=== PATIENT | female | born 1985 | race Caucasian/White ===

== ENCOUNTER 2023-03-28 15:01 | Emergency (ER) | payer OTHER, SELFPAY ==
[2023-03-28 15:15] VITALS: BP 123/86; PULSE 77; RESP 18; TEMP 36.8; O2SAT 99; BMI 29.5
--- NOTE | 2023-03-28 15:25 | ED.URI1 ---
HPI - URI/Sore Throat General Chief Complaint: Upper Respiratory Infection Stated Complaint: COUGH, FEVER, CONGESTION Time Seen by Provider: 03/28/23 15:19 History of Present Illness HPI Narrative: patient is a 37-year-old female presents the emergency department with upper respiratory symptoms for the past two days. She is accompanied by her 2 children who are also being seen for the same. She states he could not see their PCP until April 30. They present to the Emergency Room for two day history of intermittent fevers, cough, congestion. Patient with normal vital signs on presentation to the Emergency Room. She is not concerned for . no vomiting or diarrhea. Related Data Previous Rx's Medication Instructions Recorded aubmdvrcfooeldn-carkjhhjstcfycw-QX 10 ml PO Q6H PRN cold symptoms 03/28/23 2 mg-30 mg-10 mg/5 mL oral syrup #200 mL (Bromfed DM) ondansetron 4 mg disintegrating 4 mg PO Q6H PRN nausea and 03/28/23 tablet vomiting #12 tabs Review of Systems ROS Constitutional Denies: fever or chills Ears, nose, mouth, and throat Reports: nasal congestion Cardiovascular Denies: chest pain Respiratory Reports: cough; Denies: shortness of breath Gastrointestinal Reports: nausea; Denies: vomiting Genitourinary Denies: painful urination Integumentary/Breast Denies: rash Endocrine Denies: excessive urination Allergic/Immunologic Denies: hives Exam Constitutional Vital Signs, click to edit/add: Last Vital Signs Temp 98.3 F 03/28/23 15:15 Pulse 77 03/28/23 15:15 Resp 18 03/28/23 15:15 BP 123/86 03/28/23 15:15 Pulse Ox 99 03/28/23 15:15 O2 Del Method Room Air 03/28/23 15:15 Course Vital Signs Vital signs: Vital Signs Temperature 98.3 F 03/28/23 15:15 Pulse Rate 77 03/28/23 15:15 Respiratory Rate 18 03/28/23 15:15 Blood Pressure 123/86 03/28/23 15:15 Pulse Oximetry 99 03/28/23 15:15 Oxygen Delivery Method Room Air 03/28/23 15:15 Temperature 98.3 F 03/28/23 15:15 Pulse Rate 77 03/28/23 15:15 Respiratory Rate 18 03/28/23 15:15 Blood Pressure 123/86 03/28/23 15:15 Pulse Oximetry 99 03/28/23 15:15 Oxygen Delivery Method Room Air 03/28/23 15:15 MDM - URI/Sore Throat MDM Narrative Medical decision making narrative: patient was offered Covid testing for her and her children, she refused Covid testing stating I would rather not know . Her history and physical are consistent with upper respiratory infection, treated with symptom management with Bromfed-DM and Zofran. Follow-up with PCP and return to the Emergency Room if symptoms change or worsen. Medical Records Attestation: I reviewed the patient's medical records. Discharge Plan Discharge Chief Complaint: Upper Respiratory Infection Clinical Impression: Upper respiratory infection Patient Disposition: Home, Self-Care Time of Disposition Decision: 15:19 Condition: Good Prescriptions / Home Meds: New vhuwwnaragchhup-pbfvkxopb-IA [Bromfed DM] 2-30-10 mg/5 mL syrup 10 ml PO Q6H PRN (Reason: cold symptoms) Qty: 200 0RF ondansetron 4 mg tablet,disintegrating 4 mg PO Q6H PRN (Reason: nausea and vomiting) Qty: 12 0RF Instructions: Upper Respiratory Infection (ED) Stand Alone Forms: Portal Instructions Referrals: Moshe Bennett MD [Primary Care Provider] - 1 week
== END 2023-03-28 15:31 | disposition home or self-care (01) ==
PROVIDERS: Emergency Provider Emergency Medicine Emergency Medical Services; PCP Family Medicine
DX: J06.9 Acute upper respiratory infection, unspecified (principal)
CPT/HCPCS: 99283

== ENCOUNTER 2023-07-14 13:55 | Emergency (ER) | payer OTHER, SELFPAY ==
[2023-07-14 14:12] VITALS: BP 107/77; PULSE 86; RESP 20; TEMP 36.6; O2SAT 100; BMI 29.8
[2023-07-14 15:01] LABS: Influenza Virus A Antigen Negative; Influenza Virus B Antigen Negative; Internal Control Within Normal Limits; Strep A Antigen Screen Negative
[2023-07-14 15:02] LABS: SARS-CoV-2 Ag POSITIVE (NEGATIVE)
--- NOTE | 2023-07-14 15:35 | ED.URI1 ---
HPI - URI/Sore Throat General Chief Complaint: Upper Respiratory Infection Stated Complaint: URTI Time Seen by Provider: 07/14/23 14:15 Source: patient History of Present Illness HPI Narrative: [age] year old female presents for cough. It started today. Her two children are being seen for similar symptoms. No vomiting or diarrhea. Related Data Home Medications Medication Instructions Recorded Confirmed dextroamphetamine-amphetamine ER 30 mg PO DAILY 07/14/23 07/14/23 30 mg 24hr capsule,extend release Previous Rx's Medication Instructions Recorded vlyzlecuunjzvkk-tokehfkbbssddzc-DU 10 ml PO Q6H PRN cold symptoms 03/28/23 2 mg-30 mg-10 mg/5 mL oral syrup #200 mL (Bromfed DM) ondansetron 4 mg disintegrating 4 mg PO Q6H PRN nausea and 03/28/23 tablet vomiting #12 tabs Allergies Allergy/AdvReac Type Severity Reaction Status Date / Time No Known Drug Allergies Allergy Verified 07/14/23 14:11 Review of Systems ROS Narrative A ten point review of systems is negative except as noted above. Exam Narrative Exam Narrative: Nurses note and vital signs reviewed and patient is not hypoxic. General: The patient appears well and in no apparent distress. Patient is resting comfortably on cart. Skin: Warm, dry, no pallor noted. There is no rash noted. Head: Normocephalic, atraumatic Eye: Normal conjunctiva, no drainage Ears, Nose, Mouth, and Throat: oral mucosa is moist. Nares patent. Cardiovascular: Regular Rate and Rhythm Respiratory: Patient is in no distress, no accessory muscle use, lungs are clear to auscultation, no wheezing, rales or rhonchi GI: nontender Musculoskeletal: no joint swelling Neurological: A&O, normal speech Psychiatric: Cooperative Constitutional Vital Signs, click to edit/add: Last Vital Signs Temp 97.9 F 07/14/23 14:12 Pulse 86 07/14/23 14:12 Resp 20 07/14/23 14:12 BP 107/77 07/14/23 14:12 Pulse Ox 100 07/14/23 14:12 O2 Del Method Room Air 07/14/23 14:12 Course Vital Signs Vital signs: Vital Signs Temperature 97.9 F 07/14/23 14:12 Pulse Rate 86 07/14/23 14:12 Respiratory Rate 20 07/14/23 14:12 Blood Pressure 107/77 07/14/23 14:12 Pulse Oximetry 100 07/14/23 14:12 Oxygen Delivery Method Room Air 07/14/23 14:12 Temperature 97.9 F 07/14/23 14:12 Pulse Rate 86 07/14/23 14:12 Respiratory Rate 20 07/14/23 14:12 Blood Pressure 107/77 07/14/23 14:12 Pulse Oximetry 100 07/14/23 14:12 Oxygen Delivery Method Room Air 07/14/23 14:12 MDM - URI/Sore Throat MDM Narrative Medical decision making narrative: testing is positive for Covid. She was informed. Lab Data Attestation: I reviewed the patient's lab results. Labs: Lab Results 07/14/23 Range/Units 14:20 SARS-CoV-2 (PCR) Positive A (NEGATIVE) Influenza Type A Ag Negative Influenza Type B Ag Negative Streptococcus Screen Negative Discharge Plan Discharge Chief Complaint: Upper Respiratory Infection Clinical Impression: COVID-19 Patient Disposition: Home, Self-Care Time of Disposition Decision: 15:34 Condition: Good Mode of Transportation: Private Vehicle Prescriptions / Home Meds: No Action orntpzdhoakbsly-jsxxwrbqa-FE [Bromfed DM] 2-30-10 mg/5 mL syrup 10 ml PO Q6H PRN (Reason: cold symptoms) Qty: 200 0RF ondansetron 4 mg tablet,disintegrating 4 mg PO Q6H PRN (Reason: nausea and vomiting) Qty: 12 0RF dextroamphetamine-amphetamine 30 mg capsule,extended release 24hr 30 mg PO DAILY Instructions: COVID-19 (Coronavirus Disease 2019) (ED), COVID-19: Slow the Coronavirus Spread (ED), Face Coverings (Masks) and COVID-19 (ED), How to Recover from COVID-19 at Home (ED) Stand Alone Forms: Portal Instructions Referrals: Moshe Bennett MD [Primary Care Provider] - 1 week
== END 2023-07-14 16:02 | disposition home or self-care (01) ==
PROVIDERS: Physician Assistant; Emergency Provider Emergency Medicine; PCP Family Medicine
DX: U07.1 COVID-19 (principal)
CPT/HCPCS: 87070; 87804; 87811; 87880; 99283

== ENCOUNTER 2023-07-18 15:37 | Emergency (ER) | payer OTHER, SELFPAY ==
[2023-07-18 15:45] VITALS: BP 116/58; PULSE 72; RESP 20; TEMP 36.6; O2SAT 100; BMI 30.1
--- OUTSIDE RECORDS SUMMARY | 2023-07-18 15:57 | XMS_ITS | CCD ---
Author Name Unknown Address [address] [place] [address] [address] [place] [id number] Organization [facility] Care Team Providers Care Rfid Technician Name Role Phone SIMON, DR SHIRA Brantley Primary Care Unavailable DIMAS, MARIAH Admitting Unavailable DIMAS, MARIAH Attending Unavailable DIMAS, MARIAH Consulting Unavailable SIMON, DR SHIRA Brantley Primary Care Unavailable KANNAN LISA Consulting Unavailable JACQUIE, BHAKTI Admitting Unavailable BHAKTI DHILLON Attending Unavailable SIMON, DR SHIRA Brantley Primary Care Unavailable DIMAS, MARIAH Admitting Unavailable MARIAH COCHRAN Attending Unavailable SIMON, DR SHIRA Brantley Admitting Unavailable NADEREYohana, DR SHIRA Brantley Attending Unavailable NADERER, DR SHIRA Brantley Primary Care Unavailable NADERER, DR SHIRA Brantley Consulting Unavailable NADERER, DR SHIRA Brantley Admitting Unavailable NADERER, DR SHIRA Brantley Attending Unavailable NADERER, DR SHIRA Brantley Primary Care Unavailable NADERER, DR SHIRA Brantley Consulting Unavailable Problems Active Problems Problem Classification Problem Date Documented Date Episodic/Chronic Acute and chronic tonsillitis (1 source) Acute tonsillitis, unspecified; Translations: [ACUTE TONSILLITIS UNSPECIFIED] Onset: 05-13-2022 Episodic Disorders of teeth and jaw (1 source) Right temporomandibular joint disorder, unspecified; Translations: [RIGHT TEMPOROMANDIBULAR JNT D/O UNS] Onset: 05-13-2022 Episodic Other upper respiratory infections (6 sources) Acute upper respiratory infection, unspecified; Translations: [Acute pharyngitis, unspecified] Onset: 05-12-2022 Episodic Screening and history of mental health and substance abuse codes (1 source) Personal history of nicotine dependence; Translations: [PERSONAL HISTORY OF NICOTINE DEPEND] Onset: 07-08-2022 Episodic Unclassified (2 sources) COUGH, UNSPECIFIED; Translations: [COUGH, UNSPECIFIED] Onset: 07-08-2022 Unclassified (4 sources) CONTACT W/AND (SUSP) EXPOS COVID-19; Translations: [CONTACT W/AND (SUSP) EXPOS COVID-19] Onset: 07-14-2021 Past or Other Problems Problem Classification Problem Date Documented Da te Episodic/Chronic Other skin disorders (1 source) Hirsutism; Translations: [HIRSUTISM] Onset: 11-22-2021 Episodic Residual codes; unclassified (4 sources) Procedure and treatment not carried out due to patient leaving prior to being seen by health care provider; Translations: [PROC AND TX NOT CARRIED OUT PT LEAVE] Onset: 07-31-2021 Episodic Unclassified (1 source) COUGH, UNSPECIFIED; Translations: [COUGH, UNSPECIFIED] Onset: 07-04-2022 Unclassified (1 source) CONTACT W/AND (SUSP) EXPOS COVID-19; Translations: [CONTACT W/AND (SUSP) EXPOS COVID-19] Onset: 07-10-2021 Results Test Name Value Interpretation Reference Range Facil ity Covid-19 PCR (CVDTBH)on SARS-CoV-2 (COVID-19) RNA TIERA+probe Ql (Unsp spec) Not detected Normal NOT DETECTED [facility] Comment on above: Result Comment: When diagnostic testing is negative, the possibility of a false negative should be considered in the context of a patient's recent exposures and the presence of clinical signs and symptoms consistent with SARS-CoV-2. This test is not yet approved or cleared by the [place] FDA. When there are no FDA-approved or cleared tests available, and other criteria are met, FDA can make tests available under an emergency access mechanism called an Emergency Use Authorization (EUA). The EUA for this test is supported by the Resident Inspector of Health and Human Service's declaration that circumstances exist to justify the emergency use of in vitro diagnostics for the detection and/or diagnosis of the virus that causes COVID-19. This EUA will remain in effect for the duration of the COVID-19 declaration justifying emergency of IVDs, unless it is terminated or revoked by the FDA (after which the test may no longer be used). Performed By: #### L IVER, BMP, LIPID, FT3, TSH #### [facility] [address] [place] [address] Dr. Nikita Burgess INFLUENZA A AND B AGon 07-04 INFLUANEGH SEE BELOW Normal [facility] Comment on above: Result Comment: Nega tive for Flu A protein angiten. Infection due to Flu A cannot be ruled out. Flu A angiten in the sample may be below the detection limit of the test. Performed By: #### I NFLUAB #### [facility] [address] [place] [address] Dr. Nikita Burgess INFLUBNEG SEE BELOW Normal [facility] Comment on above: Result Comment: Nega tive for Flu B protein antigen. Infection due to Flu B cannot be ruled out. Flu B antigen in the sample may be below the detection limit of the test. Performed By: #### I NFLUAB #### [facility] [address] [place] [address] Dr. Nikita Burgess INFLUENZA A AG Negative Normal NEGATIVE SEE COMMENT [facility] Comment on above: Performed By: #### I NFLUAB #### [facility] [address] [place] [address] Dr. Nikita Burgess INFLUENZA B AG Negative Normal NEGATIVE SEE COMMENT [facility] Comment on above: Performed By: #### I NFLUAB #### [facility] [address] [place] [address] Dr. Nikita Burgess INTERNAL CONTROLS Within Normal Limits Normal Wi thin Normal Limits [facility] Comment on above: Performed By: #### I NFLUAB #### [facility] [address] [place] [address] Dr. Nikita Burgess GROUP A STREP CULTUREon 04-27 S. pyogenes Ag Ql (Unsp spec) Culture Observations: NEGATIVE FOR GROUP A STREPTOCOCCUS. Normal [facility] Comment on above: Performed By: #### L IVER, BMP, LIPID, FT3, TSH #### [facility] [address] [place] [address] Dr. Nikita Burgess STREPT SCREENon 05-12-2022 STREP SCREEN A Negative Normal NEGATIVE [facility] Comment on above: Performed By: #### L IVER, BMP, LIPID, FT3, TSH #### [facility] [address] [address] [address] Nikita Burgess ESTRONEon 11-26-2021 Estrone, Serum 30 pg/mL Normal 27-231 [facility] Comment on above: Result Comment: Rang e Adult (Premenopausal) 27 - 231 Menstrual Cycle (1-10 days) 19 - 149 Menstrual Cycle (11-20 days) 32 - 176 Menstrual Cycle (21-30 days) 37 - 200 Please note reference interval change Performed By: #### L IVER, BMP, LIPID, FT3, TSH #### [facility] [address] [place] [address] Dr. Nikita Burgess DHEA-SULFATEon 11-22-2021 DHEA-Sulfate 123.0 ug/dL Normal 57.3-279.2 [facility] Comment on above: Performed By: #### L IVER, BMP, LIPID, FT3, TSH #### [facility] [address] [address] [address] Nikiat Burgess ESTRADIOLon 11-22-2021 Estradiol 83.2 pg/mL Normal [facility] Comment on above: Result Comment: Adul t Female: Follicular phase 12.5 - 166.0 Ovulation phase 85.8 - 498.0 Luteal phase 43.8 - 211.0 Postmenopausal <6.0 - 54.7 1st trimester 215.0 - >4300.0 [facility] ECLIA methodology Performed By: #### L IVER, BMP, LIPID, FT3, TSH #### [facility] [address] [place] [address] Dr. Nikita Burgess FSHon 11-22-2021 FSH 3.0 mIU/mL Normal [facility] Comment on above: Result Comment: Adul t Female: Follicular phase 3.5 - 12.5 Ovulation phase 4.7 - 21.5 Luteal phase 1.7 - 7.7 Postmenopausal 25.8 - 134.8 Performed By: #### L IVER, BMP, LIPID, FT3, TSH #### [facility] [address] [place] [address] Dr. Nikita Burgess LUTEINIZING HORMONE (LH)on 0 11-22-2021 LH 1.8 mIU/mL Normal [facility] Comment on above: Result Comment: Adul t Female: Follicular phase 2.4 - 12.6 Ovulation phase 14.0 - 95.6 Luteal phase 1.0 - 11.4 Postmenopausal 7.7 - 58.5 Performed By: #### L IVER, BMP, LIPID, FT3, TSH #### [facility] [address] [place] [address] Dr. Nikita Burgess PROGESTERONEon 11-22-2021 Progesterone 10.2 ng/mL Normal [facility] Comment on above: Result Comment: Foll icular phase 0.1 - 0.9 Luteal phase 1.8 - 23.9 Ovulation phase 0.1 - 12.0 First trimester 11.0 - 44.3 Second trimester 25.4 - 83.3 Third trimester 58.7 - 214.0 Postmenopausal 0.0 - 0.1 Performed By: #### L IVER, BMP, LIPID, FT3, TSH #### [facility] [address] [place] [address] Dr. Nikita Burgess PROLACTINon 11-22-2021 Prolactin 6.1 ng/mL Normal 4.8-23.3 [facility] Comment on above: Performed By: #### L IVER, BMP, LIPID, FT3, TSH #### [facility] [address] [place] [address] Dr. Nikita Burgess TESTOSTERONE, TOTALon 2021 Testosterone [Mass/Vol] 11 ng/dL Normal 8-60 [facility] Comment on above: Performed By: #### L IVER, BMP, LIPID, FT3, TSH #### [facility] [address] [place] [address] Dr. Nikita Burgess CBC AUTO DIFFon 11-21-2021 BASO # 0.0 103/ul Normal 0.0-0.1 [facility] Comment on above: Performed By: #### C BC #### [facility] [address] [place] [address] Dr. Nikita Burgess Basophils/100 WBC (Bld) 0.6 % Normal 0.2-2.0 [facility] Comment on above: Performed By: #### C BC #### [facility] [address] [place] [address] Dr. Nikita Burgess EO # 0.1 103/ul Normal 0.0-0.7 [facility] Comment on above: Performed By: #### C BC #### [facility] [address] [place] [address] Dr. Nikita Burgess Eosinophils/100 WBC (Bld) 1.5 % Normal 0.9-7.0 [facility] Comment on above: Performed By: #### C BC #### [facility] [address] [place] [address] Dr. Nikita Burgess Erythrocyte distribution width (RBC) [Ratio] 13.7 % Normal 11.0-15.0 [facility] Comment on above: Performed By: #### C BC #### [facility] [address] [place] [address] Dr. Nikita Burgess Hematocrit (Bld) [Volume fraction] 40.7 % Normal 36.0-48.0 [facility] Comment on above: Performed By: #### C BC #### [facility] [address] [place] [address] Dr. Nikita Burgess Hemoglobin (Bld) [Mass/Vol] 12.8 g/dL Normal 12.0-16.0 [facility] Comment on above: Performed By: #### C BC #### [facility] [address] [place] [address] Dr. Nikita Burgess IG # 0.01 10e3/ul Normal 0.00-0.03 [facility] Comment on above: Performed By: #### C BC #### [facility] [address] [place] [address] Dr. Nikita Burgess IG % 0.2 % Normal 0.0-0.5 [facility] Comment on above: Performed By: #### C BC #### [facility] [address] [place] [address] Dr. Nikita Burgess LYMPH # 1.6 103/ul Normal 1.2-3.8 [facility] Comment on above: Performed By: #### C BC #### [facility] [address] [place] [address] Dr. Nikita Burgess Lymphocytes/100 WBC (Bld) 29.5 % Normal 20.5-60.0 [facility] Comment on above: Performed By: #### C BC #### [facility] [address] [place] [address] Dr. Nikita Burgess MANUAL DIFF REQ NO Normal [facility] Comment on above: Performed By: #### C BC #### [facility] [address] [place] [address] Dr. Nikita Burgess MCH (RBC) [Entitic mass] 28.0 pg Normal 26.7-34.0 [facility] Comment on above: Performed By: #### C BC #### [facility] [address] [place] [address] Dr. Nikita Burgess MCHC (RBC) [Mass/Vol] 31.4 g/dL Normal 29.9-35.2 [facility] Comment on above: Performed By: #### C BC #### [facility] [address] [place] [address] Dr. Nikita Burgess MCV (RBC) [Entitic vol] 89.1 fL Normal 81.0-99.0 [facility] Comment on above: Performed By: #### C BC #### [facility] [address] [place] [address] Dr. Nikita Burgess MONO # 0.4 103/ul Normal 0.3-0.8 [facility] Comment on above: Performed By: #### C BC #### [facility] [address] [place] [address] Dr. Nikita Burgess Monocytes/100 WBC (Bld) 7.4 % Normal 1.7-12.0 [facility] Comment on above: Performed By: #### C BC #### [facility] [address] [place] [address] Dr. Nikita Burgess NEUT # 3.2 103/ul Normal 1.4-6.5 [facility] Comment on above: Performed By: #### C BC #### [facility] [address] [place] [address] Dr. Nikita Burgess Neutrophils/100 WBC (Bld) 60.8 % Normal 43.0-75.0 [facility] Comment on above: Performed By: #### C BC #### [facility] [address] [place] [address] Dr. Nikita Burgess Platelet mean volume (Bld) [Entitic vol] 10.1 fL Normal 9.5-13.5 [facility] Comment on above: Performed By: #### C BC #### [facility] [address] [place] [address] Dr. Nikita Burgess PLT 273 103/ul Normal 150-450 [facility] Comment on above: Performed By: #### C BC #### [facility] [address] [place] [address] Dr. Nikita Burgess RBC 4.57 106/ul Normal 4.20-5.40 [facility] Comment on above: Performed By: #### C BC #### [facility] [address] [place] [address] Dr. Nikita Burgess WBC 5.3 103/ul Normal 4.0-11.0 [facility] Comment on above: Performed By: #### C BC #### [facility] [address] [place] [address] Dr. Nikita Burgess FREE T3on 11-21-2021 FREE T3 2.69 pg/mlL Normal 2.18-3.98 [facility] Comment on above: Performed By: #### L IVER, BMP, LIPID, FT3, TSH #### [facility] [address] [place] [address] Dr. Nikita Burgess FREE T4on 11-21-2021 Free T4 [Mass/Vol] 0.98 ng/dL Normal 0.76-1.46 [facility] Comment on above: Performed By: #### F T4, VITAD #### [facility] [address] [place] [address] Dr. Nikita Burgess GLYCOHEMOGLOBIN A1Con 2021 ADA RECOMMENDATION SEE BELOW Normal [facility] Comment on above: Result Comment: ADA RECOMMENDED LIMIT 4.0 - 6.0 ADA THERAPEUTIC TARGET < 7.0 ACTION SUGGESTED > 7.0 Performed By: #### A 1C #### [facility] [address] [address] [address] Nikita Burgess Glucose [Mass/Vol] 111 mg/dL Normal [facility] Comment on above: Performed By: #### A 1C #### [facility] [address] [address] [address] Nikita Burgess HbA1c (Bld) [Mass fraction] 5.5 % Normal 4.5-6.2 [facility] Comment on above: Performed By: #### A 1C #### [facility] [address] [address] [address] Nikita Burgess LIPID PROFILEon 11-21-2021 CHOL-HDL RATIO NORM SEE BELOW Normal [facility] Comment on above: Result Comment: 3.3 - 4.4 LOW RISK 4.4 - 7.1 AVERAGE RISK 7.1 - 11.0 MODERATE RISK >11.0 HIGH RISK Performed By: #### L IVER, BMP, LIPID, FT3, TSH #### [facility] [address] [address] [address] Nikita Burgess Cholesterol [Mass/Vol] 193 mg/dL Normal <=200 [facility] Comment on above: Performed By: #### L IVER, BMP, LIPID, FT3, TSH #### [facility] [address] [address] [address] Nikita Burgess Cholesterol in HDL [Mass/Vol] 58 mg/dL Normal 40-60 [facility] Comment on above: Performed By: #### L IVER, BMP, LIPID, FT3, TSH #### [facility] [address] [address] [address] Nikita Burgess Cholesterol in LDL [Mass/Vol] 122.6 mg/dL Normal [facility] Comment on above: Performed By: #### L IVER, BMP, LIPID, FT3, TSH #### [facility] [address] [address] [address] Nikita Burgess Cholesterol.total/Cho lesterol in HDL [Mass ratio] 3.3 {ratio} Normal [facility] Comment on above: Performed By: #### L IVER, BMP, LIPID, FT3, TSH #### [facility] [address] [address] [address] Nikita Burgess HDL NORMAL > or = 60 mg/dl - LOW CARDIOVASCULAR RISK <40 mg/dl - HIGH CARDIOVASCULAR RISK Normal [facility] Comment on above: Performed By: #### L IVER, BMP, LIPID, FT3, TSH #### [facility] [address] [address] [address] Nikita Burgess LDL CALC NORMAL SEE BELOW Normal [facility] Comment on above: Result Comment: <100 mg/dl OPTIMAL 100 - 129 mg/dl NEAR OR ABOVE OPTIMAL 130 - 159 mg/dl BORDERLINE HIGH 160 - 189 mg/dl HIGH >190 mg/dl VERY HIGH Performed By: #### L IVER, BMP, LIPID, FT3, TSH #### [facility] [address] [address] [address] Nikita Burgess Triglyceride [Mass/Vol] 62 mg/dL Normal <=150 [facility] Comment on above: Performed By: #### L IVER, BMP, LIPID, FT3, TSH #### [facility] [address] [address] [address] Nikita Burgess VLDL CALC 12.4 mg/dL Normal [facility] Comment on above: Performed By: #### L IVER, BMP, LIPID, FT3, TSH #### [facility] [address] [address] [address] Nikita Burgess LIVER PROFILEon 11-21-2021 Albumin [Mass/Vol] 3.9 g/dL Normal 3.4-5.0 [facility] Comment on above: Performed By: #### L IVER, BMP, LIPID, FT3, TSH #### [facility] [address] [address] [address] Nikita Burgess Albumin/Globulin [Mass ratio] 1.0 {ratio} Normal [facility] Comment on above: Performed By: #### L IVER, BMP, LIPID, FT3, TSH #### [facility] [address] [address] [address] Nikita Burgess ALP [Catalytic activity/Vol] 68 U/L Normal 46-116 [facility] Comment on above: Performed By: #### L IVER, BMP, LIPID, FT3, TSH #### [facility] [address] [place] [address] Dr. Nikita Burgess ALT [Catalytic activity/Vol] 20 U/L Normal 14-59 [facility] Comment on above: Performed By: #### L IVER, BMP, LIPID, FT3, TSH #### [facility] [address] [place] [address] Dr. Nikita Burgess AST [Catalytic activity/Vol] 17 U/L Normal 15-37 [facility] Comment on above: Performed By: #### L IVER, BMP, LIPID, FT3, TSH #### [facility] [address] [place] [address] Dr. Nikita Burgess BILI, CONJUGATED 0.1 mg/dL Normal 0.0-0.2 [facility] Comment on above: Performed By: #### L IVER, BMP, LIPID, FT3, TSH #### [facility] [address] [place] [address] Dr. Nikita Burgess Bilirubin [Mass/Vol] 0.6 mg/dL Normal 0.2-1.0 [facility] Comment on above: Performed By: #### L IVER, BMP, LIPID, FT3, TSH #### [facility] [address] [place] [address] Dr. Nikita Burgess Globulin (S) [Mass/Vol] 3.9 g/dL Normal [facility] Comment on above: Performed By: #### L IVER, BMP, LIPID, FT3, TSH #### [facility] [address] [place] [address] Dr. Nikita Burgess Protein [Mass/Vol] 7.8 g/dL Normal 6.1-8.2 [facility] Comment on above: Performed By: #### L IVER, BMP, LIPID, FT3, TSH #### [facility] [address] [place] [address] Dr. Nikita Burgess PROF CHEM 8 (BAS METB)on Anion gap [Moles/Vol] 12.5 mmol/L Normal [facility] Comment on above: Performed By: #### L IVER, BMP, LIPID, FT3, TSH #### [facility] [address] [address] [address] Nikita Burgess Calcium [Mass/Vol] 8.2 mg/dL Critically low 8.5-10.1 [facility] Comment on above: Performed By: #### L IVER, BMP, LIPID, FT3, TSH #### [facility] [address] [place] [address] Dr. Nikita Burgess Chloride [Moles/Vol] 102 mmol/L Normal 98-107 [facility] Comment on above: Performed By: #### L IVER, BMP, LIPID, FT3, TSH #### [facility] [address] [place] [address] Dr. Nikita Burgess CO2 [Moles/Vol] 26.3 mmol/L Normal 21.0-32.0 [facility] Comment on above: Performed By: #### L IVER, BMP, LIPID, FT3, TSH #### [facility] [address] [address] [address] Nikita Burgess Creatinine [Mass/Vol] 0.57 mg/dL Normal 0.55-1.02 [facility] Comment on above: Performed By: #### L IVER, BMP, LIPID, FT3, TSH #### [facility] [address] [place] [address] Dr. Nikita Burgess EGFR-AF FIJIAN >60 Normal >=60 [facility] Comment on above: Performed By: #### L IVER, BMP, LIPID, FT3, TSH #### [facility] [address] [address] [address] Nikita Burgess EGFR-NON AF FIJIAN >60 Normal >=60 [facility] Comment on above: Performed By: #### L IVER, BMP, LIPID, FT3, TSH #### [facility] [address] [address] [address] Nikita Burgess Glucose [Mass/Vol] 78 mg/dL Normal 74-106 [facility] Comment on above: Performed By: #### L IVER, BMP, LIPID, FT3, TSH #### [facility] [address] [place] [address] Dr. Nikita Burgess Potassium [Moles/Vol] 3.8 mmol/L Normal 3.5-5.1 [facility] Comment on above: Performed By: #### L IVER, BMP, LIPID, FT3, TSH #### [facility] [address] [place] [address] Dr. Nikita Burgess Sodium [Moles/Vol] 137 mmol/L Normal 136-145 [facility] Comment on above: Performed By: #### L IVER, BMP, LIPID, FT3, TSH #### [facility] [address] [place] [address] Dr. Nikita Burgess Urea nitrogen [Mass/Vol] 11.0 mg/dL Normal 7.0-18.0 [facility] Comment on above: Performed By: #### L IVER, BMP, LIPID, FT3, TSH #### [facility] [address] [place] [address] Dr. Nikita Burgess Urea nitrogen/Creatinine [Mass ratio] 19.3 mg/mg Normal [facility] Comment on above: Performed By: #### L IVER, BMP, LIPID, FT3, TSH #### [facility] [address] [place] [address] Dr. Nikita Burgess TSHon 11-21-2021 TSH 2.175 uIU/mL Normal 0.470-4.680 [facility] Comment on above: Performed By: #### L IVER, BMP, LIPID, FT3, TSH #### [facility] [address] [place] [address] Dr. Nikita Burgess TSH RANGE SEE BELOW Normal [facility] Comment on above: Result Comment: <0.3 4 UIU/ml HYPERTHYROID 0.34-5.60 UIU/ml EUTHYROID >5.60 UIU/ml HYPOTHYROID Performed By: #### L IVER, BMP, LIPID, FT3, TSH #### [facility] [address] [place] [address] Dr. Nikita Burgess VITAMIN D 25 OHon 11-21-2021 VIT D 25-OH 49.5 ng/mL Normal [facility] Comment on above: Performed By: #### F T4, VITAD #### [facility] [address] [address] [address] Nikita Burgess VIT D RANGES SEE BELOW Normal [facility] Comment on above: Result Comment: <20 ng/mL Vit D deficient 20 - <30 ng/mL Vit D insufficient 30 - 100 ng/mL Vit D sufficient >100 ng/mL Potential Toxicity Performed By: #### F T4, VITAD #### [facility] [address] [address] [address] Nikita Burgess Covid-19 PCR ([facility])on 06-27 SARS-CoV-2 (COVID-19) RNA TIERA+probe Ql (Unsp spec) Not detected Normal NOT DETECTED [facility] Comment on above: Result Comment: This test is not yet approved or cleared by the [place] FDA. When there are no FDA-approved or cleared tests available, and other criteria are met, FDA can make tests available under an emergency access mechanism called an Emergency Use Authorization (EUA). The EUA for this test is supported by the [place] of Health and Human Service's (HHS's) declaration that circumstances exist to justify the emergency use of in vitro diagnostics for the detection and/or diagnosis of the virus that causes COVID-19. This EUA will remain in effect (meaning this test can be used) for the duration of the COVID-19 declaration justifying emergency of IVDs, unless it is terminated or revoked by FDA (after which the test may no longer be used). When diagnostic testing is negative, the possibility of a false negative should be considered in the context of a patient's recent exposures and the presence of clinical signs and symptoms consistent with SARS-CoV-2. Performed By: #### L IVER, BMP, LIPID, FT3, TSH #### [facility] [address] [address] [address] Nikita Burgess [place] 10-04-2020 Consent [id number] 1#[id number]:127 Normal [facility] Registrationon 10-04-2020 Registration [id number] 7#[id number]:127 [facility] Encounters Encounter Date Encounter Type Care Provider Facility Start: 07-04-2022 End: 07-04-[address] SHIRA MONTES Facility:[facility] Start: 05-12-2022 End: 05-12-[address] SHIRA MONTES Facility:[facility] Start: 11-22-2021 Encounter for genera l adult medical examination without abnormal findings DR SHIRA MONTES [facility] Start: 11-21-2021 End: 11-22-[address] SHIRA MONTES Facility:[facility] Start: 11-21-2021 End: 11-22-2021 Encounter for general adult medical examination without abnormal findings DR SHIRA MONTES Facility:[facility] Start: 07-31-2021 End: 07-31-[address] SHIRA MONTES Facility:[facility] Start: 07-10-2021 End: 07-10-[address] SHIRA MONTES Facility:[facility] Payers Date Payer Category Payer Unknown [id number] 2.16.84 [id number] 1986 Unknown [id number] 2.16.84 [id number] 1986 Unknown [id number] 2.16.84 [id number] 1986 Unknown [id number] 2.16.84 [id number] 1986 Unknown [id number] 2.16.84 [id number] 1959 Unknown [id number] Summary Purpose Family History No Family History Records FoundNo Family History Records Found Advance Directives No Advanced Directives Records FoundNo Advanced Directives Records Found Additional Source Comments INFORMATION SOURCE (unrecogn ized section and content) DATE CREATED AUTHOR 10/05/2020 [facility] DATE CREATED AUTHOR AUTHOR'S ORGANIZ ATION 07/08/2022 [employer] [facility] FOR RECORDS PERTAINING TO PATIENTS WHO ARE OR HAVE BEEN ENROLLED IN A CHEMICAL DEPENDENCY/SUBSTANCEABUSE PROGRAM, SOME INFORMATION MAY BE OMITTED. This clinical summary was aggregated from multiple sources. Caution should be exercised in using it in the provision of clinical care. This summary normalizes information from multiple sources, and as a consequence, information in this document may materially change the coding, format and clinical context of patient data. In addition, data may be omitted in some cases. CLINICAL DECISIONS SHOULD BE BASED ON THE PRIMARY CLINICAL RECORDS. [facility]. provides no warranty or guarantee of the accuracy or completeness of information in this document.
--- NOTE | 2023-07-18 20:24 | ED_ITS ---
HPI - General Adult General Chief complaint: Upper Respiratory Infection Stated complaint: Upper Respiratory Infection Time Seen by Provider: 07/18/23 15:59 Source: patient Mode of arrival: walk-in Limitations: no limitations History of Present Illness HPI narrative: Patient is a 38-year-old female who is presenting to the Emergency Room with chief complaint of sore throat. Patient was coded tested positive on Friday. Patient symptoms started on Friday. Patient states her daughter has strep throat and she is concerned that she has strep throat as well. Patient son is also a patient and he has a moist cough, and thinks that he has strep throat as well even though he tested negative on Friday. Patient's son's cultures were negative as well. Patient says she is feeling better from her Covid. Patient has no headache, neck pain. Positive sore throat. Mild sinus congestion. No ear pain. No nausea, vomiting, diarrhea, no other acute complaints. . All systems are negative except as noted/marked. All systems reviewed and otherwise negative. . Nurses note and vital signs reviewed and patient is not hypoxic. General: The patient appears well and in no apparent distress. Patient is resting comfortably on cart. Patient is not toxic, lethargic, or listless Skin: Warm, dry, no pallor noted. There is no rash noted. No petechiae, purpura. Head: Normocephalic, atraumatic, No tenderness to palpation to bilateral frontal or maxillary sinus. Eye: Normal conjunctiva, no drainage, EOMI. PERRL Ears, Nose, Mouth, and Throat: oral mucosa is moist. Nares patent. Mouth without vesicles. Bilateral tympanic membrane shows no erythema, perforation or bulging. Clear drainage noted to the posterior pharynx with mild to moderate cobblestoning. No unilateral swelling. No posterior pharyngeal petechiae, exuda te, no other acute abnormalities. Airway patent. Cardiovascular: Regular Rate and Rhythm, no murmur, gallop, rub Respiratory: Patient is in no distress, no accessory muscle use, lungs are clear to auscultation, no wheezing, rales or rhonchi Musculoskeletal: Patient has full range of motion of all of the extremities, no motor, sensory, or focal neurological deficits Neurological: A&O x3, normal speech Psychiatric: Cooperative Related Data Home Medications Medication Instructions Recorded Confirmed dextroamphetamine-amphetamine ER 30 mg PO DAILY 07/14/23 07/14/23 30 mg 24hr capsule,extend release Previous Rx's Medication Instructions Recorded tvfahwfqmgojslh-gkvqeoypuorffue-MZ 10 ml PO Q6H PRN cold symptoms 03/28/23 2 mg-30 mg-10 mg/5 mL oral syrup #200 mL (Bromfed DM) ondansetron 4 mg disintegrating 4 mg PO Q6H PRN nausea and 03/28/23 tablet vomiting #12 tabs ondansetron 4 mg disintegrating 4 mg PO Q4H PRN nausea and 07/18/23 tablet vomiting 3 days #6 tabs Allergies Allergy/AdvReac Type Severity Reaction Status Date / Time No Known Drug Allergies Allergy Verified 07/14/23 14:11 PFSH PFSH Social History Smoking status: Heavy tobacco smoker Exam Constitutional Vital Signs, click to edit/add: Last Vital Signs Temp 98 F 07/18/23 15:45 Pulse 72 07/18/23 15:45 Resp 20 07/18/23 15:45 BP 116/58 07/18/23 15:45 Pulse Ox 100 07/18/23 15:45 O2 Del Method Room Air 07/18/23 15:45 Course Vital Signs Vital signs: Vital Signs Temperature 98 F 07/18/23 15:45 Pulse Rate 72 07/18/23 15:45 Respiratory Rate 20 07/18/23 15:45 Blood Pressure 116/58 07/18/23 15:45 Pulse Oximetry 100 07/18/23 15:45 Oxygen Delivery Method Room Air 07/18/23 15:45 Temperature 98 F 07/18/23 15:45 Pulse Rate 72 07/18/23 15:45 Respiratory Rate 20 07/18/23 15:45 Blood Pressure 116/58 07/18/23 15:45 Pulse Oximetry 100 07/18/23 15:45 Oxygen Delivery Method Room Air 07/18/23 15:45 Medical Decision Making MDM Narrative Medical decision making narrative: Education about the appropriate use of retesting for strep and the need for antibiotics with evidence based medicine of using antibiotics for strep has been discussed. Mother agrees not testing and not needing antibiotics. Mother was thankful for the time spent with her and her son educating them on retesting strep, antibiotics and strep treatment, and following up with PCP and just treating symptoms at home. Mother is not treating any of her symptoms at home. Mother will start using DayQuil, NyQuil, Flonase. No questions at discharge. Discharge Plan Discharge Chief Complaint: Upper Respiratory Infection Clinical Impression: Sore throat, Sinus congestion, COVID Patient Disposition: Home, Self-Care Condition: Fair Prescriptions / Home Meds: New ondansetron 4 mg tablet,disintegrating 4 mg PO Q4H PRN (Reason: nausea and vomiting) 3 Days Qty: 6 0RF No Action eqelyognzjvzbje-ozanjjwho-[id number] [Bromfed DM] 2-30-10 mg/5 mL syrup 10 ml PO Q6H PRN (Reason: cold symptoms) Qty: 200 0RF ondansetron 4 mg tablet,disintegrating 4 mg PO Q6H PRN (Reason: nausea and vomiting) Qty: 12 0RF dextroamphetamine-amphetamine 30 mg capsule,extended release 24hr 30 mg PO DAILY Instructions: Pharyngitis (ED), Upper Respiratory Infection (ED), Cold Symptoms (ED), How to Use Nasal Baxter (ED), COVID-19 (Coronavirus Disease 2019) (ED) Additional Instructions: Used DayQuil, NyQuil, Flonase. He is Mucinex. Alternate Tylenol Motrin as needed for pain. Continue increase cold drinks and popsicles. Education on the appropriate use of antibiotics and strep throat and evidence based medicine with the appropriate use of antibiotics and the presence of strep pharyngitis was discussed at bedside for you the patient, and also as the mother for your son who is a patient as well. Any other acute concerns or questions follow-up with Dr. Bennett. Stand Alone Forms: Portal Instructions Referrals: Moshe Bennett MD [Primary Care Provider] - 1 week Discharge Date/Time: 07/18/23 17:13
== END 2023-07-18 17:13 | disposition home or self-care (01) ==
PROVIDERS: Emergency Provider Emergency Medicine; PCP Family Medicine
DX: U07.1 COVID-19 (principal); F17.200 Nicotine dependence, unspecified, uncomplicated; J02.9 Acute pharyngitis, unspecified; R09.81 Nasal congestion
CPT/HCPCS: 99283

== ENCOUNTER 2023-08-06 13:21 | Outpatient (OUT) | payer OTHER, SELFPAY ==
--- OUTSIDE RECORDS SUMMARY | 2023-08-06 13:25 | XMS_ITS | CCD ---
Author Name Unknown Address [address] [place] [id number] Organization [facility] Care Team Providers Care Cyberathlete Name Role Phone SIMON, DR SHIRA Brantley Primary Care Unavailable DIMAS, MARIAH Admitting Unavailable DIMAS, MARIAH Attending Unavailable DIMAS, MARIAH Consulting Unavailable SIMON, DR SHIRA Brantley Primary Care Unavailable KANNAN LISA Consulting Unavailable JACQUIE, BHAKTI Admitting Unavailable JACQUIE, BHAKTI Attending Unavailable SIMON, DR SHIRA Brantley Primary Care Unavailable MARIAH COCHRAN Admitting Unavailable MARIAH COCHRAN Attending Unavailable MARLAEREYohana, DR SHIRA Brantley Admitting Unavailable NADERER, DR SHIRA Brantley Attending Unavailable NADERER, DR SHIRA Brantley Primary Care Unavailable NADERER, DR SHIRA Brantley Consulting Unavailable NADERER, DR SHIRA Brantley Admitting Unavailable NADERER, DR SHIRA Brantley Attending Unavailable NADERER, DR SHIRA Brantley Primary Care Unavailable NADERER, DR SHIRA Brantley Consulting Unavailable ROSCOE BUTTS Attending Unavailable Problems Active Problems Problem Classification Problem [...] spec) Not detected Normal NOT DETECTED [facility] Comment on above: Result Comment: When diagnostic [...] for this test is supported by the Slide Forming Machine Operator of Health and Human Service's declaration that [...] L IVER, BMP, LIPID, FT3, TSH #### [facility] [address] [place] [address] Dr. Nikita Burgess INFLUENZA A AND B AGon 07-04 INFLUANEGH SEE BELOW Normal [facility] Comment on above: Result Comment: Nega tive for Flu A protein angiten. Infection due to Flu A cannot be ruled out. Flu A angiten in the sample may be below the detection limit of the test. Performed By: #### I NFLUAB #### [facility] [address] [place] [address] Dr. Nikita Burgess INFLUBNEGH SEE BELOW Normal [facility] Comment on above: Result Comment: Nega tive for Flu B protein antigen. Infection due to Flu B cannot be ruled out. Flu B antigen in the sample may be below the detection limit of the test. Performed By: #### I NFLUAB #### [facility] [address] [place] [address] Dr. Nikita Burgess INFLUENZA A AG Negative Normal NEGATIVE SEE COMMENT [facility] Comment on above: Performed By: #### I NFLUAB #### [facility] [address] [place] [address] Dr. Nikita Burgess INFLUENZA B AG Negative Normal NEGATIVE SEE COMMENT [facility] Comment on above: Performed By: #### I NFLUAB #### [facility] [address] [place] [address] Dr. Nikita Burgess INTERNAL CONTROLS Within Normal Limits Normal Wi thin Normal Limits [facility] Comment on above: Performed By: #### I NFLUAB #### [facility] [address] [place] [address] Dr. Nikita Burgess GROUP A STREP CULTUREon 04-27 S. pyogenes Ag Ql (Unsp spec) Culture Observations: NEGATIVE FOR GROUP A STREPTOCOCCUS. Normal [facility] Comment on above: Performed By: #### L IVFERNANDA, TUCKER, LIPID, FT3, TSH #### [facility] [address] [place] [address] Dr. Nikita Burgess STREPT SCREENon 05-12-2022 STREP SCREEN A Negative Normal NEGATIVE [facility] Comment on above: Performed By: #### L IVTUCKER MICHAEL, LIPID, FT3, TSH #### [facility] [address] [address] [address] Nikita Burgess ESTRONEon 11-26-2021 Estrone, Serum 30 pg/mL Normal 27-231 [facility] Comment on above: Result Comment: Rang e Adult (Premenopausal) 27 - 231 Menstrual Cycle (1-10 days) 19 - 149 Menstrual Cycle (11-20 days) 32 - 176 Menstrual Cycle (21-30 days) 37 - 200 Please note reference interval change Performed By: #### L IVER, BMP, LIPID, FT3, TSH #### [facility] [address] [address] [address] Nikita Burgess DHEA-SULFATEon 11-22-2021 DHEA-Sulfate 123.0 ug/dL Normal 57.3-279.2 [facility] Comment on above: Performed By: #### L IVER, BMP, LIPID, FT3, TSH #### [facility] [address] [address] [address] Nikita Burgess ESTRADIOLon 11-22-2021 Estradiol 83.2 pg/mL Normal [facility] Comment on above: Result Comment: Adul t Female: Follicular phase 12.5 - 166.0 Ovulation phase 85.8 - 498.0 Luteal phase 43.8 - 211.0 Postmenopausal <6.0 - 54.7 1st trimester 215.0 - >4300.0 Dejah ECLIA methodology Performed By: #### L IVER, BMP, LIPID, FT3, TSH #### [facility] [address] [address] [address] Nikita Burgess FSHon 11-22-2021 FSH 3.0 mIU/mL Normal [facility] Comment on above: Result Comment: Adul t Female: Follicular phase 3.5 - 12.5 Ovulation phase 4.7 - 21.5 Luteal phase 1.7 - 7.7 Postmenopausal 25.8 - 134.8 Performed By: #### L IVER, BMP, LIPID, FT3, TSH #### [facility] [address] [address] [address] Nikita Burgess LUTEINIZING HORMONE (LH)on 0 11-22-2021 LH 1.8 mIU/mL Normal [facility] Comment on above: Result Comment: Adul t Female: Follicular phase 2.4 - 12.6 Ovulation phase 14.0 - 95.6 Luteal phase 1.0 - 11.4 Postmenopausal 7.7 - 58.5 Performed By: #### L IVER, BMP, LIPID, FT3, TSH #### [facility] [address] [place] [address] Dr. Nikita Burgess PROGESTERONEon 11-22-2021 Progesterone 10.2 ng/mL Normal [facility] Comment on above: Result Comment: Foll icular phase 0.1 - 0.9 Luteal phase 1.8 - 23.9 Ovulation phase 0.1 - 12.0 First trimester 11.0 - 44.3 Second trimester 25.4 - 83.3 Third trimester 58.7 - 214.0 Postmenopausal 0.0 - 0.1 Performed By: #### L IVER, BMP, LIPID, FT3, TSH #### [facility] [address] [place] [address] Dr. Nikita Burgess PROLACTINon 11-22-2021 Prolactin 6.1 ng/mL Normal 4.8-23.3 [facility] Comment on above: Performed By: #### L IVER, BMP, LIPID, FT3, TSH #### [facility] [address] [place] [address] Dr. Nikita Burgess TESTOSTERONE, TOTALon 2021 Testosterone [Mass/Vol] 11 ng/dL Normal 8-60 [facility] Comment on above: Performed By: #### L IVER, BMP, LIPID, FT3, TSH #### [facility] [address] [place] [address] Dr. Nikita Burgess CBC AUTO DIFFon 11-21-2021 BASO # 0.0 103/ul Normal 0.0-0.1 [facility] Comment on above: Performed By: #### C BC #### [facility] [address] [place] [address] Dr. Nikita Burgess Basophils/100 WBC (Bld) 0.6 % Normal 0.2-2.0 [facility] Comment on above: Performed By: #### C BC #### [facility] [address] [place] [address] Dr. Nikita Burgess EO # 0.1 103/ul Normal 0.0-0.7 [facility] Comment on above: Performed By: #### C BC #### [facility] [address] [place] [address] Dr. Nikita Burgess Eosinophils/100 WBC (Bld) 1.5 % Normal 0.9-7.0 [facility] Comment on above: Performed By: #### C BC #### [facility] [address] [place] [address] Dr. Nikita Burgess Erythrocyte distribution width (RBC) [Ratio] 13.7 % Normal 11.0-15.0 [facility] Comment on above: Performed By: #### C BC #### [facility] [address] [place] [address] Dr. Nikita Burgess Hematocrit (Bld) [Volume fraction] 40.7 % Normal 36.0-48.0 [facility] Comment on above: Performed By: #### C BC #### [facility] [address] [place] [address] Dr. Nikita Burgess Hemoglobin (Bld) [Mass/Vol] 12.8 g/dL Normal 12.0-16.0 [facility] Comment on above: Performed By: #### C BC #### [facility] [address] [place] [address] Dr. Nikita Burgess IG # 0.01 10e3/ul Normal 0.00-0.03 [facility] Comment on above: Performed By: #### C BC #### [facility] [address] [place] [address] Dr. Nikita Burgess IG % 0.2 % Normal 0.0-0.5 [facility] Comment on above: Performed By: #### C BC #### [facility] [address] [place] [address] Dr. Nikita Burgess LYMPH # 1.6 103/ul Normal 1.2-3.8 [facility] Comment on above: Performed By: #### C BC #### [facility] [address] [place] [address] Dr. Nikita Burgess Lymphocytes/100 WBC (Bld) 29.5 % Normal 20.5-60.0 [facility] Comment on above: Performed By: #### C BC #### [facility] [address] [place] [address] Dr. Nikita Burgess MANUAL DIFF REQ NO Normal [facility] Comment on above: Performed By: #### C BC #### [facility] [address] [place] [address] Dr. Nikita Burgess MCH (RBC) [Entitic mass] 28.0 pg Normal 26.7-34.0 [facility] Comment on above: Performed By: #### C BC #### [facility] [address] [place] [address] Dr. Nikita Burgess MCHC (RBC) [Mass/Vol] 31.4 g/dL Normal 29.9-35.2 [facility] Comment on above: Performed By: #### C BC #### [facility] [address] [place] [address] Dr. Nikita Burgess MCV (RBC) [Entitic vol] 89.1 fL Normal 81.0-99.0 [facility] Comment on above: Performed By: #### C BC #### [facility] [address] [place] [address] Dr. Nikita Burgess MONO # 0.4 103/ul Normal 0.3-0.8 [facility] Comment on above: Performed By: #### C BC #### [facility] [address] [place] [address] Dr. Nikita Burgess Monocytes/100 WBC (Bld) 7.4 % Normal 1.7-12.0 [facility] Comment on above: Performed By: #### C BC #### [facility] [address] [place] [address] Dr. Nikita Burgess NEUT # 3.2 103/ul Normal 1.4-6.5 [facility] Comment on above: Performed By: #### C BC #### [facility] [address] [place] [address] Dr. Nikita Burgess Neutrophils/100 WBC (Bld) 60.8 % Normal 43.0-75.0 [facility] Comment on above: Performed By: #### C BC #### [facility] [address] [place] [address] Dr. Nikita Burgess Platelet mean volume (Bld) [Entitic vol] 10.1 fL Normal 9.5-13.5 [facility] Comment on above: Performed By: #### C BC #### [facility] [address] [place] [address] Dr. Nikita Burgess PLT 273 103/ul Normal 150-450 [facility] Comment on above: Performed By: #### C BC #### [facility] [address] [place] [address] Dr. Nikita Burgess RBC 4.57 106/ul Normal 4.20-5.40 [facility] Comment on above: Performed By: #### C BC #### [facility] [address] [place] [address] Dr. Nikita Burgess WBC 5.3 103/ul Normal 4.0-11.0 [facility] Comment on above: Performed By: #### C BC #### [facility] [address] [place] [address] Dr. Nikita Burgess FREE T3on 11-21-2021 FREE T3 2.69 pg/mlL Normal 2.18-3.98 [facility] Comment on above: Performed By: #### L IVER, BMP, LIPID, FT3, TSH #### [facility] [address] [place] [address] Dr. Nikita Burgess FREE T4on 11-21-2021 Free T4 [Mass/Vol] 0.98 ng/dL Normal 0.76-1.46 [facility] Comment on above: Performed By: #### F T4, VITAD #### [facility] [address] [place] [address] Dr. Nikita Burgess GLYCOHEMOGLOBIN A1Con 2021 ADA RECOMMENDATION SEE BELOW Normal [facility] Comment on above: Result Comment: ADA RECOMMENDED LIMIT 4.0 - 6.0 ADA THERAPEUTIC TARGET < 7.0 ACTION SUGGESTED > 7.0 Performed By: #### A 1C #### [facility] [address] [address] [address] Nikita Burgess Glucose [Mass/Vol] 111 mg/dL Normal [facility] Comment on above: Performed By: #### A 1C #### [facility] [address] [address] [address] Nikita Burgess HbA1c (Bld) [Mass fraction] 5.5 % Normal 4.5-6.2 [facility] Comment on above: Performed By: #### A 1C #### [facility] [address] [place] [address] Dr. Nikita Burgess LIPID PROFILEon 11-21-2021 CHOL-HDL RATIO NORM SEE BELOW Normal [facility] Comment on above: Result Comment: 3.3 - 4.4 LOW RISK 4.4 - 7.1 AVERAGE RISK 7.1 - 11.0 MODERATE RISK >11.0 HIGH RISK Performed By: #### L IVER, BMP, LIPID, FT3, TSH #### [facility] [address] [address] [address] Nikita Burgess Cholesterol [Mass/Vol] 193 mg/dL Normal <=200 [facility] Comment on above: Performed By: #### L IVER, BMP, LIPID, FT3, TSH #### [facility] [address] [address] [address] Nikita Burgess Cholesterol in HDL [Mass/Vol] 58 mg/dL Normal 40-60 [facility] Comment on above: Performed By: #### L IVER, BMP, LIPID, FT3, TSH #### [facility] [address] [address] [address] Nikita Burgess Cholesterol in LDL [Mass/Vol] 122.6 mg/dL Normal [facility] Comment on above: Performed By: #### L IVER, BMP, LIPID, FT3, TSH #### [facility] [address] [address] [address] Nikita Burgess Cholesterol.total/Cho lesterol in HDL [Mass ratio] 3.3 {ratio} Normal [facility] Comment on above: Performed By: #### L IVER, BMP, LIPID, FT3, TSH #### [facility] [address] [place] [address] Dr. Nikita Burgess HDL NORMAL > or = 60 mg/dl - LOW CARDIOVASCULAR RISK <40 mg/dl - HIGH CARDIOVASCULAR RISK Normal [facility] Comment on above: Performed By: #### L IVER, BMP, LIPID, FT3, TSH #### [facility] [address] [address] [address] Nikita Burgess LDL CALC NORMAL SEE BELOW Normal [facility] Comment on above: Result Comment: <100 mg/dl OPTIMAL 100 - 129 mg/dl NEAR OR ABOVE OPTIMAL 130 - 159 mg/dl BORDERLINE HIGH 160 - 189 mg/dl HIGH >190 mg/dl VERY HIGH Performed By: #### L IVER, BMP, LIPID, FT3, TSH #### [facility] [address] [place] [address] Dr. Nikita Burgess Triglyceride [Mass/Vol] 62 mg/dL Normal <=150 [facility] Comment on above: Performed By: #### L IVER, BMP, LIPID, FT3, TSH #### [facility] [address] [place] [address] Dr. Nikita Burgess VLDL CALC 12.4 mg/dL Normal [facility] Comment on above: Performed By: #### L IVER, BMP, LIPID, FT3, TSH #### [facility] [address] [place] [address] Dr. Nikita Burgess LIVER PROFILEon 11-21-2021 Albumin [Mass/Vol] 3.9 g/dL Normal 3.4-5.0 [facility] Comment on above: Performed By: #### L IVER, BMP, LIPID, FT3, TSH #### [facility] [address] [place] [address] Dr. Nikita Burgess Albumin/Globulin [Mass ratio] 1.0 {ratio} Normal [facility] Comment on above: Performed By: #### L IVER, BMP, LIPID, FT3, TSH #### [facility] [address] [place] [address] Dr. Nikita Burgess ALP [Catalytic activity/Vol] 68 U/L Normal 46-116 [facility] Comment on above: Performed By: #### L IVER, BMP, LIPID, FT3, TSH #### [facility] [address] [place] [address] Dr. Nikita Burgess ALT [Catalytic activity/Vol] 20 U/L Normal 14-59 [facility] Comment on above: Performed By: #### L IVER, BMP, LIPID, FT3, TSH #### [facility] [address] [place] [address] Dr. Nikita Burgess AST [Catalytic activity/Vol] 17 U/L Normal 15-37 [facility] Comment on above: Performed By: #### L IVER, BMP, LIPID, FT3, TSH #### [facility] [address] [place] [address] Dr. Nikita Burgess BILI, CONJUGATED 0.1 mg/dL Normal 0.0-0.2 [facility] Comment on above: Performed By: #### L IVER, BMP, LIPID, FT3, TSH #### [facility] [address] [place] [address] Dr. Nikita Burgess Bilirubin [Mass/Vol] 0.6 mg/dL Normal 0.2-1.0 [facility] Comment on above: Performed By: #### L IVER, BMP, LIPID, FT3, TSH #### [facility] [address] [place] [address] Dr. Nikita Burgess Globulin (S) [Mass/Vol] 3.9 g/dL Normal [facility] Comment on above: Performed By: #### L IVER, BMP, LIPID, FT3, TSH #### [facility] [address] [place] [address] Dr. Nikita Burgess Protein [Mass/Vol] 7.8 g/dL Normal 6.1-8.2 [facility] Comment on above: Performed By: #### L IVER, BMP, LIPID, FT3, TSH #### [facility] [address] [place] [address] Dr. Nikita Burgess PROF CHEM 8 (BAS METB)on Anion gap [Moles/Vol] 12.5 mmol/L Normal [facility] Comment on above: Performed By: #### L IVER, BMP, LIPID, FT3, TSH #### [facility] [address] [place] [address] Dr. Nikita Burgess Calcium [Mass/Vol] 8.2 mg/dL Critically low 8.5-10.1 [facility] Comment on above: Performed By: #### L IVER, BMP, LIPID, FT3, TSH #### [facility] [address] [address] [address] Nikita Burgess Chloride [Moles/Vol] 102 mmol/L Normal 98-107 [facility] Comment on above: Performed By: #### L IVER, BMP, LIPID, FT3, TSH #### [facility] [address] [place] [address] Dr. Nikita Burgess CO2 [Moles/Vol] 26.3 mmol/L Normal 21.0-32.0 [facility] Comment on above: Performed By: #### L IVER, BMP, LIPID, FT3, TSH #### [facility] [address] [place] [address] Dr. Nikita Burgess Creatinine [Mass/Vol] 0.57 mg/dL Normal 0.55-1.02 [facility] Comment on above: Performed By: #### L IVER, BMP, LIPID, FT3, TSH #### [facility] [address] [place] [address] Dr. Nikita Burgess EGFR-AF LEBANESE >60 Normal >=60 [facility] Comment on above: Performed By: #### L IVER, BMP, LIPID, FT3, TSH #### [facility] [address] [place] [address] Dr. Nikita Burgess EGFR-NON AF LEBANESE >60 Normal >=60 [facility] Comment on above: Performed By: #### L IVER, BMP, LIPID, FT3, TSH #### [facility] [address] [place] [address] Dr. Nikita Burgess Glucose [Mass/Vol] 78 mg/dL Normal 74-106 [facility] Comment on above: Performed By: #### L IVER, BMP, LIPID, FT3, TSH #### [facility] [address] [place] [address] Dr. Nikita Burgess Potassium [Moles/Vol] 3.8 mmol/L Normal 3.5-5.1 [facility] Comment on above: Performed By: #### L IVER, BMP, LIPID, FT3, TSH #### [facility] [address] [place] [address] Dr. Nikita Burgess Sodium [Moles/Vol] 137 mmol/L Normal 136-145 [facility] Comment on above: Performed By: #### L IVER, BMP, LIPID, FT3, TSH #### [facility] [address] [place] [address] Dr. Nikita Burgess Urea nitrogen [Mass/Vol] 11.0 mg/dL Normal 7.0-18.0 [facility] Comment on above: Performed By: #### L IVER, BMP, LIPID, FT3, TSH #### [facility] [address] [place] [address] Dr. Nikita Burgess Urea nitrogen/Creatinine [Mass ratio] 19.3 mg/mg Normal [facility] Comment on above: Performed By: #### L IVER, BMP, LIPID, FT3, TSH #### [facility] [address] [place] [address] Dr. Nikita Burgess TSHon 11-21-2021 TSH 2.175 uIU/mL Normal 0.470-4.680 [facility] Comment on above: Performed By: #### L IVER, BMP, LIPID, FT3, TSH #### [facility] [address] [place] [address] Dr. Nikita Burgess TSH RANGE SEE BELOW Normal [facility] Comment on above: Result Comment: <0.3 4 UIU/ml HYPERTHYROID 0.34-5.60 UIU/ml EUTHYROID >5.60 UIU/ml HYPOTHYROID Performed By: #### L IVER, BMP, LIPID, FT3, TSH #### [facility] [address] [address] [address] Nikita Burgess VITAMIN D 25 OHon 11-21-2021 VIT D 25-OH 49.5 ng/mL Normal [facility] Comment on above: Performed By: #### F T4, VITAD #### [facility] [address] [address] [address] Nikita Burgess VIT D RANGES SEE BELOW Normal [facility] Comment on above: Result Comment: <20 ng/mL Vit D deficient 20 - <30 ng/mL Vit D insufficient 30 - 100 ng/mL Vit D sufficient >100 ng/mL Potential Toxicity Performed By: #### F T4, VITAD #### [facility] [address] [address] [address] Nikita Burgess Covid-19 PCR ([facility])on 06-27 SARS-CoV-2 (COVID-19) RNA TIERA+probe Ql (Unsp spec) Not detected Normal NOT DETECTED [facility] Comment on above: Result Comment: This test is not yet approved or cleared by the [place] FDA. When there are no FDA-approved or cleared tests available, and other criteria are met, FDA can make tests available under an emergency access mechanism called an Emergency Use Authorization (EUA). The EUA for this test is supported by the [place] of Health and Human Service's (HHS's) declaration [...] L IVER, BMP, LIPID, FT3, TSH #### [facility] [address] [address] [address] Nikita Burgess Consenton 10-04-2020 Consent [id number] 1#1.00CD:127 [facility] Registrationon 10-04-2020 Registration [id number] 7#1.00CD:127 [facility] Encounters Encounter Date Encounter Type Care Provider Facility Start: 08-05-2023 End: 08-05-2023 ambulatory ROSCOE BUTTS Not Available Start: 07-04-2022 End: 07-04-[address] SHIRA MONTES Facility:[facility] Start: 05-12-2022 End: 05-12-[address] SHIRA MONTES Facility:[facility] Start: 11-22-2021 Encounter for genera l adult medical examination without abnormal findings DR SHIRA MONTES [facility] Start: 11-21-2021 End: 11-22-[address] SHIRA MONTES Facility:[facility] Start: 11-21-2021 End: 11-22-2021 Encounter for general adult medical examination without abnormal findings DR SHIRA MONTES Facility:[facility] Start: 07-31-2021 End: 07-31-[address] SHIRA MONTES Facility:[facility] Start: 07-10-2021 End: 07-10-[address] SHIRA MONTES Facility:[facility] Payers Date Payer Category Payer Unknown [id number] 2.16.84 [id number] 1986 Unknown [id number] 2.16.84 [id number] 1986 Unknown [id number] 2.16.84 [id number] 1986 Unknown [id number] 2.16.84 [id number] 1986 Unknown [id number] 2.16.84 [id number] 1986 Unknown [id number] 2.16.84 [id number] 1959 Unknown [id number] Summary Purpose Family History No Family History Records FoundNo Family History Records FoundNo Family History Records Found Advance Directives No Advanced Directives Records FoundNo Advanced Directives Records FoundNo Advanced Directives Records Found Additional Source Comments INFORMATION SOURCE (unrecogn ized section and content) DATE CREATED AUTHOR 10/05/2020 Earl Pugh [facility] DATE CREATED AUTHOR AUTHOR'S ORGANIZ ATION 07/08/2022 Sarath Farley [facility] DATE CREATED AUTHOR AUTHOR'S ORGANIZ ATION 08/06/2023 [facility] EPIC FOR RECORDS PERTAINING TO PATIENTS WHO ARE [...] BE BASED ON THE PRIMARY CLINICAL RECORDS. [facility]. provides no warranty or guarantee of the accuracy or completeness of information in this document.
[2023-08-06 14:17] LABS: Basophils Percent Auto 0.4 % (0.2-2.0); Eosinophils Absolute Auto 0.1 10^3/uL (0.0-0.7); Eosinophils Percent Auto 1.5 % (0.9-7.0); Hematocrit 35.6 % (36.0-48.0); Hemoglobin 11.3 g/dL (12.0-16.0); Immature Granulocytes Abs Auto 0.01 10^3/uL (0.00-0.03); Immature Granulocytes Pct Auto 0.2 % (0.0-0.5); Lymphocytes Absolute Auto 1.8 10^3/uL (1.2-3.8); Lymphocytes Percent Auto 32.5 % (20.5-60.0); Mean Corpuscular HGB Conc 31.7 g/dL (29.9-35.2); Mean Corpuscular Hemoglobin 27.2 pg (26.7-34.0); Mean Corpuscular Volume 85.8 fL (81.0-99.0); Mean Platelet Volume 9.8 fL (9.5-13.5); Monocytes Absolute Auto 0.4 10^3/uL (0.3-0.8); Monocytes Percent Auto 6.4 % (1.7-12.0); Neutrophils Absolute Auto 3.2 10^3/uL (1.4-6.5); Platelet Count 279 10^3/uL (150-450); Red Blood Count 4.15 10^6/uL (4.20-5.40); Red Cell Distribution Width 13.9 % (11.0-15.0); White Blood Count 5.5 10^3/uL (4.0-11.0)
[2023-08-06 14:19] LABS: INR 0.99; Partial Thromboplastin Time 30.4 sec (22.3-36.2); Prothrombin Time 10.5 sec (9.0-11.6)
[2023-08-06 14:48] LABS: Free T4 0.98 ng/dL (0.76-1.46)
[2023-08-06 14:50] LABS: HCG Quantitative <1 mIU/mL; Thyroid Stimulating Hormone 3.797 uIU/mL (0.358-3.740)
== END 2023-08-06 13:22 | disposition home or self-care (01) ==
LOC: LAB 13:22
PROVIDERS: PCP Family Medicine; Visit Provider Obstetrics & Gynecology
DX: N92.0 Excessive and frequent menstruation with regular cycle (principal)
CPT/HCPCS: 36415; 84439; 84443; 84702; 85025; 85610; 85730

== ENCOUNTER 2023-08-18 09:34 | Outpatient (OUT) | payer OTHER, SELFPAY ==
--- NOTE | 2023-08-18 09:37 | US_ITS ---
[address] [address] Patient Name: STEVE NORWOOD MRN: [id number] date: 1985 Sex: F Assigned Patient Location: Current Patient Location: US Accession/Order Number: [id number] Exam Date: 08/18/2023 09:38 Report Date: 08/18/2023 11:22 At the request of: ROSCOE BUTTS Procedure: US pelvis w/ transvaginal EXAMINATION: US pelvis w/ transvaginal HISTORY: MENORRHAGIA, PELVIC PAIN COMPARISON: No relevant comparison available. FINDINGS: The uterus is normal in size and contour measuring 11.8 x 4.2 x 6.1 cm. Hypervascular appearance of the peripheral myometrium with no focal mass. The endometrium measures 12 mm, normal. The right ovary is normal measuring 3.0 x 2.3 x 2.7 cm. Normal color Doppler flow. Normal follicles. Left ovary is normal measuring 2.9 x 1.5 x 1.8 cm. Normal color and Doppler flow. Normal follicles. There is hypervascular appearance of the uterus and left adnexa. Multiple dilated left adnexal vessels. US/US pelvis w/ transvaginal IMPRESSION: Consider left uterine vein reflux with pelvic vascular congestion Electronically authenticated by: PINA OLIVARES Date: 08/18/2023 11:22
== END 2023-08-18 09:35 | disposition home or self-care (01) ==
LOC: US 09:35
PROVIDERS: PCP Family Medicine; Visit Provider Obstetrics & Gynecology
DX: N92.0 Excessive and frequent menstruation with regular cycle (principal)
CPT/HCPCS: 76830; 76856

== ENCOUNTER 2023-09-01 20:47 | Outpatient (REF) | payer OTHER, SELFPAY ==
--- OUTSIDE RECORDS SUMMARY | 2023-09-01 20:51 | XMS_ITS | CCD ---
Author Name Unknown Address [address] [facility] [address] [place] [id number] Organization [facility] Care Team Providers Care Chemistry Technologist Name Role Phone SIMON, DR SHIRA Brantley [...] spec) Not detected Normal NOT DETECTED [facility] Comment on above: Result Comment: When diagnostic [...] for this test is supported by the Starch Treating Assistant of Health and Human Service's declaration that [...] L IVER, BMP, LIPID, FT3, TSH #### [facility] [address] [place] [address] Dr. Nikita Burgess INFLUENZA A AND B AGon 07-04 INFLUANEGH SEE BELOW Normal [facility] Comment on above: Result Comment: Nega tive for Flu A protein angiten. Infection due to Flu A cannot be ruled out. Flu A angiten in the sample may be below the detection limit of the test. Performed By: #### I NFLUAB #### [facility] [address] [place] [address] Dr. Nikita Burgess INFLUBNEGH SEE BELOW Normal [facility] Comment on above: Result Comment: Nega tive for Flu B protein antigen. Infection due to Flu B cannot be ruled out. Flu B antigen in the sample may be below the detection limit of the test. Performed By: #### I NFLUAB #### [facility] [address] [place] [address] Dr. Nikita Burgess INFLUENZA A AG Negative Normal NEGATIVE SEE COMMENT [facility] Comment on above: Performed By: #### I NFLUAB #### [facility] [address] [place] [address] Dr. Nikita Burgess INFLUENZA B AG Negative Normal NEGATIVE SEE COMMENT [facility] Comment on above: Performed By: #### I NFLUAB #### [facility] [address] [place] [address] Dr. Nikita Burgess INTERNAL CONTROLS Within Normal Limits Normal Wi thin Normal Limits The [facility] Comment on above: Performed By: #### I NFLUAB #### [facility] [address] [place] [address] Dr. Nikita Burgess GROUP A STREP CULTUREon 04-27 S. pyogenes Ag Ql (Unsp spec) Culture Observations: NEGATIVE FOR GROUP A STREPTOCOCCUS. Normal [facility] Comment on above: Performed By: #### L IVFERNANDA, TUCKER, LIPID, FT3, TSH #### [facility] [address] [place] [address] Dr. Nikita Burgess STREPT SCREENon 05-12-2022 STREP SCREEN A Negative Normal NEGATIVE [facility] Comment on above: Performed By: #### L IVTUCKER MICHAEL, LIPID, FT3, TSH #### [facility] [address] [address] [address] Nikita Burgess ESTRONEon 11-26-2021 Estrone, Serum 30 pg/mL Normal 27-231 [facility] Comment on above: Result Comment: Rang e Adult (Premenopausal) 27 - 231 Menstrual Cycle (1-10 days) 19 - 149 Menstrual Cycle (11-20 days) 32 - 176 Menstrual Cycle (21-30 days) 37 - 200 Please note reference interval change Performed By: #### L IVER, BMP, LIPID, FT3, TSH #### [facility] [address] [address] [address] Nikita Burgess DHEA-SULFATEon 11-22-2021 DHEA-Sulfate 123.0 ug/dL Normal 57.3-279.2 [facility] Comment on above: Performed By: #### L IVER, BMP, LIPID, FT3, TSH #### [facility] [address] [address] [address] Nikita Burgess ESTRADIOLon 11-22-2021 Estradiol 83.2 pg/mL Normal [facility] Comment on above: Result Comment: Adul t Female: Follicular phase 12.5 - 166.0 Ovulation phase 85.8 - 498.0 Luteal phase 43.8 - 211.0 Postmenopausal <6.0 - 54.7 1st trimester 215.0 - >4300.0 Dejah ECLIA methodology Performed By: #### L IVER, BMP, LIPID, FT3, TSH #### [facility] [address] [address] [address] Nikita Burgess FSHon 11-22-2021 FSH 3.0 mIU/mL Normal [facility] Comment on above: Result Comment: Adul t Female: Follicular phase 3.5 - 12.5 Ovulation phase 4.7 - 21.5 Luteal phase 1.7 - 7.7 Postmenopausal 25.8 - 134.8 Performed By: #### L IVER, BMP, LIPID, FT3, TSH #### [facility] [address] [address] [address] Nikita Burgess LUTEINIZING HORMONE (LH)on 0 11-22-2021 LH 1.8 mIU/mL Normal [facility] Comment on above: Result Comment: Adul t Female: Follicular phase 2.4 - 12.6 Ovulation phase 14.0 - 95.6 Luteal phase 1.0 - 11.4 Postmenopausal 7.7 - 58.5 Performed By: #### L IVER, BMP, LIPID, FT3, TSH #### [facility] [address] [place] [address] Dr. Nikita Burgess PROGESTERONEon 11-22-2021 Progesterone 10.2 ng/mL Normal [facility] Comment on above: Result Comment: Foll icular phase 0.1 - 0.9 Luteal phase 1.8 - 23.9 Ovulation phase 0.1 - 12.0 First trimester 11.0 - 44.3 Second trimester 25.4 - 83.3 Third trimester 58.7 - 214.0 Postmenopausal 0.0 - 0.1 Performed By: #### L IVER, BMP, LIPID, FT3, TSH #### [facility] [address] [place] [address] Dr. Nikita Burgess PROLACTINon 11-22-2021 Prolactin 6.1 ng/mL Normal 4.8-23.3 [facility] Comment on above: Performed By: #### L IVER, BMP, LIPID, FT3, TSH #### [facility] [address] [place] [address] Dr. Nikita Burgess TESTOSTERONE, TOTALon 2021 Testosterone [Mass/Vol] 11 ng/dL Normal 8-60 [facility] Comment on above: Performed By: #### L IVER, BMP, LIPID, FT3, TSH #### [facility] [address] [place] [address] Dr. Nikita Burgess CBC AUTO DIFFon 11-21-2021 BASO # 0.0 103/ul Normal 0.0-0.1 [facility] Comment on above: Performed By: #### C BC #### [facility] [address] [place] [address] Dr. Nikita Burgess Basophils/100 WBC (Bld) 0.6 % Normal 0.2-2.0 [facility] Comment on above: Performed By: #### C BC #### [facility] [address] [place] [address] Dr. Nikita Burgess EO # 0.1 103/ul Normal 0.0-0.7 [facility] Comment on above: Performed By: #### C BC #### [facility] [address] [place] [address] Dr. Nikita Burgess Eosinophils/100 WBC (Bld) 1.5 % Normal 0.9-7.0 [facility] Comment on above: Performed By: #### C BC #### [facility] [address] [place] [address] Dr. Nikita Burgess Erythrocyte distribution width (RBC) [Ratio] 13.7 % Normal 11.0-15.0 [facility] Comment on above: Performed By: #### C BC #### [facility] [address] [place] [address] Dr. Nikita Burgess Hematocrit (Bld) [Volume fraction] 40.7 % Normal 36.0-48.0 [facility] Comment on above: Performed By: #### C BC #### [facility] [address] [place] [address] Dr. Nikita Burgess Hemoglobin (Bld) [Mass/Vol] 12.8 g/dL Normal 12.0-16.0 [facility] Comment on above: Performed By: #### C BC #### [facility] [address] [place] [address] Dr. Nikita Burgess IG # 0.01 10e3/ul Normal 0.00-0.03 [facility] Comment on above: Performed By: #### C BC #### [facility] [address] [place] [address] Dr. Nikita Burgess IG % 0.2 % Normal 0.0-0.5 [facility] Comment on above: Performed By: #### C BC #### [facility] [address] [place] [address] Dr. Nikita Burgess LYMPH # 1.6 103/ul Normal 1.2-3.8 [facility] Comment on above: Performed By: #### C BC #### [facility] [address] [place] [address] Dr. Nikita Burgess Lymphocytes/100 WBC (Bld) 29.5 % Normal 20.5-60.0 [facility] Comment on above: Performed By: #### C BC #### [facility] [address] [place] [address] Dr. Nikita Burgess MANUAL DIFF REQ NO Normal [facility] Comment on above: Performed By: #### C BC #### [facility] [address] [place] [address] Dr. Nikita Burgess MCH (RBC) [Entitic mass] 28.0 pg Normal 26.7-34.0 [facility] Comment on above: Performed By: #### C BC #### [facility] [address] [place] [address] Dr. Nikita Burgess MCHC (RBC) [Mass/Vol] 31.4 g/dL Normal 29.9-35.2 [facility] Comment on above: Performed By: #### C BC #### [facility] [address] [place] [address] Dr. Nikita Burgess MCV (RBC) [Entitic vol] 89.1 fL Normal 81.0-99.0 [facility] Comment on above: Performed By: #### C BC #### [facility] [address] [place] [address] Dr. Nikita Burgess MONO # 0.4 103/ul Normal 0.3-0.8 [facility] Comment on above: Performed By: #### C BC #### [facility] [address] [place] [address] Dr. Nikita Burgess Monocytes/100 WBC (Bld) 7.4 % Normal 1.7-12.0 [facility] Comment on above: Performed By: #### C BC #### [facility] [address] [place] [address] Dr. Nikita Burgess NEUT # 3.2 103/ul Normal 1.4-6.5 [facility] Comment on above: Performed By: #### C BC #### [facility] [address] [place] [address] Dr. Nikita Burgess Neutrophils/100 WBC (Bld) 60.8 % Normal 43.0-75.0 [facility] Comment on above: Performed By: #### C BC #### [facility] [address] [place] [address] Dr. Nikita Burgess Platelet mean volume (Bld) [Entitic vol] 10.1 fL Normal 9.5-13.5 [facility] Comment on above: Performed By: #### C BC #### [facility] [address] [place] [address] Dr. Nikita Burgess PLT 273 103/ul Normal 150-450 [facility] Comment on above: Performed By: #### C BC #### [facility] [address] [place] [address] Dr. Nikita Burgess RBC 4.57 106/ul Normal 4.20-5.40 [facility] Comment on above: Performed By: #### C BC #### [facility] [address] [place] [address] Dr. Nikita Burgess WBC 5.3 103/ul Normal 4.0-11.0 [facility] Comment on above: Performed By: #### C BC #### [facility] [address] [place] [address] Dr. Nikita Burgess FREE T3on 11-21-2021 FREE T3 2.69 pg/mlL Normal 2.18-3.98 [facility] Comment on above: Performed By: #### L IVER, BMP, LIPID, FT3, TSH #### [facility] [address] [place] [address] Dr. Nikita Burgess FREE T4on 11-21-2021 Free T4 [Mass/Vol] 0.98 ng/dL Normal 0.76-1.46 [facility] Comment on above: Performed By: #### F T4, VITAD #### [facility] [address] [place] [address] Dr. Nikita Burgess GLYCOHEMOGLOBIN A1Con 2021 ADA RECOMMENDATION SEE BELOW Normal [facility] Comment on above: Result Comment: ADA RECOMMENDED LIMIT 4.0 - 6.0 ADA THERAPEUTIC TARGET < 7.0 ACTION SUGGESTED > 7.0 Performed By: #### A 1C #### [facility] [address] [address] [address] Nikita Burgess Glucose [Mass/Vol] 111 mg/dL Normal [facility] Comment on above: Performed By: #### A 1C #### [facility] [address] [address] [address] Nikita Burgess HbA1c (Bld) [Mass fraction] 5.5 % Normal 4.5-6.2 [facility] Comment on above: Performed By: #### A 1C #### [facility] [address] [place] [address] Dr. Nikita Burgess LIPID PROFILEon 11-21-2021 CHOL-HDL RATIO NORM SEE BELOW Normal [facility] Comment on above: Result Comment: 3.3 - 4.4 LOW RISK 4.4 - 7.1 AVERAGE RISK 7.1 - 11.0 MODERATE RISK >11.0 HIGH RISK Performed By: #### L IVER, BMP, LIPID, FT3, TSH #### [facility] [address] [address] [address] Nikita Burgess Cholesterol [Mass/Vol] 193 mg/dL Normal <=200 [facility] Comment on above: Performed By: #### L IVER, BMP, LIPID, FT3, TSH #### [facility] [address] [address] [address] Nikita Burgess Cholesterol in HDL [Mass/Vol] 58 mg/dL Normal 40-60 [facility] Comment on above: Performed By: #### L IVER, BMP, LIPID, FT3, TSH #### [facility] [address] [address] [address] Nikita Burgess Cholesterol in LDL [Mass/Vol] 122.6 mg/dL Normal [facility] Comment on above: Performed By: #### L IVER, BMP, LIPID, FT3, TSH #### [facility] [address] [address] [address] Nikita Burgess Cholesterol.total/Cho lesterol in HDL [Mass ratio] 3.3 {ratio} Normal [facility] Comment on above: Performed By: #### L IVER, BMP, LIPID, FT3, TSH #### [facility] [address] [place] [address] Dr. Nikita Burgess HDL NORMAL > or = 60 mg/dl - LOW CARDIOVASCULAR RISK <40 mg/dl - HIGH CARDIOVASCULAR RISK Normal [facility] Comment on above: Performed By: #### L IVER, BMP, LIPID, FT3, TSH #### [facility] [address] [address] [address] Nikita Burgess LDL CALC NORMAL SEE BELOW Normal [facility] Comment on above: Result Comment: <100 mg/dl OPTIMAL 100 - 129 mg/dl NEAR OR ABOVE OPTIMAL 130 - 159 mg/dl BORDERLINE HIGH 160 - 189 mg/dl HIGH >190 mg/dl VERY HIGH Performed By: #### L IVER, BMP, LIPID, FT3, TSH #### [facility] [address] [place] [address] Dr. Nikita Burgess Triglyceride [Mass/Vol] 62 mg/dL Normal <=150 [facility] Comment on above: Performed By: #### L IVER, BMP, LIPID, FT3, TSH #### [facility] [address] [place] [address] Dr. Nikita Burgess VLDL CALC 12.4 mg/dL Normal [facility] Comment on above: Performed By: #### L IVER, BMP, LIPID, FT3, TSH #### [facility] [address] [place] [address] Dr. Nikita Burgess LIVER PROFILEon 11-21-2021 Albumin [Mass/Vol] 3.9 g/dL Normal 3.4-5.0 [facility] Comment on above: Performed By: #### L IVER, BMP, LIPID, FT3, TSH #### [facility] [address] [place] [address] Dr. Nikita Burgess Albumin/Globulin [Mass ratio] 1.0 {ratio} Normal [facility] Comment on above: Performed By: #### L IVER, BMP, LIPID, FT3, TSH #### [facility] [address] [place] [address] Dr. Nikita Burgess ALP [Catalytic activity/Vol] 68 U/L Normal 46-116 [facility] Comment on above: Performed By: #### L IVER, BMP, LIPID, FT3, TSH #### [facility] [address] [place] [address] Dr. Nikita Burgess ALT [Catalytic activity/Vol] 20 U/L Normal 14-59 [facility] Comment on above: Performed By: #### L IVER, BMP, LIPID, FT3, TSH #### [facility] [address] [place] [address] Dr. Nikita Burgess AST [Catalytic activity/Vol] 17 U/L Normal 15-37 [facility] Comment on above: Performed By: #### L IVER, BMP, LIPID, FT3, TSH #### [facility] [address] [place] [address] Dr. Nikita Burgess BILI, CONJUGATED 0.1 mg/dL Normal 0.0-0.2 [facility] Comment on above: Performed By: #### L IVER, BMP, LIPID, FT3, TSH #### [facility] [address] [place] [address] Dr. Nikita Burgess Bilirubin [Mass/Vol] 0.6 mg/dL Normal 0.2-1.0 [facility] Comment on above: Performed By: #### L IVER, BMP, LIPID, FT3, TSH #### [facility] [address] [place] [address] Dr. Nikita Burgess Globulin (S) [Mass/Vol] 3.9 g/dL Normal [facility] Comment on above: Performed By: #### L IVER, BMP, LIPID, FT3, TSH #### [facility] [address] [place] [address] Dr. Nikita Burgess Protein [Mass/Vol] 7.8 g/dL Normal 6.1-8.2 [facility] Comment on above: Performed By: #### L IVER, BMP, LIPID, FT3, TSH #### [facility] [address] [place] [address] Dr. Nikita Burgess PROF CHEM 8 (BAS METB)on Anion gap [Moles/Vol] 12.5 mmol/L Normal [facility] Comment on above: Performed By: #### L IVER, BMP, LIPID, FT3, TSH #### [facility] [address] [place] [address] Dr. Nikita Burgess Calcium [Mass/Vol] 8.2 mg/dL Critically low 8.5-10.1 [facility] Comment on above: Performed By: #### L IVER, BMP, LIPID, FT3, TSH #### [facility] [address] [address] [address] Nikita Burgess Chloride [Moles/Vol] 102 mmol/L Normal 98-107 [facility] Comment on above: Performed By: #### L IVER, BMP, LIPID, FT3, TSH #### [facility] [address] [place] [address] Dr. Nikita Burgess CO2 [Moles/Vol] 26.3 mmol/L Normal 21.0-32.0 [facility] Comment on above: Performed By: #### L IVER, BMP, LIPID, FT3, TSH #### [facility] [address] [place] [address] Dr. Nikita Burgess Creatinine [Mass/Vol] 0.57 mg/dL Normal 0.55-1.02 [facility] Comment on above: Performed By: #### L IVER, BMP, LIPID, FT3, TSH #### [facility] [address] [place] [address] Dr. Nikita Burgess EGFR-AF KOSOVAN >60 Normal >=60 [facility] Comment on above: Performed By: #### L IVER, BMP, LIPID, FT3, TSH #### [facility] [address] [place] [address] Dr. Nikita Burgess EGFR-NON AF KOSOVAN >60 Normal >=60 [facility] Comment on above: Performed By: #### L IVER, BMP, LIPID, FT3, TSH #### [facility] [address] [place] [address] Dr. Nikita Burgess Glucose [Mass/Vol] 78 mg/dL Normal 74-106 [facility] Comment on above: Performed By: #### L IVER, BMP, LIPID, FT3, TSH #### [facility] [address] [place] [address] Dr. Nikita Burgess Potassium [Moles/Vol] 3.8 mmol/L Normal 3.5-5.1 [facility] Comment on above: Performed By: #### L IVER, BMP, LIPID, FT3, TSH #### [facility] [address] [place] [address] Dr. Nikita Burgess Sodium [Moles/Vol] 137 mmol/L Normal 136-145 [facility] Comment on above: Performed By: #### L IVER, BMP, LIPID, FT3, TSH #### [facility] [address] [place] [address] Dr. Nikita Burgess Urea nitrogen [Mass/Vol] 11.0 mg/dL Normal 7.0-18.0 [facility] Comment on above: Performed By: #### L IVER, BMP, LIPID, FT3, TSH #### [facility] [address] [place] [address] Dr. Nikita Burgess Urea nitrogen/Creatinine [Mass ratio] 19.3 mg/mg Normal [facility] Comment on above: Performed By: #### L IVER, BMP, LIPID, FT3, TSH #### [facility] [address] [place] [address] Dr. Nikita Burgess TSHon 11-21-2021 TSH 2.175 uIU/mL Normal 0.470-4.[address] [facility] Comment on above: Performed By: #### L IVER, BMP, LIPID, FT3, TSH #### [facility] [address] [place] [address] Dr. Nikita Burgess TSH RANGE SEE BELOW Normal [facility] Comment on above: Result Comment: <0.3 4 UIU/ml HYPERTHYROID 0.34-5.60 UIU/ml EUTHYROID >5.60 UIU/ml HYPOTHYROID Performed By: #### L IVER, BMP, LIPID, FT3, TSH #### [facility] [address] [address] [address] Nikita Burgess VITAMIN D 25 OHon 11-21-2021 VIT D 25-OH 49.5 ng/mL Normal [facility] Comment on above: Performed By: #### F T4, VITAD #### [facility] [address] [address] [address] Nikita Burgess VIT D RANGES SEE BELOW Normal [facility] Comment on above: Result Comment: <20 ng/mL Vit D deficient 20 - <30 ng/mL Vit D insufficient 30 - 100 ng/mL Vit D sufficient >100 ng/mL Potential Toxicity Performed By: #### F T4, VITAD #### [facility] [address] [address] [address] Nikita Burgess Covid-19 PCR ([facility])on 06-27 SARS-CoV-2 (COVID-19) RNA TIERA+probe Ql (Unsp spec) Not detected Normal NOT DETECTED [facility] Comment on above: Result Comment: This test is not yet approved or cleared by the [place] FDA. When there are no FDA-approved or cleared tests available, and other criteria are met, FDA can make tests available under an emergency access mechanism called an Emergency Use Authorization (EUA). The EUA for this test is supported by the [place] of Health and Human Service's (HHS's) declaration [...] L IVER, BMP, LIPID, FT3, TSH #### [facility] [address] [address] [address] Nikita Burgess Consenton 10-04-2020 Consent [id number] 1#1.00CD:127 [facility] Registrationon 10-04-2020 Registration [id number] 7#1.00CD:127 [facility] [place] Encounters Encounter Date Encounter Type Care Provider Facility Start: 08-05-2023 End: 08-05-2023 ambulatory ROSCOE BUTTS Not Available Start: 07-04-2022 End: 07-04-[address] SHIRA MONTES Facility:[facility] Start: 05-12-2022 End: 05-12-[address] SHIRA MONTES Facility:[facility] Start: 11-22-2021 Encounter for genera l adult medical examination without abnormal findings DR SHIRA MONTES [facility] Start: 11-21-2021 End: 11-22-[address] SHIRA MONTES Facility:[facility] Start: 11-21-2021 End: 11-22-2021 Encounter for general adult medical examination without abnormal findings DR SHIRA MONTES Facility:[facility] Start: 07-31-2021 End: 07-31-[address] SHIRA MONTES Facility:[facility] Start: 07-10-2021 End: 07-10-[address] SHIRA MONTES Facility:[facility] Payers Date Payer Category Payer Unknown [id number] 2.16.84 [id number] 1986 Unknown [id number] 2.16.84 [id number] 1986 Unknown [id number] 2.16.84 [id number] 1986 Unknown [id number] 2.16.84 [id number] 1986 Unknown [id number] 2.16.84 [id number] 1986 Unknown [id number] 2.16.84 [id number] 1959 Unknown [id number] Summary Purpose Family History No Family History Records FoundNo Family History Records FoundNo Family History Records Found Advance Directives No Advanced Directives Records FoundNo Advanced Directives Records FoundNo Advanced Directives Records Found Additional Source Comments INFORMATION SOURCE (unrecogn ized section and content) DATE CREATED AUTHOR 10/05/[address] [facility] DATE CREATED AUTHOR AUTHOR'S ORGANIZ ATION 07/08/2022 [facility] DATE CREATED AUTHOR AUTHOR'S ORGANIZ ATION 08/06/2023 [facility] EPIC FOR RECORDS PERTAINING TO [...] BE BASED ON THE PRIMARY CLINICAL RECORDS. [facility] [employer] [facility]. provides no warranty or guarantee of the accuracy or completeness of information in this document.
[2023-09-04 22:07] LABS: Age Gdln ACOG Testing Note (.); HPV Aptima Negative (Negative); IGP, Aptima HPV, rfx 16/18,45 Note (.)
== END 2023-09-01 20:48 | disposition home or self-care (01) ==
LOC: LAB 20:47
PROVIDERS: PCP Family Medicine; Visit Provider Obstetrics & Gynecology
DX: Z01.419 Encounter for gynecological examination (general) (routine) without abnormal findings (principal)
CPT/HCPCS: 87624; G0145

== ENCOUNTER 2023-09-12 10:09 | Outpatient (OUT) | payer OTHER, SELFPAY ==
--- OUTSIDE RECORDS SUMMARY | 2023-09-12 10:12 | XMS_ITS | CCD ---
Author Name Unknown Address [address] [facility] [address] [place] [id number] Organization [facility] Care Team Providers Care Optometric Tech Name Role Phone DR MOSHE MONTES Primary Care Unavailable MARIAH COCHRAN Admitting Unavailable MARIAH COCHRAN Attending Unavailable MARIAH COCHRAN Consulting Unavailable SIMON, DR MOSHE Brantley Primary Care Unavailable KANNAN LISA Consulting Unavailable BHAKTI DHILLON Admitting Unavailable BHAKTI DHILLON Attending Unavailable SIMON, DR MOSHE Brantley Primary Care Unavailable MARIAH COCHRAN Admitting Unavailable MARIAH COCHRAN Attending Unavailable SIMON, DR MOSHE Brantley Admitting Unavailable NADEREYohana, DR MOSHE Brantley Attending Unavailable NADERER, DR MOSHE Brantley Primary Care Unavailable NADERER, DR MOSHE Brantley Consulting Unavailable NADERER, DR MOSHE Brantley Admitting Unavailable NADERER, DR MOSHE Brantley Attending Unavailable NADERER, DR MOSHE Brantley Primary Care Unavailable NADERER, DR MOSHE Brantley Consulting Unavailable Bradr Moshe CARCAMO Primary Care Provider ROSCOE LABOY Attending Unavailable ROSCOE LABOY Attending Unavailable MOSHE MONTES Attending Unavailable Medications Current Medications Medication Drug Class(es) Dates Sig (Normalized) Sig (Original) 24 hr amphetamine aspartate 7.5 mg / amphetamine sulfate 7.5 mg / dextroamphetamine saccharate 7.5 mg / dextroamphetamine sulfate 7.5 mg extended release oral capsule (4 sources) Central Nervous System Stimulant Start: 08-08-2023 End: 09-02-2023 take 1 capsule by mouth every twenty-four hours in the morning amphetamine-dextr oamphetamine XR (Adderall XR) 30 MG 24 hr capsule 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 30 capsule 0 09/02/2023 Active fluticasone propionate 0.05 mg/actuat metered dose nasal spray (4 sources) Corticosteroid Start: 06-01-2023 take 2 spray(s) nasal route in the morning fluticasone (Flonase) 50 MCG/ACT nasal spray Administer 2 sprays into each nostril in the morning. 0 06/01/2023 Active levoFLOXacin 750 mg oral tablet (2 sources) Quinolone Antimicrobial Start: 09-27-2022 take 1 tablet by mouth once daily levoFLOXacin (Levaquin) 750 MG tablet TAKE 1 TABLET BY MOUTH EVERY DAY FOR 7 DAYS 0 09/27/2022 Active 24 hr metFORMIN hydrochloride 500 mg extended release oral tablet (4 sources) Biguanide Start: 08-05-2023 End: 09-04-2023 take 1 tablet by mouth every twenty-four hours at mealtime metFORMIN XR (Glucophage-XR) 500 MG 24 hr tablet Indications: Menorrhagia with regular cycle , Pelvic pain in female Take 1 tablet (500 mg) by mouth in the evening. Take with meals Do not crush, chew, or split. 30 tablet 11 08/05/2023 Active Problems Active Problems Problem Classification Problem Date Documented Date Episodic/Chronic Abdominal pain (2 sources) Pain in female pelvis; Translations: [Pelvic and perineal pain] 09-01-2023 Episodic Acute and chronic tonsillitis (1 source) Acute tonsillitis, unspecified; Translations: [ACUTE TONSILLITIS UNSPECIFIED] Onset: 05-13-2022 Episodic Anxiety disorders (2 sources) Generalized anxiety disorder; Translations: [Generalized anxiety disorder] Onset: 09-02-2023 09-02-2023 Chronic Disorders of teeth and jaw (1 source) Right temporomandibular joint disorder, unspecified; Translations: [RIGHT TEMPOROMANDIBULAR JNT D/O UNS] Onset: 05-13-2022 Episodic Disorders usually diagnosed in infancy, childhood, or adolescence (3 sources) Attention deficit hyperactivity disorder, predominantly inattentive type; Translations: [Other specified behavioral and emotional disorders with onset usually occurring in childhood and adolescence] Onset: 09-02-2023 09-02-2023 Chronic Menstrual disorders (2 sources) Menometrorrhagia; Translations: [Excessive and frequent menstruation with irregular cycle] Onset: 09-02-2023 09-02-2023 Chronic Mood disorders (2 sources) Mild depressed bipolar I disorder; Translations: [Bipolar disorder, current episode depressed, mild] Onset: 09-02-2023 09-02-2023 Chronic Other female genital disorders (2 sources) Pelvic congestion syndrome; Translations: [Other specified conditions associated with female genital organs and menstrual cycle] 09-01-2023 Episodic Other skin disorders (2 sources) Hirsutism; Translations: [Hirsutism] Onset: 09-02-2023 09-02-2023 Episodic Other upper respiratory infections (6 sources) [...] [CONTACT W/AND (SUSP) EXPOS COVID-19] Onset: 07-14-2021 Varicose veins of lower extremity (2 sources) Varicose veins of lower extremity; Translations: [Varicose veins of bilateral lower extremities with pain] Onset: 09-02-2023 09-02-2023 Episodic Past or Other Problems Problem Classification Problem [...] Results Test Name Value Interpretation Reference Range Facility IGP,APTIMA HPV,AGE GDLNon 02 -08-2024 AGE GDLN ACOG TESTING Note . [facility] Comment on above: TESTS RESULT FLAG UN ITS REF RANGE LAB Clinician Provided Cytology Information Source.............Cervix;Endocervix No. of containers..01 ThinPrep Vial Age Algo ACOG Irena... FLAG LEGEND: L-Low Normal,H-High Normal,LL-Alert Low,HH-Alert High <-Panic Low,>-Panic High,A-Abnormal,AA-Critical Abnormal Performed at: 01 =[facility] [id number] Latisha Jain MD, HPV APTIMA Negative Negative [facility] Comment on above: This nucleic acid am plification test detects fourteen high- risk HPV types (16,18,31,33,35,39,45,51,52,56,58,59,66,68) without differentiation. Performed at: = - [facility] [id number] Relief Pharmacist: Latisha Jain MD, Phone: [phone] Performed at: - [address] [id number] Relief Pharmacist: Latisha Jain MD, Phone: [phone] IGP, APTIMA HPV, RFX 16/18,45 Note . [facility] Comment on above: TESTS RESULT FLAG UN ITS REF RANGE LAB DIAGNOSIS: 02 NEGATIVE FOR INTRAEPITHELIAL LESION OR MALIGNANCY. Specimen adequacy: 02 Satisfactory for evaluation. Endocervical and/or squamous metaplastic cells (endocervical component) are present. Performed by: 02 Dinah Thorpe [facility] ([facility]) . 02 Note: Note 02 The Pap smear is a screening test designed to aid in the detection of premalignant and malignant conditions of the uterine cervix. It is not a diagnostic procedure and should not be used as the sole means of detecting cervical cancer. Both false-positive and false-negative reports do occur. Test Methodology: Note 02 This liquid based ThinPrep(R) pap test was screened with the use of an image guided system. HPV Genotype Reflex Note 02 Criteria not met, HPV Genotype not performed. FLAG LEGEND: L-Low Normal,H-High Normal,LL-Alert Low,HH-Alert High <-Panic Low,>-Panic High,A-Abnormal,AA-Critical Abnormal Performed at: 02 [facility] [address] [place] [address] Latisha Jain MD, BRUSH-SPATULA CERVIX ENDOCERVIX [facility] ([facility])on SARS-CoV-2 (COVID-19) RNA TIERA+probe Ql (Unsp spec) Not detected Normal NOT DETECTED [facility] Comment on above: Result Comment: When diagnostic [...] for this test is supported by the [place] of Health and Human Service's declaration that [...] TSH #### [facility] [address] [place] [address] Dr. Nikita Burgess INFLUENZA A AND B AGon 07-04 [facility] SEE BELOW Normal [facility] Comment on above: Result Comment: Nega tive for Flu A protein angiten. Infection due to Flu A cannot be ruled out. Flu A angiten in the sample may be below the detection limit of the test. Performed By: #### I NFLUAB #### [facility] [address] [place] [address] Dr. Nikita Burgess INFLUBNFORMERLY [facility] SEE BELOW Normal [facility] Comment on above: Result Comment: Nega tive for Flu B protein antigen. Infection due to Flu B cannot be ruled out. Flu B antigen in the sample may be below the detection limit of the test. Performed By: #### I NFLUAB #### [facility] [address] [place] [address] Dr. Nikita Burgess INFLUENZA A AG Negative Normal NEGATIVE SEE COMMENT [facility] Comment on above: Performed By: #### I NFLUAB #### [facility] [address] [place] [address] Dr. Nikita Burgess INFLUENZA B AG Negative Normal NEGATIVE SEE COMMENT [facility] Comment on above: Performed By: #### I NFLUAB #### [facility] [address] [place], [place] [address] Dr. Nikita Burgess INTERNAL CONTROLS Within Normal Limits Normal Wi thin Normal Limits [facility] Comment on above: Performed By: #### I NFLUAB #### [facility] [address] [id number] Nikita Burgess GROUP A STREP CULTUREon 04-27 S. pyogenes Ag Ql (Unsp spec) Culture Observations: NEGATIVE FOR GROUP A STREPTOCOCCUS. Normal [facility] Comment on above: Performed By: #### L IVER, BMP, LIPID, FT3, TSH #### [facility] [address] [id number] Nikita Burgess STREPT SCREENon 05-12-2022 STREP SCREEN A Negative Normal NEGATIVE [facility] Comment on above: Performed By: #### L IVER, BMP, LIPID, FT3, TSH #### [facility] [address] [address] [address] Nikita Burgess ESTRONEon 11-26-2021 Estrone, Serum 30 pg/mL Normal 27-231 [facility] Comment on above: Result Comment: Rang e Adult (Premenopausal) 27 - 231 Menstrual Cycle (1-10 days) 19 - 149 Menstrual Cycle (11-20 days) 32 - 176 Menstrual Cycle (21-30 days) 37 - 200 Please note reference interval change Performed By: #### L IVER, BMP, LIPID, FT3, TSH #### [facility] [address] [address] [address] Nikita Burgess DHEA-SULFATEon 11-22-2021 DHEA-Sulfate 123.0 ug/dL Normal 57.3-279.2 [facility] Comment on above: Performed By: #### L IVER, BMP, LIPID, FT3, TSH #### [facility] [address] [address] [address] Nikita Burgess ESTRADIOLon 11-22-2021 Estradiol 83.2 pg/mL Normal [facility] Comment on above: Result Comment: Adul t Female: Follicular phase 12.5 - 166.0 Ovulation phase 85.8 - 498.0 Luteal phase 43.8 - 211.0 Postmenopausal <6.0 - 54.7 1st trimester 215.0 - >4300.0 Dejah ECLIA methodology Performed By: #### L IVER, BMP, LIPID, FT3, TSH #### [facility] [address] [place] [address] Dr. Nikita Burgess FSHon 11-22-2021 FSH 3.0 mIU/mL Normal [facility] Comment on above: Result Comment: Adul t Female: Follicular phase 3.5 - 12.5 Ovulation phase 4.7 - 21.5 Luteal phase 1.7 - 7.7 Postmenopausal 25.8 - 134.8 Performed By: #### L IVER, BMP, LIPID, FT3, TSH #### [facility] [address] [place] [address] Dr. Nikita Burgess LUTEINIZING HORMONE (LH)on 11-22-2021 LH 1.8 mIU/mL Normal [facility] Comment on above: Result Comment: Adul t Female: Follicular phase 2.4 - 12.6 Ovulation phase 14.0 - 95.6 Luteal phase 1.0 - 11.4 Postmenopausal 7.7 - 58.5 Performed By: #### L IVER, BMP, LIPID, FT3, TSH #### [facility] [address] [place] [address] Dr. Nikita Burgess PROGESTERONEon 11-22-2021 Progesterone 10.2 ng/mL Normal [facility] Comment on above: Result Comment: Foll icular phase 0.1 - 0.9 Luteal phase 1.8 - 23.9 Ovulation phase 0.1 - 12.0 First trimester 11.0 - 44.3 Second trimester 25.4 - 83.3 Third trimester 58.7 - 214.0 Postmenopausal 0.0 - 0.1 Performed By: #### L IVER, BMP, LIPID, FT3, TSH #### [facility] [address] [place] [address] Dr. Nikita Burgess PROLACTINon 11-22-2021 Prolactin 6.1 ng/mL Normal 4.8-23.3 [facility] Comment on above: Performed By: #### L IVER, BMP, LIPID, FT3, TSH #### [facility] [address] [place] [address] Dr. Nikita Burgess TESTOSTERONE, TOTALon 2021 Testosterone [Mass/Vol] 11 ng/dL Normal 8-60 [facility] Comment on above: Performed By: #### L IVER, BMP, LIPID, FT3, TSH #### [facility] [address] [place] [address] Dr. Nikita Burgess CBC AUTO DIFFon 11-21-2021 BASO # 0.0 103/ul Normal 0.0-0.1 [facility] Comment on above: Performed By: #### C BC #### [facility] [address] [place] [address] Dr. Nikita Burgess Basophils/100 WBC (Bld) 0.6 % Normal 0.2-2.0 [facility] Comment on above: Performed By: #### C BC #### [facility] [address] [place] [address] Dr. Nikita Burgess EO # 0.1 103/ul Normal 0.0-0.7 [facility] Comment on above: Performed By: #### C BC #### [facility] [address] [place] [address] Dr. Nikita Burgess Eosinophils/100 WBC (Bld) 1.5 % Normal 0.9-7.0 [facility] Comment on above: Performed By: #### C BC #### [facility] [address] [place] [address] Dr. Nikita Burgess Erythrocyte distribution width (RBC) [Ratio] 13.7 % Normal 11.0-15.0 [facility] Comment on above: Performed By: #### C BC #### [facility] [address] [place] [address] Dr. Nikita Burgess Hematocrit (Bld) [Volume fraction] 40.7 % Normal 36.0-48.0 [facility] Comment on above: Performed By: #### C BC #### [facility] [address] [place] [address] Dr. Nikita Burgess Hemoglobin (Bld) [Mass/Vol] 12.8 g/dL Normal 12.0-16.0 [facility] Comment on above: Performed By: #### C BC #### [facility] [address] [place] [address] Dr. Nikita Burgess IG # 0.01 10e3/ul Normal 0.00-0.03 [facility] Comment on above: Performed By: #### C BC #### [facility] [address] [place] [address] Dr. Nikita Burgess IG % 0.2 % Normal 0.0-0.5 [facility] Comment on above: Performed By: #### C BC #### [facility] [address] [place] [address] Dr. Nikita Burgess LYMPH # 1.6 103/ul Normal 1.2-3.8 [facility] Comment on above: Performed By: #### C BC #### [facility] [address] [place] [address] Dr. Nikita Burgess Lymphocytes/100 WBC (Bld) 29.5 % Normal 20.5-60.0 [facility] Comment on above: Performed By: #### C BC #### [facility] [address] [place] [address] Dr. Nikita Burgess MANUAL DIFF REQ NO Normal [facility] Comment on above: Performed By: #### C BC #### [facility] [address] [place] [address] Dr. Nikita Burgess MCH (RBC) [Entitic mass] 28.0 pg Normal 26.7-34.0 [facility] Comment on above: Performed By: #### C BC #### [facility] [address] [place] [address] Dr. Nikita Burgess MCHC (RBC) [Mass/Vol] 31.4 g/dL Normal 29.9-35.2 [facility] Comment on above: Performed By: #### C BC #### [facility] [address] [place] [address] Dr. Nikita Burgess MCV (RBC) [Entitic vol] 89.1 fL Normal 81.0-99.0 [facility] Comment on above: Performed By: #### C BC #### [facility] [address] [place] [address] Dr. Nikita Burgess MONO # 0.4 103/ul Normal 0.3-0.8 [facility] Comment on above: Performed By: #### C BC #### [facility] [address] [place] [address] Dr. Nkiita Burgess Monocytes/100 WBC (Bld) 7.4 % Normal 1.7-12.0 [facility] Comment on above: Performed By: #### C BC #### [facility] [address] [place] [address] Dr. Nikita Burgess NEUT # 3.2 103/ul Normal 1.4-6.5 [facility] Comment on above: Performed By: #### C BC #### [facility] [address] [place] [address] Dr. Nikita Burgess Neutrophils/100 WBC (Bld) 60.8 % Normal 43.0-75.0 [facility] Comment on above: Performed By: #### C BC #### [facility] [address] [place] [address] Dr. Nikita Burgess Platelet mean volume (Bld) [Entitic vol] 10.1 fL Normal 9.5-13.5 [facility] Comment on above: Performed By: #### C BC #### [facility] [address] [place] [address] Dr. Nikita Burgess PLT 273 103/ul Normal 150-450 [facility] Comment on above: Performed By: #### C BC #### [facility] [address] [place] [address] Dr. Nikita Burgess RBC 4.57 106/ul Normal 4.20-5.40 [facility] Comment on above: Performed By: #### C BC #### [facility] [address] [place] [address] Dr. Nikita Burgess WBC 5.3 103/ul Normal 4.0-11.0 [facility] Comment on above: Performed By: #### C BC #### [facility] [address] [place] [address] Dr. Nikita Burgess FREE T3on 11-21-2021 FREE T3 2.69 pg/mlL Normal 2.18-3.98 [facility] Comment on above: Performed By: #### L IVER, BMP, LIPID, FT3, TSH #### [facility] [address] [place] [address] [address] Nikita Burgess FREE T4on 11-21-2021 Free T4 [Mass/Vol] 0.98 ng/dL Normal 0.76-1.46 [facility] Comment on above: Performed By: #### F T4, VITAD #### [facility] [address] [place] [address] Dr. Nikita Burgess GLYCOHEMOGLOBIN A1Con 2021 ADA RECOMMENDATION SEE BELOW Normal [facility] Comment on above: Result Comment: ADA RECOMMENDED LIMIT 4.0 - 6.0 ADA THERAPEUTIC TARGET < 7.0 ACTION SUGGESTED > 7.0 Performed By: #### A 1C #### [facility] [address] [place] [address] Dr. Nikita Burgess Glucose [Mass/Vol] 111 mg/dL Normal [facility] Comment on above: Performed By: #### A 1C #### [facility] [address] [place] [address] Dr. Nikita Burgess HbA1c (Bld) [Mass fraction] 5.5 % Normal 4.5-6.2 [facility] Comment on above: Performed By: #### A 1C #### [facility] [address] [place] [address] Dr. Nikita Burgess LIPID PROFILEon 11-21-2021 CHOL-HDL RATIO NORM SEE BELOW Normal [facility] Comment on above: Result Comment: 3.3 - 4.4 LOW RISK 4.4 - 7.1 AVERAGE RISK 7.1 - 11.0 MODERATE RISK >11.0 HIGH RISK Performed By: #### L IVER, BMP, LIPID, FT3, TSH #### [facility] [address] [place] [address] Dr. Nikita Burgess Cholesterol [Mass/Vol] 193 mg/dL Normal <=200 [facility] Comment on above: Performed By: #### L IVER, BMP, LIPID, FT3, TSH #### [facility] [address] [address] [address] Nikita Burgess Cholesterol in HDL [Mass/Vol] 58 mg/dL Normal 40-60 [facility] Comment on above: Performed By: #### L IVER, BMP, LIPID, FT3, TSH #### [facility] [address] [address] [address] Nikita Burgess Cholesterol in LDL [Mass/Vol] 122.6 mg/dL Normal [facility] Comment on above: Performed By: #### L IVER, BMP, LIPID, FT3, TSH #### [facility] [address] [place] [address] Dr. Nikita Burgess Cholesterol.total/Ch olesterol in HDL [Mass ratio] 3.3 {ratio} Normal [facility] Comment on above: Performed By: #### L IVER, BMP, LIPID, FT3, TSH #### [facility] [address] [place] [address] Dr. Nikita Burgess HDL NORMAL > or = 60 mg/dl - LO W CARDIOVASCULAR RISK <40 mg/dl - HIGH CARDIOVASCULAR RISK Normal [facility] Comment on above: Performed By: #### L IVER, BMP, LIPID, FT3, TSH #### [facility] [address] [place] [address] Dr. Nikita Burgess LDL CALC NORMAL SEE BELOW Normal [facility] Comment on above: Result Comment: <100 mg/dl OPTIMAL 100 - 129 mg/dl NEAR OR ABOVE OPTIMAL 130 - 159 mg/dl BORDERLINE HIGH 160 - 189 mg/dl HIGH >190 mg/dl VERY HIGH Performed By: #### L IVER, BMP, LIPID, FT3, TSH #### [facility] [address] [place] [address] Dr. Nikita Burgess Triglyceride [Mass/Vol] 62 mg/dL Normal <=150 [facility] Comment on above: Performed By: #### L IVER, BMP, LIPID, FT3, TSH #### [facility] [address] [place] [address] Dr. Nikita Burgess VLDL CALC 12.4 mg/dL Normal [facility] Comment on above: Performed By: #### L IVER, BMP, LIPID, FT3, TSH #### [facility] [address] [address] [address] Nikita Burgess LIVER PROFILEon 11-21-2021 Albumin [Mass/Vol] 3.9 g/dL Normal 3.4-5.0 [facility] Comment on above: Performed By: #### L IVER, BMP, LIPID, FT3, TSH #### [facility] [address] [address] [address] Nikita Burgess Albumin/Globulin [Mass ratio] 1.0 {ratio} Normal [facility] Comment on above: Performed By: #### L IVER, BMP, LIPID, FT3, TSH #### [facility] [address] [place] [address] Dr. Nikita Burgess ALP [Catalytic activity/Vol] 68 U/L Normal 46-116 [facility] Comment on above: Performed By: #### L IVER, BMP, LIPID, FT3, TSH #### [facility] [address] [place] [address] Dr. Nikita Burgess ALT [Catalytic activity/Vol] 20 U/L Normal 14-59 [facility] Comment on above: Performed By: #### L IVER, BMP, LIPID, FT3, TSH #### [facility] [address] [place] [address] Dr. Nikita Burgess AST [Catalytic activity/Vol] 17 U/L Normal 15-37 [facility] Comment on above: Performed By: #### L IVER, BMP, LIPID, FT3, TSH #### [facility] [address] [address] [address] Nikita Burgess BILI, CONJUGATED 0.1 mg/dL Normal 0.0-0.2 [facility] Comment on above: Performed By: #### L IVER, BMP, LIPID, FT3, TSH #### [facility] [address] [address] [address] Nikita Burgess Bilirubin [Mass/Vol] 0.6 mg/dL Normal 0.2-1.0 [facility] Comment on above: Performed By: #### L IVER, BMP, LIPID, FT3, TSH #### [facility] [address] [place] [address] Dr. Nikita Burgess Globulin (S) [Mass/Vol] 3.9 g/dL Normal [facility] Comment on above: Performed By: #### L IVER, BMP, LIPID, FT3, TSH #### [facility] [address] [place] [address] Dr. Nikita Burgess Protein [Mass/Vol] 7.8 g/dL Normal 6.1-8.2 [facility] Comment on above: Performed By: #### L IVER, BMP, LIPID, FT3, TSH #### [facility] [address] [place] [address] Dr. Nikita Burgess PROF CHEM 8 (BAS METB)on Anion gap [Moles/Vol] 12.5 mmol/L Normal [facility] Comment on above: Performed By: #### L IVER, BMP, LIPID, FT3, TSH #### [facility] [address] [place] [address] Dr. Nikita Burgess Calcium [Mass/Vol] 8.2 mg/dL Critically low 8.5-10.1 [facility] Comment on above: Performed By: #### L IVER, BMP, LIPID, FT3, TSH #### [facility] [address] [place] [address] Dr. Nikita Burgess Chloride [Moles/Vol] 102 mmol/L Normal 98-107 [facility] Comment on above: Performed By: #### L IVER, BMP, LIPID, FT3, TSH #### [facility] [address] [place] [address] Dr. Nikita Burgess CO2 [Moles/Vol] 26.3 mmol/L Normal 21.0-32.0 [facility] Comment on above: Performed By: #### L IVER, BMP, LIPID, FT3, TSH #### [facility] [address] [place] [address] Dr. Nikita Burgess Creatinine [Mass/Vol] 0.57 mg/dL Normal 0.55-1.02 [facility] Comment on above: Performed By: #### L IVER, BMP, LIPID, FT3, TSH #### [facility] [address] [address] [address] Nikita Burgess EGFR-AF SWAZI >60 Normal >=60 [facility] Comment on above: Performed By: #### L IVER, BMP, LIPID, FT3, TSH #### [facility] [address] [address] [address] Nikita Burgess EGFR-NON AF SWAZI >60 Normal >=60 [facility] Comment on above: Performed By: #### L IVER, BMP, LIPID, FT3, TSH #### [facility] [address] [address] [address] Nikita Burgess Glucose [Mass/Vol] 78 mg/dL Normal 74-106 [facility] Comment on above: Performed By: #### L IVER, BMP, LIPID, FT3, TSH #### [facility] [address] [address] [address] Nikita Burgess Potassium [Moles/Vol] 3.8 mmol/L Normal 3.5-5.1 [facility] Comment on above: Performed By: #### L IVER, BMP, LIPID, FT3, TSH #### [facility] [address] [address] [address] Nikita Burgess Sodium [Moles/Vol] 137 mmol/L Normal 136-145 [facility] Comment on above: Performed By: #### L IVER, BMP, LIPID, FT3, TSH #### [facility] [address] [address] [address] Nikita Burgess Urea nitrogen [Mass/Vol] 11.0 mg/dL Normal 7.0-18.0 [facility] Comment on above: Performed By: #### L IVER, BMP, LIPID, FT3, TSH #### [facility] [address] [address] [address] Nikita Burgess Urea nitrogen/Creatinine [Mass ratio] 19.3 mg/mg Normal [facility] Comment on above: Performed By: #### L IVER, BMP, LIPID, FT3, TSH #### [facility] [address] [place] [address] Dr. Nikita Burgess TSHon 11-21-2021 TSH 2.175 uIU/mL Normal 0.470-4.680 [facility] Comment on above: Performed By: #### L IVER, BMP, LIPID, FT3, TSH #### [facility] [address] [place] [address] Dr. Nikita Burgess TSH RANGE SEE BELOW Normal [facility] Comment on above: Result Comment: <0.3 4 UIU/ml HYPERTHYROID 0.34-5.60 UIU/ml EUTHYROID >5.60 UIU/ml HYPOTHYROID Performed By: #### L IVER, BMP, LIPID, FT3, TSH #### [facility] [address] [place] [address] Dr. Nikita Burgess VITAMIN D 25 OHon 11-21-2021 VIT D 25-OH 49.5 ng/mL Normal [facility] Comment on above: Performed By: #### F T4, VITAD #### [facility] [address] [place] [address] Dr. Nikita Burgess VIT D RANGES SEE BELOW Normal [facility] Comment on above: Result Comment: <20 ng/mL Vit D deficient 20 - <30 ng/mL Vit D insufficient 30 - 100 ng/mL Vit D sufficient >100 ng/mL Potential Toxicity Performed By: #### F T4, VITAD #### [facility] [address] [place] [address] Dr. Nikita Burgess [facility] SARS-CoV-2 (COVID-19) RNA TIERA+probe Ql (Unsp spec) Not detected Normal NOT DETECTED [facility] Comment on above: Result Comment: This test is not yet approved or cleared by the [place] FDA. When there are no FDA-approved or cleared tests available, and other criteria are met, FDA can make tests available under an emergency access mechanism called an Emergency Use Authorization (EUA). The EUA for this test is supported by the [place] of Health and Human Service's (HHS's) declaration [...] TSH #### [facility] [address] [place] [address] Dr. Nikita Burgess Consenton 10-04-2020 Consent [id number]# 1.00CD:127 Normal [facility] Registrationon 10-04-2020 Registration [id number]# 1.00CD:127 Normal [facility] Vital Signs Date Time Vital Sign Value Performing Clinician Oswaldo jessica 09-01-2023 10:18-0500 Body mass index (BMI) [Ratio] 29.94 kg/m2 [facility] [employer] Work Phone: [facility] 09-01-2023 10:18-0500 Body weight 76.66 kg [facility] [employer] Work Phone: [facility] 09-01-2023 10:18-0500 Diastolic blood pressure 72 mm[Hg] [facility] [employer] Work Phone: [facility] 09-01-2023 10:18-0500 Systolic blood pressure 118 mm[Hg] [facility]coe [employer] Work Phone: [facility] Healthcare Encounters Encounter Date Encounter Type Care Provider Facility Start: 09-02-2023 End: 09-02-2023 Orders Only Moshe Montes MD Work Phone: [facility] Comment on above: Attention deficit di sorder (ADD) without hyperactivity Start: 09-01-2023 Clinisync Result Encounter Generic External Data Provider [facility] Unsolicited Start: 09-01-2023 Clinisync Result Encounter Generic External Data Provider [facility] Unsolicited Start: 09-01-2023 End: 09-01-2023 ambulatory ROSCOE BENOIT Not Available Start: 09-01-2023 End: 09-01-2023 Patient encounter procedure Roscoe Benoit DO Work Phone: [facility] Work Phone: Start: 09-01-2023 End: 09-01-2023 Periodic preventive med est patient 18-39 yrs Roscoe Benoit DO Work Phone: [facility] Comment on above: Well woman exam with routine gynecological exam; Preop examination; Pelvic pain in female; Pelvic congestion syndrome Start: 09-01-2023 End: 09-01-2023 Preprocedural examination done Roscoe Benoit DO Work Phone: [facility] Start: 08-05-2023 End: 08-05-2023 ambulatory ROSCOE BENOIT Not Available Start: 07-04-2022 End: 07-04-[address] MOSHE MONTES Facility:[facility] Start: 05-12-2022 End: 05-12-[address] MOSHE MONTES Facility:[facility] Start: 11-22-2021 Encounter for genera l adult medical examination without abnormal findings DR MOSHE MONTES [facility] Start: 11-21-2021 End: 11-22-[address] MOSHE MONTES Facility:[facility] Start: 11-21-2021 End: 11-22-2021 Encounter for general adult medical examination without abnormal findings DR MOSHE MONTES Facility:[facility] Start: 07-31-2021 End: 07-31-[address] MOSHE MONTES Facility:[facility] Start: 07-10-2021 End: 07-10-[address] MOSHE MONTES Facility:[facility] Procedures Date Procedure Procedure Detail Performing Clinician Start: 09-01-2023 IGP,APTIMA HPV,AGE GDLN Roscoe Benoit DO Work Phone: Plan of Treatment Date Care Activity Detail Author Start: 03-08-2024 End: 03-08-2024 Patient encounter procedure 03/08/2024 10:00 AM EDT Office Visit [facility] [address] [place] [address] Moshe Montes MD [address] [place] [address] [facility] Start: 09-02-2023 End: 09-02-2023 Patient encounter procedure 09/02/2023 2:30 PM EST Office Visit [facility] [address] [place] [address] Moshe Montes MD [address] [place] [address] [facility] Start: 09-02-2023 Chart abstracting 09/02/2023 A bstract [facility] [address] [place] [address] Moshe Montes MD [address] [place] [address] [facility] Start: 03-28-2023 Influenza vaccination Influenza Vacc ine (#1) [facility] Start: 2016 Screening for malign ant neoplasm of cervix [facility] Start: 2007 Screening for malign ant neoplasm of cervix Pap Smear [facility] Cytology Cervical or vaginal smear or scraping study Pap Smear Pathology and Cytology Routine Well woman exam with routine gynecological exam Ordered: 09/01/2023 [facility] Work Phone: Comment on above: Ordered: 09/01/2023 Human papilloma viru s DNA [Presence] in Unspecified specimen by Probe with amplification HPV DNA probe, amplified Microbiology Routine Well woman exam with routine gynecological exam Ordered: 09/01/2023 [facility] Comment on above: Ordered: 09/01/2023 Payers Date Payer Category Payer Medicaid [facility] MEDICAID [facility] MEDICAID [id number] 2020-Present [address] [place] [address] [id number] 1985 Unknown [id number] 1985 Unknown [id number] 1986 Unknown [id number] 1986 Unknown [id number] 1986 Unknown [id number] 1986 Unknown [id number] 1986 Unknown [id number] 1986 Unknown [id number] 1959 Unknown [id number] Social History Date Type Detail Facility Start: 08-25-2023 End: 09-02-2023 Tobacco smoking status [facility] Smokes tobacco daily [facility] History of tobacco use Cigarette Smoker [facility] Start: 09-01-2023 End: 09-02-2023 History of Social function [facility] Start: 09-01-2023 End: 09-02-2023 Tobacco use panel [facility] Start: 1985 Sex Assigned At Female [facility] Start: 08-05-2023 Gender identity Identifies as female gender (finding) [facility] Start: 08-05-2023 Sexual orientation Heterosexual (fin ding) [facility] Start: 09-02-2023 Tobacco use and exposure Smokeless t obacco non-user [facility] History of Present illness Narrative 09-01-2023 Rayne Valdes - 09/01/2023 9:40 AM EST Note Date & Type Note Facility 09-01-2023 History of Presen t illness Narrative Reason for Appointment: Patient ID: Benny Wynne is a 38 y.o. female who presents for Well Women Visit and Pre-op Visit Patient presents today for a Annual/Pre Op appointment. Patient is scheduled to undergo Diagnostic Laparoscopy, possible TJ, possible FOE, possible BSO on 09/26/[address] Laboy at [facility]. Current Medications: has a current medication list which includes the following prescription(s): amphetamine-dextroamphetamine xr, fluticasone, and metformin xr. Medical History: Active Ambulatory Problems Diagnosis Date Noted No Active Ambulatory Problems Resolved Ambulatory Problems Diagnosis Date Noted No Resolved Ambulatory Problems Past Medical History: Diagnosis Date Acne vulgaris ADD (attention deficit 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 At low risk for fall Bipolar affective disorder, currently depressed, mild (CMS/HCC) ZENOBIA (generalized anxiety disorder) (CMS/HCC) Hirsutism Influenza vaccination declined Lump of skin of back Menorrhagia Nummular eczema Obesity with body mass index (BMI) of 30.0 to 39.9 Superficial phlebitis and thrombophlebitis of right lower extremity Tobacco user Varicose veins of bilateral lower extremities with pain Family History Problem Relation Name Age of Onset COPD Mother Depression Mother Mental illness Mother Cancer Mother Cervical cancer Other (Other) Mother Asthma Mother Arthritis Mother Hyperlipidemia Mother Osteoporosis Mother Hepatitis Mother Migraines Mother Hypertension Father Arthritis Father Hyperlipidemia Father Other (Other) Father Chemical dependency Migraines Maternal Grandmother Arthritis Maternal Grandmother Osteoporosis Maternal Grandmother Stroke Maternal Grandmother Seizures Maternal Grandmother Arthritis Maternal Grandfather Diabetes Paternal Grandmother Arthritis Paternal Grandmother Arthritis Paternal Grandfather Social History Tobacco Use Smoking status: Every Day Years: 10 Types: Cigarettes Smokeless tobacco: Not on file Substance Use Topics Alcohol use: Not on file Drug use: Not on file Past Surgical History: Procedure Laterality Date CERVICAL CERCLAGE DILATION AND CURETTAGE OF UTERUS miscarriage TUBAL LIGATION Laparoscopic No Known Allergies Review of Systems: Review of Systems Constitutional: Negative. HENT: Negative. Eyes: Negative. Respiratory: Negative. Cardiovascular: Negative. Gastrointestinal: Negative. Genitourinary: Negative. Musculoskeletal: Negative. Skin: Negative. Neurological: Negative. All other systems reviewed and are negative. Hematological: Negative. Endocrine: Negative. Allergic/Immunologic: Negative. Objective Physical Exam Constitutional: Appearance: Normal appearance. She is well-developed. Genitourinary: Vulva normal. Cardiovascular: Rate and Rhythm: Normal rate and regular rhythm. Pulmonary: Effort: Pulmonary effort is normal. Breath sounds: Normal breath sounds. Abdominal: General: Bowel sounds are normal. There is no distension. Palpations: Abdomen is soft. Tenderness: There is no abdominal tenderness. There is no guarding or rebound. Musculoskeletal: General: No swelling. Normal range of motion. Right lower leg: No edema. Left lower leg: No edema. Neurological: Mental Status: She is alert and oriented to person, place, and time. Skin: General: Skin is warm and dry. Psychiatric: Mood and Affect: Mood normal. Behavior: Behavior normal. Vitals and nursing note reviewed. Exam conducted with a associate teacher present. Vitals: Estimated body mass index is 30.29 kg/m as calculated from the following: Height as of 08/05/23: 5' 3 . Weight as of 08/05/23: 171 lb. BP: Patient's last menstrual period was 08/04/2023. Assessment/Plan Encounter Diagnoses Name Primary? Well woman exam with routine gynecological exam Preop examination Pelvic pain in female Pelvic congestion syndrome Annual: Patient presents today for an annual exam. Patient states she is doing well and has no complaints. Pap was obtained without difficulty. Pre Op: Patient is doing well but has complaints of ..... I have discussed conservative management vs. surgical management with the patient in detail and patient desires surgical management at this time. Patient will undergo Diagnostic Laparoscopy, possible TJ, possible FOE, possible BSO on 09/26/2023 Surgical consents were signed, mmc was reviewed, and patient is to proceed to [facility] OR. Follow Up: Patient is to follow up between 1-2 weeks post operative to assess proper healing and recovery from procedure. Documented by: Mindy Linares LPN on behalf of Roscoe Laboy DO documented in this encounter [facility] Evaluation note Note Date & Type Note Facility Evaluation note Diagnosis Well woman exam with routine gynecological exam Routine gynecological examination Preop examination Unspecified pre-operative examination Pelvic pain in female Unspecified symptom associated with female genital organs Pelvic congestion syndrome documented in this encounter [facility] Evaluation note Note Date & Type Note Facility Evaluation note Diagnosis Attention deficit disorder (ADD) without hyperactivity documented in this encounter [facility] Summary Purpose Family History No Family History Records FoundNo Family History Records FoundNo Family History Records Found Advance Directives No Advanced Directives Records FoundNo Advanced Directives Records FoundNo Advanced Directives Records Found Reason for Referral Specialty Diagnoses / Procedures Referred By Tiburcio t Referred To Contact Diagnoses Attention deficit disorder (ADD) without hyperactivity Moshe Mnotes MD [address] [place] [address] Referral ID Status Reason Start Date Expiration Date Visits Re quested Visits Authorized [id number] Closed 1 1 Additional Source Comments INFORMATION SOURCE (unrecogn ized section and content) DATE CREATED AUTHOR 10/05/2020 [facility] DATE CREATED AUTHOR AUTHOR'S ORGANIZ ATION 07/08/2022 [facility] DATE CREATED AUTHOR AUTHOR'S ORGANIZ ATION 09/03/2023 [facility] EPIC Reason for Visit (unrecogniz ed section and content) Reason Comments Well Women Visit Pre-op Visit Care Teams (unrecognized sec tion and content) [employer] Relationship Specialty Start Date End Date Moshe Montes MD [address] [place] [address] PCP - General Family Medicine 08/25/23 [employer] Relationship Specialty Start Date End Date Moshe Montes MD [address] [place] [address] PCP - General Family Medicine 08/25/23 [employer]ometric Tech Relationship Specialty Start Date End Date Moshe Montes MD [address] [place] [address] PCP - General Family Medicine 08/25/23 FOR RECORDS PERTAINING TO PATIENTS WHO ARE [...] BE BASED ON THE PRIMARY CLINICAL RECORDS. [facility]. provides no warranty or guarantee of the accuracy or completeness of information in this document.
--- NOTE | 2023-09-12 10:31 | XR_ITS ---
[address] [address] Patient Name: STEVE NORWOOD MRN: [id number] date: 1985 Sex: F Assigned Patient Location: [facility] Current Patient Location: [facility] Accession/Order Number: [id number] Exam Date: 09/12/2023 11:04 Report Date: 09/12/2023 11:20 At the request of: ROSCOE BUTTS Procedure: XR chest 2V EXAM: XR chest 2V HISTORY: Preop exam COMPARISON: None. TECHNIQUE: PA and lateral views of the chest. FINDINGS: The cardiomediastinal silhouette is normal. No focal consolidation is identified. There is no pneumothorax. No pleural effusion is noted. The osseous structures are intact. XR/XR chest 2V IMPRESSION: No acute cardiopulmonary process. Electronically authenticated by: ARIANE MARI Date: 09/12/2023 11:20
== END 2023-09-12 10:10 | disposition home or self-care (01) ==
LOC: PST 10:09
PROVIDERS: PCP Family Medicine; Visit Provider Obstetrics & Gynecology
DX: Z01.810 Encounter for preprocedural cardiovascular examination (principal); R10.2 Pelvic and perineal pain; N94.89 Other specified conditions associated with female genital organs and menstrual cycle
CPT/HCPCS: 71046

== ENCOUNTER 2023-09-26 07:03 | Day surgery (SDC) | payer OTHER, SELFPAY ==
[2023-09-12 10:40] VITALS: BP 126/74; PULSE 78; RESP 18; TEMP 36.4; O2SAT 100; BMI 30.6
[2023-09-26] VITALS (9 sets, daily range): BP systolic 103–112; BP diastolic 55–88; PULSE 67–91; RESP 13–24; TEMP 36.1–36.4; O2SAT 99–100; BMI 30.5
--- OUTSIDE RECORDS SUMMARY | 2023-09-26 07:06 | XMS_ITS | CCD ---
Author Name Unknown Address [address] [facility] [address] [place] [id number] Organization [facility] Care Team Providers Care Solaris Administrator Name Role Phone DR MOSHE MONTES Primary [...] Unavailable Bradr Moshe CARCAMO Primary Care Provider [phone] ROSCOE LABOY Attending Unavailable ROSCOE LABOY Attending [...] Low,>-Panic High,A-Abnormal,AA-Critical Abnormal Performed at: 01 =G [employer] [address] Latisha Jain MD, HPV APTIMA Negative Negative [facility] Comment on above: This nucleic acid am plification test detects fourteen high- risk HPV types (16,18,31,33,35,39,45,51,52,56,58,59,66,68) without differentiation. Performed at: = - [employer] [id number] Lens Polisher: Latisha Jain MD, Phone: [phone] Performed at: - [address] [place] [address] [id number] Lens Polisher: Latisha Jain MD, Phone: [phone] IGP, APTIMA HPV, RFX 16/18,45 Note . [facility] Comment on above: TESTS RESULT FLAG UN ITS REF RANGE LAB DIAGNOSIS: 02 NEGATIVE FOR INTRAEPITHELIAL LESION OR MALIGNANCY. Specimen adequacy: 02 Satisfactory for evaluation. Endocervical and/or squamous metaplastic cells (endocervical component) are present. Performed by: 02 Dinah Thorpe Fur Matcher ([facility]) . 02 Note: Note 02 [...] High,A-Abnormal,AA-Critical Abnormal Performed at: 02 WB [facility] [address] [place] [address] Latisha Jain MD, BRUSH-SPATULA CERVIX ENDOCERVIX [facility] Covid-19 PCR ([facility])on SARS-CoV-2 (COVID-19) RNA TIERA+probe Ql (Unsp spec) Not detected Normal NOT DETECTED [facility] Comment on above: Result Comment: When diagnostic [...] for this test is supported by the [place] Operator of Health and Human Service's declaration [...] L IVER, BMP, LIPID, FT3, TSH #### [facility] [address] [place] [address] Dr. Nikita Burgess INFLUENZA A AND B AGon 07-04 [facility] SEE BELOW [facility] Comment on above: Result Comment: Nega tive for Flu A protein angiten. Infection due to Flu A cannot be ruled out. Flu A angiten in the sample may be below the detection limit of the test. Performed By: #### I NFLUAB #### [facility] [address] [place] [address] Dr. Nikita Burg[facility] BEL[facility] Comment on above: Result Comment: Nega tive for Flu B protein antigen. Infection due to Flu B cannot be ruled out. Flu B antigen in the sample may be below the detection limit of the test. Performed By: #### I NFLUAB #### [facility] [address] [place] [address] Dr. Nikita Burgess INFLUENZA A AG Negative Normal NEGATIVE SEE COMMENT [facility] Comment on above: Performed By: #### I NFLUAB #### [facility] [address] [place] [address] Dr. Nikita Burgess INFLUENZA B AG Negative Normal NEGATIVE SEE COMMENT [facility] Comment on above: Performed By: #### I NFLUAB #### [facility] [address] [place], [place] [address] Dr. Nikita Burgess INTERNAL CONTROLS Within Normal Limits Normal Wi thin Normal Limits [facility] Comment on above: Performed By: #### I NFLUAB #### [facility] [id number] Nikita Burgess GROUP A STREP CULTUREon 04-27 S. pyogenes Ag Ql (Unsp spec) Culture Observations: NEGATIVE FOR GROUP A STREPTOCOCCUS. Normal [facility] Comment on above: Performed By: #### L IVER, BMP, LIPID, FT3, TSH #### [facility] [id number] Nikita Burgess STREPT SCREENon 05-12-2022 STREP SCREEN A Negative Normal NEGATIVE [facility] Comment on above: Performed By: #### L IVER, BMP, LIPID, FT3, TSH #### [facility] [address] [address] [address] Nikita Burgess ESTRONEon 11-26-2021 Estrone, Serum 30 pg/mL Normal 27-231 [facility] Comment on above: Result Comment: Rang e Adult (Premenopausal) 27 - 231 Menstrual Cycle (1-10 days) 19 - 149 Menstrual Cycle (11-20 days) 32 - 176 Menstrual Cycle (21-30 days) 37 - 200 Please note reference interval change Performed By: #### L IVER, BMP, LIPID, FT3, TSH #### [facility] [address] [address] [address] Nikita Burgess DHEA-SULFATEon 11-22-2021 DHEA-Sulfate 123.0 ug/dL Normal 57.3-279.2 The [facility] Comment on above: Performed By: #### L IVER, BMP, LIPID, FT3, TSH #### [facility] [address] [address] [address] Nikita Burgess ESTRADIOLon 11-22-2021 Estradiol 83.2 pg/mL [facility] Comment on above: Result Comment: Adul t Female: Follicular phase 12.5 - 166.0 Ovulation phase 85.8 - 498.0 Luteal phase 43.8 - 211.0 Postmenopausal <6.0 - 54.7 1st trimester 215.0 - >4300.0 Dejah ECLIA methodology Performed By: #### L IVER, BMP, LIPID, FT3, TSH #### [facility] [address] [place] [address] Dr. Nikita Burgess FSHon 11-22-2021 FSH 3.0 mIU/mL [facility] Comment on above: Result Comment: Adul t Female: Follicular phase 3.5 - 12.5 Ovulation phase 4.7 - 21.5 Luteal phase 1.7 - 7.7 Postmenopausal 25.8 - 134.8 Performed By: #### L IVER, BMP, LIPID, FT3, TSH #### [facility] [address] [place] [address] Dr. Nikita Burgess LUTEINIZING HORMONE (LH)on 11-22-2021 LH 1.8 mIU/mL [facility] Comment on above: Result Comment: Adul t Female: Follicular phase 2.4 - 12.6 Ovulation phase 14.0 - 95.6 Luteal phase 1.0 - 11.4 Postmenopausal 7.7 - 58.5 Performed By: #### L IVER, BMP, LIPID, FT3, TSH #### [facility] [address] [place] [address] Dr. Nikita Burgess PROGESTERONEon 11-22-2021 Progesterone 10.2 ng/mL [facility] Comment on above: Result Comment: Foll icular phase 0.1 - 0.9 Luteal phase 1.8 - 23.9 Ovulation phase 0.1 - 12.0 First trimester 11.0 - 44.3 Second trimester 25.4 - 83.3 Third trimester 58.7 - 214.0 Postmenopausal 0.0 - 0.1 Performed By: #### L IVER, BMP, LIPID, FT3, TSH #### [facility] [address] [place] [address] Dr. Nikita Burgess PROLACTINon 11-22-2021 Prolactin 6.1 ng/mL Normal 4.8-23.3 [facility] Comment on above: Performed By: #### L IVER, BMP, LIPID, FT3, TSH #### [facility] [address] [place] [address] Dr. Nikita Burgess TESTOSTERONE, TOTALon 2021 Testosterone [Mass/Vol] 11 ng/dL Normal 8-60 [facility] Comment on above: Performed By: #### L IVER, BMP, LIPID, FT3, TSH #### [facility] [address] [place] [address] Dr. Nikita Burgess CBC AUTO DIFFon 11-21-2021 BASO # 0.0 103/ul Normal 0.0-0.1 [facility] Comment on above: Performed By: #### C BC #### [facility] [address] [place] [address] Dr. Nikita Burgess Basophils/100 WBC (Bld) 0.6 % Normal 0.2-2.0 [facility] Comment on above: Performed By: #### C BC #### [facility] [address] [place] [address] Dr. Nikita Burgess EO # 0.1 103/ul Normal 0.0-0.7 [facility] Comment on above: Performed By: #### C BC #### [facility] [address] [place] [address] Dr. Nikita Burgess Eosinophils/100 WBC (Bld) 1.5 % Normal 0.9-7.0 [facility] Comment on above: Performed By: #### C BC #### [facility] [address] [place] [address] Dr. Nikita Burgess Erythrocyte distribution width (RBC) [Ratio] 13.7 % Normal 11.0-15.0 [facility] Comment on above: Performed By: #### C BC #### [facility] [address] [place] [address] Dr. Nikita Burgess Hematocrit (Bld) [Volume fraction] 40.7 % Normal 36.0-48.0 [facility] Comment on above: Performed By: #### C BC #### [facility] [address] [place] [address] Dr. Nikita Burgess Hemoglobin (Bld) [Mass/Vol] 12.8 g/dL Normal 12.0-16.0 [facility] Comment on above: Performed By: #### C BC #### [facility] [address] [place] [address] Dr. Nikita Burgess IG # 0.01 10e3/ul Normal 0.00-0.03 [facility] Comment on above: Performed By: #### C BC #### [facility] [address] [place] [address] Dr. Nikita Burgess IG % 0.2 % Normal 0.0-0.5 [facility] Comment on above: Performed By: #### C BC #### [facility] [address] [place] [address] Dr. Nikita Burgess LYMPH # 1.6 103/ul Normal 1.2-3.8 [facility] Comment on above: Performed By: #### C BC #### [facility] [address] [place] [address] Dr. Nikita Burgess Lymphocytes/100 WBC (Bld) 29.5 % Normal 20.5-60.0 [facility] Comment on above: Performed By: #### C BC #### [facility] [address] [place] [address] Dr. Nikita Burgess MANUAL DIFF REQ NO Normal [facility] Comment on above: Performed By: #### C BC #### [facility] [address] [place] [address] Dr. Nikita Burgess MCH (RBC) [Entitic mass] 28.0 pg Normal 26.7-34.0 [facility] Comment on above: Performed By: #### C BC #### [facility] [address] [place] [address] Dr. Nikita Burgess MCHC (RBC) [Mass/Vol] 31.4 g/dL Normal 29.9-35.2 [facility] Comment on above: Performed By: #### C BC #### [facility] [address] [place] [address] Dr. Nikita Burgess MCV (RBC) [Entitic vol] 89.1 fL Normal 81.0-99.0 [facility] Comment on above: Performed By: #### C BC #### [facility] [address] [place] [address] Dr. Nikita Burgess MONO # 0.4 103/ul Normal 0.3-0.8 [facility] Comment on above: Performed By: #### C BC #### [facility] [address] [place] [address] Dr. Nikita Burgess Monocytes/100 WBC (Bld) 7.4 % Normal 1.7-12.0 [facility] Comment on above: Performed By: #### C BC #### [facility] [address] [place] [address] Dr. Nikita Burgess NEUT # 3.2 103/ul Normal 1.4-6.5 [facility] Comment on above: Performed By: #### C BC #### [facility] [address] [place] [address] Dr. Nikita Burgess Neutrophils/100 WBC (Bld) 60.8 % Normal 43.0-75.0 [facility] Comment on above: Performed By: #### C BC #### [facility] [address] [place] [address] Dr. Nikita Burgess Platelet mean volume (Bld) [Entitic vol] 10.1 fL Normal 9.5-13.5 [facility] Comment on above: Performed By: #### C BC #### [facility] [address] [place] [address] Dr. Nikita Burgess PLT 273 103/ul Normal 150-450 [facility] Comment on above: Performed By: #### C BC #### [facility] [address] [place] [address] Dr. Nikita Burgess RBC 4.57 106/ul Normal 4.20-5.40 [facility] Comment on above: Performed By: #### C BC #### [facility] [address] [place] [address] Dr. Nikita Burgess WBC 5.3 103/ul Normal 4.0-11.0 [facility] Comment on above: Performed By: #### C BC #### [facility] [address] [place] [address] Dr. Nikita Burgess FREE T3on 11-21-2021 FREE T3 2.69 pg/mlL Normal 2.18-3.98 [facility] Comment on above: Performed By: #### L IVER, BMP, LIPID, FT3, TSH #### [facility] [address] [address] [address] Nikita Burgess FREE T4on 11-21-2021 Free T4 [Mass/Vol] 0.98 ng/dL Normal 0.76-1.46 [facility] Comment on above: Performed By: #### F T4, VITAD #### [facility] [address] [place] [address] Dr. Nikita Burgess GLYCOHEMOGLOBIN A1Con 2021 ADA RECOMMENDATION SEE BELOW Normal [facility] Comment on above: Result Comment: ADA RECOMMENDED LIMIT 4.0 - 6.0 ADA THERAPEUTIC TARGET < 7.0 ACTION SUGGESTED > 7.0 Performed By: #### A 1C #### [facility] [address] [place] [address] Dr. Nikita Burgess Glucose [Mass/Vol] 111 mg/dL Normal [facility] Comment on above: Performed By: #### A 1C #### [facility] [address] [place] [address] Dr. Nikita Burgess HbA1c (Bld) [Mass fraction] 5.5 % Normal 4.5-6.2 [facility] Comment on above: Performed By: #### A 1C #### [facility] [address] [place] [address] Dr. Nikita Burgess LIPID PROFILEon 11-21-2021 CHOL-HDL RATIO NORM SEE BELOW Normal [facility] Comment on above: Result Comment: 3.3 - 4.4 LOW RISK 4.4 - 7.1 AVERAGE RISK 7.1 - 11.0 MODERATE RISK >11.0 HIGH RISK Performed By: #### L IVER, BMP, LIPID, FT3, TSH #### [facility] [address] [place] [address] Dr. Nikita Burgess Cholesterol [Mass/Vol] 193 mg/dL Normal <=200 [facility] Comment on above: Performed By: #### L IVER, BMP, LIPID, FT3, TSH #### [facility] [address] [address] [address] Nikita Burgess Cholesterol in HDL [Mass/Vol] 58 mg/dL Normal 40-60 [facility] Comment on above: Performed By: #### L IVER, BMP, LIPID, FT3, TSH #### [facility] [address] [address] [address] Nikita Burgess Cholesterol in LDL [Mass/Vol] 122.6 mg/dL [facility] Comment on above: Performed By: #### L IVER, BMP, LIPID, FT3, TSH #### [facility] [address] [place] [address] Dr. Nikita Burgess Cholesterol.total/Ch olesterol in HDL [Mass ratio] 3.3 {ratio} [facility] Comment on above: Performed By: #### L IVER, BMP, LIPID, FT3, TSH #### [facility] [address] [place] [address] Dr. Nikita Burgess HDL NORMAL > or = 60 mg/dl - LO W CARDIOVASCULAR RISK <40 mg/dl - HIGH CARDIOVASCULAR RISK [facility] Comment on above: Performed By: #### L IVER, BMP, LIPID, FT3, TSH #### [facility] [address] [place] [address] Dr. Nikita Burgess LDL CALC NORMAL SEE BELOW Normal [facility] Comment on above: Result Comment: <100 mg/dl OPTIMAL 100 - 129 mg/dl NEAR OR ABOVE OPTIMAL 130 - 159 mg/dl BORDERLINE HIGH 160 - 189 mg/dl HIGH >190 mg/dl VERY HIGH Performed By: #### L IVER, BMP, LIPID, FT3, TSH #### [facility] [address] [place] [address] Dr. Nikita Burgess Triglyceride [Mass/Vol] 62 mg/dL Normal <=150 [facility] Comment on above: Performed By: #### L IVER, BMP, LIPID, FT3, TSH #### [facility] [address] [place] [address] Dr. Nikita Burgess VLDL CALC 12.4 mg/dL [facility] Comment on above: Performed By: #### L IVER, BMP, LIPID, FT3, TSH #### [facility] [address] [address] [address] Nikita Burgess LIVER PROFILEon 11-21-2021 Albumin [Mass/Vol] 3.9 g/dL Normal 3.4-5.0 [facility] Comment on above: Performed By: #### L IVER, BMP, LIPID, FT3, TSH #### [facility] [address] [address] [address] Nikita Burgess Albumin/Globulin [Mass ratio] 1.0 {ratio} [facility] Comment on above: Performed By: #### L IVER, BMP, LIPID, FT3, TSH #### [facility] [address] [place] [address] Dr. Nikita Burgess ALP [Catalytic activity/Vol] 68 U/L Normal 46-116 [facility] Comment on above: Performed By: #### L IVER, BMP, LIPID, FT3, TSH #### [facility] [address] [place] [address] Dr. Nikita Burgess ALT [Catalytic activity/Vol] 20 U/L Normal 14-59 [facility] Comment on above: Performed By: #### L IVER, BMP, LIPID, FT3, TSH #### [facility] [address] [place] [address] Dr. Nikita Burgess AST [Catalytic activity/Vol] 17 U/L Normal 15-37 [facility] Comment on above: Performed By: #### L IVER, BMP, LIPID, FT3, TSH #### [facility] [address] [address] [address] Nikita Burgess BILI, CONJUGATED 0.1 mg/dL Normal 0.0-0.2 [facility] Comment on above: Performed By: #### L IVER, BMP, LIPID, FT3, TSH #### [facility] [address] [address] [address] Nikita Burgess Bilirubin [Mass/Vol] 0.6 mg/dL Normal 0.2-1.0 [facility] Comment on above: Performed By: #### L IVER, BMP, LIPID, FT3, TSH #### [facility] [address] [place] [address] Dr. Nikita Burgess Globulin (S) [Mass/Vol] 3.9 g/dL [facility] Comment on above: Performed By: #### L IVER, BMP, LIPID, FT3, TSH #### [facility] [address] [place] [address] Dr. Nikita Burgess Protein [Mass/Vol] 7.8 g/dL Normal 6.1-8.2 [facility] Comment on above: Performed By: #### L IVER, BMP, LIPID, FT3, TSH #### [facility] [address] [place] [address] Dr. Nikita Burgess PROF CHEM 8 (BAS METB)on Anion gap [Moles/Vol] 12.5 mmol/L [facility] Comment on above: Performed By: #### L IVER, BMP, LIPID, FT3, TSH #### [facility] [address] [place] [address] Dr. Nikita Burgess Calcium [Mass/Vol] 8.2 mg/dL Critically low 8.5-10.[address] [facility] Comment on above: Performed By: #### L IVER, BMP, LIPID, FT3, TSH #### [facility] [address] [place] [address] Dr. Nikita Burgess Chloride [Moles/Vol] 102 mmol/L Normal 98-107 [facility] Comment on above: Performed By: #### L IVER, BMP, LIPID, FT3, TSH #### [facility] [address] [place] [address] Dr. Nikita Burgess CO2 [Moles/Vol] 26.3 mmol/L Normal 21.0-32.0 [facility] Comment on above: Performed By: #### L IVER, BMP, LIPID, FT3, TSH #### [facility] [address] [place] [address] Dr. Nikita Burgess Creatinine [Mass/Vol] 0.57 mg/dL Normal 0.55-1.02 [facility] Comment on above: Performed By: #### L IVER, BMP, LIPID, FT3, TSH #### [facility] [address] [address] [address] Nikita Burgess EGFR-AF MONTSERRATIAN >60 Normal >=60 [facility] Comment on above: Performed By: #### L IVER, BMP, LIPID, FT3, TSH #### [facility] [address] [address] [address] Nikita Burgess EGFR-NON AF [place]IAN >60 Normal >=60 [facility] Comment on above: Performed By: #### L IVER, BMP, LIPID, FT3, TSH #### [facility] [address] [address] [address] Nikita Burgess Glucose [Mass/Vol] 78 mg/dL Normal 74-106 [facility] Comment on above: Performed By: #### L IVER, BMP, LIPID, FT3, TSH #### [facility] [address] [address] [address] Nikita Burgess Potassium [Moles/Vol] 3.8 mmol/L Normal 3.5-5.1 [facility] Comment on above: Performed By: #### L IVER, BMP, LIPID, FT3, TSH #### [facility] [address] [address] [address] Nikita Burgess Sodium [Moles/Vol] 137 mmol/L Normal 136-145 [facility] Comment on above: Performed By: #### L IVER, BMP, LIPID, FT3, TSH #### [facility] [address] [address] [address] Nikita Burgess Urea nitrogen [Mass/Vol] 11.0 mg/dL Normal 7.0-18.0 [facility] Comment on above: Performed By: #### L IVER, BMP, LIPID, FT3, TSH #### [facility] [address] [address] [address] Nikita Burgess Urea nitrogen/Creatinine [Mass ratio] 19.3 mg/mg [facility] Comment on above: Performed By: #### L IVER, BMP, LIPID, FT3, TSH #### [facility] [address] [place] [address] Dr. Nikita Burgess TSHon 11-21-2021 TSH 2.175 uIU/mL Normal 0.470-4.680 [facility] Comment on above: Performed By: #### L IVER, BMP, LIPID, FT3, TSH #### [facility] [address] [place] [address] Dr. Nikita Burgess TSH RANGE SEE BELOW Normal [facility] Comment on above: Result Comment: <0.3 4 UIU/ml HYPERTHYROID 0.34-5.60 UIU/ml EUTHYROID >5.60 UIU/ml HYPOTHYROID Performed By: #### L IVER, BMP, LIPID, FT3, TSH #### [facility] [address] [place] [address] Dr. Nikita Burgess VITAMIN D 25 OHon 11-21-2021 VIT D 25-OH 49.5 ng/mL Normal [facility] Comment on above: Performed By: #### F T4, VITAD #### [facility] [address] [place] [address] Dr. Nikita Burgess VIT D RANGES SEE BELOW [facility] Comment on above: Result Comment: <20 ng/mL Vit D deficient 20 - <30 ng/mL Vit D insufficient 30 - 100 ng/mL Vit D sufficient >100 ng/mL Potential Toxicity Performed By: #### F T4, VITAD #### [facility] [address] [place] [address] Dr. Nikita Burgess [facility] SARS-CoV-2 (COVID-19) RNA TIERA+probe Ql (Unsp spec) Not detected Normal NOT DETECTED [facility] Comment on above: Result Comment: This test is not yet approved or cleared by the [place] FDA. When there are no FDA-approved or cleared tests available, and other criteria are met, FDA can make tests available under an emergency access mechanism called an Emergency Use Authorization (EUA). The EUA for this test is supported by the [place] Operator of Health and Human Service's (HHS's) declaration [...] L IVER, BMP, LIPID, FT3, TSH #### [facility] [address] [place] [address] Dr. Nikita Burgess Consenton 10-04-2020 Consent [id number]# 1.00CD:[address] [facility] Registrationon 10-04-2020 Registration [id number]# 1.00CD:[address] [facility] Vital Signs Date Time Vital Sign Value Performing Clinician Oswaldo jessica 09-01-2023 10:18-0500 Body mass index (BMI) [Ratio] 29.94 kg/m2 [facility] [employer] Work Phone: [facility] 09-01-2023 10:18-0500 Body weight 76.66 kg [facility] [employer] Work Phone: [facility] 09-01-2023 10:18-0500 Diastolic blood pressure 72 mm[Hg] [place] [employer] Work Phone: [facility] 09-01-2023 10:18-0500 Systolic blood pressure 118 mm[Hg] [place] [employer] Work Phone: [facility] Healthcare Encounters Encounter Date Encounter Type Care Provider Facility Start: 09-02-2023 End: 09-02-2023 Orders Only Moshe Montes MD Work Phone: [facility] Comment on above: Attention deficit di sorder [...] examination without abnormal findings [facility] Start: 11-21-2021 End: 11-22-[address] MOSHE [...] procedure 03/08/2024 10:00 AM EDT Office Visit [facility] [address] [place] [address] Moshe Montes MD [address] [place] [phone] [facility] Start: 09-02-2023 End: 09-02-2023 Patient encounter procedure 09/02/2023 2:30 PM EST Office Visit [facility] [address] [place] [address] Moshe Montes MD [address] [place] [phone] [facility] Start: 09-02-2023 Chart abstracting 09/02/2023 A bstract [facility] [address] [place] [address] Moshe Montes MD [address] [place] [phone] [facility] Start: 03-28-2023 Influenza vaccination Influenza Vacc ine (#1) [facility] Start: 2016 Screening for malign ant neoplasm of cervix [facility] Start: 2007 Screening for malign ant neoplasm of cervix Pap Smear [facility] Cytology Cervical or vaginal smear or scraping study Pap Smear Pathology and Cytology Routine Well woman exam with routine gynecological exam Ordered: 09/01/2023 [facility] Work Phone: Comment on above: Ordered: 09/01/2023 Human papilloma viru s DNA [Presence] in Unspecified specimen by Probe with amplification HPV DNA probe, amplified Microbiology Routine Well woman exam with routine gynecological exam Ordered: 09/01/2023 [facility] Comment on above: Ordered: 09/01/2023 Payers Date Payer Category Payer Medicaid [facility] MEDICAID [facility] MEDICAID [id number] 2020-Present [address] [place] [address] [id number] 1986 Unknown [id number] 1986 Unknown [id number] 1986 Unknown [id number] 1986 Unknown [id number] 1986 Unknown [id number] 1986 Unknown [id number] 1986 Unknown [id number] 1986 Unknown [id number] 1959 Unknown [id number] Social History Date Type Detail Facility Start: 08-25-2023 End: 09-02-2023 Tobacco smoking status [facility] Smokes tobacco daily [facility] History [...] on 09/26/[address] Laboy at [facility]. Current Medications: has a current medication list [...] nursing note reviewed. Exam conducted with a dinkey locomotive engineer present. Vitals: Estimated body mass index is [...] reviewed, and patient is to proceed to [facility] OR. 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 Msohe Montes MD [address] [place] [address] Referral ID Status Reason Start Date Expiration Date Visits Re quested Visits Authorized [id number] Closed 1 1 Additional Source Comments INFORMATION SOURCE (unrecogn ized section and content) DATE CREATED AUTHOR 10/05/2020 Orcas Baker [facility] DATE CREATED AUTHOR AUTHOR'S ORGANIZ ATION 07/08/2022 [facility] DATE CREATED AUTHOR AUTHOR'S ORGANIZ ATION 09/03/2023 [facility] EPIC Reason for Visit (unrecogniz ed section and content) Reason Comments Well Women Visit Pre-op Visit Care Teams (unrecognized sec tion and content) [employer] Administrator Relationship Specialty Start Date End Date Moshe Montes MD [address] [place] [address] PCP - General Family Medicine 08/25/23 [employer] Administrator Relationship Specialty Start Date End Date Moshe Montes MD [address] [place] [address] PCP - General Family Medicine 08/25/23 [employer] Administrator Relationship Specialty Start Date End Date Moshe Montes MD [address] [place] [address] PCP - General Family Medicine [...] BE BASED ON THE PRIMARY CLINICAL RECORDS. [facility]. provides no warranty or guarantee of the accuracy or completeness of information in this document.
[2023-09-26 07:16] LABS: Basophils Percent Auto 0.5 % (0.2-2.0); Eosinophils Absolute Auto 0.1 10^3/uL (0.0-0.7); Eosinophils Percent Auto 2.2 % (0.9-7.0); Hematocrit 37.7 % (36.0-48.0); Hemoglobin 11.7 g/dL (12.0-16.0); Immature Granulocytes Abs Auto 0.01 10^3/uL (0.00-0.03); Immature Granulocytes Pct Auto 0.2 % (0.0-0.5); Lymphocytes Absolute Auto 1.9 10^3/uL (1.2-3.8); Lymphocytes Percent Auto 30.4 % (20.5-60.0); Mean Corpuscular Hemoglobin 27.3 pg (26.7-34.0); Mean Corpuscular Volume 87.9 fL (81.0-99.0); Mean Platelet Volume 9.7 fL (9.5-13.5); Monocytes Absolute Auto 0.5 10^3/uL (0.3-0.8); Monocytes Percent Auto 7.3 % (1.7-12.0); Neutrophils Absolute Auto 3.8 10^3/uL (1.4-6.5); Neutrophils Percent Auto 59.4 % (43.0-75.0); Platelet Count 267 10^3/uL (150-450); Red Blood Count 4.29 10^6/uL (4.20-5.40); White Blood Count 6.3 10^3/uL (4.0-11.0)
[2023-09-26 07:31] LABS: HCG Quantitative <1 mIU/mL
[2023-09-26] MEDS: LACTATED RINGER'S SOLUTION 1,000 ML 50 ML IV (07:38)
--- NOTE | 2023-09-26 09:32 | P.ON_ITS ---
Brief Operative Note Date of procedure: 09/26/23 Pre-op diagnosis: pelvic pain, menorrhagia, dysmenorrhea Post-op diagnosis: same as pre-op Procedure: NAME OF PROCEDURE: [d&c hysteroscopy, dx laparoscopy] findings; pelvic vascular congestion syndrome PROCEDURE: The patient was taken back to the Operating Room where she was prepped and draped in normal sterile fashion after being placed under general anesthesia without difficulty. She was also placed in the dorsal lithotomy position. A weighted speculum was placed in the patient?s vagina. The anterior lip of the cervix was identified and grasped with a single tooth tenaculum. The patient?s uterus was then sounded roughly to [?9 ] cm. The patient was then gently dilated using Hegar dilators. The hysteroscope was passed through the patient?s cervix into the uterus. Both ostia were identified. Normal appearing endometrium. No gross evidence of polyps, fibroids or malignancy. The hysteroscope was then removed from the patient's uterus.? At that point, gentle curettage was performed until a gritty texture was noted. The endometrial curettings were sent out to pathology.? The single tooth tenaculum was then removed from the patient's anterior lip of the cervix where excellent hemostasis was noted. A sponge stick was placed into the patient's vagina. Attention was turned to the patient's abdomen, where a small umbilical incision was made. The fascia was tented using Augustin clamps and the fascia was entered sharply. Confirmation of intraabdominal placement of the 10 mm port was confirmed under direct visualization using a laparoscope. The patient's abdomen was then insufflated using CO2 gas with approximately 4 liters. A second port was placed left laterally, this was done under direct visualization with a 5 mm port. Survey of the patient's abdomen demonstrated normal liver and gallbladder. Survey of the patient's pelvic anatomy demonstrated normal appearing rt and lt ovary and tubes as well as normal appearing uterus. No endometrial implants could be noted, no evidence of any pelvic disease was seen, normal appearing pelvic cavity. All instruments were removed from the patient's abdomen. The patient's abdomen was deinsufflated of CO2 gas. The patient tolerated the procedure well. Sponge stick was removed from the patient's vagina. The patient's infraumbilical fascia was closed using #0 Vicryl on a GI needle. The patient's skin was closed laterally and infraumbilically using 4-0 Vicryl. The patient tolerated the procedure well. Sponge, lap and needle counts were correct x 2. The patient was taken to Recovery Room in stable condition. Anesthesia: ISELA Surgeon: Tyrone Laboy Business Information Manager: Carolyn Vick Estimated blood loss (mL): 5 Pathology: none sent Condition: stable Disposition: PACU Urinary Catheter Management Urinary Catheter Management Urethral: Cath placed during this visit: no
[2023-09-26] MEDS: LACTATED RINGER'S SOLUTION 1,000 ML 150 ML IV (09:49)
[2023-09-26] MEDS: HYDROCODONE/ACET 5-325 MG TABLET 1 TAB PO (10:20)
--- NOTE | 2023-09-26 11:21 | PC.NURSE ---
Denies urge to void; c/o nausea, no emesis- alcohol swab under nose
== END 2023-09-26 12:20 | disposition home or self-care (01) ==
PROVIDERS: PCP Family Medicine; Visit Provider Obstetrics & Gynecology
PROC: (CPT 840; principal; 2023-09-26 08:20)
DX: R10.2 Pelvic and perineal pain (principal); N94.89 Other specified conditions associated with female genital organs and menstrual cycle; F31.9 Bipolar disorder, unspecified; F41.1 Generalized anxiety disorder; I83.813 Varicose veins of bilateral lower extremities with pain; E66.9 Obesity, unspecified; N92.0 Excessive and frequent menstruation with regular cycle; Z98.51 Tubal ligation status; Z68.29 Body mass index [BMI] 29.0-29.9, adult; F17.290 Nicotine dependence, other tobacco product, uncomplicated
CPT/HCPCS: 49320; 58558; 36415; 84702; 85025; 88305; 99999

== ENCOUNTER 2023-10-15 14:14 | Emergency (ER) | payer OTHER, SELFPAY ==
--- NOTE | 2023-10-15 14:31 | ED.GENADUL1 ---
HPI - General Adult General Chief complaint: Upper Respiratory Infection Stated complaint: SORE THROAT Time Seen by Provider: 10/15/23 14:27 History of Present Illness HPI narrative: Patient is a 38-year-old female presents to the emergency department for a 1 day history of cough, congestion and ear pain. She reports a sore throat. She has had no fevers, vomiting, diarrhea. No medications taken for her symptoms. She is not concerned for . Her 3 children are also being evaluated with her for the same. Related Data Home Medications ?Medication ?Instructions ?Recorded ?Confirmed dextroamphetamine-amphetamine ER 30 mg PO DAILY 07/14/23 10/15/23 30 mg 24hr capsule,extend release metformin 500 mg tablet,extended 500 mg PO DAILY 09/12/23 10/15/23 release 24 hr Allergies Allergy/AdvReac Type Severity Reaction Status Date / Time pineapple Allergy Swelling Verified 09/12/23 10:22 of Lip/Tongue/Throat Review of Systems ROS Constitutional Denies: fever or chills Ears, nose, mouth, and throat Reports: throat pain and nasal congestion Cardiovascular Denies: chest pain Respiratory Reports: cough; Denies: shortness of breath Gastrointestinal Denies: nausea, vomiting or diarrhea Musculoskeletal Denies: back pain Integumentary/Breast Denies: rash Neurological Denies: headache PFSH [facility], 1928–1983 Medical History (Updated 10/15/23 @ 15:36 by KANNAN Mina) Anemia ?D64.9 - Anemia, unspecified (ICD-10) Constipation ?K59.00 - Constipation, unspecified (ICD-10) Diarrhea ?R19.7 - Diarrhea, unspecified (ICD-10) COVID-19 (07/18/23) ?U07.1 - COVID-19 (ICD-10) PCOS (polycystic ovarian syndrome) ?E28.2 - Polycystic ovarian syndrome (ICD-10) Bipolar disorder ?F31.9 - Bipolar disorder, unspecified (ICD-10) Molar ?O02.0 - Blighted ovum and nonhydatidiform mole (ICD-10) Sepulveda cerclage present ?O34.30 - Maternal care for cervical incompetence, unspecified trimester (ICD-10) Varicose vein of leg ?I83.90 - Asymptomatic varicose veins of unspecified lower extremity (ICD-10) Superficial phlebitis ?I80.9 - Phlebitis and thrombophlebitis of unspecified site (ICD-10) Eczema ?L30.9 - Dermatitis, unspecified (ICD-10) Menorrhagia ?N92.0 - Excessive and frequent menstruation with regular cycle (ICD-10) Hirsutism ?L68.0 - Hirsutism (ICD-10) Anxiety ?F41.9 - Anxiety disorder, unspecified (ICD-10) ADD (attention deficit disorder) ?F98.8 - Other specified behavioral and emotional disorders with onset usually occurring in childhood and adolescence (ICD-10) Pelvic congestion syndrome ?N94.89 - Other specified conditions associated with female genital organs and menstrual cycle (ICD-10) Pelvic pain ?R10.2 - Pelvic and perineal pain (ICD-10) Surgical History (Updated 09/12/23 @ 10:30 by Lanny Perry NP) H/O vein stripping ?Z98.890 - Other specified postprocedural states (ICD-10) History of dilation and curettage ?Z98.890 - Other specified postprocedural states (ICD-10) History of tubal ligation ?Z98.51 - Tubal ligation status (ICD-10) Family History (Updated 09/12/23 @ 10:30 by Lanny Perry NP) Other Family history of COPD (chronic obstructive pulmonary disease) Family history of brain cancer Family history of breast cancer Family history of cervical cancer Family history of colon cancer Family history of diabetes mellitus Family history of hypertension Family history of myocardial infarction Family history of seizures Family history of stroke Hepatitis TIA (transient ischemic attack) Social History Within the past year, how often did you have a drink containing alcohol: never Score interpretation: A score less than 3 is consistent with normal alcohol consumption. Smoking status: Heavy tobacco smoker Do you use any of these nicotine containing products: vaping products Non-prescribed substance use: denies use Previous occupational history: [employer] Highest level of school completed/degree received: high school graduate Exam Narrative Exam Narrative: Gen.: Awake, alert, in no distress Head: Normocephalic, atraumatic ENT: Moist mucous membranes, No pharyngeal erythema, uvula midline. No tonsillar edema or exudate.Bilateral TMs clear Respiratory: No respiratory distress, lungs clear bilaterally; No coughing noted throughout the duration of the exam Cardio: Regular rate and rhythm Extremities: Moves extremities equally Psych: Normal mood and affect Neuro: No focal neuro deficit Skin: Warm, dry, intact Constitutional Vital Signs, click to edit/add: Last Vital Signs Temp 98.3 F 10/15/23 14:34 Pulse 87 10/15/23 14:34 Resp 20 10/15/23 14:34 BP 132/76 10/15/23 14:34 Pulse Ox 100 10/15/23 14:37 O2 Del Method Room Air 10/15/23 14:37 Course Vital Signs Vital signs: Vital Signs Temperature 98.3 F 10/15/23 14:34 Pulse Rate 87 10/15/23 14:34 Respiratory Rate 20 10/15/23 14:34 Blood Pressure 132/76 10/15/23 14:34 Pulse Oximetry 100 10/15/23 14:34 Oxygen Delivery Method Room Air 10/15/23 14:34 Temperature 98.3 F 10/15/23 14:34 Pulse Rate 87 10/15/23 14:34 Respiratory Rate 10/15/23 14:34 Blood Pressure 132/76 10/15/23 14:34 Pulse Oximetry 100 10/15/23 14:37 Oxygen Delivery Method Room Air 10/15/23 14:37 Medical Decision Making MDM Narrative Medical decision making narrative: Patient refused testing for COVID or influenza. Strep screen is negative. She has a benign exam with stable vital signs. Decadron given in the ER she is discharged to follow-up, [id number] medications as needed. Medical Records Medical records reviewed: Yes I reviewed the patient's medical records Lab Data Lab results reviewed: Yes I reviewed the patient's lab results Labs: Lab Results 10/15/23 Range/Units 14:43 Streptococcus Screen Negative Discharge Plan Discharge Stand Alone Forms: Portal Instructions Chief Complaint: Upper Respiratory Infection Clinical Impression: Upper respiratory infection, Sore throat Patient Disposition: Home, Self-Care Time of Disposition Decision: 15:36 Condition: Good Prescriptions / Home Meds: No Action dextroamphetamine-amphetamine 30 mg capsule,extended release 24hr 30 mg PO DAILY metformin 500 mg tablet extended release 24 hr 500 mg PO DAILY Print Language: Afghan Instructions: Pharyngitis (ED), Upper Respiratory Infection (ED) Referrals: Moshe Bennett MD [Primary Care Provider] - 1 week
[2023-10-15 14:34] VITALS: BP 132/76; PULSE 87; RESP 20; TEMP 36.8; O2SAT 100; BMI 30.5
[2023-10-15 14:37] VITALS: O2SAT 100
[2023-10-15] MEDS: DEXAMETHASONE SOD PHOS 10 MG/ML VIAL PO (15:15)
[2023-10-15 15:25] LABS: Internal Control Within Normal Limits; Strep A Antigen Screen Negative
== END 2023-10-15 15:50 | disposition home or self-care (01) ==
PROVIDERS: Physician Assistant; Emergency Provider Emergency Medicine; PCP Family Medicine
DX: J06.9 Acute upper respiratory infection, unspecified (principal); J02.9 Acute pharyngitis, unspecified; F17.210 Nicotine dependence, cigarettes, uncomplicated; E28.2 Polycystic ovarian syndrome; F31.9 Bipolar disorder, unspecified; F41.9 Anxiety disorder, unspecified; L68.0 Hirsutism; F98.8 Other specified behavioral and emotional disorders with onset usually occurring in childhood and adolescence; Z79.899 Other long term (current) drug therapy; Z79.84 Long term (current) use of oral hypoglycemic drugs; Z86.16 Personal history of COVID-19; Z98.51 Tubal ligation status; Z98.890 Other specified postprocedural states
CPT/HCPCS: 87070; 87804; 87811; 87880; 99283; J1100

== ENCOUNTER 2024-03-24 10:55 | Outpatient (OUT) | payer OTHER, SELFPAY ==
[2024-03-24 11:13] LABS: Basophils Percent Auto 0.6 % (0.2-2.0); Eosinophils Absolute Auto 0.1 10^3/uL (0.0-0.7); Eosinophils Percent Auto 1.5 % (0.9-7.0); Hematocrit 36.4 % (36.0-48.0); Hemoglobin 11.5 g/dL (12.0-16.0); Immature Granulocytes Abs Auto 0.01 10^3/uL (0.00-0.03); Immature Granulocytes Pct Auto 0.2 % (0.0-0.5); Lymphocytes Absolute Auto 1.7 10^3/uL (1.2-3.8); Lymphocytes Percent Auto 31.7 % (20.5-60.0); Mean Corpuscular HGB Conc 31.6 g/dL (29.9-35.2); Mean Corpuscular Hemoglobin 26.8 pg (26.7-34.0); Mean Corpuscular Volume 84.8 fL (81.0-99.0); Mean Platelet Volume 9.6 fL (9.5-13.5); Monocytes Absolute Auto 0.4 10^3/uL (0.3-0.8); Monocytes Percent Auto 6.9 % (1.7-12.0); Neutrophils Absolute Auto 3.1 10^3/uL (1.4-6.5); Neutrophils Percent Auto 59.1 % (43.0-75.0); Platelet Count 246 10^3/uL (150-450); Red Blood Count 4.29 10^6/uL (4.20-5.40); Red Cell Distribution Width 13.3 % (11.0-15.0); White Blood Count 5.2 10^3/uL (4.0-11.0)
--- OUTSIDE RECORDS SUMMARY | 2024-03-24 11:15 | XMS_ITS | CCD ---
Author Organization [facility] Care Team Providers Care Documentation Supervisor Name Role Phone DR MOSHE MONTES Primary [...] Unavailable NADEREYohana, DR MOSHE Brantley Attending Unavailable NADEREYohana, DR MOSHE Brantley Primary Care Unavailable NADSANA, DR MOSHE Brantley Consulting Unavailable SIMON, DR MOSHE Brantley Admitting Unavailable SIMON, DR MOSHE Brantley Attending Unavailable NADSANA, DR MOSHE Brantley Primary Care Unavailable NADEREYohana, DR MOSHE Brantley Consulting Unavailable Moshe Montes MD Primary Care Provider Roscoe Laboy Attending Unavailable Roscoe Laboy Admitting Unavailable ROSCOE LABOY Attending Unavailable ROSCOE LABOY Attending Unavailable SIMON, MOSHE Attending Unavailable TESSIE LUCAS Attending Unavailable NADEREYohana, MOSHE Attending Unavailable Medications Current Medications Medication Drug [...] Test Name Value Interpretation Reference Range Facility [facility] 09-26-2023 L Specimen: [id number] Received: 09/26/23 Status: BEREKET Valdovinos Num: [id number] Spec Type: Surgical Subm Dr: Roscoe Laboy Tissues: A Endometrium - Curettings (ENDOMETRIUM CURETTINGS) Procedures: HE/2, Gross/Micro L4 Age/ Patient Sex Location Account Attending Physician BrantSteve mg N 38/F LABELL [id number] Roscoe Laboy SPEC NUM: [id number] RECD: 09/26/23 STATUS: BEREKET VALDOVINOS NUM: [id number] EMMETT: 09/26/[address]: Roscoe Laboy ENTERED: 09/26/[address] [facility] DR: Martine,Lab SPEC TYPE: Surgical DEPT: EMETERIO YE ORDERED: HE/2, Gross/Micro L4 ORDERED: HE/2, Gross/Micro L4 Pathological Diagnosis Endometrial curettings: -Multiple strips of the slightly unevenly developed secretory endometrium of the at least early late-phase type without hyperplasia or atypia identified Clinical Information Vascular congestion syndrome Gross Description Received in formalin labeled with the patient's name, date of and endometrial curettings is a 1.5 x 1.3 x 0.3 cm aggregate of spear-pink tissue. Entirely submitted in one cassette labeled A1. CPT Codes 25957 -------- -------- Specimen: [id number] Received: 09/26/23 Status: BEREKET Valdovinos Num: [id number] Spec Type: Surgical Subm Dr: Roscoe Laboy Tissues: A Endometrium - Curettings (ENDOMETRIUM CURETTINGS) Procedures: HE/2, Valentin/Mitchell L4 -------- Patient: Steve Wynne N [id number] (Continued) -------- Signed (signature on file) Lamin-Vaughn Burgess MD 09/29/23 1840 [facility] IGP,APTIMA HPV,AGE GDLNon AGE GDLN ACOG TESTING Note . [facility] Comment on above: TESTS RESULT FLAG UN ITS REF RANGE LAB Clinician Provided Cytology Information Source.............Cervix;Endocervix No. of containers..01 ThinPrep Vial Age Algo ACOG Irena... 31- FLAG LEGEND: L-Low Normal,H-High Normal,LL-Alert Low,HH-Alert High <-Panic Low,>-Panic High,A-Abnormal,AA-Critical Abnormal Performed at: 01 =[address] [address] Latisha Jain MD, HPV APTIMA Negative Negative [facility] Comment on above: This nucleic acid am plification test detects fourteen high- risk HPV types (16,18,31,33,35,39,45,51,52,56,58,59,66,68) without differentiation. Performed at: =[facility] [id number] Forestry Worker: Latisha Jain MD, Phone: [phone] Performed at: [facility] [id number] Forestry Worker: Latisha Jain MD, Phone: [phone] IGP, APTIMA HPV, RFX 16/18,45 Note . [facility] Comment on above: TESTS RESULT FLAG UN ITS REF RANGE LAB DIAGNOSIS: 02 NEGATIVE FOR INTRAEPITHELIAL LESION OR MALIGNANCY. Specimen adequacy: 02 Satisfactory for evaluation. Endocervical and/or squamous metaplastic cells (endocervical component) are present. Performed by: Tommie Thorpe Analog Ic Design Engineer (ASCP) . 02 Note: Note 02 The Pap [...] Low,>-Panic High,A-Abnormal,AA-Critical Abnormal Performed at: [address] [facility] [address] Latisha Jain MD, BRUSH-SPATULA CERVIX ENDOCERVIX [facility]on SARS-CoV-2 (COVID-19) RNA TIERA+probe Ql (Unsp spec) Not detected Normal NOT DETECTED [facility] Comment on above: Result Comment: When [...] for this test is supported by the Finance Specialist of Health and Human Service's declaration that [...] L IVER, BMP, LIPID, FT3, TSH #### [facility] [address] [place] [address] Dr. Nikita Burgess INFLUENZA A AND B AGon 07-04 INFLUANE SEE BELOW Normal [facility] Comment on above: Result Comment: Nega tive for Flu A protein angiten. Infection due to Flu A cannot be ruled out. Flu A angiten in the sample may be below the detection limit of the test. Performed By: #### I NFLUAB #### [facility] [address] [place] [address] Dr. Nikita Burgess INFLUBNEG SEE BELOW Normal [facility] Comment on above: Result Comment: Nega tive for Flu B protein antigen. Infection due to Flu B cannot be ruled out. Flu B antigen in the sample may be below the detection limit of the test. Performed By: #### I NFLUAB #### [facility] [address] [place] [address] Dr. Nikita Burgess INFLUENZA A AG Negative Normal NEGATIVE SEE COMMENT [facility] Comment on above: Performed By: #### I NFLUAB #### [facility] [address] [place] [address] Dr. Nikita Burgess INFLUENZA B AG Negative Normal NEGATIVE SEE COMMENT [facility] Comment on above: Performed By: #### I NFLUAB #### [facility] [address] [place] [address] Dr. Nikita Burgess INTERNAL CONTROLS Within Normal Limits Normal Wi thin Normal Limits [facility] Comment on above: Performed By: #### I NFLUAB #### [facility] [address] [place] [address] Dr. Nikita Burgess GROUP A STREP CULTUREon 04-27 S. pyogenes Ag Ql (Unsp spec) Culture Observations: NEGATIVE FOR GROUP A STREPTOCOCCUS. Normal [facility] Comment on above: Performed By: #### L IVER, BMP, LIPID, FT3, TSH #### [facility] [address] [place] [address] Dr. Nikita Burgess STREPT SCREENon 05-12-2022 STREP SCREEN A Negative Normal NEGATIVE [facility] Comment on above: Performed By: #### L IVER, BMP, LIPID, FT3, TSH #### [facility] [address] [place] [address] Dr. Nikita Burgess ESTRONEon 11-26-2021 Estrone, Serum 30 pg/mL Normal 27-231 [facility] Comment on above: Result Comment: Rang e Adult (Premenopausal) 27 - 231 Menstrual Cycle (1-10 days) 19 - 149 Menstrual Cycle (11-20 days) 32 - 176 Menstrual Cycle (21-30 days) 37 - 200 Please note reference interval change Performed By: #### L IVER, BMP, LIPID, FT3, TSH #### [facility] [address] [place] [address] Dr. Nikita Burgess DHEA-SULFATEon 11-22-2021 DHEA-Sulfate 123.0 ug/dL Normal 57.3-279.2 [facility] Comment on above: Performed By: #### L IVER, BMP, LIPID, FT3, TSH #### [facility] [address] [place] [address] Dr. Nikita Burgess ESTRADIOLon 11-22-2021 Estradiol 83.2 pg/mL Normal [facility] Comment on above: Result Comment: Adul t Female: Follicular phase 12.5 - 166.0 Ovulation phase 85.8 - 498.0 Luteal phase 43.8 - 211.0 Postmenopausal <6.0 - 54.7 1st trimester 215.0 - >4300.0 Dejah ECLIA methodology Performed By: #### L IVER, BMP, LIPID, FT3, TSH #### [facility] [address] [place] [address] Dr. Nikita Burgess FSHon 11-22-2021 FSH 3.0 mIU/mL Normal [facility] Comment on above: Result Comment: Adul t Female: Follicular phase 3.5 - 12.5 Ovulation phase 4.7 - 21.5 Luteal phase 1.7 - 7.7 Postmenopausal 25.8 - 134.8 Performed By: #### L IVER, BMP, LIPID, FT3, TSH #### [facility] [address] [place] [address] Dr. Nikita Burgess LUTEINIZING HORMONE (LH)on 0 11-22-2021 LH 1.8 mIU/mL Normal [facility] Comment on above: Result Comment: Adul t Female: Follicular phase 2.4 - 12.6 Ovulation phase 14.0 - 95.6 Luteal phase 1.0 - 11.4 Postmenopausal 7.7 - 58.5 Performed By: #### L IVER, BMP, LIPID, FT3, TSH #### [facility] [address] [place] [address] Dr. Nikita Burgess PROGESTERONEon 11-22-2021 Progesterone 10.2 ng/mL Normal [facility] Comment on above: Result Comment: Foll icular phase 0.1 - 0.9 Luteal phase 1.8 - 23.9 Ovulation phase 0.1 - 12.0 First trimester 11.0 - 44.3 Second trimester 25.4 - 83.3 Third trimester 58.7 - 214.0 Postmenopausal 0.0 - 0.1 Performed By: #### L IVER, BMP, LIPID, FT3, TSH #### [facility] [address] [place] [address] Dr. Nikita Burgess PROLACTINon 11-22-2021 Prolactin 6.1 ng/mL Normal 4.8-23.3 [facility] Comment on above: Performed By: #### L IVER, BMP, LIPID, FT3, TSH #### [facility] [address] [place] [address] Dr. Nikita Burgess TESTOSTERONE, TOTALon 2021 Testosterone [Mass/Vol] 11 ng/dL Normal 8-60 [facility] Comment on above: Performed By: #### L IVER, BMP, LIPID, FT3, TSH #### [facility] [address] [place] [address] Dr. Nikita Burgess CBC AUTO DIFFon 11-21-2021 BASO # 0.0 103/ul Normal 0.0-0.1 [facility] Comment on above: Performed By: #### C BC #### [facility] [address] [place] [address] Dr. Nikita Burgess Basophils/100 WBC (Bld) 0.6 % Normal 0.2-2.0 [facility] Comment on above: Performed By: #### C BC #### [facility] [address] [place] [address] Dr. Nikita Burgess EO # 0.1 103/ul Normal 0.0-0.7 [facility] Comment on above: Performed By: #### C BC #### [facility] [address] [place] [address] Dr. Nikita Burgess Eosinophils/100 WBC (Bld) 1.5 % Normal 0.9-7.0 [facility] Comment on above: Performed By: #### C BC #### [facility] [address] [place] [address] Dr. Nikita Burgess Erythrocyte distribution width (RBC) [Ratio] 13.7 % Normal 11.0-15.0 [facility] Comment on above: Performed By: #### C BC #### [facility] [address] [place] [address] Dr. Nikita Burgess Hematocrit (Bld) [Volume fraction] 40.7 % Normal 36.0-48.0 [facility] Comment on above: Performed By: #### C BC #### [facility] [address] [place] [address] Dr. Nikita Burgess Hemoglobin (Bld) [Mass/Vol] 12.8 g/dL Normal 12.0-16.0 [facility] Comment on above: Performed By: #### C BC #### [facility] [address] [place] [address] Dr. Nikita Burgess IG # 0.01 10e3/ul Normal 0.00-0.03 [facility] Comment on above: Performed By: #### C BC #### [facility] [address] [place] [address] Dr. Nikita Burgess IG % 0.2 % Normal 0.0-0.5 [facility] Comment on above: Performed By: #### C BC #### [facility] [address] [place] [address] Dr. Nikita Burgess LYMPH # 1.6 103/ul Normal 1.2-3.8 [facility] Comment on above: Performed By: #### C BC #### [facility] [address] [place] [address] Dr. Nikita Burgess Lymphocytes/100 WBC (Bld) 29.5 % Normal 20.5-60.0 [facility] Comment on above: Performed By: #### C BC #### [facility] [address] [place] [address] Dr. Nikita Burgess MANUAL DIFF REQ NO Normal [facility] Comment on above: Performed By: #### C BC #### [facility] [address] [place] [address] Dr. Nikita Burgess MCH (RBC) [Entitic mass] 28.0 pg Normal 26.7-34.0 [facility] Comment on above: Performed By: #### C BC #### [facility] [address] [place] [address] Dr. Nikita Burgess MCHC (RBC) [Mass/Vol] 31.4 g/dL Normal 29.9-35.2 [facility] Comment on above: Performed By: #### C BC #### [facility] [address] [place] [address] Dr. Nikita Burgess MCV (RBC) [Entitic vol] 89.1 fL Normal 81.0-99.0 [facility] Comment on above: Performed By: #### C BC #### [facility] [address] [place] [address] Dr. Nikita Burgess MONO # 0.4 103/ul Normal 0.3-0.8 [facility] Comment on above: Performed By: #### C BC #### [facility] [address] [place] [address] Dr. Nikita Burgess Monocytes/100 WBC (Bld) 7.4 % Normal 1.7-12.0 [facility] Comment on above: Performed By: #### C BC #### [facility] [address] [place] [address] Dr. Nikita Burgess NEUT # 3.2 103/ul Normal 1.4-6.5 [facility] Comment on above: Performed By: #### C BC #### [facility] [address] [place] [address] Dr. Nikita Burgess Neutrophils/100 WBC (Bld) 60.8 % Normal 43.0-75.0 [facility] Comment on above: Performed By: #### C BC #### [facility] [address] [place] [address] Dr. Nikita Burgess Platelet mean volume (Bld) [Entitic vol] 10.1 fL Normal 9.5-13.5 [facility] Comment on above: Performed By: #### C BC #### [facility] [address] [place] [address] Dr. Nikita Burgess PLT 273 103/ul Normal 150-450 [facility] Comment on above: Performed By: #### C BC #### [facility] [address] [place] [address] Dr. Nikita Burgess RBC 4.57 106/ul Normal 4.20-5.40 [facility] Comment on above: Performed By: #### C BC #### [facility] [address] [place] [address] Dr. Nikita Burgess WBC 5.3 103/ul Normal 4.0-11.0 [facility] Comment on above: Performed By: #### C BC #### [facility] [address] [place] [address] Dr. Nikita Burgess FREE T3on 11-21-2021 FREE T3 2.69 pg/mlL Normal 2.18-3.98 [facility] Comment on above: Performed By: #### L IVER, BMP, LIPID, FT3, TSH #### [facility] [address] [place] [address] Dr. Nikita Burgess FREE T4on 11-21-2021 Free T4 [Mass/Vol] 0.98 ng/dL Normal 0.76-1.46 [facility] Comment on above: Performed By: #### F T4, VITAD #### [facility] [address] [place] [address] Dr. Nikita Burgess GLYCOHEMOGLOBIN A1Con 2021 ADA RECOMMENDATION SEE BELOW Normal [facility] Comment on above: Result Comment: ADA RECOMMENDED LIMIT 4.0 - 6.0 ADA THERAPEUTIC TARGET < 7.0 ACTION SUGGESTED > 7.0 Performed By: #### A 1C #### [facility] [address] [place] [address] Dr. Nikita Burgess Glucose [Mass/Vol] 111 mg/dL Normal [facility] Comment on above: Performed By: #### A 1C #### [facility] [address] [place] [address] Dr. Nikita Burgess HbA1c (Bld) [Mass fraction] 5.5 % Normal 4.5-6.2 [facility] Comment on above: Performed By: #### A 1C #### [facility] [address] [place] [address] Dr. Nikita Burgess LIPID PROFILEon 11-21-2021 CHOL-HDL RATIO NORM SEE BELOW Normal [facility] Comment on above: Result Comment: 3.3 - 4.4 LOW RISK 4.4 - 7.1 AVERAGE RISK 7.1 - 11.0 MODERATE RISK >11.0 HIGH RISK Performed By: #### L IVER, BMP, LIPID, FT3, TSH #### [facility] [address] [place] [address] Dr. Nikita Burgess Cholesterol [Mass/Vol] 193 mg/dL Normal <=200 [facility] Comment on above: Performed By: #### L IVER, BMP, LIPID, FT3, TSH #### [facility] [address] [place] [address] Dr. Nikita Burgess Cholesterol in HDL [Mass/Vol] 58 mg/dL Normal 40-60 [facility] Comment on above: Performed By: #### L IVER, BMP, LIPID, FT3, TSH #### [facility] [address] [place] [address] Dr. Nikita Burgess Cholesterol in LDL [Mass/Vol] 122.6 mg/dL Normal [facility] Comment on above: Performed By: #### L IVER, BMP, LIPID, FT3, TSH #### [facility] [address] [place] [address] Dr. Nikita Burgess Cholesterol.total/Ch olesterol in HDL [Mass ratio] 3.3 {ratio} Normal [facility] Comment on above: Performed By: #### L IVER, BMP, LIPID, FT3, TSH #### [facility] [address] [address] [address] Nikita Burgess HDL NORMAL > or = 60 mg/dl - LO W CARDIOVASCULAR RISK <40 mg/dl - HIGH CARDIOVASCULAR RISK Normal [facility] Comment on above: Performed By: #### L IVER, BMP, LIPID, FT3, TSH #### [facility] [address] [address] [address] Nikita Burgess LDL CALC NORMAL SEE BELOW Normal [facility] Comment on above: Result Comment: <100 mg/dl OPTIMAL 100 - 129 mg/dl NEAR OR ABOVE OPTIMAL 130 - 159 mg/dl BORDERLINE HIGH 160 - 189 mg/dl HIGH >190 mg/dl VERY HIGH Performed By: #### L IVER, BMP, LIPID, FT3, TSH #### [facility] [address] [address] [address] Nikita Burgess Triglyceride [Mass/Vol] 62 mg/dL Normal <=150 [facility] Comment on above: Performed By: #### L IVER, BMP, LIPID, FT3, TSH #### [facility] [address] [address] [address] Nikita Burgess VLDL CALC 12.4 mg/dL Normal [facility] Comment on above: Performed By: #### L IVER, BMP, LIPID, FT3, TSH #### [facility] [address] [address] [address] Nikita Burgess LIVER PROFILEon 11-21-2021 Albumin [Mass/Vol] 3.9 g/dL Normal 3.4-5.0 [facility] Comment on above: Performed By: #### L IVER, BMP, LIPID, FT3, TSH #### [facility] [address] [address] [address] Nikita Burgess Albumin/Globulin [Mass ratio] 1.0 {ratio} Normal [facility] Comment on above: Performed By: #### L IVER, BMP, LIPID, FT3, TSH #### [facility] [address] [place] [address] Dr. Nikita Burgess ALP [Catalytic activity/Vol] 68 U/L Normal 46-116 [facility] Comment on above: Performed By: #### L IVER, BMP, LIPID, FT3, TSH #### [facility] [address] [place] [address] Dr. Nikita Burgess ALT [Catalytic activity/Vol] 20 U/L Normal 14-59 [facility] Comment on above: Performed By: #### L IVER, BMP, LIPID, FT3, TSH #### [facility] [address] [place] [address] Dr. Nikita Burgess AST [Catalytic activity/Vol] 17 U/L Normal 15-37 [facility] Comment on above: Performed By: #### L IVER, BMP, LIPID, FT3, TSH #### [facility] [address] [place] [address] Dr. Nikita Burgess BILI, CONJUGATED 0.1 mg/dL Normal 0.0-0.2 [facility] Comment on above: Performed By: #### L IVER, BMP, LIPID, FT3, TSH #### [facility] [address] [place] [address] Dr. Nikita Burgess Bilirubin [Mass/Vol] 0.6 mg/dL Normal 0.2-1.0 [facility] Comment on above: Performed By: #### L IVER, BMP, LIPID, FT3, TSH #### [facility] [address] [place] [address] Dr. Nikita Burgess Globulin (S) [Mass/Vol] 3.9 g/dL Normal [facility] Comment on above: Performed By: #### L IVER, BMP, LIPID, FT3, TSH #### [facility] [address] [place] [address] Dr. Nikita Burgess Protein [Mass/Vol] 7.8 g/dL Normal 6.1-8.2 [facility] Comment on above: Performed By: #### L IVER, BMP, LIPID, FT3, TSH #### [facility] [address] [address] [address] Nikita Burgess PROF CHEM 8 (BAS METB)on Anion gap [Moles/Vol] 12.5 mmol/L Normal [facility] Comment on above: Performed By: #### L IVER, BMP, LIPID, FT3, TSH #### [facility] [address] [address] [address] Nikita Burgess Calcium [Mass/Vol] 8.2 mg/dL Critically low 8.5-10.1 Th e [facility] Comment on above: Performed By: #### L IVER, BMP, LIPID, FT3, TSH #### [facility] [address] [place] [address] Dr. Nikita Burgess Chloride [Moles/Vol] 102 mmol/L Normal 98-107 [facility] Comment on above: Performed By: #### L IVER, BMP, LIPID, FT3, TSH #### [facility] [address] [place] [address] Dr. Nikita Burgess CO2 [Moles/Vol] 26.3 mmol/L Normal 21.0-32.0 [facility] Comment on above: Performed By: #### L IVER, BMP, LIPID, FT3, TSH #### [facility] [address] [place] [address] Dr. Nikita Burgess Creatinine [Mass/Vol] 0.57 mg/dL Normal 0.55-1.02 [facility] Comment on above: Performed By: #### L IVER, BMP, LIPID, FT3, TSH #### [facility] [address] [place] [address] Dr. Nikita Burgess EGFR-AF BHUTANESE >60 Normal >=60 [facility] Comment on above: Performed By: #### L IVER, BMP, LIPID, FT3, TSH #### [facility] [address] [place] [address] Dr. Nikita Burgess EGFR-NON AF BHUTANESE >60 Normal >=60 [facility] Comment on above: Performed By: #### L IVER, BMP, LIPID, FT3, TSH #### [facility] [address] [address] [address] Nikita Burgess Glucose [Mass/Vol] 78 mg/dL Normal 74-106 [facility] Comment on above: Performed By: #### L IVER, BMP, LIPID, FT3, TSH #### [facility] [address] [place] [address] Dr. Nikita Burgess Potassium [Moles/Vol] 3.8 mmol/L Normal 3.5-5.1 [facility] Comment on above: Performed By: #### L IVER, BMP, LIPID, FT3, TSH #### [facility] [address] [place] [address] Dr. Nikita Burgess Sodium [Moles/Vol] 137 mmol/L Normal 136-145 [facility] Comment on above: Performed By: #### L IVER, BMP, LIPID, FT3, TSH #### [facility] [address] [place] [address] Dr. Nikita Burgess Urea nitrogen [Mass/Vol] 11.0 mg/dL Normal 7.0-18.0 [facility] Comment on above: Performed By: #### L IVER, BMP, LIPID, FT3, TSH #### [facility] [address] [place] [address] Dr. Nikita Burgess Urea nitrogen/Creatinine [Mass ratio] 19.3 mg/mg Normal [facility] Comment on above: Performed By: #### L IVER, BMP, LIPID, FT3, TSH #### [facility] [address] [place] [address] Dr. Nikita Burgess TSHon 11-21-2021 TSH 2.175 uIU/mL Normal 0.470-4.[address] [facility] Comment on above: Performed By: #### L IVER, BMP, LIPID, FT3, TSH #### [facility] [address] [place] [address] Dr. Nikita Burgess TSH RANGE SEE BELOW Normal [facility] Comment on above: Result Comment: <0.3 4 UIU/ml HYPERTHYROID 0.34-5.60 UIU/ml EUTHYROID >5.60 UIU/ml HYPOTHYROID Performed By: #### L IVER, BMP, LIPID, FT3, TSH #### [facility] [address] [address] [address] Nikita Burgess VITAMIN D 25 OHon 11-21-2021 VIT D 25-OH 49.5 ng/mL Normal [facility] Comment on above: Performed By: #### F T4, VITAD #### [facility] [address] [address] [address] Nikita Burgess VIT D RANGES SEE BELOW Normal [facility] Comment on above: Result Comment: <20 ng/mL Vit D deficient 20 - <30 ng/mL Vit D insufficient 30 - 100 ng/mL Vit D sufficient >100 ng/mL Potential Toxicity Performed By: #### F T4, VITAD #### [facility] [address] [address] [address] Nikita Burgess Covid-19 PCR ([facility])on 06-27 SARS-CoV-2 (COVID-19) RNA TIERA+probe Ql (Unsp spec) Not detected Normal NOT DETECTED [facility] Comment on above: Result Comment: This test is not yet approved or cleared by the [place] FDA. When there are no FDA-approved or cleared tests available, and other criteria are met, FDA can make tests available under an emergency access mechanism called an Emergency Use Authorization (EUA). The EUA for this test is supported by the Finance Specialist of Health and Human Service's (HHS's) declaration [...] L IVER, BMP, LIPID, FT3, TSH #### [facility] [address] [address] [address] Nikita Burgess [place] 10-04-2020 Consent [id number]# 1.00CD:127 [facility] Registrationon 10-04-2020 Registration [id number]# 1.00CD:127 [facility] Vital Signs Date Time Vital Sign Value Performing Clinician Faci lity 09-01-2023 10:18-0500 Body mass index (BMI) [Ratio] 29.94 kg/m2 Roscoe Benoit DO Work Phone: [facility] 09-01-2023 10:18-0500 Body weight 76.66 kg Roscoe Benoit DO Work Phone: [facility] 09-01-2023 10:18-0500 Diastolic blood pressure 72 mm[Hg] Roscoe Benoit DO Work Phone: [facility] 09-01-2023 10:18-0500 Systolic blood pressure 118 mm[Hg] Roscoe Benoit DO Work Phone: [facility] Encounters Encounter Date Encounter Type Care Provider Facility Start: 03-08-2024 End: 03-08-2024 ambulatory MOSHE MONTES Not Available Start: 10-06-2023 End: 10-06-2023 ambulatory TESSIE LUCAS Not Available Start: 09-26-2023 End: 09-26-2023 ambulatory Roscoe Benoit Facility:[facility] Start: 09-02-2023 End: 09-02-2023 Orders Only Moshe Montes MD Work Phone: [facility] Comment on above: Attention deficit di sorder [...] preventive med est patient 18-39 yrs Roscoe Laboy DO Work Phone: [facility] Comment on above: Well woman exam with routine gynecological exam; Preop examination; Pelvic pain in female; Pelvic congestion syndrome Start: 09-01-2023 End: 09-01-2023 Preprocedural examination done Roscoe Laboy DO Work Phone: [facility] Start: 08-05-2023 End: 08-05-2023 ambulatory ROSCOE LABOY Not Available Start: 07-04-2022 End: 07-04-[address] MOSHE MONTES Facility:[facility] Start: 05-12-2022 End: 05-12-[address] MOSHE MONTES Facility:[facility] Start: 11-22-2021 Encounter for genera l adult medical examination without abnormal findings DR MOSHE MONTES [facility] Start: 11-21-2021 End: 11-22-[address] MOSHE MONTES Facility:[facility] Start: 11-21-2021 End: 11-22-2021 Encounter for general adult medical examination without abnormal findings DR MOSHE MONTES Facility:[facility] Start: 07-31-2021 End: 07-31-[address] MOSHE MONTES Facility:[facility] Start: 07-10-2021 End: 07-10-[address] MOSHE MONTES Facility:[facility] Procedures Date Procedure Procedure Detail Performing Clinician Start: 09-01-2023 IGP,APTIMA HPV,AGE GDLN Roscoe Laboy DO Work Phone: Plan of Treatment Date Care Activity Detail Author Start: 03-08-2024 End: 03-08-2024 Patient encounter procedure 03/08/2024 10:00 AM EDT Office Visit [facility] [address] [place] [address] Moshe Montes MD [address] [place] [address] [facility] Start: 09-02-2023 End: 09-02-2023 Patient encounter procedure 09/02/2023 2:30 PM EST Office Visit [facility] [address] [place] [phone] Moshe Montes MD [address] [place] [phone] [facility] Start: 09-02-2023 Chart abstracting 09/02/2023 A bstract [facility] [address] [place] [address] Moshe Montes MD [address] [place] [phone] [facility] Start: 03-28-2023 Influenza vaccination Influenza Vacc ine (#1) [facility] Start: 2016 Screening for malign ant neoplasm of cervix [facility] Start: 2007 Screening for malign ant neoplasm of cervix Pap Smear [facility] Cytology Cervical or vaginal smear or scraping study Pap Smear Pathology and Cytology Routine Well woman exam with routine gynecological exam Ordered: 09/01/2023 [facility] Work Phone: Comment on above: Ordered: 09/01/2023 Human papilloma viru s DNA [Presence] in Unspecified specimen by Probe with amplification HPV DNA probe, amplified Microbiology Routine Well woman exam with routine gynecological exam Ordered: 09/01/2023 [facility] Comment on above: Ordered: 09/01/2023 Payers Date Payer Category Payer Self-pay 2020 Medicaid [employer] [place] [employer] [id number] 2020-Present [address] [place] [address] [id number] 1986 Unknown [id number] [id number] 1986 Unknown [id number] [id number] 1986 Unknown [id number] [id number] 1986 Unknown [id number] [id number] 1986 Unknown [id number] 2.16.840.1.067569.3.579.2.593 1986 Unknown [id number] 2.16.840.1.624487.3.579.2.1259 1986 Unknown [id number] 2.16.840.1.656487.3.579.2.1259 1986 Unknown [id number] 2.16.840.1.826748.3.579.2.1259 1986 Unknown [id number] 2.16.840.1.934953.3.579.2.1259 1986 Unknown [id number] 2.16.840.1.157355.3.579.2.1259 1959 Unknown [id number] Unknown [id number] [id number] Social History Date Type Detail Facility Start: 08-25-2023 End: 09-02-2023 Tobacco smoking status [facility] Smokes tobacco daily [facility] History of [...] illness Narrative Reason for Appointment: Patient ID: Steve Wynne is a 38 y.o. female who presents for Well Women Visit and Pre-op Visit Patient presents today for a Annual/Pre Op appointment. Patient is scheduled to undergo Diagnostic Laparoscopy, possible TJ, possible FOE, possible BSO on 09/26/[address] Laboy at [facility]. Current Medications: has a current medication list [...] nursing note reviewed. Exam conducted with a plastic parts designer present. Vitals: Estimated body mass index is [...] reviewed, and patient is to proceed to [facility]. Follow Up: Patient is to [...] Referral Specialty Diagnoses / Procedures Referred By Contjuanjo t Referred To Contact Diagnoses Attention deficit disorder (ADD) without hyperactivity Moshe Montes MD [address] [place] [address] Referral ID Status Reason Start Date Expiration Date Visits Re quested Visits Authorized [id number] Closed 1 1 Additional Source Comments INFORMATION SOURCE (unrecogn ized section and content) DATE CREATED AUTHOR 10/05/2020 [facility] DATE CREATED AUTHOR AUTHOR'S ORGANIZ ATION [facility]08[facility]2022 [facility] DATE CREATED AUTHOR AUTHOR'S ORGANIZ ATION 09/30/2023 [facility] DATE CREATED AUTHOR AUTHOR'S ORGANIZ ATION 03/09/2024 [facility] EPIC Reason for Visit (unrecogniz ed section and content) Reason Comments Well Women Visit Pre-op Visit Care Teams (unrecognized sec tion and content) Documentation Supervisor Relationship Specialty Start Date End Date Moshe Montes MD [address] [place] [address] PCP - General Family Medicine 08/25/23 Documentation Supervisor Relationship Specialty Start Date End Date Moshe Montes MD [address] [place] [address] PCP - General Family Medicine 08/25/23 Documentation Supervisor Relationship Specialty Start Date End Date Moshe Montes MD [address] [place] [address] PCP - General Family Medicine 08/25/23 FOR [...] BE BASED ON THE PRIMARY CLINICAL RECORDS. [facility] [employer] [facility]. provides no warranty or guarantee of the accuracy or completeness of information in this document.
[2024-03-24 11:34] LABS: Estimated Average Glucose 100 mg/dL; Glycohemoglobin A1C 5.1 % (4.5-6.2)
[2024-03-24 11:51] LABS: Alanine Aminotransferase 17 U/L (14-59); Albumin Globulin Ratio 1.1; Albumin Level 3.6 g/dL (3.4-5.0); Alkaline Phosphatase 60 U/L (46-116); Anion Gap 14.5; Aspartate Amino Transferase 13 U/L (15-37); BUN Creatinine Ratio 10.4; Bilirubin Direct 0.1 mg/dL (0.0-0.2); Bilirubin Total 0.6 mg/dL (0.2-1.0); Calcium 8.8 mg/dL (8.5-10.1); Carbon Dioxide 27.4 mmol/L (21.0-32.0); Chloride 104 mmol/L (98-107); Chol HDL Ratio 2.9; Cholesterol 187 mg/dL (<=200); Estimated GFR (African America >60 (>=60); Estimated GFR (Non-African Ame >60 (>=60); Free T3 2.59 pg/mL (2.18-3.98); Globulin 3.4 g/dL; Glucose 86 mg/dL (74-106); HDL Cholesterol 64 mg/dL (40-60); Potassium 3.9 mmol/L (3.5-5.1); Sodium 142 mmol/L (136-145); Triglycerides 51 mg/dL (<=150); VLDL CHOLESTEROL 10.2 mg/dL
[2024-03-24 11:57] LABS: Free T4 0.97 ng/dL (0.76-1.46)
== END 2024-03-24 10:56 | disposition home or self-care (01) ==
LOC: LAB 10:55
PROVIDERS: PCP Family Medicine; Visit Provider Family Medicine
DX: Z00.00 Encounter for general adult medical examination without abnormal findings (principal); R79.89 Other specified abnormal findings of blood chemistry
CPT/HCPCS: 36415; 80048; 80061; 80076; 83036; 84439; 84443; 84481; 85025

== ENCOUNTER 2024-06-18 12:30 | Emergency (ER) | payer OTHER, SELFPAY ==
[2024-06-18 12:53] VITALS: BP 91/73; PULSE 77; TEMP 36.6; O2SAT 100; BMI 29.8
--- OUTSIDE RECORDS SUMMARY | 2024-06-18 12:54 | XMS_ITS | CCD ---
Author Organization [facility] Care Team Providers Care Md Psychiatry Name Role Phone DR MOSHE MONTES Primary [...] Unavailable SIMON, DR MOSHE Brantley Attending Unavailable SIMON, DR MOSHE Brantley Primary Care Unavailable NADEREYohana, DR MOSHE Brantley Consulting Unavailable SIMON, DR MOSHE Brantley Admitting Unavailable NADCATRACHITOR, DR MOSHE Brantley Attending Unavailable SIMON, DR MOSHE Brantley Primary Care Unavailable SIMON, DR MOSHE Brantley Consulting Unavailable Moshe Montes MD Primary Care Provider Roscoe Laboy Attending Unavailable Roscoe Laboy Admitting Unavailable ROSCOE LABOY Attending Unavailable BENOIT, ROSCOE Attending Unavailable SIMON, MOSHE Attending Unavailable TESSIE LUCAS Attending Unavailable SIMON, MOSHE Attending Unavailable Moshe Montes MD Unavailable Medications Current Medications Medication Drug Class(es) Dates Sig (Normalized) Sig (Original) acetaminophen 325 mg / HYDROcodone bitartrate 5 mg oral tablet (1 source) Opioid Agonist Start: 09-26-2023 take 1 tablet by mouth every four hours HYDROcodone-acetam inophen ([place]) 5-325 MG tablet TAKE 1 TABLET BY MOUTH EVERY 4 HOURS 09/26/2023 Active 24 hr amphetamine aspartate 7.5 mg / amphetamine sulfate 7.5 mg / dextroamphetamine saccharate 7.5 mg / dextroamphetamine sulfate 7.5 mg extended release oral capsule (6 sources) Central Nervous System Stimulant Start: 04-26-2024 End: 06-23-2024 take 1 capsule by mouth once daily amphetamine-dextro amphetamine XR (Adderall XR) 30 MG 24 hr capsule Indications: Attention deficit disorder (ADD) without hyperactivity Take 1 capsule (30 mg) by mouth Daily 30 capsule 05/24/2024 06/23/2024 Active Start: 08-08-2023 End: 09-02-2023 take 1 capsule by mouth every twenty-four hours in the morning amphetamine-dextroamphetamine XR (Addera ll XR) 30 MG 24 hr capsule 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 30 capsule 0 09/02/2023 Active fluticasone propionate 0.05 mg/actuat metered dose nasal spray (5 sources) Corticosteroid Start: 06-01-2023 take 2 spray(s) nasal route in the morning fluticasone (Flonase) 50 MCG/ACT nasal spray Administer 2 sprays into each nostril in the morning. 06/01/2023 Active ibuprofen 800 mg oral tablet (1 source) Nonsteroidal Anti-inflammatory Drug Start: 09-26-2023 take 1 tablet by mouth every eight hours ibuprofen 800 MG tablet Take 800 mg by mouth every 8 (eight) hours 09/26/2023 Active levoFLOXacin 750 mg oral tablet (2 sources) Quinolone Antimicrobial Start: 09-27-2022 take 1 tablet by mouth once daily levoFLOXacin (Levaquin) 750 MG tablet TAKE 1 TABLET BY MOUTH EVERY DAY FOR 7 DAYS 0 09/27/2022 Active 24 hr metFORMIN hydrochloride 500 mg extended release oral tablet (5 sources) Biguanide Start: 08-05-2023 End: 09-04-2023 take [...] TONSILLITIS UNSPECIFIED] Onset: 05-13-2022 Episodic Anxiety disorders (3 sources) Generalized anxiety disorder; Translations: [Generalized anxiety disorder] Onset: 09-02-2023 09-02-2023 Chronic Disorders of teeth and jaw (1 source) Right temporomandibular joint disorder, unspecified; Translations: [RIGHT TEMPOROMANDIBULAR JNT D/O UNS] Onset: 05-13-2022 Episodic Disorders usually diagnosed in infancy, childhood, or adolescence (6 sources) Attention deficit hyperactivity disorder, predominantly inattentive type; Translations: [Other specified behavioral and emotional disorders with onset usually occurring in childhood and adolescence] Onset: 09-02-2023 09-02-2023 Chronic Menstrual disorders (3 sources) Menometrorrhagia; Translations: [Excessive and frequent menstruation with irregular cycle] Onset: 09-02-2023 09-02-2023 Chronic Mood disorders (3 sources) Mild depressed bipolar I disorder; Translations: [Bipolar disorder, current episode depressed, mild] Onset: 09-02-2023 09-02-2023 Chronic Other endocrine disorders (1 source) Polycystic ovary syndrome; Translations: [Polycystic ovarian syndrome] Onset: 03-08-2024 03-08-2024 Chronic Other female genital disorders (2 sources) Pelvic congestion syndrome; Translations: [Other specified conditions associated with female genital organs and menstrual cycle] 09-01-2023 Episodic Other screening for suspected conditions (not mental disorders or infectious disease) (1 source) Thyroid hormone tests abnormal; Translations: [Other specified abnormal findings of blood chemistry] Onset: 03-08-2024 03-08-2024 Episodic Other upper respiratory infections (6 sources) [...] source) Hirsutism; Translations: [HIRSUTISM] Onset: 11-22-2021 Episodic Other skin disorders (3 sources) Hirsutism; Translations: [Hirsutism] Onset: 09-02-2023 09-02-2023 Episodic Residual codes; unclassified (4 sources) Procedure and treatment not carried out due to patient leaving prior to being seen by health care provider; Translations: [PROC AND TX NOT CARRIED OUT PT LEAVE] Onset: 07-31-2021 Episodic Unclassified (1 source) COUGH, UNSPECIFIED; Translations: [COUGH, UNSPECIFIED] Onset: 07-04-2022 Unclassified (1 source) CONTACT W/AND (SUSP) EXPOS COVID-19; Translations: [CONTACT W/AND (SUSP) EXPOS COVID-19] Onset: 07-10-2021 Varicose veins of lower extremity (3 sources) Varicose veins of lower extremity; Translations: [Varicose veins of bilateral lower extremities with pain] Onset: 09-02-2023 09-02-2023 Episodic Results Test Name Value Interpretation Reference Range Facility [facility] 09-26-2023 L Specimen: [id number] Received: 09/26/23 Status: BEREKET Valdovinos Num: [id number] Spec Type: Surgical Subm Dr: Roscoe Laboy Tissues: A Endometrium - Curettings (ENDOMETRIUM CURETTINGS) Procedures: HE/2, Gross/Micro L4 Age/ Patient Sex Location Account Attending Physician Benny Wynne 38/F LABE[facility] [id number] Roscoe Laboy SPEC NUM: [id number] RECD: 09/26/23 STATUS: BEREKET VALDOVINOS NUM: [id number] EMMETT: 09/26/[address]: Roscoe Laboy ENTERED: 09/26/[address] [facility] [address]: Martine,Lab SPEC TYPE: Surgical DEPT: [...] in one cassette labeled A1. CPT Codes 08111 -------- -------- Specimen: [id number] Received: 09/26/23 Status: BEREKET Valdovinos Num: [id number] Spec Type: Surgical Subm Dr: Roscoe Laboy Tissues: A Endometrium - Curettings (ENDOMETRIUM CURETTINGS) Procedures: BERNICE/Valentin Gottlieb/Mitchell L4 -------- Patient: Benny Wynne Marcia [id number] (Continued) -------- Signed (signature on file) Hussain Burgess MD 09/29/23 1840 [facility] IGP,APTIMA HPV,AGE GDLNon AGE GDLN ACOG TESTING Note . [facility] Comment on above: TESTS RESULT FLAG U NITS REF RANGE LAB Clinician Provided Cytology Information Source.............Cervix;Endocervix No. of containers..01 ThinPrep Vial Age Algo ACOG Irena... 30- 01 FLAG LEGEND: L-Low Normal,H-High Normal,LL-Alert Low,HH-Alert High <-Panic Low,>-Panic High,A-Abnormal,AA-Critical Abnormal Performed at: 01 =G [facility] [place] [address] Latisha Jain MD, HPV APTIMA Negative Negative [facility] Comment on above: This nucleic acid am plification test detects fourteen high- risk HPV types (16,18,31,33,35,39,45,51,52,56,58,59,66,68) without differentiation. Performed at: =G - [facility] [place] [id number] Club Lounge Attendant: Latisha Jain MD, Phone: [phone] Performed at: - [facility], [place] [id number] Club Lounge Attendant: Latisha Jain MD, Phone: [phone] IGP, APTIMA HPV, RFX 16/18,45 Note . [facility] Comment on above: TESTS RESULT FLAG UN ITS REF RANGE LAB DIAGNOSIS: 02 NEGATIVE FOR INTRAEPITHELIAL LESION OR MALIGNANCY. Specimen adequacy: 02 Satisfactory for evaluation. Endocervical and/or squamous metaplastic cells (endocervical component) are present. Performed by: Tommie Thorpe, Special Education Aide (ASCP) . 02 Note: Note 02 The [...] High <-Panic Low,>-Panic High,A-Abnormal,AA-Critical Abnormal Performed at: [facility] [address] [place] [address] Latisha Jain MD, BRUSH-SPATULA CERVIX ENDOCERVIX [facility] Covid-19 PCR (CVDTB)on SARS-CoV-2 (COVID-19) RNA TIERA+probe Ql (Unsp spec) Not detected Normal NOT DETECTED [facility] Comment on above: Result Comment: When [...] for this test is supported by the Appetizer Packer of Health and Human Service's declaration that [...] L IVER, BMP, LIPID, FT3, TSH #### [facility] [address] [place] [address] Dr. Nikita Burgess INFLUENZA A AND B AGon 07-04 [facility] SEE BELOW Normal [facility] Comment on above: Result Comment: Nega tive for Flu A protein angiten. Infection due to Flu A cannot be ruled out. Flu A angiten in the sample may be below the detection limit of the test. Performed By: #### I NFLUAB #### [facility] [address] [address] [address] [facility] Normal [facility] Comment on above: Result Comment: Nega tive for Flu B protein antigen. Infection due to Flu B cannot be ruled out. Flu B antigen in the sample may be below the detection limit of the test. Performed By: #### I NFLUAB #### [facility] [address] [address] [address] Nikita Burgess INFLUENZA A AG Negative Normal NEGATIVE SEE COMMENT [facility] Comment on above: Performed By: #### I NFLUAB #### [facility] [address] [place] [address] Dr. Nikita Burgess INFLUENZA B AG Negative Normal NEGATIVE SEE COMMENT [facility] Comment on above: Performed By: #### I NFLUAB #### [facility] [address] [address] [address] Nikita Burgess INTERNAL CONTROLS Within Normal Limits Normal Wi thin Normal Limits [facility] Comment on above: Performed By: #### I NFLUAB #### [facility] [address] [address] [address] Nikita Burgess GROUP A STREP CULTUREon 04-27 S. pyogenes Ag Ql (Unsp spec) Culture Observations: NEGATIVE FOR GROUP A STREPTOCOCCUS. Normal [facility] Comment on above: Performed By: #### L IVER, BMP, LIPID, FT3, TSH #### [facility] [address] [place] [address] Dr. Nikita Burgess STREPT SCREENon 05-12-2022 STREP SCREEN A Negative Normal NEGATIVE [facility] Comment on above: Performed By: #### L IVER, BMP, LIPID, FT3, TSH #### [facility] [address] [place] [address] Dr. Nikita Burgess ESTRONEon 11-26-2021 Estrone, Serum 30 pg/mL Normal 27-231 [facility] Comment on above: Result Comment: Rang e Adult (Premenopausal) 27 - 231 Menstrual Cycle (1-10 days) 19 - 149 Menstrual Cycle (11-20 days) 32 - 176 Menstrual Cycle (21-30 days) 37 - 200 Please note reference interval change Performed By: #### L IVER, BMP, LIPID, FT3, TSH #### [facility] [address] [place] [address] Dr. Nikita Burgess DHEA-SULFATEon 11-22-2021 DHEA-Sulfate 123.0 ug/dL Normal 57.3-279.2 [facility] Comment on above: Performed By: #### L IVER, BMP, LIPID, FT3, TSH #### [facility] [address] [address] [address] Nikita Burgess ESTRADIOLon 11-22-2021 Estradiol 83.2 pg/mL Normal [facility] Comment on above: Result Comment: Adul t Female: Follicular phase 12.5 - 166.0 Ovulation phase 85.8 - 498.0 Luteal phase 43.8 - 211.0 Postmenopausal <6.0 - 54.7 1st trimester 215.0 - >4300.0 Dejah ECLIA methodology Performed By: #### L IVER, BMP, LIPID, FT3, TSH #### [facility] [address] [place] [address] Dr. Nikita Burgess FSHon 11-22-2021 FSH 3.0 mIU/mL Normal [facility] Comment on above: Result Comment: Adul t Female: Follicular phase 3.5 - 12.5 Ovulation phase 4.7 - 21.5 Luteal phase 1.7 - 7.7 Postmenopausal 25.8 - 134.8 Performed By: #### L IVER, BMP, LIPID, FT3, TSH #### [facility] [address] [place] [address] Dr. Nikita Burgess LUTEINIZING HORMONE (LH)on 11-22-2021 LH 1.8 mIU/mL Normal [facility] Comment on above: Result Comment: Adul t Female: Follicular phase 2.4 - 12.6 Ovulation phase 14.0 - 95.6 Luteal phase 1.0 - 11.4 Postmenopausal 7.7 - 58.5 Performed By: #### L IVER, BMP, LIPID, FT3, TSH #### [facility] [address] [address] [address] Nikita Burgess PROGESTERONEon 11-22-2021 Progesterone 10.2 ng/mL Normal [facility] Comment on above: Result Comment: Foll icular phase 0.1 - 0.9 Luteal phase 1.8 - 23.9 Ovulation phase 0.1 - 12.0 First trimester 11.0 - 44.3 Second trimester 25.4 - 83.3 Third trimester 58.7 - 214.0 Postmenopausal 0.0 - 0.1 Performed By: #### L IVER, BMP, LIPID, FT3, TSH #### [facility] [address] [place] [address] Dr. Nikita Burgess PROLACTINon 11-22-2021 Prolactin 6.1 ng/mL Normal 4.8-23.3 [facility] Comment on above: Performed By: #### L IVER, BMP, LIPID, FT3, TSH #### [facility] [address] [place] [address] Dr. Nikita Burgess TESTOSTERONE, TOTALon 2021 Testosterone [Mass/Vol] 11 ng/dL Normal 8-60 [facility] Comment on above: Performed By: #### L IVER, BMP, LIPID, FT3, TSH #### [facility] [address] [place] [address] Dr. Nikita Burgess CBC AUTO DIFFon 11-21-2021 BASO # 0.0 103/ul Normal 0.0-0.1 [facility] Comment on above: Performed By: #### C BC #### [facility] [address] [place] [address] Dr. Nikita Burgess Basophils/100 WBC (Bld) 0.6 % Normal 0.2-2.0 [facility] Comment on above: Performed By: #### C BC #### [facility] [address] [place] [address] Dr. Nikita Burgess EO # 0.1 103/ul Normal 0.0-0.7 [facility] Comment on above: Performed By: #### C BC #### [facility] [address] [place] [address] Dr. Nikita Burgess Eosinophils/100 WBC (Bld) 1.5 % Normal 0.9-7.0 [facility] Comment on above: Performed By: #### C BC #### [facility] [address] [place] [address] Dr. Nikita Burgess Erythrocyte distribution width (RBC) [Ratio] 13.7 % Normal 11.0-15.0 [facility] Comment on above: Performed By: #### C BC #### [facility] [address] [place] [address] Dr. Nikita Burgess Hematocrit (Bld) [Volume fraction] 40.7 % Normal 36.0-48.0 [facility] Comment on above: Performed By: #### C BC #### [facility] [address] [place] [address] Dr. Nikita Burgess Hemoglobin (Bld) [Mass/Vol] 12.8 g/dL Normal 12.0-16.0 [facility] Comment on above: Performed By: #### C BC #### [facility] [address] [place] [address] Dr. Nikita Burgess IG # 0.01 10e3/ul Normal 0.00-0.03 [facility] Comment on above: Performed By: #### C BC #### [facility] [address] [place] [address] Dr. Nikita Burgess IG % 0.2 % Normal 0.0-0.5 [facility] Comment on above: Performed By: #### C BC #### [facility] [address] [place] [address] Dr. Nikita Burgess LYMPH # 1.6 103/ul Normal 1.2-3.8 [facility] Comment on above: Performed By: #### C BC #### [facility] [address] [place] [address] Dr. Nikita Burgess Lymphocytes/100 WBC (Bld) 29.5 % Normal 20.5-60.0 [facility] Comment on above: Performed By: #### C BC #### [facility] [address] [place] [address] Dr. Nikita Burgess MANUAL DIFF REQ NO Normal [facility] Comment on above: Performed By: #### C BC #### [facility] [address] [place] [address] Dr. Nikita Burgess MCH (RBC) [Entitic mass] 28.0 pg Normal 26.7-34.0 [facility] Comment on above: Performed By: #### C BC #### [facility] [address] [place] [address] Dr. Nikita Burgess MCHC (RBC) [Mass/Vol] 31.4 g/dL Normal 29.9-35.2 [facility] Comment on above: Performed By: #### C BC #### [facility] [address] [place] [address] Dr. Nikita Burgess MCV (RBC) [Entitic vol] 89.1 fL Normal 81.0-99.0 [facility] Comment on above: Performed By: #### C BC #### [facility] [address] [place] [address] Dr. Nikita Burgess MONO # 0.4 103/ul Normal 0.3-0.8 [facility] Comment on above: Performed By: #### C BC #### [facility] [address] [place] [address] Dr. Nikita Burgess Monocytes/100 WBC (Bld) 7.4 % Normal 1.7-12.0 [facility] Comment on above: Performed By: #### C BC #### [facility] [address] [place] [address] Dr. Nikita Burgess NEUT # 3.2 103/ul Normal 1.4-6.5 [facility] Comment on above: Performed By: #### C BC #### [facility] [address] [place] [address] Dr. Nikita Burgess Neutrophils/100 WBC (Bld) 60.8 % Normal 43.0-75.0 [facility] Comment on above: Performed By: #### C BC #### [facility] [address] [place] [address] Dr. Nikita Burgess Platelet mean volume (Bld) [Entitic vol] 10.1 fL Normal 9.5-13.5 [facility] Comment on above: Performed By: #### C BC #### [facility] [address] [place] [address] Dr. Nikita Burgess PLT 273 103/ul Normal 150-450 [facility] Comment on above: Performed By: #### C BC #### [facility] [address] [place] [address] Dr. Nikita Burgess RBC 4.57 106/ul Normal 4.20-5.40 [facility] Comment on above: Performed By: #### C BC #### [facility] [address] [address] [address] Nikita Burgess WBC 5.3 103/ul Normal 4.0-11.0 [facility] Comment on above: Performed By: #### C BC #### [facility] [address] [address] [address] Nikita Burgess FREE T3on 11-21-2021 FREE T3 2.69 pg/mlL Normal 2.18-3.98 [facility] Comment on above: Performed By: #### L IVER, BMP, LIPID, FT3, TSH #### [facility] [address] [address] [address] Nikita Burgess FREE T4on 11-21-2021 Free T4 [Mass/Vol] 0.98 ng/dL Normal 0.76-1.46 [facility] Comment on above: Performed By: #### F T4, VITAD #### [facility] [address] [address] [address] Nikita Burgess GLYCOHEMOGLOBIN A1Con 2021 ADA RECOMMENDATION SEE BELOW Normal [facility] Comment on above: Result Comment: ADA RECOMMENDED LIMIT 4.0 - 6.0 ADA THERAPEUTIC TARGET < 7.0 ACTION SUGGESTED > 7.0 Performed By: #### A 1C #### [facility] [address] [place] [address] Dr. Nikita Burgess Glucose [Mass/Vol] 111 mg/dL Normal [facility] Comment on above: Performed By: #### A 1C #### [facility] [address] [place] [address] Dr. Nikita Burgess HbA1c (Bld) [Mass fraction] 5.5 % Normal 4.5-6.2 [facility] Comment on above: Performed By: #### A 1C #### [facility] [address] [place] [address] Dr. Nikita Burgess LIPID PROFILEon 11-21-2021 CHOL-HDL RATIO NORM SEE BELOW Normal [facility] Comment on above: Result Comment: 3.3 - 4.4 LOW RISK 4.4 - 7.1 AVERAGE RISK 7.1 - 11.0 MODERATE RISK >11.0 HIGH RISK Performed By: #### L IVER, BMP, LIPID, FT3, TSH #### [facility] [address] [address] [address] Nikita Burgess Cholesterol [Mass/Vol] 193 mg/dL Normal <=200 [facility] Comment on above: Performed By: #### L IVER, BMP, LIPID, FT3, TSH #### [facility] [address] [address] [address] Nikita Burgess Cholesterol in HDL [Mass/Vol] 58 mg/dL Normal 40-60 [facility] Comment on above: Performed By: #### L IVER, BMP, LIPID, FT3, TSH #### [facility] [address] [place] [address] Dr. Nikita Burgess Cholesterol in LDL [Mass/Vol] 122.6 mg/dL Normal [facility] Comment on above: Performed By: #### L IVER, BMP, LIPID, FT3, TSH #### [facility] [address] [address] [address] Nikita Burgess Cholesterol.total/Ch olesterol in HDL [Mass ratio] 3.3 {ratio} Normal [facility] Comment on above: Performed By: #### L IVER, BMP, LIPID, FT3, TSH #### [facility] [address] [place] [address] Dr. Nikita Burgess HDL NORMAL > or = 60 mg/dl - LO W CARDIOVASCULAR RISK <40 mg/dl - HIGH CARDIOVASCULAR RISK Normal [facility] Comment on above: Performed By: #### L IVER, BMP, LIPID, FT3, TSH #### [facility] [address] [address] [address] Nikita Burgess LDL CALC NORMAL SEE BELOW Normal [facility] Comment on above: Result Comment: <100 mg/dl OPTIMAL 100 - 129 mg/dl NEAR OR ABOVE OPTIMAL 130 - 159 mg/dl BORDERLINE HIGH 160 - 189 mg/dl HIGH >190 mg/dl VERY HIGH Performed By: #### L IVER, BMP, LIPID, FT3, TSH #### [facility] [address] [address] [address] Nikita Burgess Triglyceride [Mass/Vol] 62 mg/dL Normal <=150 [facility] Comment on above: Performed By: #### L IVER, BMP, LIPID, FT3, TSH #### [facility] [address] [address] [address] Nikita Burgess VLDL CALC 12.4 mg/dL Normal [facility] Comment on above: Performed By: #### L IVER, BMP, LIPID, FT3, TSH #### [facility] [address] [address] [address] Nikita Burgess LIVER PROFILEon 11-21-2021 Albumin [Mass/Vol] 3.9 g/dL Normal 3.4-5.0 [facility] Comment on above: Performed By: #### L IVER, BMP, LIPID, FT3, TSH #### [facility] [address] [place] [address] Dr. Nikita Burgess Albumin/Globulin [Mass ratio] 1.0 {ratio} Normal [facility] Comment on above: Performed By: #### L IVER, BMP, LIPID, FT3, TSH #### [facility] [address] [place] [address] Dr. Nikita Burgess ALP [Catalytic activity/Vol] 68 U/L Normal 46-116 [facility] Comment on above: Performed By: #### L IVER, BMP, LIPID, FT3, TSH #### [facility] [address] [place] [address] Dr. Nikita Burgess ALT [Catalytic activity/Vol] 20 U/L Normal 14-59 [facility] Comment on above: Performed By: #### L IVER, BMP, LIPID, FT3, TSH #### [facility] [address] [place] [address] Dr. Nikita Burgess AST [Catalytic activity/Vol] 17 U/L Normal 15-37 [facility] Comment on above: Performed By: #### L IVER, BMP, LIPID, FT3, TSH #### [facility] [address] [place] [address] Dr. Nikita Burgess BILI, CONJUGATED 0.1 mg/dL Normal 0.0-0.2 [facility] Comment on above: Performed By: #### L IVER, BMP, LIPID, FT3, TSH #### [facility] [address] [place] [address] Dr. Nikita Burgess Bilirubin [Mass/Vol] 0.6 mg/dL Normal 0.2-1.0 [facility] Comment on above: Performed By: #### L IVER, BMP, LIPID, FT3, TSH #### [facility] [address] [place] [address] Dr. Nikita Burgess Globulin (S) [Mass/Vol] 3.9 g/dL Normal [facility] Comment on above: Performed By: #### L IVER, BMP, LIPID, FT3, TSH #### [facility] [address] [place] [address] Dr. Nikita Burgess Protein [Mass/Vol] 7.8 g/dL Normal 6.1-8.2 [facility] Comment on above: Performed By: #### L IVER, BMP, LIPID, FT3, TSH #### [facility] [address] [place] [address] Dr. Nikita Burgess PROF CHEM 8 (BAS METB)on Anion gap [Moles/Vol] 12.5 mmol/L Normal [facility] Comment on above: Performed By: #### L IVER, BMP, LIPID, FT3, TSH #### [facility] [address] [place] [address] Dr. Nikita Burgess Calcium [Mass/Vol] 8.2 mg/dL Critically low 8.5-10.1 [facility] Comment on above: Performed By: #### L IVER, BMP, LIPID, FT3, TSH #### [facility] [address] [place] [address] Dr. Nikita Burgess Chloride [Moles/Vol] 102 mmol/L Normal 98-107 [facility] Comment on above: Performed By: #### L IVER, BMP, LIPID, FT3, TSH #### [facility] [address] [address] [address] Nikita Burgess CO2 [Moles/Vol] 26.3 mmol/L Normal 21.0-32.0 [facility] Comment on above: Performed By: #### L IVER, BMP, LIPID, FT3, TSH #### [facility] [address] [address] [address] Nikita Burgess Creatinine [Mass/Vol] 0.57 mg/dL Normal 0.55-1.02 [facility] Comment on above: Performed By: #### L IVER, BMP, LIPID, FT3, TSH #### [facility] [address] [address] [address] Nikita Burgess EGFR-AF SRI LANKAN >60 Normal >=60 [facility] Comment on above: Performed By: #### L IVER, BMP, LIPID, FT3, TSH #### [facility] [address] [place] [address] Dr. Nikita Burgess EGFR-NON AF SRI LANKAN >60 Normal >=60 [facility] Comment on above: Performed By: #### L IVER, BMP, LIPID, FT3, TSH #### [facility] [address] [address] [address] Nikita Burgess Glucose [Mass/Vol] 78 mg/dL Normal 74-106 [facility] Comment on above: Performed By: #### L IVER, BMP, LIPID, FT3, TSH #### [facility] [address] [address] [address] Nikita Burgess Potassium [Moles/Vol] 3.8 mmol/L Normal 3.5-5.1 [facility] Comment on above: Performed By: #### L IVER, BMP, LIPID, FT3, TSH #### [facility] [address] [place] [address] Dr. Nikita Burgess Sodium [Moles/Vol] 137 mmol/L Normal 136-145 [facility] Comment on above: Performed By: #### L IVER, BMP, LIPID, FT3, TSH #### [facility] [address] [place] [address] Dr. Nikita Burgess Urea nitrogen [Mass/Vol] 11.0 mg/dL Normal 7.0-18.0 [facility] Comment on above: Performed By: #### L IVER, BMP, LIPID, FT3, TSH #### [facility] [address] [place] [address] Dr. Nikita Burgess Urea nitrogen/Creatinine [Mass ratio] 19.3 mg/mg Normal [facility] Comment on above: Performed By: #### L IVER, BMP, LIPID, FT3, TSH #### [facility] [address] [place] [address] Dr. Nikita Burgess TSHon 11-21-2021 TSH 2.175 uIU/mL Normal 0.470-4.680 [facility] Comment on above: Performed By: #### L IVER, BMP, LIPID, FT3, TSH #### [facility] [address] [place] [address] Dr. Nikita Burgess TSH RANGE SEE BELOW Normal [facility] Comment on above: Result Comment: <0.3 4 UIU/ml HYPERTHYROID 0.34-5.60 UIU/ml EUTHYROID >5.60 UIU/ml HYPOTHYROID Performed By: #### L IVER, BMP, LIPID, FT3, TSH #### [facility] [address] [place] [address] Dr. Nikita Burgess VITAMIN D 25 OHon 11-21-2021 VIT D 25-OH 49.5 ng/mL Normal [facility] Comment on above: Performed By: #### F T4, VITAD #### [facility] [address] [place] [address] Dr. Nikita Burgess VIT D RANGES SEE BELOW Normal [facility] Comment on above: Result Comment: <20 ng/mL Vit D deficient 20 - <30 ng/mL Vit D insufficient 30 - 100 ng/mL Vit D sufficient >100 ng/mL Potential Toxicity Performed By: #### F T4, VITAD #### [facility] [address] [place] [address] Dr. Nikita Burgess [facility] SARS-CoV-2 (COVID-19) RNA TIERA+probe Ql (Unsp spec) Not detected Normal NOT DETECTED [facility] Comment on above: Result Comment: This test is not yet approved or cleared by the [place] FDA. When there are no FDA-approved or cleared tests available, and other criteria are met, FDA can make tests available under an emergency access mechanism called an Emergency Use Authorization (EUA). The EUA for this test is supported by the [employer] of Health and Human Service's (HHS's) declaration [...] L IVER, BMP, LIPID, FT3, TSH #### [facility] [address] [address] [address] Nikita Burgess Consenton 10-04-2020 Consent [id number]# 1.00CD:127 Normal [facility] Registrationon 10-04-2020 Registration [id number]# 1.00CD:127 Normal [facility] Vital Signs Date Time Vital Sign Value Performing Clinician Faci lity 09-01-2023 10:18-0500 Body mass index (BMI) [Ratio] 29.94 kg/m2 [employer] Work Phone: [facility] 09-01-2023 10:18-0500 Body weight 76.66 kg [employer] Work Phone: [facility] 09-01-2023 10:18-0500 Diastolic blood pressure 72 mm[Hg] [employer] Work Phone: [facility] 09-01-2023 10:18-0500 Systolic blood pressure 118 mm[Hg] Roscoe Benoit DO Work Phone: [facility] Encounters Encounter Date Encounter Type Care Provider Facility Start: 05-24-2024 End: 05-24-2024 Telephone encounter Moshe Montes MD Work Phone: [facility] Comment on above: Med Refill Start: 03-08-2024 Patient encounter procedure Moseh Montes MD Work Phone: [facility] Start: 03-08-2024 End: 03-08-2024 ambulatory MOSHE MONTES Not Available Start: 10-06-2023 End: 10-06-2023 ambulatory TESSIE LUCAS Not Available Start: 09-26-2023 End: 09-26-2023 ambulatory Roscoe Benoit Facility:[facility] Start: 09-02-2023 End: 09-02-2023 Orders Only Moshe Montes MD Work Phone: [facility] Comment on above: Attention deficit di sorder [...] examination without abnormal findings DR MOSHE MONTES [facility] Start: 11-21-2021 End: 11-22-[address] MOSHE MONTES Facility:[facility] Start: 11-21-2021 End: 11-22-2021 Encounter for general adult medical examination without abnormal findings DR MOSHE MONTES Facility:[facility] Start: 07-31-2021 End: 07-31-[address] MOSHE MONTES Facility:[facility] Start: 07-10-2021 End: 07-10-[address] MOSHE MONTES Facility:[facility] Procedures Date Procedure Procedure Detail Performing Clinician Start: 09-01-2023 IGP,APTIMA HPV,AGE GDLN Roscoe Beonit DO Work Phone: Start: 09-01-2023 Microscopic observat ion [Identifier] in Cervix by Cyto stain Moshe Montes MD Work Phone: Plan of Treatment Date Care Activity Detail Author Start: 09-01-2028 Screening for malign ant neoplasm of cervix [facility] Start: 09-08-2024 End: 09-08-2024 Patient encounter procedure 09/08/2024 10:30 AM EST [facility] [address] [place] [phone] Moshe Montes MD [address] [place] [address] [facility] Start: 03-28-2024 Influenza vaccination Influenza Vacc ine (#1) [facility] Start: 03-08-2024 End: 03-08-2024 Patient encounter procedure 03/08/2024 10:00 AM EDT [facility] [address] [place] [address] Moshe Montes MD [address] [place] [phone] [facility] Start: 09-02-2023 End: 09-02-2023 Patient encounter procedure 09/02/2023 2:30 PM EST [facility] [address] [place] [phone] Moshe Montes MD [address] [place] [phone] [facility] Start: 09-02-2023 Chart abstracting 09/02/2023 A bstract [facility] [address] [place] [phone] Moshe Montes MD [address] [place] [address] [facility] Start: 03-28-2023 Influenza vaccination Influenza Vacc ine (#1) [facility] Start: 2016 Screening for malign ant neoplasm of cervix [facility] Start: 2007 Screening for malign ant neoplasm of cervix Pap Smear [facility] Cytology Cervical or vaginal smear or scraping study Pap Smear Pathology and Cytology Routine Well woman exam with routine gynecological exam Ordered: 09/01/2023 [facility] Work Phone: Comment on above: Ordered: 09/01/2023 Human papilloma viru s DNA [Presence] in Unspecified specimen by Probe with amplification HPV DNA probe, amplified Microbiology Routine Well woman exam with routine gynecological exam Ordered: 09/01/2023 [facility] Comment on above: Ordered: 09/01/2023 Payers Date Payer Category Payer Self-pay 2020 Medicaid [employer] [id number] 2020-Present [address] [place] [id number] 2020 Medicaid (Managed Care) [facility] MEDICAID [id number] 1986 Unknown [id number] [id number]. 593 1986 Unknown [id number] 2.16.840.1.954011.3.579.2. 593 1986 Unknown [id number] 2.16.840.1.680631.3.579.2. 593 1986 Unknown [id number] 2.16.840.1.328886.3.579.2. 593 1986 Unknown [id number] 2.16.840.1.672926.3.579.2. 593 1986 Unknown [id number] 2.16.840.1.598848.3.579.2. 1259 1986 Unknown [id number] 2.16.840.1.618165.3.579.2. 1259 1986 Unknown [id number] 2.16.840.1.240281.3.579.2. 1259 1986 Unknown [id number] 2.16.840.1.797995.3.579.2. 1259 1986 Unknown [id number] 2.16.840.1.090139.3.579.2. 1259 1959 Unknown [id number] Unknown [id number] [id number]. 531 Social History Date Type Detail Facility Start: 08-25-2023 End: 09-02-2023 Tobacco smoking status NHIS Smokes tobacco daily [facility] History of tobacco use Cigarette Smoker [facility] Start: 09-01-2023 End: 03-08-2024 History of Social function [facility] Start: 09-01-2023 End: 03-08-2024 Tobacco use panel [facility] Start: 1985 Sex Assigned At Female [facility] Start: 08-05-2023 Gender identity Identifies as female gender (finding) [facility] Start: 08-05-2023 Sexual orientation Heterosexual (fin ding) [facility] Start: 09-02-2023 Tobacco use and exposure Smokeless t obacco non-user [facility] Telephone encounter Note 05-24-2024 Telephone Encounter - Moshe Montes MD - 05/24/2024 3:30 PM EDT Note Date & Type Note Facility 05-24-2024 Telephone encount er Note Sent [facility] Note 05-24-2024 Telephone Encounter - Moshe Montes MD - 05/24/2024 3:30 PM EDT Note Date & Type Note Facility 05-24-2024 Miscellaneous Notes Formattin g of this note might be different from the original. Sent documented in this encounter [facility] History of Present illness Narrative 09-01-2023 [...] on 09/26/[address] Laboy at [facility]. Current Medications: has a current medication [...] fall Bipolar affective disorder, currently depressed, mild ([facility]/HCC) ZENOBIA (generalized anxiety disorder) ([facility]) Hirsutism Influenza vaccination declined Lump of skin [...] nursing note reviewed. Exam conducted with a commissary worker present. Vitals: Estimated body mass index is [...] reviewed, and patient is to proceed to [facility]. Follow Up: Patient is to follow up between 1-2 weeks post operative to assess proper healing and recovery from procedure. Documented by: Mindy Linares LPN on behalf of Roscoe Laboy DO documented in this encounter [facility] Evaluation note Note Date & Type [...] (ADD) without hyperactivity documented in this encounter [facility] Evaluation note Note Date & Type Note Facility Evaluation note Diagnosis ADD (attention deficit 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- Primary Attention deficit disorder without mention of hyperactivity Menorrhagia with irregular cycle Annual physical exam- Primary Routine general medical examination at a health care facility ADD (attention deficit 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 Attention deficit disorder without mention of hyperactivity Abnormal TSH Bipolar 1 disorder, depressed, mild (CMS/HCC) Attention deficit disorder (ADD) without hyperactivity documented [...] without hyperactivity Moshe Montes MD [address] [place] [address] Referral ID Status Reason Start Date Expiration Date Visits Re quested Visits Authorized [id number] Closed 1 1 Additional Source Comments INFORMATION SOURCE (unrecogn ized section and content) DATE CREATED AUTHOR 10/05/2020 Elliott Keaton [facility] DATE CREATED AUTHOR AUTHOR'S ORGANIZ ATION 07/08/2022 [facility] DATE CREATED AUTHOR AUTHOR'S ORGANIZ ATION 09/30/2023 [facility] DATE CREATED AUTHOR AUTHOR'S ORGANIZ ATION 03/09/2024 [facility] EPIC Reason for Visit (unrecogniz ed section and content) Reason Comments Well Women Visit Pre-op Visit Reason Onset Date Comments Med Refill 05/24/2024 Care Teams (unrecognized sec tion and content) Md Psychiatry Relationship Specialty Start Date End Date Moshe Montes MD [address] [place] [phone] PCP - General Family Medicine 08/25/23 Md Psychiatry Relationship Specialty Start Date End Date Moshe Montes MD [address] [place] [address] PCP - General Family Medicine 08/25/23 Md Psychiatry Relationship Specialty Start Date End Date Moshe Montes MD [address] [place] [phone] PCP - General Family Medicine 08/25/23 Md Psychiatry Relationship Specialty Start Date End Date Moshe Montes MD [address] [place] [address] PCP - [facility] 08/25/23 Moshe Montes MD [address] [place] [phone] PCP - [facility] 01/26/24 FOR RECORDS PERTAINING TO PATIENTS WHO ARE [...] BE BASED ON THE PRIMARY CLINICAL RECORDS. [facility]. provides no warranty or guarantee of the accuracy or completeness of information in this document.
--- NOTE | 2024-06-18 13:40 | ED.URI1 ---
HPI - URI/Sore Throat General Chief Complaint: Ear Stated Complaint: URTI COMPLAINTS/EAR PAIN Time Seen by Provider: 06/18/24 13:17 Source: patient History of Present Illness HPI Narrative: 39 female presents to the ER with concerns of right ear pain no symptoms started within the last 24 to 48 hours. She presents with 3 of her children who have similar symptoms. She denies any nausea vomiting or diarrhea. She denies chest pain or shortness of breath. She has had some mild nasal congestion. Patient notes her 7-year-old son has been sick the longest approximately 3 weeks. They have recently turned the heat on at home but she had the furnace serviced and does have a car monoxide detector and this is not of concern. She denies any fevers or chills. She takes sertraline daily for allergies. Patient appears nontoxic in no acute distress MD elicited complaint: Reports sore throat and other (right ear pain); Denies fever Related Data Home Medications ?Medication ?Instructions ?Recorded ?Confirmed dextroamphetamine-amphetamine ER 30 mg PO DAILY 07/14/23 10/15/23 30 mg 24hr capsule,extend release metformin 500 mg tablet,extended 500 mg PO DAILY 09/12/23 10/15/23 release 24 hr Allergies Allergy/AdvReac Type Severity Reaction Status Date / Time pineapple Allergy Swelling Verified 09/12/23 10:22 of Lip/Tongue/Throat Review of Systems ROS Constitutional Denies: fever or chills Ears, nose, mouth, and throat Reports: throat pain and ear pain; Denies: ear discharge Cardiovascular Denies: chest pain, palpitations or edema Respiratory Denies: shortness of breath or cough Gastrointestinal Denies: abdominal pain, nausea or vomiting Genitourinary Denies: painful urination or urinary frequency Integumentary/Breast Denies: rash Neurological Denies: headache [facility]SH [facility] Medical History (Updated 06/18/24 @ 13:45 by KANNAN Medrano) Anemia ?D64.9 - Anemia, unspecified (ICD-10) Constipation ?K59.00 - Constipation, unspecified (ICD-10) Diarrhea ?R19.7 - Diarrhea, unspecified (ICD-10) COVID-19 (07/18/23) ?U07.1 - COVID-19 (ICD-10) PCOS (polycystic ovarian syndrome) ?E28.2 - Polycystic ovarian syndrome (ICD-10) Bipolar disorder ?F31.9 - Bipolar disorder, unspecified (ICD-10) Molar ?O02.0 - Blighted ovum and nonhydatidiform mole (ICD-10) Sepulveda cerclage present ?O34.30 - Maternal care for cervical incompetence, unspecified trimester (ICD-10) Varicose vein of leg ?I83.90 - Asymptomatic varicose veins of unspecified lower extremity (ICD-10) Superficial phlebitis ?I80.9 - Phlebitis and thrombophlebitis of unspecified site (ICD-10) Eczema ?L30.9 - Dermatitis, unspecified (ICD-10) Menorrhagia ?N92.0 - Excessive and frequent menstruation with regular cycle (ICD-10) Hirsutism ?L68.0 - Hirsutism (ICD-10) Anxiety ?F41.9 - Anxiety disorder, unspecified (ICD-10) ADD (attention deficit disorder) ?F98.8 - Other specified behavioral and emotional disorders with onset usually occurring in childhood and adolescence (ICD-10) Pelvic congestion syndrome ?N94.89 - Other specified conditions associated with female genital organs and menstrual cycle (ICD-10) Pelvic pain ?R10.2 - Pelvic and perineal pain (ICD-10) Surgical History (Updated 09/12/23 @ 10:30 by Lanny Perry NP) H/O vein stripping ?Z98.890 - Other specified postprocedural states (ICD-10) History of dilation and curettage ?Z98.890 - Other specified postprocedural states (ICD-10) History of tubal ligation ?Z98.51 - Tubal ligation status (ICD-10) Family History (Updated 09/12/23 @ 10:30 by Lanny Perry NP) Other Family history of COPD (chronic obstructive pulmonary disease) Family history of brain cancer Family history of breast cancer Family history of cervical cancer Family history of colon cancer Family history of diabetes mellitus Family history of hypertension Family history of myocardial infarction Family history of seizures Family history of stroke Hepatitis TIA (transient ischemic attack) Social History Within the past year, how often did you have a drink containing alcohol: never Score interpretation: A score less than 3 is consistent with normal alcohol consumption. 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 General: The patient appears well and in no apparent distress. Patient is resting comfortably on cart. Skin: Warm, dry, no pallor noted. Head: Normocephalic, atraumatic Neck: Supple, trachea mid-line, no tenderness, no lymphadenopathy Eye: Pupils are equal, round and reactive to light, EOMI Ears, Nose, Mouth, and Throat: TM are clear, normal light reflex, oral mucosa is moist, no auricle or tragal tenderness, she denies any dental pain. There is notable postnasal drainage with slight cobblestoning of the posterior pharynx. No posterior oropharynx erythema or hypertrophy, uvula is mid-line Cardiovascular: Regular Rate and Rhythm Respiratory: Patient is in no distress, no accessory muscle use, lungs are clear to auscultation, no wheezing, rales or rhonchi. Chest Wall: no tenderness Back: non-tender, no CVA tenderness Musculoskeletal: normal ROM, no tenderness, no swelling, ambulates without difficulty Neurological: A&O x4 Psychiatric: Cooperative Constitutional Vital Signs, click to edit/add: Last Vital Signs Temp 97.8 F 06/18/24 12:53 Pulse 77 06/18/24 12:53 Resp 16 06/18/24 12:53 BP 91/73 06/18/24 12:53 Pulse Ox 100 06/18/24 12:53 O2 Del Method Room Air 06/18/24 12:53 Course Vital Signs Vital signs: Vital Signs Temperature 97.8 F 06/18/24 12:53 Pulse Rate 77 06/18/24 12:53 Respiratory Rate 16 06/18/24 12:53 Blood Pressure 91/73 06/18/24 12:53 Pulse Oximetry 100 06/18/24 12:53 Oxygen Delivery Method Room Air 06/18/24 12:53 Temperature 97.8 F 06/18/24 12:53 Pulse Rate 77 06/18/24 12:53 Respiratory Rate 16 06/18/24 12:53 Blood Pressure 91/73 11/22/24 12:53 Pulse Oximetry 100 06/18/24 12:53 Oxygen Delivery Method Room Air 06/18/24 12:53 MDM - URI/Sore Throat MDM Narrative Medical decision making narrative: Patient presents with ear pain along with 3 of her children. We discussed car monoxide in the home and she does have a recently tuned up furnace and a detector and states this is not a concern. Patient has right ear pain that has been present for 24 hours. She denies fever or chills. We recommend taking her daily allergy medication may use Tylenol or Motrin as needed for pain she will need a follow-up with her family doctor for reevaluation. Her son does have a acute left ear infection but has been symptomatic significantly longer than any of the other family members. She declined any viral swabs on arrival The patient is to followup with primary care physician in next 2-3 days or to return to the emergency department should any of the signs or symptoms worsen or new symptoms develop. Patient had questions answered. The patient agrees with the following Diagnosis and Treatment plan and the patient will be discharged home. Discharge Plan Discharge Chief Complaint: Ear Clinical Impression: Otalgia, Post-nasal drainage Patient Disposition: Home, Self-Care Time of Disposition Decision: 13:45 Condition: Good Prescriptions / Home Meds: No Action dextroamphetamine-amphetamine 30 mg capsule,extended release 24hr 30 mg PO DAILY metformin 500 mg tablet extended release 24 hr 500 mg PO DAILY Print Language: Faroese Instructions: Earache (ED), Postnasal Drip (DC) Referrals: Moshe Bennett MD [Primary Care Provider] - As soon as possible
== END 2024-06-18 14:11 | disposition home or self-care (01) ==
PROVIDERS: Emergency Provider Emergency Medicine; PCP Family Medicine
DX: H92.01 Otalgia, right ear (principal); R09.82 Postnasal drip; Z98.51 Tubal ligation status; F17.290 Nicotine dependence, other tobacco product, uncomplicated
CPT/HCPCS: 99281

== ENCOUNTER 2025-03-10 11:09 | Outpatient (OUT) | payer OTHER, SELFPAY ==
--- OUTSIDE RECORDS SUMMARY | 2024-12-27 10:30 | XMS_ITS ---
Author Organization [facility] Address [address] [facility] [place] [address] Care Team Providers Care Medical Language Specialist Name Role Phone Rosendo Pinto Primary Care Provider Diana Berg Unavailable [phone] REASON FOR VISIT FILLING Encounters Encounter Location Date Provider Diagnosis [facility] [address] [place] [address] 12/27/2024 Diana Jenkins Plan Of Treatment No Information Progress Notes * STEVE NORWOODDOB:1985 ( 39 yo F)Acc No.[id number]:12/27/2024 Patient: JUNI BURNSHA Provider: Shannan JENKINS DDS :1985 A ge:39 Y S ex:Female Date:12/27/2024 Address:[address] [place], [place] [phone] Pcp:Rosendo Pinto Subjective: * Chief Complaints: * 1 . FILLING. * Medical History: Objective: * Vitals: Assessment: Plan: * Treatment: * Images: * Electronic signature of Brenda Jenkins DDS on 03/10/2025 at 10:31 AM EDT Sign off status: Pending * Provider: Shannan JENKINS DDS Date: 12/27/2024 Generated for Printi ng/Faxing/eTransmitting on: 03/10/2025 10:31 AM EDT
--- OUTSIDE RECORDS SUMMARY | 2025-03-10 10:30 | XMS_ITS | Encounter Summary ---
Author Organization [facility] Address [address] [place] [address] Care Team Providers Care Senior Hadoop Developer Name Role Phone Moshe Bennett MD Primary Care Provider [phone] Moshe Bennett MD Unavailable Reason for Referral * Consultation (Routine) - Pending Review Specialty Diagnoses / Procedures Referred By Contac t Referred To Contact General Surgery Diagnoses Lipoma of torso Procedures [facility] 60 MINUTES Moshe Bennett MD [address] [place] [address] Phone: tel: fax: [place] [address] Phone: tel: fax: Referral ID Status Reason Start Date Expiration Date Visits Requested Visits Authorized [id number] Pending Review Specialty Services Required 03/10/2025 09/06/2025 1 1 * Medications - Closed Specialty Diagnoses / Procedures Referred By Contac t Referred To Contact Diagnoses Acne vulgaris Moshe Bennett MD [address] [place] [address] Phone: tel: fax: Referral ID Status Reason Start Date Expiration Date Visits Re quested Visits Authorized [id number] Closed 1 1 Reason for Visit * Reason Comments Follow-up 6m Encounter Details Date Type Department Care Team (Late st Contact Info) Description 03/10/2025 10:30 AM EDT Office Visit [facility] [address] [place] [address] Moshe Bennett MD [address] [place] [address] ADD (attention deficit 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 (Primary [...] and Family Not on file 03/04/2025 Attends Confucianism Services Not on file 03/04 Do you belong to any clubs o r organizations such as christian groups, unions, fraternal or athletic groups, or [...] Office Visit [facility] [address] [place] [address] Moshe Bennett MD [address] [place] [address] Scheduled Orders Name Type Priority Associated Diagnoses [...] facility documented in this encounter Care Teams Senior Hadoop Developer Relationship Specialty Start Date End Date Moshe Bennett MD [address] [place] [address] PCP - General Family Medicine 08/25/23 Moshe Bennett MD [address] [place] [address] PCP - [facility] 01/26/24 documented as of this encounter
--- OUTSIDE RECORDS SUMMARY | 2025-03-10 11:14 | XMS_ITS | Clinical Summary ---
Author Organization [employer] [facility] Address [id number] [address] [place] [address] Care Team Providers Care Used Car Salesperson Name Role Phone Moshe Bennett MD Primary Care Provider [phone] Allergies No known active allergies Medications No known medications Active Problems Problem Noted Date Diagnosed Date Symptomatic varicose veins 06/11/2017 Anesthesia complication 06/11/2017 Overview (06/11/2017): PONV and prolonged emergence from general anesthesia Family History Medical History Relation Name Comments Hypertension Father Endometrial cancer Mother Hyperlipidemia Mother Thyroid Issues Mother Anesthesia problems Neg Hx Relation Name Status Comments Father Mother Social History Tobacco Use Types Packs/Day Years Used Date Smoking Tobacco: Every Day Cigarettes Smokeless Tobacco: Never Comments:had quit for 3 year s, restarted recently Alcohol Use Standard Drinks/Week Comments No 0 (1 standard drink = 0.6 oz pur e alcohol) Childcare Answer Date Recorded Childcare Unknown 01/06/2019 Employment Answer Date Recorded Employment Unknown 01/06/2019 Purpose - Life Answer Date Recorded Purpose and direction in life Unknown Comments No Sex and Gender Information Value Date Recorded Sex Assigned at Female 08/05/2023 9:14 AM EST Legal Sex Female 11:58 AM EDT Gender Identity Female 08/05/2023 9:14 AM EST Sexual Orientation Straight 08/05/2023 9: 14 AM EST Last Filed Vital Signs Vital Sign Reading Time Taken Comments Blood Pressure 101/63 06/25/2017 10:55 AM EST Pulse 55 06/25/2017 10:55 AM EST Temperature 36.1 C (97 F) 06/25/2017 9:38 AM EST Simultaneous filing. User may not have seen previous data. Respiratory Rate 0 06/25/2017 10:5 5 AM EST Oxygen Saturation 96% 06/25/2017 10: 55 AM EST Inhaled Oxygen Concentration - - Weight 71.4 kg (157 lb 6.5 oz) 06/25/2017 7:37 AM EST Height 160 cm (5' 2.99 ) 06/25/2017 7:3 7 AM EST Body Mass Index 27.89 06/25/2017 7:37 AM EST Plan of Treatment Health Maintenance Due Date Last Done Comments Depression Screening 1998 Tobacco Screening 1998 Adult BMI Screening 2004 DTaP,Tdap and Td Vaccines (1 - Tdap) 2005 Influenza Vaccine 03/28/2025 Pap Smear 09/01/2026 09/01/2023 Medical Devices Not on file Insurance [place] [employer] Care Teams Used Car Salesperson Relationship Specialty Start Date End Date Moshe Bennett MD PCP - General 06/12/16
--- OUTSIDE RECORDS SUMMARY | 2025-03-10 11:14 | XMS_ITS | Encounter Summary ---
Author Organization [facility] Address [address] [place] [address] Care Team Providers Care Rn Faculty Name Role Phone Moshe Bennett MD Primary Care Provider [phone] Moshe Bennett MD Primary Care Provider [phone] Moshe Bennett MD Unavailable Encounter Details Date Type Department Care Team (Late st Contact Info) Description 08/18/2023 Clinisync Result Encounter [facility] External Department Unsolicited Roscoe Laboy, DO [address] [facility] [place] [address] Social History Tobacco Use Types Packs/Day Years Used Date Smoking Tobacco: Never Assessed Comments Unknown Sex and Gender Information Value Date Recorded Sex Assigned at Female 08/05/2023 9:08 AM EST Legal Sex Female 7:17 PM EDT Gender Identity Female 08/05/2023 9:08 AM EST Sexual Orientation Straight 08/05/2023 9: 08 AM EST documented as of this encounter Plan of Treatment Upcoming Encounters Date Type Department Care Team (Late Contact Info) Description 09/12/2025 9:45 AM EST Office Visit [facility] [address] [place] [address] Moshe Bennett MD [address] [place] [address] documented as of this encounter Procedures Procedure Name Priority Date/Time Associated Diagnosis Comments US PELVIS W/ TRANSVAGINAL 08/18/2023 11:22 AM EST documented in this encounter Results * US PELVIS W/ TRANSVAGINAL (08/18/2023 11:22 AM EST) Anatomical Region Laterality Modality Other 08/18/2023 11:2 2 AM EST Narrative 08/18/2023 11:25 [place] [address] Ultrasound Report Signed Patient: STEVE NORWOOD MR#: [id number] : 1985 Acct:[id number] Age/Sex: 38 / F ADM Date: 08/18/23 Loc: US Attending Dr: Roscoe Laboy D.O. Ordering Physician: Roscoe Laboy D.O. Date of Service: 08/18/23 Procedure(s): US pelvis w/ transvaginal Accession Number(s): [id number] cc: Roscoe Laboy D.O.; Moshe Bennett M.D. The [address] [address] Patient Name: STEVE NORWOOD MRN: [id number] date: 1985 Sex: F Assigned Patient Location: Current Patient Location: Accession/Order Number: [id number] Exam Date: 08/18/2023 09:38 Report Date: 08/18/2023 11:22 At the request of: ROSCOE LABOY Procedure: US pelvis w/ transvaginal EXAMINATION: US pelvis w/ transvaginal HISTORY: MENORRHAGIA, PELVIC PAIN COMPARISON: No relevant comparison available. FINDINGS: The uterus is normal in size and contour measuring 11.8 x 4.2 x 6.1 cm. Hypervascular appearance of the peripheral myometrium with no focal mass. The endometrium measures 12 mm, normal. The right ovary is normal measuring 3.0 x 2.3 x 2.7 cm. Normal color Doppler flow. Normal follicles. Left ovary is normal measuring 2.9 x 1.5 x 1.8 cm. Normal color and Doppler flow. Normal follicles. There is hypervascular appearance of the uterus and left adnexa. Multiple dilated left adnexal vessels. US/US pelvis w/ transvaginal IMPRESSION: Consider left uterine vein reflux with pelvic vascular congestion Electronically authenticated by: PINA OLIVARES Date: 08/18/2023 11:22 Dictated By: Pina Olivares M.D. Signed By: 08/18/23 1125 DD/ 1122 TD/TT: Aircraft Painter Apprentice: Procedure Note Radiology, Radiologist, MD - 10/01/2023 [place] [address] Ultrasound Report Signed Patient: STEVE NORWOOD NMR#: [id number] : 1985Acct:[id number] Age/Sex: 38 / FADM Date: 08/18/23 Loc: US Attending Dr: Roscoe Laboy D.O. Ordering Physician: Roscoe Laboy D.O. Date of Service: 08/18/23 Procedure(s): US pelvis w/ transvaginal Accession Number(s): [id number] cc: Roscoe Laboy D.O.; Moshe Bennett M.D. The [place] [id number] Patient Name: STEVE NORWOOD MRN: [id number] date: 1985 Sex: F Assigned Patient Location: US Current Patient Location: US Accession/Order Number: [id number] Exam Date: 08/18/2023 09:38 Report Date: 08/18/2023 11:22 At the request of: ROSCOE LABOY Procedure: US pelvis w/ transvaginal EXAMINATION: US pelvis w/ transvaginal HISTORY: MENORRHAGIA, PELVIC PAIN COMPARISON: No relevant comparison available. FINDINGS: The uterus is normal in size and contour measuring 11.8 x 4.2 x 6.1 cm. Hypervascular appearance of the peripheral myometrium with no focal mass.The endometrium measures 12 mm, normal. The right ovary is normal measuring 3.0 x 2.3 x 2.7 cm. Normal colorDoppler flow. Normal follicles. Left ovary is normal measuring 2.9 x 1.5 x 1.8 cm. Normal color andDoppler flow. Normal follicles. There is hypervascular appearance of the uterus and left adnexa. Multiple dilated left adnexal vessels. US/US pelvis w/ transvaginal IMPRESSION: Consider left uterine vein reflux with pelvic vascular congestion Electronically authenticated by: PINA OLIVARES Date: 08/18/2023 11:22 Dictated By: Pina Olivares M.D. Signed By:08/18/23 1125 DD/ 1122 TD/TT: Aircraft Painter Apprentice: us Roscoe Benoit DO [facility] Final Result documented in this encounter Visit Diagnoses Not on filedocumented in this encounter Care Teams Rn Faculty Relationship Specialty Start Date End Date Moshe Bennett MD PCP - General Family Medicine 02/07/23 08/24/23 Moshe Bennett MD [address] [place] [address] PCP - General [facility] 08/25/23 Moshe Bennett MD [address] [place] [address] PCP - [facility] 01/26/24 documented as of this encounter
--- OUTSIDE RECORDS SUMMARY | 2025-03-10 11:14 | XMS_ITS | Encounter Summary ---
Author Organization [facility] Address [address] [place] [address] Care Team Providers Care Aircraft Instrument Mechanic Name Role Phone Moshe Bennett MD Primary Care Provider [phone] Moshe Bennett MD Unavailable Encounter Details Date Type Department Care Team (Late st Contact Info) Description 09/12/2023 Clinisync Result Encounter [facility] External Department Unsolicited Roscoe Laboy, DO [address] [place] [address] [place] [address] Social History Tobacco Use Types Packs/Day Years Used Date Smoking Tobacco: Every Day Cigarettes Smokeless Tobacco: Never Comments No Sex and Gender Information Value [...] 09/12/2025 9:45 AM EST Office Visit [facility] [address] [place] [address] Moshe Bennett MD [address] [place] [address] documented as of this encounter Procedures Procedure Name Priority Date/Time Associated Diagnosis Comments XR CHEST 2V 09/12/2023 11:20 AM EST documented in this encounter Results * XR CHEST 2V (09/12/2023 11:20 AM EST) Anatomical Region Laterality Modality Other 09/12/2023 11:2 0 AM EST Narrative 09/12/2023 11:22 [place] [address] XRay Report Signed Patient: STEVE NORWOOD MR#: [id number] : 1985 Acct:[id number] Age/Sex: 38 / F ADM Date: 09/12/23 Loc: [facility] Attending Dr: Roscoe Laboy D.O. Ordering Physician: Roscoe Laboy D.O. Date of Service: 09/12/23 Procedure(s): XR chest 2V Accession Number(s): [id number] cc: Roscoe Laboy D.O.; Moshe Bennett M.D. [place] [id number] Patient Name: STEVE NORWOOD MRN: [id number] date: 1985 Sex: F Assigned Patient Location: [facility] Current Patient Location: [facility] Accession/Order Number: [id number] Exam Date: 09/12/2023 11:04 Report Date: 09/12/2023 11:20 At the request of: ROSCOE LABOY Procedure: XR chest 2V EXAM: XR chest 2V HISTORY: Preop exam COMPARISON: None. TECHNIQUE: PA and lateral views of the chest. FINDINGS: The cardiomediastinal silhouette is normal. No focal consolidation is identified. There is no pneumothorax. No pleural effusion is noted. The osseous structures are intact. XR/XR chest 2V IMPRESSION: No acute cardiopulmonary process. Electronically authenticated by: ARIANE MARI Date: 09/12/2023 11:20 Dictated By: Ariane Mari M.D. Signed By: 09/12/23 1122 DD/ 1120 TD/TT: Physical Chemistry Teacher: Procedure Note Radiology, Radiologist, MD - 09/12/[address] [address] XRay Report Signed Patient: STEVE NORWOOD NMR#: [id number] : 1985Acct:[id number] Age/Sex: 38 / FADM Date: 09/12/23 Loc: [facility] Attending Dr: Roscoe Laboy D.O. Ordering Physician: Roscoe Laboy D.O. Date of Service: 09/12/23 Procedure(s): XR chest 2V Accession Number(s): [id number] cc: Roscoe Laboy D.O.; Moshe Bennett M.D. The [address] [address] Patient Name: STEVE NORWOOD MRN: [id number] date: 1985 Sex: F Assigned Patient Location: [facility] Current Patient Location: [facility] Accession/Order Number: [id number] Exam Date: 09/12/2023 11:04 Report Date: 09/12/2023 11:20 At the request of: ROSCOE LABOY Procedure: XR chest 2V EXAM: XR chest 2V HISTORY: Preop exam COMPARISON: None. TECHNIQUE: PA and lateral views of the chest. FINDINGS: The cardiomediastinal silhouette is normal. No focal consolidation is identified. There is no pneumothorax. No pleural effusion is noted. The osseous structures are intact. XR/XR chest 2V IMPRESSION: No acute cardiopulmonary process. Electronically authenticated by: ARIANE MARI Date: 09/12/2023 11:20 Dictated By: Ariane Mari M.D. Signed By:09/12/23 1122 DD/ 1120 TD/TT: Physical Chemistry Teacher: Roscoe Laboy DO [facility] Final Result documented in this encounter Visit Diagnoses Not on filedocumented in this encounter Care Teams Aircraft Instrument Mechanic Relationship Specialty Start Date End Date Moshe Bennett MD [address] [place] [address] PCP - General Family Medicine 08/25/23 Moshe Bennett MD [address] [place] [address] PCP - [facility] 01/26/24 documented as of this encounter
--- OUTSIDE RECORDS SUMMARY | 2025-03-10 11:14 | XMS_ITS | Encounter Summary ---
Author Organization [facility] Address [address] [place] [address] Care Team Providers Care Cnc Machine Programmer Name Role Phone Moshe Bennett MD Primary Care Provider [phone] Moshe Bennett MD Unavailable Encounter Details Date Type Department Care Team (Late Contact Info) Description 09/02/2023 Abstract [facility] [address] [place] [address] Moshe Bennett MD [address] [place] [address] Social History Tobacco Use Types Packs/Day Years [...] 09/12/2025 9:45 AM EST Office Visit [facility] [address] [place] [address] Moshe Bennett MD [address] [place] [address] documented as of this encounter Visit Diagnoses Not on filedocumented in this encounter Care Teams Cnc Machine Programmer Relationship Specialty Start Date End Date Moshe Bennett MD [address] [place] [address] PCP - General Family Medicine 08/25/23 Moshe Bennett MD [address] [place] [address] PCP - [facility] 01/26/24 documented as of this encounter
--- OUTSIDE RECORDS SUMMARY | 2025-03-10 11:14 | XMS_ITS | Encounter Summary ---
Author Organization [facility] Address [address] [place] [address] Care Team Providers Care Acoustical Installer Name Role Phone Moshe Bennett MD Primary Care Provider [phone] Moshe Bennett MD Unavailable Encounter Details Date Type Department Care Team (Late st Contact Info) Description 03/10/2025 Bamboo flowsheet [facility] [address] [place] [address] Moshe Bennett MD [address] [place] [address] Social History Tobacco Use Types Packs/Day Years Used Date Smoking Tobacco: Every Day Cigarettes Smokeless Tobacco: Never Social Connection and Isolation Panel [NHANES] A nswer Date Recorded Frequency of Communication with Friends and Fami ly Not on file 03/04/2025 Frequency of Social Gatherings with Friends and Family Not on file 03/04/2025 Attends Baptism Services Not on file 03/04 Do you belong to any clubs o r organizations such as scientology groups, unions, fraternal or athletic groups, or [...] Office Visit [facility] [address] [place] [address] Moshe Bennett MD [address] [place] [address] documented as of this encounter Visit Diagnoses Not on filedocumented in this encounter Care Teams Acoustical Installer Relationship Specialty Start Date End Date Moshe Bennett MD [address] [place] [address] PCP - General Family Medicine 08/25/23 Moshe Bennett MD [address] [place] [address] PCP - [facility] 01/26/24 documented as of this encounter
--- OUTSIDE RECORDS SUMMARY | 2025-03-10 11:14 | XMS_ITS | Encounter Summary ---
Author Organization [facility] Address [address] [place] [address] Care Team Providers Care Chopper Operator Name Role Phone Moshe Bennett MD Primary Care Provider [phone] Moshe Bennett MD Primary Care Provider [phone] Moshe Bennett MD Unavailable Encounter Details Date Type Department Care Team (Late st Contact Info) Description 08/18/2023 Clinisync Result Encounter [facility] External Department Unsolicited Provider, Generic External Data Social History Tobacco Use Types Packs/Day Years [...] 09/12/2025 9:45 AM EST Office Visit [facility] [address] [place] [address] Moshe Bennett MD [address] [place] [address] documented as of this encounter Procedures Procedure Name Priority Date/Time Associated Diagnosis Comments US PELVIS W/ TRANSVAGINAL 08/18/2023 11:22 AM EST documented in this encounter Results * US PELVIS W/ TRANSVAGINAL (08/18/2023 11:22 AM EST) Anatomical Region Laterality Modality Other 08/18/2023 11:2 2 AM EST Narrative 08/18/2023 11:25 AM EST [address] [address] Ultrasound Report Signed Patient: STEVE NORWOOD MR#: [id number] : 1985 Acct:[id number] Age/Sex: 38 / F ADM Date: 08/18/23 Loc: US Attending Dr: Roscoe Laboy D.O. Ordering Physician: Roscoe Laboy D.O. Date of Service: 08/18/23 Procedure(s): US pelvis w/ transvaginal Accession Number(s): [id number] cc: Roscoe Laboy D.O.; Moshe Bennett M.D. [place] [id number] Patient Name: STEVE NORWOOD MRN: [id number] date: 1985 Sex: F Assigned Patient Location: [place] Current Patient Location: [place] Accession/Order Number: [id number] Exam Date: 08/18/2023 09:38 Report Date: 08/18/2023 [...] Signed By: 08/18/23 1125 DD/ 1122 TD/TT: Rest Room Maid: Procedure Note Radiology, Radiologist, - 08/18/2023 [place] [address] Ultrasound Report Signed Patient: STEVE NORWOOD [facility]#: [id number] : 1985Acct:[id number] Age/Sex: 38 / FADM Date: 08/18/23 Loc: [place] Attending Dr: Roscoe Laboy D.O. Ordering Physician: Roscoe Laboy D.O. Date of Service: 08/18/23 Procedure(s): US pelvis w/ transvaginal Accession Number(s): [id number] cc: Roscoe Laboy D.O.; Moshe Bennett M.D. The [place] [address] Patient Name: STEVE NORWOOD MRN: [id number] date: 1985 Sex: F Assigned Patient Location: Current Patient Location: [place] Accession/Order Number: [id number] Exam Date: 08/18/2023 09:38 Report Date: 08/18/2023 [...] M.D. Signed By:08/18/23 1125 DD/ 1122 TD/TT: Rest Room Maid: us Generic External Data Provider [facility] Final Result documented in this encounter Visit Diagnoses Not on filedocumented in this encounter Care Teams Chopper Operator Relationship Specialty Start Date End Date Moshe Bennett MD PCP - General [facility] Medicine 02/07/23 08/24/23 Moshe Bennett MD [address] [place] [address] PCP - [facility] 08/25/23 Moshe Bennett MD [address] [place] [address] PCP - [facility] 01/26/24 documented as of this encounter
--- OUTSIDE RECORDS SUMMARY | 2025-03-10 11:14 | XMS_ITS | Encounter Summary ---
Author Organization [facility] Address [address] [place] [address] Care Team Providers Care Fisher Mussel Name Role Phone Moshe Bennett MD Primary Care Provider [phone] Moshe Bennett MD Unavailable Encounter Details Date Type Department Care Team (Latest Contact Info) Description 03/04/2025 Travel Social History Tobacco Use Types Packs/Day Years Used Date Smoking Tobacco: Every Day Cigarettes Smokeless Tobacco: Never Social Connection and Isolation Panel [NHANES] A nswer Date Recorded Frequency of Communication with Friends and Fami ly Not on file 03/04/2025 Frequency of Social Gatherings with Friends and Family Not on file 03/04/2025 Attends Mormonism Services Not on file 03/04 Do you belong to any clubs o r organizations such as scientologist groups, unions, fraternal or athletic groups, or [...] 09/12/2025 9:45 AM EST [facility] [address] [place] [address] Moshe Bennett MD [address] [place] [address] documented as of this encounter Visit Diagnoses Not on filedocumented in this encounter Care Teams Fisher Mussel Relationship Specialty Start Date End Date Moshe Bennett MD [address] [place] [address] PCP - General Family Medicine 08/25/23 Moshe Bennett MD [address] [place] [address] PCP - [facility] 01/26/24 documented as of this encounter
--- OUTSIDE RECORDS SUMMARY | 2025-03-10 11:14 | XMS_ITS | Encounter Summary ---
Author Organization [facility] Address [address] [place] [address] Care Team Providers Care Manipulator Operator Name Role Phone Moshe Bennett MD Primary Care Provider [phone] Moshe Bennett MD Unavailable Encounter Details Date [...] 09/12/2025 9:45 AM EST [facility] [address] [place] [address] Moshe Bennett MD [address] [place] [address] documented as of this encounter Procedures Procedure Name Priority Date/Time Associated Diagnosis Comments XR CHEST 2V 09/12/2023 11:20 AM EST documented in this encounter Results * XR CHEST 2V (09/12/2023 11:20 AM EST) Anatomical Region Laterality Modality Other 09/12/2023 11:2 0 AM EST Narrative 09/12/2023 11:22 AM EST [address] [address] XRay Report Signed Patient: STEVE NORWOOD MR#: [id number] : 1985 Acct:[id number] Age/Sex: 38 / F ADM Date: 09/12/23 Loc: [facility] Attending Dr: Roscoe Laboy D.O. Ordering Physician: Roscoe Laboy D.O. Date of Service: 09/12/23 Procedure(s): XR chest 2V Accession Number(s): [id number] cc: Roscoe Laboy D.O.; Moshe Bennett M.D. [address] [address] Patient Name: STEVE NORWOOD MRN: [facility]:[id number] date: 1985 Sex: F Assigned Patient Location: [facility] Current Patient Location: [facility] Accession/Order Number: [id number] Exam Date: 09/12/2023 11:04 Report Date: 09/12/2023 [...] Signed By: 09/12/23 1122 DD/ 1120 TD/TT: Web Services Professional: Procedure Note Radiology, Radiologist, - 10/01/2023 The [place] [id number] XRay Report Signed Patient: STEVE NORWOOD NMR#: [id number] : 1985Acct:[id number] Age/Sex: 38 / FADM Date: 09/12/23 Loc: [facility] Attending Dr: Roscoe Laboy D.O. Ordering Physician: Roscoe Laboy D.O. Date of Service: 09/12/23 Procedure(s): XR chest 2V Accession Number(s): [id number] cc: Roscoe Laboy D.O.; Moshe Bennett M.D. [place] [address] Patient Name: STEVE NORWOOD MRN: [id number] date: 1985 Sex: F Assigned Patient Location: [facility] Current Patient Location: [facility] Accession/Order Number: [id number] Exam Date: 09/12/2023 11:04 Report Date: 09/12/2023 [...] M.D. Signed By:09/12/23 1122 DD/ 1120 TD/TT: Web Services Professional: us Generic External Data Provider [facility] Final Result documented in this encounter Visit Diagnoses Not on filedocumented in this encounter Care Teams Manipulator Operator Relationship Specialty Start Date End Date Moshe Bennett MD [address] [place] [address] PCP - General Family Medicine 08/25/23 Moshe Bennett MD [address] [place] [address] [facility] 01/26/24 documented as of this encounter
--- OUTSIDE RECORDS SUMMARY | 2025-03-10 11:14 | XMS_ITS | Patient Health Record ---
Author Organization [facility] Address [address] [place] [address] Care Team Providers Care Long Chain Beamer Name Role Phone Rosendo Pinto Primary Care Provider Diana Berg Unavailable [phone] Rebeka Díaz Unavailable [phone] Reason For Referral No Information Encounters Encounter Location Date Provider Diagnosis [address] [address] 08/24/2024 Rebeka Díaz Acute gingivitis, pl aque induced K05.00 [facility] [address] [place] [address] 11/05/2024 Rosendo iPnto Dental caries on pit and fissure surface penetrating into dentin K02.52 Assessments Encounter Date Diagnosis (ICD Code) Assessment Notes Treatment Notes Treatment Clinical Notes Section Notes 08/24/2024 Acute gingivitis, plaque induced (ICD-10 - K05.00) 11/05/2024 Dental caries on pit and fissure surface penetrating into dentin (ICD-10 - K02.52) Plan Of Treatment No Information Insurance Providers Payer Name Payer Address Payer Phone Subscriber Number Group Number Insured Name Patient Relationship to Insured Coverage Start Date Coverage End Date [employer] [address] [address] [place] [address] [id number] CHICHOJUNI DotyHA Self - patient is the insured 3 [employer] [facility] [place] [address] [place] [address] [id number] CHICHOSoren STEVE Self - patient is the insured 3
--- OUTSIDE RECORDS SUMMARY | 2025-03-10 11:14 | XMS_ITS | Clinical Summary ---
Author Organization [facility] Address [address] [place] [address] Care Team Providers Care Retail Associate Name Role Phone Moshe Bennett MD Primary Care Provider Moshe Bennett MD Unavailable Allergies No known active allergies Medications metFORMIN XR (Glucophage-XR) 500 MG 24 hr tabletIndications :Menorrhagia with regular cycle,Pelvic pain in female Take 1 tablet (500 mg) by mouth in the evening. Take with meals Do not crush, chew, or split. 30 tablet 11 06/07/20 24 025 Active fluticasone (Flonase) 50 MCG/ACT nasal sprayIndications: Seasonal allergic rhinitis due to pollen SPRAY 2 SPRAYS INTO EACH NOSTRIL EVERY DAY 48 mL 2 10/29/19 25 Active amphetamine-dextr oamphetamine XR (Adderall XR) 30 MG 24 hr capsuleIndication s:Attention deficit disorder (ADD) without hyperactivity Take 1 capsule (30 mg) by mouth Daily 30 capsule 02/15/20 25 025 Active Clindamycin Phos, Once-Daily, (Clindagel) 1 % gelIndications:Ac ne vulgaris Apply 1 Application topically in the morning. 75 mL 3 03/10/20 25 Active tretinoin (Retin-A) 0.1 % creamIndications: Acne vulgaris Apply topically at bedtime 45 g 3 03/10/20 25 Active amphetamine-dextr oamphetamine XR (Adderall XR) 30 MG 24 hr capsuleIndication s:Attention deficit disorder (ADD) without hyperactivity Take 1 capsule (30 mg) by mouth Daily 30 capsule 01/11/20 25 025 Discontin ued(Reord er) Active Problems Problem Noted Date Diagnosed Date Acne 03/10/2025 Assessment & Plan (03/10/2025 11:00 AM EDT): Worsening outbreaks and start topicals. Lipoma of torso 03/10/2025 Assessment & Plan (03/10/2025 11:01 AM EDT): Lesion increased in size and tender, likely lipoma. Refer to surgeon. Intermittent claudication 09/08/2024 Assessment & Plan (09/08/2024 11:36 AM EST): Pain with ambulation and check segmental pressure. Abnormal TSH 03/08/2024 Annual physical exam 03/08/2024 Assessment & Plan (03/08/2024 10:39 AM EDT): Due for labs. Discussed proper diet and regular aerobic exercise. Need aerobic exercise 5-6 days a week for 30 minutes at a time. Smaller portions and limit total calories. Colonoscopy after age 45. Tetanus every 10 years. Advised not to smoke. Discussed daily Aspirin therapy. PCOS (polycystic ovarian syndrome) 03/08/2024 Assessment & Plan (09/08/2024 11:36 AM EST): Follow with cherry sorter. ADD (attention deficit disorder) without hyperac tivity 09/02/2023 Assessment & Plan (03/10/2025 11:00 AM EDT): Symptoms controlled with adderall and continue. Assessment & Plan (09/08/2024 11:35 AM EST): Symptoms controlled with adderall and continue. Assessment & Plan (03/08/2024 10:39 AM EDT): Symptoms controlled with adderall and continue. Assessment & Plan (09/02/2023 2:47 PM EST): Symptoms controlled with adderall and continue. Bipolar 1 disorder, depressed, mild 09/02/2023 Assessment & Plan (03/10/2025 11:01 AM EDT): Symptoms worse with increased stress and monitor. If continues to worsen can try medication. Assessment & Plan (09/08/2024 11:35 AM EST): Mild symptoms but tolerable and monitor. Assessment & Plan (03/08/2024 10:39 AM EDT): Mild symptoms but tolerable and monitor. 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 Encounters Date Type Department Care Team Description 03/10/2025 10:30 AM EDT Office Visit [facility] [address] [place] [address] Moshe Bennett MD ADD (attention deficit 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 (Primary Dx); Bipolar 1 disorder, depressed, mild (HCC); Acne vulgaris; Lipoma of torso; Abnormal TSH; Annual physical exam 03/10/2025 Bamboo flowsheet [facility] [address] [place] [address] Moshe Benentt MD 03/04/2025 Travel 02/14/2025 Refill [facility] [address] [place] [address] Moshe Bennett MD Attention deficit disorder (ADD) without hyperactivity 01/10/2025 Refill [facility] [address] [place] [address] Moshe Bennett MD Attention deficit disorder (ADD) without hyperactivity 12/13/2024 Refill [facility] [address] [place] [address] Moshe Bennett MD Attention deficit disorder (ADD) without hyperactivity from Last 3 Months Family History Medical History Relation Name Comments Arthritis Father Hyperlipidemia Father Hypertension Father Other Father Chemical depend ency Arthritis Maternal Grandfather Arthritis Maternal Grandmother Migraines Maternal Grandmother Osteoporosis Maternal Grandmother Seizures Maternal Grandmother Stroke Maternal Grandmother Arthritis Mother Asthma Mother COPD Mother Cancer Mother Cervical cancer Depression Mother Hepatitis Mother Hyperlipidemia Mother Mental illness Mother Migraines Mother Osteoporosis Mother Other Mother Arthritis Paternal Grandfather Arthritis Paternal Grandmother Diabetes Paternal Grandmother Relation Name Status Comments Father Maternal Grandfather Maternal Grandmother Mother Paternal Grandfather Paternal Grandmother Social History Tobacco Use Types Packs/Day Years Used Date Smoking Tobacco: Every Day Cigarettes Smokeless Tobacco: Never Social Connection and Isolation Panel [NHANES] A nswer Date Recorded Frequency of Communication with Friends and Fami ly Not on file 03/04/2025 Frequency of Social Gatherings with Friends and Family Not on file 03/04/2025 Attends Muslim Services Not on file 03/04 Do you belong to any clubs o r organizations such as yazdanism groups, unions, fraternal or athletic groups, or [...] Orientation Straight 08/05/2023 9: 08 AM EST Last Filed Vital Signs Vital [...] Mass Index 30.65 03/10/2025 10:38 AM EDT Plan of Treatment Upcoming Encounters Date Type Department Care Team (Late st Contact Info) Description 09/12/2025 9:45 AM EST Office Visit [facility] [address] [place] [address] Moshe Bennett MD [address] [place] [address] Health Maintenance Due Date Last Done Comments Influenza Vaccine (#1) 2025 Cervical Cancer Screening 09/01/2028 HPV/Cotest 09/01/2028 Pap Smear 09/01/2028 09/01/2023 Procedures Procedure Name Priority Date/Time Associated Diagnosis Comments PAP SMEAR Routine 09/01/2023 12:00 AM EST from Last 3 Months or Most Recently Relevant to Health Maintenance Results * Pap Smear (09/01/2023 12:00 AM EST) Swab Cervical swab / Unknown us Tyrone Benoit DO LAB CYTOLOGY ORDERABLES Final Re sult EXTERNAL LAB from Last 3 Months or Most Recently Relevant to Health Maintenance Insurance [employer] Care Teams Retail Associate Relationship Specialty Start Date End Date Moshe Bennett MD [address] [place] [address] PCP - General [facility] 08/25/23 Moshe Bennett MD [address] [place] [address] PCP - [facility] 01/26/24
--- OUTSIDE RECORDS SUMMARY | 2025-03-10 11:17 | XMS_ITS | CCD ---
Author Organization [facility] Care Team Providers Care Complex Manager Name Role Phone DR MOSHE MONTES Primary [...] Unavailable SIMON, DR MOSHE Brantley Consulting Unavailable SIMON, DR MOSHE Brantley Admitting Unavailable NADSANA, DR MOSHE Brantley Attending Unavailable SIMON, DR MOSHE Brantley Primary Care Unavailable SIMON, DR MOSHE Brantley Consulting Unavailable Moshe Montes MD Primary Care Provider [phone] Tyrone Laboy Attending Unavailable Tyrone Laboy Admitting Unavailable Moshe Montes MD Unavailable MOSHE MONTES Attending Unavailable TESSIE LUCAS Attending Unavailable MOSHE MONTES Attending Unavailable Medications Current Medications Medication Drug Class(es) Dates Sig (Normalized) Sig (Original) acetaminophen 325 mg / HYDROcodone bitartrate 5 mg oral tablet (10 sources) Opioid Agonist Start: 09-26-2023 End: 09-08-2024 take 1 tablet by mouth every four hours HYDROcodone-acetam inophen ([place]) 5-325 MG tablet TAKE 1 TABLET BY MOUTH EVERY 4 HOURS 09/26/2023 09/08/2024 Discontinued 24 hr amphetamine aspartate 7.5 mg / amphetamine sulfate 7.5 mg / dextroamphetamine saccharate 7.5 mg / dextroamphetamine sulfate 7.5 mg extended release oral capsule (20 sources) Central Nervous System Stimulant Start: 02-27-2024 End: 03-16-2025 take 1 capsule by mouth once daily amphetamine-dextro amphetamine XR (Adderall XR) 30 MG 24 hr capsule Indications: Attention deficit disorder (ADD) without hyperactivity Take 1 capsule (30 mg) by mouth Daily 30 capsule 02/14/2025 03/16/2025 Active Start: 08-08-2023 End: 09-02-2023 take 1 capsule by mouth every twenty-four hours in the morning amphetamine-dextroamphetamine XR (Addera ll XR) 30 MG 24 hr capsule 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 30 capsule 0 09/02/2023 Active cefdinir 300 mg oral capsule (2 sources) Cephalosporin Antibacterial Start: 09-29-2024 End: 10-09-2024 take 1 capsule by mouth in the morning cefdinir (Omnicef) 300 MG capsule Indications: Upper respiratory tract infection, unspecified type Take 1 capsule (300 mg) by mouth in the morning and 1 capsule (300 mg) before bedtime. Do all this for 10 days. 20 capsule 09/29/2024 10/09/2024 Active Start: 03-24-2024 End: 04-03-2024 take 1 capsule by mouth in the morning cefdinir (Omnicef) 300 MG capsule Indications: Upper respiratory tract infection, unspecified type Take 1 capsule (300 mg) by mouth in the morning and 1 capsule (300 mg) before bedtime. Do all this for 10 days. 20 capsule 03/24/2024 04/03/2024 Active clindamycin 0.01 mg/mg topical gel (2 sources) Lincosamide Antibacterial Start: 03-10-2025 Clindamycin Phos, Once-Daily, (Clindagel) 1 % gel Indications: Acne vulgaris Apply 1 Application topically in the morning. 75 mL 3 03/10/2025 Active Start: 03-10-2025 Clindamycin Ph os, Once-Daily, (Clindagel) 1 % gel Indications: Acne vulgaris Apply 1 Application topically in the morning. 75 mL 3 03/10/2025 Active fluticasone propionate 0.05 mg/actuat metered dose nasal spray (20 sources) Corticosteroid Start: 10-06-2024 End: 10-28-2024 take 2 spray(s) nasal route once daily fluticasone (Flonase) 50 MCG/ACT nasal spray Indications: Seasonal allergic rhinitis due to pollen SPRAY 2 SPRAYS INTO EACH NOSTRIL EVERY DAY 48 mL 2 10/28/2024 Active Start: 06-01-2023 End: 10-06-2024 take 2 spray(s) nasal route in the morning fluticasone (Flonase) 50 MCG/ACT nasal spray Administer 2 sprays into each nostril in the morning. 06/01/2023 10/06/2024 Discontinued (Reorder) ibuprofen 800 mg oral tablet (10 sources) Nonsteroidal Anti-inflammatory Drug Start: 09-26-2023 End: 09-08-2024 take 1 tablet by mouth every eight hours ibuprofen 800 MG tablet Take 800 mg by mouth every 8 (eight) hours 09/26/2023 09/08/2024 Discontinued levoFLOXacin 750 mg oral tablet (2 sources) Quinolone Antimicrobial Start: 09-27-2022 take 1 tablet by mouth once daily levoFLOXacin (Levaquin) 750 MG tablet TAKE 1 TABLET BY MOUTH EVERY DAY FOR 7 DAYS 0 09/27/2022 Active 24 hr metFORMIN hydrochloride 500 mg extended release oral tablet (20 sources) Biguanide Start: 06-07-2024 End: 06-07-2025 take 1 tablet by mouth every twenty-four hours at mealtime metFORMIN XR (Glucophage-XR) 500 MG 24 hr tablet Indications: Menorrhagia with regular cycle , Pelvic pain in female Take 1 tablet (500 mg) by mouth in the evening. Take with meals Do not crush, chew, or split. 30 tablet 06/07/2024 06/07/2025 Active Start: 08-05-2023 End: 09-04-2023 take 1 tablet by mouth every twenty-four hours at mealtime metFORMIN XR (Glucophage-XR) 500 MG 24 hr tablet Indications: Menorrhagia with regular cycle , Pelvic pain in female Take 1 tablet (500 mg) by mouth in the evening. Take with meals Do not crush, chew, or split. 30 tablet 11 08/05/2023 Active tretinoin 1 mg/ml topical cream (2 sources) Retinoid Start: 03-10-2025 tretinoin (Ret in-A) 0.1 % cream Indications: Acne vulgaris Apply topically at bedtime 45 g 3 03/10/2025 Active Start: 03-10-2025 tretinoin (Ret in-A) 0.1 % cream Indications: Acne vulgaris Apply topically at bedtime 45 g 3 03/10/2025 Active Problems Active Problems Problem Classification Problem Date Documented Date Episodic/Chronic Abdominal pain (2 sources) Pain in female pelvis; Translations: [Pelvic and perineal pain] 09-01-2023 Episodic Acute and chronic tonsillitis (1 source) Acute tonsillitis, unspecified; Translations: [ACUTE TONSILLITIS UNSPECIFIED] Onset: 2 Episodic Anxiety disorders (20 sources) Generalized anxiety disorder; Translations: [Generalized anxiety disorder] Onset: 4 09-02-2023 Chronic Disorders of teeth and jaw (1 source) Right temporomandibular joint disorder, unspecified; Translations: [RIGHT TEMPOROMANDIBULAR JNT D/O UNS] Onset: 2 Episodic Disorders usually diagnosed in infancy, childhood, or adolescence (20 sources) Attention deficit hyperactivity disorder, predominantly inattentive type; Translations: [Other specified behavioral and emotional disorders with onset usually occurring in childhood and adolescence] Onset: 4 09-02-2023 Chronic Menstrual disorders (20 sources) Menometrorrhagia; Translations: [Excessive and frequent menstruation with irregular cycle] Onset: 4 09-02-2023 Chronic Mood disorders (20 sources) Mild depressed bipolar I disorder; Translations: [Bipolar disorder, current episode depressed, mild] Onset: 4 09-02-2023 Chronic Other and unspecified benign neoplasm (6 sources) Lipoma of trunk; Translations: [Benign lipomatous neoplasm of skin and subcutaneous tissue of trunk] Onset: 5 03-10-2025 Episodic Other endocrine disorders (20 sources) Polycystic ovary syndrome; Translations: [Polycystic ovarian syndrome] Onset: 4 03-08-2024 Chronic Other female genital disorders (2 sources) Pelvic congestion syndrome; Translations: [Other specified conditions associated with female genital organs and menstrual cycle] 09-01-2023 Episodic Other screening for suspected conditions (not mental disorders or infectious disease) (20 sources) Thyroid hormone tests abnormal; Translations: [Other specified abnormal findings of blood chemistry] Onset: 4 03-08-2024 Episodic Other skin disorders (4 sources) Acne vulgaris; Translations: [Acne vulgaris] 03-10-2025 Episodic Other skin disorders (2 sources) Acne; Translations: [Acne, unspecified] Onset: 5 03-10-2025 Episodic Other upper respiratory disease (2 sources) Allergic rhinitis due to pollen; Translations: [Allergic rhinitis due to pollen] 10-06-2024 Chronic Other upper respiratory infections (6 sources) Acute upper respiratory infection, unspecified; Translations: [Acute pharyngitis, unspecified] Onset: 2 Episodic Peripheral and visceral atherosclerosis (15 sources) Intermittent claudication; Translations: [Peripheral vascular disease, unspecified] Onset: 5 09-08-2024 Chronic Screening and history of mental health and substance abuse codes (1 source) Personal history of nicotine dependence; Translations: [PERSONAL HISTORY OF NICOTINE DEPEND] Onset: 2 Episodic Unclassified (2 sources) COUGH, UNSPECIFIED; Translations: [COUGH, UNSPECIFIED] Onset: 2 Unclassified (4 sources) CONTACT W/AND (SUSP) EXPOS COVID-19; Translations: [CONTACT W/AND (SUSP) EXPOS COVID-19] Onset: 1 Past or Other Problems Problem Classification Problem Date Documented Da te Episodic/Chronic Other skin disorders (1 source) Hirsutism; Translations: [HIRSUTISM] Onset: 11-22-2021 Episodic Other skin disorders (20 sources) Hirsutism; Translations: [Hirsutism] Onset: 09-02-2023 09-02-2023 [...] Onset: 07-10-2021 Varicose veins of lower extremity (20 sources) Varicose veins of lower extremity; Translations: [Varicose veins of bilateral lower extremities with pain] Onset: 09-02-2023 09-02-2023 Episodic Results Test Name Value Interpretation Reference Range Facility ALL CBC WITH AUTO DIFFon BASOPHILS ABSOLUTE AUTO 0.0 [facility] Basophils/100 WBC (Bld) 0.6 % 0.2 - 2.0 % [facility] Eosin[facility]/100 WBC (Bld) 1.5 % 0.9 - 7.0 % [facility] Erythrocyte distribution width (RBC) [Ratio] 13.3 % 11.0 - 15.0 % [facility] Hematocrit (Bld) [Volume fraction] 36.4 % 36.0 - 48.0 % [facility] Hemoglobin (Bld) [Mass/Vol] 11.5 g/dL Low 12.0 - 16.0 g/dL [facility] IMMATURE GRANULOCYTES ABS AUTO 0.01 [facility] Immature granulocytes/100 WBC (Bld) 0.2 % 0.0 - 0.5 % [facility] Interpretation and review of laboratory results Abnormal [facility] LYMPHOCYTES ABSOLUTE AUTO 1.7 [facility] Lymphocytes/100 WBC (Bld) 31.7 % 20.5 - 60.0 % [facility] MCH (RBC) [Entitic mass] 26.8 pg 26.7 - 34.0 pg [facility] MCHC (RBC) [Mass/Vol] 31.6 g/dL 29.9 - 35.2 g/dL [facility] MCV (RBC) [Entitic vol] 84.8 fL 81.0 - 99.0 fL [facility] MONOCYTES ABSOLUTE AUTO 0.4 [facility] Monocytes/100 WBC (Bld) 6.9 % 1.7 - 12.0 % [facility] NEUTROPHILS ABSOLUTE AUTO 3.1 [facility] Neutrophils/100 WBC (Bld) 59.1 % 43.0 - 75.0 % [facility] Platelet mean volume (Bld) [Entitic vol] 9.6 fL 9.5 - 13.5 fL [facility] EO # 0.1 [facility] TB PLT 246 [facility] RBC 4.29 [facility] WBC 5.2 [facility] Matias 09-26-2023 L Specimen: [id number] Received: 09/26/23 Status: BEREKET Valdovinos Num: [id number] Spec Type: Surgical Subm Dr: Tyrone Laboy Tissues: A Endometrium - Curettings (ENDOMETRIUM CURETTINGS) Procedures: HE/2, Gross/Micro L4 Age/ Patient Sex Location Account Attending Physician RicciBenny Marcia 38/F [place] [id number] Tyrone Laboy SPEC NUM: [id number] RECD: 09/26/23 STATUS: BEREKET ESTEBANCharity NUM: [id number] EMMETT: 09/26/[address]: Tyrone Laboy ENTERED: 09/26/[address] [facility] [address]: Martine,Lab SPEC TYPE: Surgical DEPT: EMETERIO [...] in one cassette labeled A1. CPT Codes 29986 -------- -------- Specimen: [id number] Received: 09/26/23 Status: BEREKET Valdovinos Num: [id number] Spec Type: Surgical Subm Dr: Tyrone Laboy Tissues: A Endometrium - Curettings (ENDOMETRIUM CURETTINGS) Procedures: HE/2, Valentin/Mitchell L4 -------- Patient: Benny Wynne N [id number] (Continued) -------- Signed (signature on file) Chin-Vaughn Burgess MD 09/29/23 1840 [facility] IGP,APTIMA HPV,AGE GDLNon AGE GDLN ACOG TESTING Note . [facility] Comment on above: TESTS RESULT FLAG UN ITS REF RANGE LAB Clinician Provided Cytology Information Source.............Cervix;Endocervix No. of containers..01 ThinPrep Vial Age Algo ACOG Irena... FLAG LEGEND: L-Low Normal,H-High Normal,LL-Alert Low,HH-Alert High <-Panic Low,>-Panic High,A-Abnormal,AA-Critical Abnormal Performed at: 01 =[address] [id number] Latisha Jain MD, HPV APTIMA Negative Negative [facility] Comment on above: This nucleic acid am plification test detects fourteen high- risk HPV types (16,18,31,33,35,39,45,51,52,56,58,59,66,68) without differentiation. Performed at: =[address] [id number] Seat Cover Cutter: Latisha Jain MD, Phone: [phone] Performed at: [address] [id number] Seat Cover Cutter: Latisha Jain MD, Phone: [phone] IGP, APTIMA HPV, RFX 16/18,45 Note . [facility] Comment on above: TESTS RESULT FLAG UN ITS REF RANGE LAB DIAGNOSIS: 02 NEGATIVE FOR INTRAEPITHELIAL LESION OR MALIGNANCY. Specimen adequacy: 02 Satisfactory for evaluation. Endocervical and/or squamous metaplastic cells (endocervical component) are present. Performed by: Tommie Thorpe Human Resource Statistician (ASCP) . 02 Note: Note 02 The [...] High,A-Abnormal,AA-Critical Abnormal Performed at: 02 [facility] [address] [id number] Latisha Jain MD, BRUSH-SPATULA CERVIX ENDOCERVIX [facility] ([facility]on SARS-CoV-2 (COVID-19) RNA TIERA+probe Ql (Unsp spec) Not detected Normal NOT DETECTED [facility] Comment on above: Result Comment: When diagnostic [...] for this test is supported by the Financial Management Consultant of Health and Human Service's declaration that [...] longer be used). Performed By: #### L TUCKER HERNANDEZ, LIPID, FT3, TSH #### [facility] [address] [place] [address] Dr. Nikita Burgess INFLUENZA A AND B AGon 07-04 INFLUANE SEE BELOW Normal [facility] Comment on above: Result Comment: Nega tive for Flu A protein angiten. Infection due to Flu A cannot be ruled out. Flu A angiten in the sample may be below the detection limit of the test. Performed By: #### I NFLUAB #### [facility] [address] [place] [address] Dr. Nikita Burgess INFLUBNEG SEE BELOW Normal [facility] Comment on above: Result Comment: Nega tive for Flu B protein antigen. Infection due to Flu B cannot be ruled out. Flu B antigen in the sample may be below the detection limit of the test. Performed By: #### I NFLUAB #### [facility] [address] [place] [address] Dr. Nikita Burgess INFLUENZA A AG Negative Normal NEGATIVE SEE COMMENT [facility] Comment on above: Performed By: #### I NFLUAB #### [facility] [address] [place] [address] Dr. Nikita Burgess INFLUENZA B AG Negative Normal NEGATIVE SEE COMMENT [facility] Comment on above: Performed By: #### I NFLUAB #### [facility] [address] [place] [address] Dr. Nikita Burgess INTERNAL CONTROLS Within Normal Limits Normal Wi thin Normal Limits [facility] Comment on above: Performed By: #### I NFLUAB #### [facility] [address] [place] [address] Dr. Nikita Burgess GROUP A STREP CULTUREon 04-27 S. pyogenes Ag Ql (Unsp spec) Culture Observations: NEGATIVE FOR GROUP A STREPTOCOCCUS. Normal [facility] Comment on above: Performed By: #### L IVER, BMP, LIPID, FT3, TSH #### [facility] [address] [place] [address] Dr. Nikita Burgess STREPT SCREENon 05-12-2022 STREP SCREEN A Negative Normal NEGATIVE [facility] Comment on above: Performed By: #### L IVER, BMP, LIPID, FT3, TSH #### [facility] [address] [address] [address] Nikita Burgess ESTRONEon 11-26-2021 Estrone, Serum 30 pg/mL Normal 27-231 [facility] Comment on above: Result Comment: Rang e Adult (Premenopausal) 27 - 231 Menstrual Cycle (1-10 days) 19 - 149 Menstrual Cycle (11-20 days) 32 - 176 Menstrual Cycle (21-30 days) 37 - 200 Please note reference interval change Performed By: #### L IVER, BMP, LIPID, FT3, TSH #### [facility] [address] [place] [address] Dr. Nikita Burgess DHEA-SULFATEon 11-22-2021 DHEA-Sulfate 123.0 ug/dL Normal 57.3-279.2 [facility] Comment on above: Performed By: #### L IVER, BMP, LIPID, FT3, TSH #### [facility] [address] [place] [address] Dr. Nikita Burgess ESTRADIOLon 11-22-2021 Estradiol 83.2 pg/mL Normal [facility] Comment on above: Result Comment: Adul t Female: Follicular phase 12.5 - 166.0 Ovulation phase 85.8 - 498.0 Luteal phase 43.8 - 211.0 Postmenopausal <6.0 - 54.7 1st trimester 215.0 - >4300.0 Dejah ECLIA methodology Performed By: #### L IVER, BMP, LIPID, FT3, TSH #### [facility] [address] [place] [address] Dr. Nikita Burgess FSHon 11-22-2021 FSH 3.0 mIU/mL Normal [facility] Comment on above: Result Comment: Adul t Female: Follicular phase 3.5 - 12.5 Ovulation phase 4.7 - 21.5 Luteal phase 1.7 - 7.7 Postmenopausal 25.8 - 134.8 Performed By: #### L IVER, BMP, LIPID, FT3, TSH #### [facility] [address] [place] [address] Dr. Nikita Burgess LUTEINIZING HORMONE (LH)on 0 11-22-2021 LH 1.8 mIU/mL Normal [facility] Comment on above: Result Comment: Adul t Female: Follicular phase 2.4 - 12.6 Ovulation phase 14.0 - 95.6 Luteal phase 1.0 - 11.4 Postmenopausal 7.7 - 58.5 Performed By: #### L IVER, BMP, LIPID, FT3, TSH #### [facility] [address] [place] [address] Dr. Nikita Burgess PROGESTERONEon 11-22-2021 Progesterone 10.2 ng/mL Normal [facility] Comment on above: Result Comment: Foll icular phase 0.1 - 0.9 Luteal phase 1.8 - 23.9 Ovulation phase 0.1 - 12.0 First trimester 11.0 - 44.3 Second trimester 25.4 - 83.3 Third trimester 58.7 - 214.0 Postmenopausal 0.0 - 0.1 Performed By: #### L IVER, BMP, LIPID, FT3, TSH #### [facility] [address] [place] [address] Dr. Nikita Burgess PROLACTINon 11-22-2021 Prolactin 6.1 ng/mL Normal 4.8-23.3 [facility] Comment on above: Performed By: #### L IVER, BMP, LIPID, FT3, TSH #### [facility] [address] [place] [address] Dr. Nikita Burgess TESTOSTERONE, TOTALon 2021 Testosterone [Mass/Vol] 11 ng/dL Normal 8-60 [facility] Comment on above: Performed By: #### L IVER, BMP, LIPID, FT3, TSH #### [facility] [address] [place] [address] Dr. Nikita Burgess CBC AUTO DIFFon 11-21-2021 BASO # 0.0 103/ul Normal 0.0-0.1 [facility] Comment on above: Performed By: #### C BC #### [facility] [address] [place] [address] Dr. Nikita Burgess Basophils/100 WBC (Bld) 0.6 % Normal 0.2-2.0 [facility] Comment on above: Performed By: #### C BC #### [facility] [address] [place] [address] Dr. Nikita Burgess EO # 0.1 103/ul Normal 0.0-0.7 [facility] Comment on above: Performed By: #### C BC #### [facility] [address] [place] [address] Dr. Nikita Burgess Eosinophils/100 WBC (Bld) 1.5 % Normal 0.9-7.0 [facility] Comment on above: Performed By: #### C BC #### [facility] [address] [place] [address] Dr. Nikita Burgess Erythrocyte distribution width (RBC) [Ratio] 13.7 % Normal 11.0-15.0 [facility] Comment on above: Performed By: #### C BC #### [facility] [address] [place] [address] Dr. Nikita Burgess Hematocrit (Bld) [Volume fraction] 40.7 % Normal 36.0-48.0 [facility] Comment on above: Performed By: #### C BC #### [facility] [address] [place] [address] Dr. Nikita Bugress Hemoglobin (Bld) [Mass/Vol] 12.8 g/dL Normal 12.0-16.0 [facility] Comment on above: Performed By: #### C BC #### [facility] [address] [place] [address] Dr. Nikita Burgess IG # 0.01 10e3/ul Normal 0.00-0.03 [facility] Comment on above: Performed By: #### C BC #### [facility] [address] [place] [address] Dr. Nikita Burgess IG % 0.2 % Normal 0.0-0.5 [facility] Comment on above: Performed By: #### C BC #### [facility] [address] [place] [address] Dr. Nikita Burgess LYMPH # 1.6 103/ul Normal 1.2-3.8 [facility] Comment on above: Performed By: #### C BC #### [facility] [address] [place] [address] Dr. Nikita Burgess Lymphocytes/100 WBC (Bld) 29.5 % Normal 20.5-60.0 [facility] Comment on above: Performed By: #### C BC #### [facility] [address] [place] [address] Dr. Nikita Burgess MANUAL DIFF REQ NO Normal [facility] Comment on above: Performed By: #### C BC #### [facility] [address] [place] [address] Dr. Nikita Burgess MCH (RBC) [Entitic mass] 28.0 pg Normal 26.7-34.0 [facility] Comment on above: Performed By: #### C BC #### [facility] [address] [place] [address] Dr. Nikita Burgess MCHC (RBC) [Mass/Vol] 31.4 g/dL Normal 29.9-35.2 [facility] Comment on above: Performed By: #### C BC #### [facility] [address] [place] [address] Dr. Nikita Burgess MCV (RBC) [Entitic vol] 89.1 fL Normal 81.0-99.0 [facility] Comment on above: Performed By: #### C BC #### [facility] [address] [place] [address] Dr. Nikita Burgess MONO # 0.4 103/ul Normal 0.3-0.8 [facility] Comment on above: Performed By: #### C BC #### [facility] [address] [place] [address] Dr. Nikita Burgess Monocytes/100 WBC (Bld) 7.4 % Normal 1.7-12.0 [facility] Comment on above: Performed By: #### C BC #### [facility] [address] [place] [address] Dr. Nikita Burgess NEUT # 3.2 103/ul Normal 1.4-6.5 [facility] Comment on above: Performed By: #### C BC #### [facility] [address] [address] [address] Nikita Burgess Neutrophils/100 WBC (Bld) 60.8 % Normal 43.0-75.0 [facility] Comment on above: Performed By: #### C BC #### [facility] [address] [address] [address] Nikita Burgess Platelet mean volume (Bld) [Entitic vol] 10.1 fL Normal 9.5-13.5 [facility] Comment on above: Performed By: #### C BC #### [facility] [address] [address] [address] Nikita Burgess PLT 273 103/ul Normal 150-450 [facility] Comment on above: Performed By: #### C BC #### [facility] [address] [place] [address] Dr. Nikita Burgess RBC 4.57 106/ul Normal 4.20-5.40 [facility] Comment on above: Performed By: #### C BC #### [facility] [address] [place] [address] Dr. Nikita Burgess WBC 5.3 103/ul Normal 4.0-11.0 [facility] Comment on above: Performed By: #### C BC #### [facility] [address] [place] [address] Dr. Nikita Burgess FREE T3on 11-21-2021 FREE T3 2.69 pg/mlL Normal 2.18-3.98 [facility] Comment on above: Performed By: #### L IVER, BMP, LIPID, FT3, TSH #### [facility] [address] [place] [address] Dr. Nikita Burgess FREE T4on 11-21-2021 Free T4 [Mass/Vol] 0.98 ng/dL Normal 0.76-1.46 [facility] Comment on above: Performed By: #### F T4, VITAD #### [facility] [address] [place] [address] Dr. Nikita Burgess GLYCOHEMOGLOBIN A1Con 2021 ADA RECOMMENDATION SEE BELOW Normal [facility] Comment on above: Result Comment: ADA RECOMMENDED LIMIT 4.0 - 6.0 ADA THERAPEUTIC TARGET < 7.0 ACTION SUGGESTED > 7.0 Performed By: #### A 1C #### [facility] [address] [place] [address] Dr. Nikita Burgess Glucose [Mass/Vol] 111 mg/dL Normal [facility] Comment on above: Performed By: #### A 1C #### [facility] [address] [address] [address] Nikita Burgess HbA1c (Bld) [Mass fraction] 5.5 % Normal 4.5-6.2 [facility] Comment on above: Performed By: #### A 1C #### [facility] [address] [place] [address] Dr. Nikita Burgess LIPID PROFILEon 11-21-2021 CHOL-HDL RATIO NORM SEE BELOW Normal [facility] Comment on above: Result Comment: 3.3 - 4.4 LOW RISK 4.4 - 7.1 AVERAGE RISK 7.1 - 11.0 MODERATE RISK >11.0 HIGH RISK Performed By: #### L IVER, BMP, LIPID, FT3, TSH #### [facility] [address] [place] [address] Dr. Nikita Burgess Cholesterol [Mass/Vol] 193 mg/dL Normal <=200 [facility] Comment on above: Performed By: #### L IVER, BMP, LIPID, FT3, TSH #### [facility] [address] [place] [address] Dr. Nikita Burgess Cholesterol in HDL [Mass/Vol] 58 mg/dL Normal 40-60 [facility] Comment on above: Performed By: #### L IVER, BMP, LIPID, FT3, TSH #### [facility] [address] [address] [address] Nikita Burgess Cholesterol in LDL [Mass/Vol] 122.6 mg/dL Normal [facility] Comment on above: Performed By: #### L IVER, BMP, LIPID, FT3, TSH #### [facility] [address] [place] [address] Dr. Nikita Burgess Cholesterol.total/Ch olesterol in HDL [Mass ratio] 3.3 {ratio} Normal [facility] Comment on above: Performed By: #### L IVER, BMP, LIPID, FT3, TSH #### [facility] [address] [address] [address] Nikita Burgess HDL NORMAL > or = 60 mg/dl - LO W CARDIOVASCULAR RISK <40 mg/dl - HIGH CARDIOVASCULAR RISK Normal [facility] Comment on above: Performed By: #### L IVER, BMP, LIPID, FT3, TSH #### [facility] [address] [address] [address] Nikita Burgess LDL CALC NORMAL SEE BELOW Normal [facility] Comment on above: Result Comment: <100 mg/dl OPTIMAL 100 - 129 mg/dl NEAR OR ABOVE OPTIMAL 130 - 159 mg/dl BORDERLINE HIGH 160 - 189 mg/dl HIGH >190 mg/dl VERY HIGH Performed By: #### L IVER, BMP, LIPID, FT3, TSH #### [facility] [address] [place] [address] Dr. Nikita Burgess Triglyceride [Mass/Vol] 62 mg/dL Normal <=150 [facility] Comment on above: Performed By: #### L IVER, BMP, LIPID, FT3, TSH #### [facility] [address] [address] [address] Nikita Burgess VLDL CALC 12.4 mg/dL Normal [facility] Comment on above: Performed By: #### L IVER, BMP, LIPID, FT3, TSH #### [facility] [address] [address] [address] Nikita Burgess LIVER PROFILEon 11-21-2021 Albumin [Mass/Vol] 3.9 g/dL Normal 3.4-5.0 [facility] Comment on above: Performed By: #### L IVER, BMP, LIPID, FT3, TSH #### [facility] [address] [place] [address] Dr. Nikita Burgess Albumin/Globulin [Mass ratio] 1.0 {ratio} Normal [facility] Comment on above: Performed By: #### L IVER, BMP, LIPID, FT3, TSH #### [facility] [address] [address] [address] Nikita Burgess ALP [Catalytic activity/Vol] 68 U/L Normal 46-116 [facility] Comment on above: Performed By: #### L IVER, BMP, LIPID, FT3, TSH #### [facility] [address] [place] [address] Dr. Nikita Burgess ALT [Catalytic activity/Vol] 20 U/L Normal 14-59 [facility] Comment on above: Performed By: #### L IVER, BMP, LIPID, FT3, TSH #### [facility] [address] [place] [address] Dr. Nikita Burgess AST [Catalytic activity/Vol] 17 U/L Normal 15-37 [facility] Comment on above: Performed By: #### L IVER, BMP, LIPID, FT3, TSH #### [facility] [address] [place] [address] Dr. Nikita Burgess BILI, CONJUGATED 0.1 mg/dL Normal 0.0-0.2 [facility] Comment on above: Performed By: #### L IVER, BMP, LIPID, FT3, TSH #### [facility] [address] [place] [address] Dr. Nikita Burgess Bilirubin [Mass/Vol] 0.6 mg/dL Normal 0.2-1.0 [facility] Comment on above: Performed By: #### L IVER, BMP, LIPID, FT3, TSH #### [facility] [address] [place] [address] Dr. Nikita Burgess Globulin (S) [Mass/Vol] 3.9 g/dL Normal [facility] Comment on above: Performed By: #### L IVER, BMP, LIPID, FT3, TSH #### [facility] [address] [place] [address] Dr. Nikita Burgess Protein [Mass/Vol] 7.8 g/dL Normal 6.1-8.2 [facility] Comment on above: Performed By: #### L IVER, BMP, LIPID, FT3, TSH #### [facility] [address] [address] [address] Nikita Burgess PROF CHEM 8 (BAS METB)on Anion gap [Moles/Vol] 12.5 mmol/L Normal [facility] Comment on above: Performed By: #### L IVER, BMP, LIPID, FT3, TSH #### [facility] [address] [place] [address] Dr. Nikita Burgess Calcium [Mass/Vol] 8.2 mg/dL Critically low 8.5-10.1 [facility] Comment on above: Performed By: #### L IVER, BMP, LIPID, FT3, TSH #### [facility] [address] [place] [address] Dr. Nikita Burgess Chloride [Moles/Vol] 102 mmol/L Normal 98-107 [facility] Comment on above: Performed By: #### L IVER, BMP, LIPID, FT3, TSH #### [facility] [address] [place] [address] Dr. Nikita Burgess CO2 [Moles/Vol] 26.3 mmol/L Normal 21.0-32.0 [facility] Comment on above: Performed By: #### L IVER, BMP, LIPID, FT3, TSH #### [facility] [address] [place] [address] Dr. Nikita Burgess Creatinine [Mass/Vol] 0.57 mg/dL Normal 0.55-1.02 [facility] Comment on above: Performed By: #### L IVER, BMP, LIPID, FT3, TSH #### [facility] [address] [place] [address] Dr. Nikita Burgess EGFR-AF FIJIAN >60 Normal >=60 The [facility] Comment on above: Performed By: #### L IVER, BMP, LIPID, FT3, TSH #### [facility] [address] [place] [address] Dr. Nikita Burgess EGFR-NON AF FIJIAN >60 Normal >=60 [facility] Comment on above: Performed By: #### L IVER, BMP, LIPID, FT3, TSH #### [facility] [address] [address] [address] Nikita Burgess Glucose [Mass/Vol] 78 mg/dL Normal 74-106 [facility] Comment on above: Performed By: #### L IVER, BMP, LIPID, FT3, TSH #### [facility] [address] [place] [address] Dr. Nikita Burgess Potassium [Moles/Vol] 3.8 mmol/L Normal 3.5-5.1 [facility] Comment on above: Performed By: #### L IVER, BMP, LIPID, FT3, TSH #### [facility] [address] [place] [address] Dr. Nikita Burgess Sodium [Moles/Vol] 137 mmol/L Normal 136-145 [facility] Comment on above: Performed By: #### L IVER, BMP, LIPID, FT3, TSH #### [facility] [address] [place] [address] Dr. Nikita Burgess Urea nitrogen [Mass/Vol] 11.0 mg/dL Normal 7.0-18.0 [facility] Comment on above: Performed By: #### L IVER, BMP, LIPID, FT3, TSH #### [facility] [address] [place] [address] Dr. Nikita Burgess Urea nitrogen/Creatinine [Mass ratio] 19.3 mg/mg Normal [facility] Comment on above: Performed By: #### L IVER, BMP, LIPID, FT3, TSH #### [facility] [address] [place] [address] Dr. Nikita Burgess TSHon 11-21-2021 TSH 2.175 uIU/mL Normal 0.470-4.680 [facility] Comment on above: Performed By: #### L IVER, BMP, LIPID, FT3, TSH #### [facility] [address] [place] [address] Dr. Nikita Burgess TSH RANGE SEE BELOW Normal [facility] Comment on above: Result Comment: <0.3 4 UIU/ml HYPERTHYROID 0.34-5.60 UIU/ml EUTHYROID >5.60 UIU/ml HYPOTHYROID Performed By: #### L IVER, BMP, LIPID, FT3, TSH #### [facility] [address] [place] [address] Dr. Nikita Burgess VITAMIN D 25 OHon 11-21-2021 VIT D 25-OH 49.5 ng/mL Normal [facility] Comment on above: Performed By: #### F T4, VITAD #### [facility] [address] [place] [address] Dr. Nikita Burgess VIT D RANGES SEE BELOW Normal [facility] Comment on above: Result Comment: <20 ng/mL Vit D deficient 20 - <30 ng/mL Vit D insufficient 30 - 100 ng/mL Vit D sufficient >100 ng/mL Potential Toxicity Performed By: #### F T4, VITAD #### [facility] [address] [place] [address] Dr. Nikita Burgess Covid-19 PCR ([facility])on 06-27 SARS-CoV-2 (COVID-19) RNA TIERA+probe Ql (Unsp spec) Not detected Normal NOT DETECTED [facility] Comment on above: Result Comment: This test is not yet approved or cleared by the [place] FDA. When there are no FDA-approved or cleared tests available, and other criteria are met, FDA can make tests available under an emergency access mechanism called an Emergency Use Authorization (EUA). The EUA for this test is supported by the [place] of Health and Human Service's (HHS's) declaration [...] L IVER, BMP, LIPID, FT3, TSH #### [facility] [address] [address] [address] Nikita Burgess Consenton 10-04-2020 Consent [id number]# 1.00CD:127 Normal [facility] Registrationon 10-04-2020 Registration [id number]# 1.00CD:127 [facility] Vital Signs Date Time Vital Sign Value Performing Clinician Faci lity 03-10-2025 10:38-0400 Body height 160 cm Moshe Montes MD Work Phone: [facility] 03-10-2025 10:38-0400 Body mass index (BMI) [Ratio] 30.65 kg/m2 Moshe Montes MD Work Phone: [facility] 03-10-2025 10:38-0400 Body temperature 96.6 [degF] Moshe Montes MD Work Phone: [facility] 03-10-2025 10:38-0400 Body weight 78.47 kg Moshe Montes MD Work Phone: [facility] 03-10-2025 10:38-0400 Diastolic blood pressure 64 mm[Hg] Moshe Montes MD Work Phone: [facility] 03-10-2025 10:38-0400 Heart rate 80 /min Moshe Montes MD Work Phone: [facility] 03-10-2025 10:38-0400 Respiratory rate 22 /min Moshe Montes MD Work Phone: [facility] 03-10-2025 10:38-0400 SaO2% (BldA) [Mass fraction] 99 % Moshe Montes MD Work Phone: [facility] 03-10-2025 10:38-0400 Systolic blood pressure 106 mm[Hg] Moshe Montes MD Work Phone: [facility] 09-08-2024 10:33-0500 Body height 160 cm Moshe Montes MD Work Phone: [facility] 09-08-2024 10:33-0500 Body mass index (BMI) [Ratio] 30.29 kg/m2 Moshe Montes MD Work Phone: [facility] 09-08-2024 10:33-0500 Body temperature 97.81 [degF] Moshe Montes MD Work Phone: [facility] 09-08-2024 10:33-0500 Body weight 77.56 kg Moshe Montes MD Work Phone: [facility] 09-08-2024 10:33-0500 Diastolic blood pressure 70 mm[Hg] Moshe Montes MD Work Phone: [facility] 09-08-2024 10:33-0500 Heart rate 81 /min Moshe Montes MD Work Phone: [facility] 09-08-2024 10:33-0500 Respiratory rate 22 /min Moshe Montes MD Work Phone: [facility] 09-08-2024 10:33-0500 SaO2% (BldA) [Mass fraction] 99 % Moshe Montes MD Work Phone: [facility] 09-08-2024 10:33-0500 Systolic blood pressure 110 mm[Hg] Moshe Montes MD Work Phone: [facility] 09-01-2023 10:18-0500 Body mass index (BMI) [Ratio] 29.94 kg/m2 Tyrone Benoit DO Work Phone: [facility] 09-01-2023 10:18-0500 Body weight 76.66 kg Tyrone Benoit DO Work Phone: [facility] 09-01-2023 10:18-0500 Diastolic blood pressure 72 mm[Hg] Tyrone Benoit DO Work Phone: [facility] 09-01-2023 10:18-0500 Systolic blood pressure 118 mm[Hg] Tyrone Benoit DO Work Phone: [facility] Healthcare Encounters Encounter Date Encounter Type Care Provider Facility Start: 03-10-2025 End: 03-10-2025 Bamboo flowsheet Moshe Montes MD Work Phone: [facility] Start: 03-10-2025 End: 03-10-2025 Bamboo flowsheet Moshe Montes MD Work Phone: [facility] Start: 03-10-2025 End: 03-10-2025 Office outpatient visit 25 minutes Moshe Montes MD Work Phone: [facility] Comment on above: ADD (attention defic it 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 (Primary Dx); Bipolar 1 disorder, depressed, mild (HCC); Acne vulgaris; Lipoma of torso; Abnormal TSH; Annual physical exam Start: 03-10-2025 End: 03-10-2025 Patient encounter procedure Moshe Montes MD Work Phone: [facility] Start: 02-14-2025 End: 02-14-2025 Refill Moshe Montes MD Work Phone: [facility] Comment on above: Attention deficit di sorder (ADD) without hyperactivity Start: 01-10-2025 End: 01-10-2025 Refill Moshe Montes MD Work Phone: [facility] Comment on above: Attention deficit di sorder (ADD) without hyperactivity Start: 12-13-2024 End: 12-14-2024 Refill Moshe Montes MD Work Phone: [facility] Comment on above: Attention deficit di sorder (ADD) without hyperactivity Start: 10-28-2024 End: 11-11-2024 Refill Moshe Montes MD Work Phone: [facility] Comment on above: Seasonal allergic rh initis due to pollen; Attention deficit disorder (ADD) without hyperactivity Start: 10-06-2024 End: 10-06-2024 Orders Only Moshe Montes MD Work Phone: [facility] Comment on above: Seasonal allergic rh initis due to pollen (Primary Dx) Start: 09-16-2024 End: 09-16-2024 Refill Moshe Montes MD Work Phone: [facility] Comment on above: Attention deficit di sorder (ADD) without hyperactivity Start: 09-08-2024 End: 09-08-2024 Bamboo flowsheet Moshe Montes MD Work Phone: [facility] Start: 09-08-2024 End: 09-08-2024 Bamboo flowsheet Moshe Montes MD Work Phone: [facility] Start: 09-08-2024 End: 09-08-2024 Office outpatient visit 25 minutes Moshe Montes MD Work Phone: [facility] Comment on above: ADD (attention defic it 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 (Primary Dx); Intermittent claudication (CMS/HCC); Bipolar 1 disorder, depressed, mild (CMS/HCC); PCOS (polycystic ovarian syndrome) Start: 09-08-2024 End: 09-08-2024 ambulatory MOSHE MONTES Not Available Start: 08-12-2024 End: 08-12-2024 Orders Only Moshe Montes MD Work Phone: [facility] Comment on above: Attention deficit di sorder (ADD) without hyperactivity Start: 07-15-2024 End: 07-15-2024 Refill Moseh Montes MD Work Phone: [facility] Comment on above: Attention deficit di sorder (ADD) without hyperactivity Start: 06-21-2024 End: 06-21-2024 Refill Moshe Montes MD Work Phone: [facility] Comment on above: Attention deficit di sorder (ADD) without hyperactivity Start: 05-24-2024 End: 05-24-2024 Telephone encounter Moshe Montes MD Work Phone: [facility] Comment on above: Med Refill Start: 04-26-2024 End: 04-26-2024 Refill Moshe Montes MD Work Phone: [facility] Comment on above: Attention deficit di sorder (ADD) without hyperactivity Start: 03-30-2024 End: 03-30-2024 Telephone encounter Moshe Montes MD Work Phone: [facility] Comment on above: Med Refill Start: 03-24-2024 End: 03-24-2024 Clinisync Result Encounter Moshe Montes MD Work Phone: [facility] Unsolicited Start: 03-24-2024 End: 03-24-2024 Clinisync Result Encounter Moshe Montes MD Work Phone: [facility] Start: 03-08-2024 Patient encounter procedure Moshe Montes MD Work Phone: [facility] Start: 03-08-2024 End: 03-08-2024 ambulatory MOSHE MONTES Not Available Start: 10-06-2023 End: 10-06-2023 ambulatory TESSIE LUCAS Not Available Start: 09-26-2023 End: 09-26-2023 ambulatory Tyrone Benoit Facility:[facility] Start: 09-02-2023 Orders Only Moshe Rico Work Phone: [facility] Comment on above: Attention deficit di sorder (ADD) without hyperactivity Start: 09-01-2023 Clinisync Result Encounter Generic External Data Provider [facility]olic[facility] Start: 09-01-2023 Clinisync Result Encounter Generic External Data Provider [facility]olic[facility] Start: 09-01-2023 End: 09-01-2023 Patient encounter procedure Tyrone Benoit DO Work Phone: [facility] Work Phone: Start: 09-01-2023 End: 09-01-2023 Periodic preventive med est patient 18-39 yrs Tyrone Benoit DO Work Phone: [facility] Comment on above: Well woman exam with routine gynecological exam; Preop examination; Pelvic pain in female; Pelvic congestion syndrome Start: 09-01-2023 End: 09-01-2023 Preprocedural examination done Tyrone Benoit DO Work Phone: [facility] Start: 07-04-2022 End: 07-04-[address] MOSHE MONTES Facility:[facility] Start: 05-12-2022 End: 05-12-[address] MOSHE MONTES Facility:[facility] Start: 11-22-2021 Encounter for genera l adult medical examination without abnormal findings DR MOSHE MONTES [facility] Start: 11-21-2021 End: 11-22-[address] MOSHE MONTES Facility:[facility] Start: 11-21-2021 End: 11-22-2021 Encounter for general adult medical examination without abnormal findings DR MOSHE MONTES Facility:[facility] Start: 07-31-2021 End: 07-31-[address] MOSHE MONTES Facility:[facility] Start: 07-10-2021 End: 07-10-[address] MOSHE MONTES Facility:[facility] Procedures Date Procedure Procedure Detail Performing Clinician Start: 03-24-2024 ALL CBC WITH AUTO DIFF Moshe Montes MD Work Phone: Start: 09-01-2023 IGP,APTIMA HPV,AGE GDLN Tyrone Benoit DO Work Phone: Start: 09-01-2023 Microscopic observat ion [Identifier] in Cervix by Cyto stain Moshe Montes MD Work Phone: Plan of Treatment Date Care Activity Detail Author Start: 09-01-2028 Screening for malign ant neoplasm of cervix [facility] Start: 09-12-2025 End: 09-12-2025 Patient encounter procedure 09/12/2025 9:45 AM EST Office Visit [facility] [address] [place] [address] Moshe Montes MD [address] [place] [address] [facility] Start: 03-28-2025 Influenza vaccination N [facility] Start: 03-10-2025 End: 03-10-2026 Basic metabolic 1998 panel - Serum or Plasma Basic metabolic panel Lab Routine Annual physical exam Expected: 03/10/2025 (Approximate), Expires: 03/10/2026 [facility] Comment on above: Expected: 03/10/2025 (Approximate), Expires: 03/10/2026 Start: 03-10-2025 End: 03-10-2026 CBC W Auto Differential panel - Blood CBC and differential Lab Routine Annual physical exam Expected: 03/10/2025 (Approximate), Expires: 03/10/2026 [facility] Comment on above: Expected: 03/10/2025 (Approximate), Expires: 03/10/2026 Start: 03-10-2025 End: 03-10-2026 Hemoglobin A1c/Hemoglobin.total in Blood Hemoglobin A1c Lab Routine Annual physical exam Expected: 03/10/2025 (Approximate), Expires: 03/10/2026 [facility] Work Phone: Comment on above: Expected: 03/10/2025 (Approximate), Expires: 03/10/2026 Start: 03-10-2025 End: 03-10-2026 Hepatic function 2000 panel - Serum or Plasma Hepatic function panel Lab Routine Annual physical exam Expected: 03/10/2025 (Approximate), Expires: 03/10/2026 [facility] Comment on above: Expected: 03/10/2025 (Approximate), Expires: 03/10/2026 Start: 03-10-2025 End: 03-10-2026 Iron and Iron binding capacity panel - Serum or Plasma Iron and TIBC Lab Routine Annual physical exam Expected: 03/10/2025 (Approximate), Expires: 03/10/2026 [facility] Comment on above: Expected: 03/10/2025 (Approximate), Expires: 03/10/2026 Start: 03-10-2025 End: 03-10-2026 Lipid 1996 panel - Serum or Plasma Lipid panel Lab Routine Annual physical exam Expected: 03/10/2025 (Approximate), Expires: 03/10/2026 [facility] Comment on above: Expected: 03/10/2025 (Approximate), Expires: 03/10/2026 Start: 03-10-2025 End: 03-10-2026 Thyrotropin [Units/volume] in Serum or Plasma TSH Lab Routine Annual physical exam Expected: 03/10/2025 (Approximate), Expires: 03/10/2026 [facility] Comment on above: Expected: 03/10/2025 (Approximate), Expires: 03/10/2026 Start: 03-10-2025 End: 03-10-2026 Thyroxine (T4) free [Mass/volume] in Serum or Plasma T4, free Lab Routine Abnormal TSH Expected: 03/10/2025 (Approximate), Expires: 03/10/2026 [facility] Comment on above: Expected: 03/10/2025 (Approximate), Expires: 03/10/2026 Start: 03-10-2025 End: 03-10-2025 Patient encounter procedure 03/10/2025 10:30 AM EDT Office Visit [facility] [address] [place] [id number] Moshe Montes MD [address] [place] [phone] [facility] Start: 09-08-2024 End: 09-08-2025 US.doppler Extremity arteries - bilateral for physiologic artery study at rest and with exercise VASC US PVR/SEGMENTAL PRESSURES LOWER Imaging Routine Intermittent claudication (CMS/HCC) Expected: 09/08/2024, Expires: 09/08/2025 [facility] Work Phone: Comment on above: Expected: 09/08/2024 , Expires: 09/08/2025 Start: 09-08-2024 End: 09-08-2024 Patient encounter procedure [facility] Comment on above: Arrived Start: 03-28-2024 Influenza vaccination Influenza Vacc ine (#1) [facility] Start: 03-08-2024 End: 03-08-2024 Patient encounter procedure 03/08/2024 10:00 AM EDT Office Visit [facility] [address] [place] [address] Moshe Montes MD [address] [place] [phone] [facility] Start: 09-02-2023 End: 09-02-2023 Patient encounter procedure 09/02/2023 2:30 PM EST Office Visit [facility] [address] [place] [address] Moshe Montes MD [address] [place] [id number] [facility] Start: 09-02-2023 Chart abstracting 09/02/2023 A bstract [facility] [address] [place] [address] Moshe Montes MD [address] [place] [address] [facility] Start: 03-28-2023 Influenza vaccination Influenza Vacc ine (#1) [facility] Start: 2016 Screening for malign ant neoplasm of cervix [facility] Start: 2007 Screening for malign ant neoplasm of cervix Pap Smear [facility] Cytology Cervical or vaginal smear or scraping study Pap Smear Pathology and Cytology Routine Well woman exam with routine gynecological exam Ordered: 09/01/2023 [facility] Work Phone: Comment on above: Ordered: 09/01/2023 Human papilloma viru s DNA [Presence] in Unspecified specimen by Probe with amplification HPV DNA probe, amplified Microbiology Routine Well woman exam with routine gynecological exam Ordered: 09/01/2023 [facility] Comment on above: Ordered: 09/01/2023 Payers Date Payer Category Payer Self-pay 2020 Medicaid [facility] MEDICAID [facility] MEDICAID [id number] 2020-Present [address] [place] [address] [id number] 2020 Medicaid (Managed Care) [facility] MEDICAID [id number] 1986 Unknown [id number]. 593 1985 Unknown [id number] 2.16.840.1.803113.3.579.2. 593 1985 Unknown [id number] 2.16.840.1.799025.3.579.2. 593 1985 Unknown [id number] 2.16.840.1.499602.3.579.2. 593 1985 Unknown [id number] 2.16.840.1.627486.3.579.2. 593 1985 Unknown [id number] 2.16.840.1.146240.3.579.2. 1259 1985 Unknown [id number] 2.16.840.1.932327.3.579.2. 1259 1985 Unknown [id number] 2.16.840.1.876524.3.579.2. 1259 1959 Unknown [id number] Unknown [id number] 2.16.840.1.575075.3.579.2. 531 Social History Date Type Detail Facility Start: 08-25-2023 End: 09-02-2023 Tobacco smoking status MDIS Smokes tobacco daily [facility] History of tobacco use [facility]igarette [facility]oker [facility] Start: 09-01-2023 End: 03-10-2025 [facility] of [facility] function [facility] Start: 09-01-2023 End: 03-10-2025 Tobacco use panel [facility] Start: 1985 Sex Assigned At Female [facility] Start: 08-05-2023 Gender identity Identifies as female gender (finding) [facility] Start: 08-05-2023 Sexual orientation Heterosexual (fin ding) [facility] Start: 09-02-2023 Tobacco use and exposure Smoke less tobacco non-user [facility] Frequency of Communi cation with Friends and Family Not on file [facility] Do you belong to any clubs or organizations such as rastafari groups, unions, fraternal or athletic groups, or school groups? No [facility] Clinical Notes 09-01-2023 to 03-10-2025 Moshe Montes MD - 03/10/2025 11:01 AM Faustino Montes MD - 03/10/2025 11:01 AM Faustino Montes MD - 03/10/2025 11:00 AM Faustino Montes MD - 03/10/2025 11:00 AM EDT Note Date & Type Note Facility 03-10-2025 History of Presen t illness Narrative Associated Problem(s): Lipoma of torso Lesion increased in size and tender, likely lipoma. Refer to surgeon. Associated Problem(s): Bipolar 1 disorder, depressed, mild (HCC) Symptoms worse with increased stress and monitor. If continues to worsen can try medication. Associated Problem(s): ADD (attention deficit 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 Symptoms controlled with adderall and continue. Associated Problem(s): Acne Worsening outbreaks and start topicals. Images from the original note were not [...] to General Surgery documented in this encounter [facility] 11-11-2024 Telephone encount er Note [facility] 11-11-2024 Miscellaneous Notes Formattin g of this note might be different from the original. MEDICATION SENT TO [facility] documented in this encounter [facility] 10-28-2024 Telephone encount er Note MEDICATION SENT TO [facility] 09-08-2024 History of Presen t illness Narrative Associated Problem(s): PCOS (polycystic ovarian syndrome) Follow with marketing manager health communications. Associated Problem(s): Intermittent claudication (CMS/HCC) Pain with ambulation and check segmental pressure. Associated Problem(s): Bipolar 1 disorder, depressed, mild (CMS/HCC) Mild symptoms but tolerable and monitor. Associated Problem(s): ADD (attention deficit 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 Symptoms controlled with adderall and continue. Images from the original note were not included. Subjective Patient ID: Benny Wynne is a 39 y.o. female who presents for Follow-up (6m /Circulation issues). Follow up ADD and bipolar. ADD controlled with adderall. Able to stay focused and complete work. Not distracted or watching others. Able to stay on task. Bipolar stable. Mild depression but no garrett. Overall feels like symptoms tolerable and doing well without medication. Concerned of circulation in feet. Feet often cold and will turn purple at rest. Notice pain in legs when walking and need to stop to rest. History of varicose veins and prior surgery but still bulging. Review of Systems Respiratory: Negative for cough, [...] and continue. Bipolar 1 disorder, depressed, mild (CMS/HCC) Mild symptoms but tolerable and monitor. 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 Intermittent claudication (CMS/HCC) Pain with ambulation and check segmental pressure. Relevant Orders VASC US PVR/SEGMENTAL PRESSURES LOWER documented in this encounter [facility] 05-24-2024 Telephone encount er Note Sent [facility] 05-24-2024 Miscellaneous Notes Formattin g of this note might be different from the original. Sent documented in this encounter [facility] 03-30-2024 Telephone encount er Note Patient called and stated [facility] is out of [facility]. Would like it sent to [facility] in [place]. an [facility] 03-30-2024 Miscellaneous Notes Formattin g of this note might be different from the original. Patient called and stated [facility] is out [facility]. Would like it sent to [facility]. an documented in this encounter [facility] 09-01-2023 History of Presen t illness Narrative Reason for Appointment: Patient ID: Benny Wynne is a 38 y.o. female who presents for Well Women Visit and Pre-op Visit Patient presents today for a Annual/Pre Op appointment. Patient is scheduled to undergo Diagnostic Laparoscopy, possible TJ, possible FOE, possible BSO on 09/26/[address] Laboy at [facility]. Current Medications: has a current medication list [...] depressed, mild (CMS/HCC) ZENOBIA (generalized anxiety disorder) (CMS/[facility]ER[facility]) Hirsutism Influenza vaccination declined Lump of skin [...] nursing note reviewed. Exam conducted with a chainstitch seat joiner present. Vitals: Estimated body mass index is [...] reviewed, and patient is to proceed to [facility] OR. Follow Up: Patient is to follow up between 1-2 weeks post operative to assess proper healing and recovery from procedure. Documented by: Mindy Linares LPN on behalf of Tyrone Laboy DO documented in this encounter [facility] Evaluation note Diagnosis Well woman exam with routine gynecological exam Routine gynecological examination Preop examination Unspecified pre-operative examination Pelvic pain in female Unspecified symptom associated with female genital organs Pelvic congestion syndrome [facility]* Diagnosis Attention deficit disorder (ADD) without hyperactivity [facility]* Diagnosis ADD (attention deficit 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- [...] without hyperactivity [facility] Diagnosis ADD (attention deficit 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- [...] without hyperactivity [facility] Diagnosis Attention deficit disorder (ADD) without hyperactivity [facility]* Diagnosis Attention deficit disorder (ADD) without hyperactivity [facility]* Diagnosis ADD (attention deficit 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- [...] without hyperactivity [facility]* Diagnosis ADD (attention deficit 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- Primary Attention deficit disorder without mention of hyperactivity Menorrhagia with irregular cycle Annual physical exam- Primary Routine general medical examination at a health care facility ADD (attention deficit 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 Attention deficit disorder without mention of hyperactivity Abnormal TSH Bipolar 1 disorder, depressed, mild (CMS/HCC) ADD (attention deficit 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- Primary Attention deficit disorder without mention of hyperactivity Intermittent claudication (CMS/HCC) Unspecified peripheral vascular disease Bipolar 1 disorder, depressed, mild (CMS/HCC) PCOS (polycystic ovarian syndrome) Polycystic ovaries [facility] Diagnosis ADD (attention deficit 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- Primary Attention deficit disorder without mention of hyperactivity Menorrhagia with irregular cycle Annual physical exam- Primary Routine general medical examination at a health care facility ADD (attention deficit 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 Attention deficit disorder without mention of hyperactivity Abnormal TSH Bipolar 1 disorder, depressed, mild (CMS/HCC) ADD (attention deficit 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- Primary Attention deficit disorder without mention of hyperactivity Intermittent claudication (CMS/HCC) Unspecified peripheral vascular disease Bipolar 1 disorder, depressed, mild (CMS/HCC) PCOS (polycystic ovarian syndrome) Polycystic ovaries Attention deficit disorder (ADD) without hyperactivity [facility] Diagnosis ADD (attention deficit 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- Primary Attention deficit disorder without mention of hyperactivity Menorrhagia with irregular cycle Annual physical exam- Primary Routine general medical examination at a health care facility ADD (attention deficit 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 Attention deficit disorder without mention of hyperactivity Abnormal TSH Bipolar 1 disorder, depressed, mild (CMS/HCC) ADD (attention deficit 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- Primary Attention deficit disorder without mention of hyperactivity Intermittent claudication (CMS/HCC) Unspecified peripheral vascular disease Bipolar 1 disorder, depressed, mild (CMS/HCC) PCOS (polycystic ovarian syndrome) Polycystic ovaries Seasonal allergic rhinitis due to pollen- Primary [facility]* Diagnosis ADD (attention deficit 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- Primary Attention deficit disorder without mention of hyperactivity Menorrhagia with irregular cycle Annual physical exam- Primary Routine general medical examination at a health care facility ADD (attention deficit 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 Attention deficit disorder without mention of hyperactivity Abnormal TSH Bipolar 1 disorder, depressed, mild (CMS/HCC) ADD (attention deficit 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- Primary Attention deficit disorder without mention of hyperactivity Intermittent claudication (CMS/HCC) Unspecified peripheral vascular disease Bipolar 1 disorder, depressed, mild (CMS/HCC) PCOS (polycystic ovarian syndrome) Polycystic ovaries Seasonal allergic rhinitis due to pollen Attention deficit disorder (ADD) without hyperactivity [facility] Diagnosis ADD (attention deficit 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- Primary Attention deficit disorder without mention of hyperactivity Menorrhagia with irregular cycle Annual physical exam- Primary Routine general medical examination at a health care facility ADD (attention deficit 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 Attention deficit disorder without mention of hyperactivity Abnormal TSH Bipolar 1 disorder, depressed, mild (CMS/HCC) ADD (attention deficit 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- Primary Attention deficit disorder without mention of hyperactivity Intermittent claudication (CMS/HCC) Unspecified peripheral vascular disease Bipolar 1 disorder, depressed, mild (CMS/HCC) PCOS (polycystic ovarian syndrome) Polycystic ovaries Attention deficit disorder (ADD) without hyperactivity [facility] Diagnosis ADD (attention deficit 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- Primary Attention deficit disorder without mention of hyperactivity Menorrhagia with irregular cycle Annual physical exam- Primary Routine general medical examination at a health care facility ADD (attention deficit 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 Attention deficit disorder without mention of hyperactivity Abnormal TSH Bipolar 1 disorder, depressed, mild (HCC) ADD (attention deficit 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- Primary Attention deficit disorder without mention of hyperactivity Intermittent claudication Unspecified peripheral vascular disease Bipolar 1 disorder, depressed, mild (HCC) PCOS (polycystic ovarian syndrome) Polycystic ovaries Attention deficit disorder (ADD) without hyperactivity [facility] Diagnosis ADD (attention deficit 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- Primary Attention deficit disorder without mention of hyperactivity Menorrhagia with irregular cycle Annual physical exam- Primary Routine general medical examination at a health care facility ADD (attention deficit 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 Attention deficit disorder without mention of hyperactivity Abnormal TSH Bipolar 1 disorder, depressed, mild (HCC) ADD (attention deficit 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- Primary Attention deficit disorder without mention of hyperactivity Intermittent claudication Unspecified peripheral vascular disease Bipolar 1 disorder, depressed, mild (HCC) PCOS (polycystic ovarian syndrome) Polycystic ovaries ADD (attention deficit 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- Primary Attention deficit disorder without mention of hyperactivity Bipolar 1 disorder, depressed, mild (HCC) Acne vulgaris Other acne Lipoma of torso Abnormal TSH Annual physical exam Routine general medical examination at a health care facility documented in this encounter [facility] Summary [...] without hyperactivity Moshe Montes MD [address] [place] [address] Referral ID Status Reason Start Date Expiration Date Visits Re quested Visits Authorized [id number] Closed 1 1 Referral ID Status Reason Start Date Expiration Date V isits Requested Visits Authorized [id number] Pending Review 03/30/2024 09/26/2024 1 1 Referral ID Status Reason Start Date Expiration Date V isits Requested Visits Authorized [id number] Pending Review 04/26/2024 10/23/2024 1 1 Additional Source Comments INFORMATION SOURCE (unrecogn ized section and content) DATE CREATED AUTHOR 10/05/2020 Elliott Ketaon [facility] DATE CREATED AUTHOR AUTHOR'S ORGANIZ ATION 07/08/2022 [facility] DATE CREATED AUTHOR AUTHOR'S ORGANIZ ATION 09/30/2023 [facility] DATE CREATED AUTHOR AUTHOR'S ORGANIZ ATION 09/10/2024 [facility] EPIC Reason for Visit (unrecogniz ed section and content) Reason Comments Well Women Visit Pre-op Visit Reason Onset Date Comments Med Refill 05/24/2024 Reason Onset Date Comments Med Refill 06/21/2024 Reason Onset Date Comments Med Refill 03/30/2024 Reason Onset Date Comments Med Refill 04/26/2024 Reason Onset Date Comments Med Refill 07/15/2024 Reason Comments Follow-up 6m Circulation issue s Reason Onset Date Comments Med Refill 09/16/2024 Reason Comments Med Change Request Reason Onset Date Comments Med Refill 12/13/2024 Reason Onset Date Comments Med Refill 01/10/2025 Reason Onset Date Comments Med Refill 02/14/2025 Reason Comments Follow-up Care Teams (unrecognized sec tion and content) Complex Manager Relationship Specialty Start Date End Date Moshe Montes MD [address] [place] [address] PCP - [facility] 08/25/23 Complex Manager Relationship Specialty Start Date End Date Moshe Montes MD [address] [place] [address] PCP - [facility] 08/25/23 Complex Manager Relationship Specialty Start Date End Date Moshe Montes MD [address] [place] [address] PCP - [facility] 08/25/23 Complex Manager Relationship Specialty Start Date End Date Moshe Montes MD [address] [place] [address] PCP - [facility] 08/25/23 Moshe Montes MD [address] [place] [address] [facility] 01/26/24 Complex Manager Relationship Specialty Start Date End Date Moshe Montes MD [address] [place] [address] PCP [facility] 08/25/23 Moshe Montes MD [address] [place] [address] [facility] 01/26/24 Complex Manager Relationship Specialty Start Date End Date Moshe Montes MD [address] [place] [address] [facility] 08/25/23 Moshe Montes MD [address] [place] [address] [facility] 01/26/24 Complex Manager Relationship Specialty Start Date End Date Moshe Montes MD [address] [place] [address] [facility] 08/25/23 Moshe Montes MD [address] [place] [address] [facility] 01/26/24 Complex Manager Relationship Specialty Start Date End Date Moshe Montes MD [address] [place] [address] [facility] 08/25/23 Moshe Montes MD [address] [place] [address] [facility] 01/26/24 Complex Manager Relationship Specialty Start Date End Date Moshe Montes MD [address] [place] [address] [facility] 08/25/23 Moshe Montes MD [address] [place] [address] [facility] 01/26/24 Complex Manager Relationship Specialty Start Date End Date Moshe Montes MD [address] [place] [address] PCP - [facility] 08/25/23 Moshe Montes MD [address] [place] [address] [facility] 01/26/24 Complex Manager Relationship Specialty Start Date End Date Moshe Montes MD [address] [place] [address] [facility] 08/25/23 Moshe Montes MD [address] [place] [address] [facility] 01/26/24 Complex Manager Relationship Specialty Start Date End Date Moshe Montes MD [address] [place] [address] [facility] 08/25/23 Moshe Montes MD [address] [place] [address] [facility] 01/26/24 Complex Manager Relationship Specialty Start Date End Date Moshe Montes MD [address] [place] [address] [facility] 08/25/23 Moshe Montes MD [address] [place] [address] [facility] 01/26/24 Complex Manager Relationship Specialty Start Date End Date Moshe Montes MD [address] [place] [address] [facility] 08/25/23 Moshe Montes MD [address] [place] [address] [facility] 01/26/24 Complex Manager Relationship Specialty Start Date End Date Moshe Montes MD [address] [place] [address] [facility] 08/25/23 Moshe Montes MD [address] [place] [address] [facility] 01/26/24 Complex Manager Relationship Specialty Start Date End Date Moshe Montes MD [address] [place] [address] [facility] 08/25/23 Moshe Montes MD [address] [place] [address] [facility] 01/26/24 FOR RECORDS PERTAINING TO PATIENTS [...] BE BASED ON THE PRIMARY CLINICAL RECORDS. [facility] [employer] [facility]. provides no warranty or guarantee of the accuracy or completeness of information in this document.
[2025-03-10 11:42] LABS: Hematocrit 37.9 % (36.0-48.0); Hemoglobin 12.4 g/dL (12.0-16.0); Immature Granulocytes Abs Auto 0.01 10^3/uL (0.00-0.03); Immature Granulocytes Pct Auto 0.2 % (0.0-0.5); Lymphocytes Absolute Auto 1.8 10^3/uL (1.2-3.8); Mean Corpuscular HGB Conc 32.7 g/dL (29.9-35.2); Mean Corpuscular Hemoglobin 27.3 pg (26.7-34.0); Mean Corpuscular Volume 83.5 fL (81.0-99.0); Platelet Count 240 10^3/uL (150-450); Red Blood Count 4.54 10^6/uL (4.20-5.40); White Blood Count 5.2 10^3/uL (4.0-11.0)
[2025-03-10 12:17] LABS: Iron 47.0 ug/dL (50.0-170.0); Percent Iron Saturation 11.0 %; Total Iron Binding Capacity 428.0 ug/dL (250.0-450.0)
[2025-03-10 12:26] LABS: Alanine Aminotransferase 17 U/L (14-59); Albumin Globulin Ratio 0.9; Albumin Level 3.8 g/dL (3.4-5.0); Alkaline Phosphatase 72 U/L (46-116); Anion Gap 7.0; Aspartate Amino Transferase 11 U/L (15-37); Blood Urea Nitrogen 9.0 mg/dL (7.0-18.0); Calcium 8.7 mg/dL (8.5-10.1); Carbon Dioxide 26.9 mmol/L (21.0-32.0); Chloride 105 mmol/L (98-107); Cholesterol 206 mg/dL (<=200); Estimated GFR (African America >60 (>=60 mL/min/1.73m^2); Estimated GFR (Non-African Ame >60 (>=60 mL/min/1.73m^2); Globulin 4.0 g/dL; Glucose 90 mg/dL (74-106); HDL Cholesterol 61 mg/dL (40-60); Potassium 3.9 mmol/L (3.5-5.1); Sodium 135 mmol/L (136-145); Thyroid Stimulating Hormone 2.465 uIU/mL (0.358-3.740); Total Protein 7.8 g/dL (6.4-8.2); Triglycerides 59 mg/dL (<=150); VLDL CHOLESTEROL 11.8 mg/dL
== END 2025-03-10 11:10 | disposition home or self-care (01) ==
PROVIDERS: PCP Family Medicine; Visit Provider Family Medicine
DX: Z00.00 Encounter for general adult medical examination without abnormal findings (principal); R79.89 Other specified abnormal findings of blood chemistry
CPT/HCPCS: 36415; 80048; 80061; 80076; 83036; 83540; 83550; 84439; 84443; 85025

== ENCOUNTER 2025-03-22 12:00 | Outpatient (OUT) | payer OTHER, SELFPAY ==
--- OUTSIDE RECORDS SUMMARY | 2024-12-27 10:30 | XMS_ITS ---
Author Organization [facility] Address [address] [facility] [place] [address] Care Team Providers Care Retail Planner Name Role Phone Rosendo Pinto Primary Care Provider [phone] Diana Berg Unavailable REASON FOR VISIT FILLING Encounters Encounter Location Date Provider Diagnosis [facility] [address] [place] [address] 12/27/2024 Diana Jenkins Plan Of Treatment No Information Progress Notes * STEVE ONRWOODDOB:1985 ( 39 yo F)Acc No.[id number]:12/27/2024 Patient: JUNI BURNSHA Provider: Shannan JENKINS DDS :1985 A ge:39 Y S ex:Female Date:12/27/2024 Address:[address] [place], [place] [phone] Pcp:Rosendo Pinto Subjective: * Chief Complaints: * 1 . FILLING. * Medical History: Objective: * Vitals: Assessment: Plan: * Treatment: * Images: * Electronic signature of Brenda Jenkins DDS on 03/22/2025 at 12:01 PM EDT Sign off status: Pending * Provider: Shannan JENKINS DDS Date: 12/27/2024 Generated for Memoi ng/Famarsg/eTransmitting on: 03/22/2025 12:01 PM EDT
--- OUTSIDE RECORDS SUMMARY | 2025-03-10 05:30 | XMS_ITS ---
Author Organization [facility] Address [address] [place] [address] Care Team Providers Care Scow Derrick Operator Name Role Phone Rosendo Pinto Primary Care Provider Rebeka Díaz [phone] REASON FOR VISIT 6 MONTH PROPHY Encounters Encounter Location Date Provider Diagnosis [place] [address] [place] [address] 03/10/2025 Rebeka Díaz Plan Of Treatment No Information Progress Notes * STEVE NORWOODDOB:1985 ( 39 yo F)Acc No.[id number]:03/10/2025 Patient: STEVE BURNS Provider: Michela Rowell :1985 A ge:39 Y S ex:Female Date:03/10/2025 Address:[address] [place], [place] [phone] Pcp:Rosendo Pinto Subjective: * Chief Complaints: * 1 . 6 MONTH PROPHY. * Medical History: Objective: * Vitals: Assessment: Plan: * Treatment: * Images: * Electronic signature of Flores Díaz on 03/22/2025 at 12:01 PM EDT Sign off status: Pending * Provider: Michela Rowell Date: 03/10/2025 Generated for Neda pizano/Morena/eTransmitting on: 03/22/2025 12:01 PM EDT
--- OUTSIDE RECORDS SUMMARY | 2025-03-10 10:30 | XMS_ITS | Encounter Summary ---
Author Organization [facility] Address [address] [place] [address] Care Team Providers Care Surveillance System Monitor Name Role Phone Moshe Bennett MD Primary Care Provider Moshe Bennett MD Unavailable Reason for Referral * Consultation (Routine) - Authorized Specialty Diagnoses / Procedures Referred By Contac t Referred To Contact General Surgery Diagnoses Lipoma of torso Procedures MO OFFICE/OUTPATIENT [facility] 60 MINUTES Moshe Bennett MD [address] [place] [address] Phone: tel: fax: [place] [address] [place] [address] Phone: tel: fax: Referral ID Status Reason Start Date Expiration Date Visits Requested Visits Authorized [id number] Authorized Specialty Services Required 03/10/2025 09/06/2025 1 1 * Medications - Closed Specialty Diagnoses / Procedures Referred By Contac t Referred To Contact Diagnoses Acne vulgaris Moshe Bennett MD [address] [place] [address] Phone: tel: fax: Referral ID Status Reason Start Date Expiration Date Visits Re quested Visits Authorized [id number] Closed 1 1 Reason for Visit * Reason Comments Follow-up 6m Encounter Details Date Type Department Care Team (Late st Contact Info) Description 03/10/2025 10:30 AM EDT Office Visit [facility] [address] [place] [address] Moshe Bennett MD [address] [place] [address] ADD (attention deficit 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 (Primary Dx); Bipolar 1 disorder, depressed, mild (HCC); Acne vulgaris; Lipoma of torso; Abnormal TSH; Annual physical exam Social History Tobacco Use Types Packs/Day Years Used Date Smoking Tobacco: Every Day Cigarettes Smokeless Tobacco: Never Social Connection and Isolation Panel [NHANES] A nswer Date Recorded Frequency of Communication with Friends and Fami ly Not on file 03/04/2025 Frequency of Social Gatherings with Friends and Family Not on file 03/04/2025 Attends Temple Services Not on file 03/04 Do you belong to any clubs o r organizations such as anabaptism groups, unions, fraternal or athletic groups, or school groups? No 03/04/2025 Attends Club or Organization Meetings Not on selena e 03/04/2025 Marital Status Not on file 03/04/2025 Comments No Sex and Gender Information Value Date Recorded Sex Assigned at Female 08/05/2023 9:08 AM EST Legal Sex Female 7:17 PM EDT Gender Identity Female 08/05/2023 9:08 AM EST Sexual Orientation Straight 08/05/2023 9: 08 AM EST documented as of this encounter Last Filed Vital Signs Vital Sign Reading Time Taken Comments Blood Pressure 106/64 03/10/2025 10:38 AM EDT Pulse 80 03/10/2025 10:38 AM EDT Temperature 35.9 C (96.6 F) 03/10/2025 10:38 AM EDT Respiratory Rate 22 03/10/2025 10:38 AM EDT Oxygen Saturation 99% 03/10/2025 10:38 AM EDT Inhaled Oxygen Concentration - - Weight 78.5 kg (173 lb) 03/10/2025 10:38 AM EDT Height 160 cm (5' 3 ) 03/10/2025 10:38 AM EDT Body Mass Index 30.65 03/10/2025 10:38 AM EDT documented in this encounter Progress Notes * Moshe Bennett MD - 03/10/2025 11:01 AM EDTAssociated Problem(s): Lipoma of torso Lesion increased in size and tender, likely lipoma. Refer to surgeon. * Moshe Bennett MD - 03/10/2025 11:01 AM EDTAssociated Problem(s): Bipolar 1 disorder, depressed, mild (HCC) Symptoms worse with increased stress and monitor. If continues to worsen can try medication. * Moshe Bennett MD - 03/10/2025 11:00 AM EDTAssociated Problem(s): ADD (attention deficit 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 Symptoms controlled with adderall and continue. * Moshe Bennett MD - 03/10/2025 11:00 AM EDTAssociated Problem(s): Acne Worsening outbreaks and start topicals. * Moshe Bennett MD - 03/10/2025 10:30 AM EDT Images from the original note were not included. Subjective Patient ID: Benny Wynne is a 39 y.o. female who presents for Follow-up (6m). Follow up ADD, bipolar, and acne. ADD controlled with adderall. Able to stay focused and complete work. Not distracted or watching others. Able to stay on task. Bipolar recently worse. Severe stress and a lot going on. Starting to feel down and sad but recently no motivation. Not want to do things around house. Hard to make self do simple tasks and wastes a lot of time. Not interested in doing things for fun or doing things she enjoyed in past. C/o lump on mid back for months but increased in size. Firm and tender to touch. Causing pain with sitting and activity. Acne worse with increased stress. Frequent outbreaks and pustules. Using OTC but not helping. Review of Systems Respiratory: Negative for cough, shortness of breath and wheezing. Cardiovascular: Negative for chest pain and palpitations. Gastrointestinal: Negative for abdominal pain, diarrhea, nausea and vomiting. Genitourinary: Negative for dysuria. Objective Physical Exam Constitutional: General: She is not in acute distress. Appearance: Normal appearance. HENT: Head: Normocephalic. Right Ear: Tympanic membrane normal. Left Ear: Tympanic membrane normal. Eyes: Extraocular Movements: Extraocular movements intact. Pupils: Pupils are equal, round, and reactive to light. Cardiovascular: Rate and Rhythm: Normal rate and regular rhythm. Heart sounds: No murmur heard. No friction rub. No gallop. Pulmonary: Effort: Pulmonary effort is normal. Breath sounds: Normal breath sounds. No wheezing, rhonchi or rales. Abdominal: General: Bowel sounds are normal. There is no distension. Palpations: Abdomen is soft. Tenderness: There is no abdominal tenderness. There is no guarding or rebound. Musculoskeletal: Cervical back: Neck supple. Right lower leg: No edema. Left lower leg: No edema. Neurological: Mental Status: She is alert. Assessment/Plan Problem List Items Addressed This Visit ADD (attention deficit 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 - Primary Symptoms controlled with adderall and continue. Bipolar 1 disorder, depressed, mild (HCC) Symptoms worse with increased stress and monitor. If continues to worsen can try medication. Abnormal TSH Relevant Orders T4, free Annual physical exam Relevant Orders Hemoglobin A1c Basic metabolic panel CBC and differential Iron and TIBC Hepatic function panel Lipid panel TSH Acne Worsening outbreaks and start topicals. Relevant Medications Clindamycin Phos, Once-Daily, (Clindagel) 1 % gel tretinoin (Retin-A) 0.1 % cream Lipoma of torso Lesion increased in size and tender, likely lipoma. Refer to surgeon. Relevant Orders Ambulatory referral to General Surgery documented in this encounter Plan of Treatment Upcoming Encounters Date Type Department Care Team (Late st Contact Info) Description 09/12/2025 9:45 AM EST Office Visit [facility] [address] [place] [address] Moshe Bennett MD [address] [place] [address] Scheduled Orders Name Type Priority Associated Diagnoses Orde r Schedule Hemoglobin A1c Lab Routine Annual physical exam Expected: 03/10/2025 (Approximate), Expires: 03/10/2026 Basic metabolic panel Lab Routine Annual physical exam Expected: 03/10/2025 (Approximate), Expires: 03/10/2026 CBC and differential Lab Routine Annual physical exam Expected: 03/10/2025 (Approximate), Expires: 03/10/2026 Iron and TIBC Lab Routine Annual physical exam Expected: 03/10/2025 (Approximate), Expires: 03/10/2026 Hepatic function panel Lab Routine Annual physical exam Expected: 03/10/2025 (Approximate), Expires: 03/10/2026 Lipid panel Lab Routine Annual physical exam Expected: 03/10/2025 (Approximate), Expires: 03/10/2026 TSH Lab Routine Annual physical exam Expected: 03/10/2025 (Approximate), Expires: 03/10/2026 T4, free Lab Routine Abnormal TSH Expected: 03/10/2025 (Approximate), Expires: 03/10/2026 Scheduled Referrals Name Type Priority Associated Diagnoses Order Schedule Ambulatory referral to General Surgery Outpatient Referral Routine Lipoma of torso Expected: 03/10/2025 (Approximate), Expires: 09/10/2025 documented as of this encounter Visit Diagnoses Diagnosis ADD (attention deficit 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- Primary Attention deficit disorder without mention of hyperactivity Bipolar 1 disorder, depressed, mild (HCC) Acne vulgaris Other acne Lipoma of torso Abnormal TSH Annual physical exam Routine general medical examination at a health care facility documented in this encounter Care Teams Surveillance System Monitor Relationship Specialty Start Date End Date Moshe Bennett MD [address] [place] [address] PCP - General Family Medicine 08/25/23 Moshe Bennett MD [address] [place] [address] PCP - [facility] 01/26/24 documented as of this encounter
--- NOTE | 2025-03-22 12:00 | CA_ITS ---
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 Interpretive Statements Summary of the findings: Right leg: ALEJANDRO= 1.22; TBI= 0.58. Doppler waveforms demonstrate multiphasic flow at the posterior tibial and dorsalis pedis arteries. Left leg: ALEJANDRO= 1.23; TBI= 0.71. Doppler waveforms demonstrate multiphasic flow at the posterior tibial and dorsalis pedis arteries. Segmental pressures: Segmental pressures show calcified femoropopliteal segments bilaterally. Pulse volume recordings: PVRs at the high thigh, below knee, and ankle levels show normal waveforms. Post exercise ALEJANDRO are normal (Right ALEJANDRO 1.12; Left ALEJANDRO 1.12). Conclusion: Right and left ankle-brachial indices are suggestive of normal overall arterial flow at rest. Toe-brachial indices are suggestive of right sided PAD. Segmental pressures show calcified femoropopliteal segments. Pulse volume recordings indicate good overall resting arterial flow. Waveform analysis suggests normal bilateral arterial flow. Normal post exercise ABIs. The study shows evidence of PAD with calcified vessels and normal overall arterial flow at rest and with exercise. Electronically Signed On 03-30-2025 13:04:45 EDT by TAINA LOPEZ M.D.
--- OUTSIDE RECORDS SUMMARY | 2025-03-22 12:01 | XMS_ITS | Patient Health Record ---
Author Organization [facility] es Address [address] [place] [address] Care Team Providers Care Rollout Manager Name Role Phone Rosendo Pinto Primary Care Provider [phone] Diana Berg Unavailable Rebeka Díaz Unavailable [phone] Reason For Referral No Information Encounters Encounter Location Date Provider Diagnosis [address] [place] [address] 11/05/2024 Rosendo Pinto Dental caries on pit and fissure surface penetrating into dentin K02.52 [address] [place] [address] 08/24/2024 Rebeka Díaz Acute gingivitis, pl aque induced K05.00 Assessments Encounter Date Diagnosis (ICD Code) Assessment [...] Coverage Start Date Coverage End Date [employer] [address] [address] [place] [address] [id number] CHICHOJUNI DotyHA Self - patient is the insured 3 [employer] MERGED WITH [facility] [address] [place] [address] [id number] ENMA STEVE Self - patient is the insured 3
--- OUTSIDE RECORDS SUMMARY | 2025-03-22 12:01 | XMS_ITS | Encounter Summary ---
Author Organization [facility] Address [address] [place] [address] Care Team Providers Care Staff Field Engineer Name Role Phone Moshe Bennett MD Primary Care Provider [phone] Moshe Bennett MD Unavailable Encounter Details Date Type Department Care Team (Late Contact Info) Description 09/02/2023 Abstract [facility] [address] [place] [address] Moshe Bennett MD [address] [place] [address] Social History Tobacco Use Types [...] 09/12/2025 9:45 AM EST Office Visit [facility] [address] [place] [address] Moshe Bennett MD [address] [place] [address] documented as of this encounter Visit Diagnoses Not on filedocumented in this encounter Care Teams Staff Field Engineer Relationship Specialty Start Date End Date Moshe Bennett MD [address] [place] [address] PCP - General Family Medicine 08/25/23 Moshe Bennett MD [address] [place] [address] PCP - [facility] 01/26/24 documented as of this encounter
--- OUTSIDE RECORDS SUMMARY | 2025-03-22 12:01 | XMS_ITS | Encounter Summary ---
Author Organization [facility] Address [address] [place] [address] Care Team Providers Care Loading Unit Operator Crimping Name Role Phone Moshe Bennett MD Primary Care Provider [phone] Moshe Bennett MD Primary Care Provider [phone] Moshe Bennett MD Unavailable Encounter Details Date Type Department Care Team (Late st Contact Info) Description 08/18/2023 Clinisync Result Encounter N[facility]S External Department Unsolicited Roscoe Laboy, DO [address] [facility] [place] [address] Social History Tobacco Use Types [...] Office Visit [facility] [address] [place] [address] Moshe Bennett MD [address] [place] [address] documented as of this encounter Procedures Procedure Name Priority Date/Time Associated Diagnosis Comments US PELVIS W/ TRANSVAGINAL 08/18/2023 11:22 AM EST documented in this encounter Results * US PELVIS W/ TRANSVAGINAL (08/18/2023 11:22 AM EST) Anatomical Region Laterality Modality Other 08/18/2023 11:2 2 AM EST Narrative 08/18/2023 11:25 [place] [address] Ultrasound Report Signed Patient: STEVE NORWOOD MR#: [id number] : 1985 Acct:[id number] Age/Sex: 38 / F ADM Date: 08/18/23 Loc: US Attending Dr: Roscoe Laboy D.O. Ordering Physician: Roscoe Laboy D.O. Date of Service: 08/18/23 Procedure(s): US pelvis w/ transvaginal Accession Number(s): [id number] cc: Roscoe Laboy D.O.; Moshe Bennett M.D. The [address] [address] Patient Name: STEVE NORWOOD MRN: [id number] date: 1985 Sex: F Assigned Patient Location: Current Patient Location: Accession/Order Number: [id number] Exam Date: 08/18/2023 09:38 Report Date: 08/18/2023 [...] Signed By: 08/18/23 1125 DD/ 1122 TD/TT: Audio Visual Specialist: Procedure Note Radiology, Radiologist, MD - 10/01/2023 [place] [address] Ultrasound Report Signed Patient: STEVE NORWOOD NMR#: [id number] : 1985Acct:[id number] Age/Sex: 38 / FADM Date: 08/18/23 Loc: US Attending Dr: Roscoe Laboy D.O. Ordering Physician: Roscoe Laboy D.O. Date of Service: 08/18/23 Procedure(s): US pelvis w/ transvaginal Accession Number(s): [id number] cc: Roscoe Laboy D.O.; Moshe Bennett M.D. The [place] [id number] Patient Name: STEVE NORWOOD MRN: [id number] date: 1985 Sex: F Assigned Patient Location: US Current Patient Location: US Accession/Order Number: [id number] Exam Date: 08/18/2023 09:38 Report Date: 08/18/2023 [...] M.D. Signed By:08/18/23 1125 DD/ 1122 TD/TT: Audio Visual Specialist: us Roscoe Benoit DO [facility] Final Result documented in this encounter Visit Diagnoses Not on filedocumented in this encounter Care Teams Loading Unit Operator Crimping Relationship Specialty Start Date End Date Moshe Bennett MD PCP - General Family Medicine 02/07/23 08/24/23 Moshe Bennett MD [address] [place] [address] PCP - General [facility] 08/25/23 Moshe Bennett MD [address] [place] [address] PCP - [facility] 01/26/24 documented as of this encounter
--- OUTSIDE RECORDS SUMMARY | 2025-03-22 12:01 | XMS_ITS | Encounter Summary ---
Author Organization [facility] Address [address] [place] [address] Care Team Providers Care Recycling Assistant Name Role Phone Moshe Bennett MD Primary Care Provider [phone] Moshe Bennett MD Unavailable Encounter Details Date Type Department Care Team (Late st Contact Info) Description 03/10/2025 Results Follow-Up [facility] [address] [place] [address] Moshe Bennett MD [address] [place] [address] ALL CBC WITH AUTO DIFF, MLR HEMOGLOBIN A1C, METRO IRON AND TIBC, Additional followed-up results: 5 Social History Tobacco Use Types Packs/Day Years Used Date Smoking Tobacco: Every Day Cigarettes Smokeless Tobacco: Never Social Connection and Isolation Panel [NHANES] A nswer Date Recorded Frequency of Communication with Friends and Fami ly Not on file 03/04/2025 Frequency of Social Gatherings with Friends and Family Not on file 03/04/2025 Attends Buddhist Services Not on file 03/04 Do you belong to any clubs o r organizations such as temple groups, unions, fraternal or athletic groups, or [...] Visit [facility] [address] [place] [address] Moshe Bennett MD [address] [place] [address] documented as of this encounter Visit Diagnoses Not on filedocumented in this encounter Care Teams Recycling Assistant Relationship Specialty Start Date End Date Moshe Bennett MD [address] [place] [address] PCP - General Family Medicine 08/25/23 Moshe Bennett MD [address] [place] [address] PCP - [facility] 01/26/24 documented as of this encounter
--- OUTSIDE RECORDS SUMMARY | 2025-03-22 12:01 | XMS_ITS | Encounter Summary ---
Author Organization [facility] Address [address] [place] [address] Care Team Providers Care City Detective Name Role Phone Moshe Bennett MD Primary Care Provider [phone] Moshe Bennett MD Unavailable Encounter Details Date Type Department Care Team (Late st Contact Info) Description 03/10/2025 Clinisync Result Encounter NOMS External Department Unsolicited Moshe Bennett MD [address] [place] [address] Social History Tobacco Use Types Packs/Day Years Used Date Smoking Tobacco: Every Day Cigarettes Smokeless Tobacco: Never Social Connection and Isolation Panel [NHANES] A nswer Date Recorded Frequency of Communication with Friends and Fami ly Not on file 03/04/2025 Frequency of Social Gatherings with Friends and Family Not on file 03/04/2025 Attends Sikh Services Not on file 03/04 Do you [...] 09/12/2025 9:45 AM EST Office Visit [facility] [address] [place] [address] Moshe Bennett MD [address] [place] [address] documented as of this encounter Procedures Procedure Name Priority Date/Time Associated Diagnosis Comments MLR HEMOGLOBIN A1C Routine 03/10/2025 11 :29 AM EDT METRO IRON AND TIBC Routine 03/10/2025 1 1:29 AM EDT HP LIVER PANEL Routine 03/10/2025 11:2 9 AM EDT ALL THYROXINE (T4) FREE Routine 03/10/2025 11:29 AM EDT ALL THYROID STIM HORMONE Routine 03/10/2025 11:29 AM EDT ALL LIPID PROFILE (FASTING) Routine 03/10/2025 11:29 AM EDT ALL CBC WITH AUTO DIFF Routine 03/10/2025 11:29 AM EDT ALL BASIC METABOLIC PANEL Routine 03/10/2025 11:29 AM EDT documented in this encounter Results * ALL THYROID STIM HORMONE (03/10/2025 11:29 AM EDT) THYROID STIMULATING HORMONE 2.465 0.358 - 3.740 uIU/mL TBH 03/10/2025 11:2 9 AM EDT 03/10/2025 11:33 AM EDT Narrative [facility] - 03/10/2025 12:27 PM EDT us Moshe Bennett MD [facility] Final Result [facility] * (ABNORMAL) ALL LIPID PROFILE (FASTING) (03/10/2025 11:29 AM EDT) TRIGLYCERIDES 59 <=150 mg/dL TBH CHOLESTEROL 206(H) <=200 mg/dL TBH HDL CHOLESTEROL 61(H) 40 - 60 mg/dL TBH Comment: > or =60 mg/dl - LOW CARDIOVASCULAR RISK <40 mg/dl - HIGH CARDIOVASCULAR RISK LDL CHOLESTEROL CALCULATED 134.0 mg/dL TB Comment: <100 mg/dl OPTIMAL 100-129 mg/dl NEAR OR ABOVE OPTIMAL 130-159 mg/dl BORDERLINE HIGH 160-189 mg/dl HIGH >190 mg/dl VERY HIGH VLDL CHOLESTEROL 11.8 mg/dL TBH CHOL HDL RATIO 3.4 TB Comment: 3.3 - 4.4 LOW RISK 4.4 - 7.1 AVERAGE RISK 7.1 - 11.0 MODERATE RISK >11.0 HIGH RISK 03/10/2025 11:2 9 AM EDT 03/10/2025 11:33 AM EDT Narrative [facility] - 03/10/2025 12:27 PM EDT Moshe Bennett MD [facility] Final Result [facility] * (ABNORMAL) ALL BASIC METABOLIC PANEL (03/10/2025 11:29 AM EDT) SODIUM 135(L) 136 - 145 mmol/L TBH POTASSIUM 3.9 3.5 - 5.1 mmol/L TBH CHLORIDE 105 98 - 107 mmol/L TBH CARBON DIOXIDE 26.9 21.0 - 32.0 mmol/L TBH ANION GAP 7.0 TBH GLUCOSE 90 74 - 106 mg/dL TBH BLOOD UREA NITROGEN 9.0 7.0 - 18.0 mg/dL TBH CREATININE 0.63 0.55 - 1.02 mg/dL TBH TBH EGFR-AF VINCENTIAN >60 >=60 mL/min/1.7 3m 2 TBH TBH EGFR-NON AF VINCENTIAN >60 >=60 mL/min/1.7 3m 2 TBH BUN CREATININE RATIO 14.3 TBH CALCIUM 8.7 8.5 - 10.1 mg/dL [facility] 03/10/2025 11:2 9 AM EDT 03/10/2025 11:33 AM EDT Narrative [facility] - 03/10/2025 12:27 PM EDT us Moshe Bennett MD [facility] Final Result [facility] * (ABNORMAL) [facility] LIVER PANEL (03/10/2025 11:29 AM EDT) BILIRUBIN TOTAL 0.5 0.2 - 1.0 mg/dL TBH BILIRUBIN DIRECT 0.1 0.0 - 0.2 mg/dL TBH ASPARTATE AMINO TRANSFERASE 11(L) 15 - 37 U/L TBH ALANINE AMINOTRANSFERASE 17 14 - 59 U/L TBH ALKALINE PHOSPHATASE 72 46 - 116 U/L TBH TOTAL PROTEIN 7.8 6.4 - 8.2 g/dL TBH ALBUMIN LEVEL 3.8 3.4 - 5.0 g/dL TBH GLOBULIN 4.0 g/dL TBH ALBUMIN GLOBULIN RATIO 0.9 TB[facility] 03/10/2025 11:2 9 AM EDT 03/10/2025 11:33 AM EDT Narrative [facility] - 03/10/2025 12:27 PM EDT us Moshe Bennett MD [facility] Final Result [facility] * ALL THYROXINE (T4) FREE (03/10/2025 11:29 AM EDT) FREE T4 1.06 0.76 - 1.46 ng/dL [facility] 03/10/2025 11:2 9 AM EDT 03/10/2025 11:33 AM EDT Narrative [facility] - 03/10/2025 12:26 PM EDT us Moshe Bennett MD [facility] Final Result [facility] * (ABNORMAL) METRO IRON AND TIBC (03/10/2025 11:29 AM EDT) Pathologist [facility] TB IRON 47.0(L) 50.0 - 170.0 ug/dL TBH TBH TOTAL IRON BINDING CAPACITY 428.0 250.0 - 450.0 ug/dL TB TBH PERCENT IRON SATURATION 11.0 % TB 03/10/2025 11:2 9 AM EDT 03/10/2025 11:33 AM EDT Narrative [facility] - 03/10/2025 12:26 PM EDT Moshe Bennett MD [facility] Final Result [facility] * MLR HEMOGLOBIN A1C (03/10/2025 11:29 AM EDT) [facility] GLYCOHEMOGLOBIN A1C 5.2 4.5 - 6.2 % [facility] Comment: ADA RECOMMENDED LIMIT 4.0 - 6.0 ADA THERAPEUTIC TARGET < 7.0 ACTION SUGGESTED > 7.0 ESTIMATED AVERAGE GLUCOSE 103 mg/dL TB 03/10/2025 11:2 9 AM EDT 03/10/2025 11:33 AM EDT Narrative [facility] - 03/10/2025 12:01 PM EDT Moshe Bennett MD [facility] Final Result [facility] * ALL CBC WITH AUTO DIFF (03/10/2025 11:29 AM EDT) [facility] TB WBC 5.2 4.0 - 11.0 10 3/uL TBH TBH RBC 4.54 4.20 - 5.40 10 6/uL TBH TBH HGB 12.4 12.0 - 16.0 g/dL TBH TBH HCT 37.9 36.0 - 48.0 % TBH TBH MCV 83.5 81.0 - 99.0 fL TBH TBH MCH 27.3 26.7 - 34.0 pg TBH TBH MCHC 32.7 29.9 - 35.2 g/dL TBH TBH RDW 13.9 11.0 - 15.0 % TBH TBH PLT 240 150 - 450 10 3/uL TBH TBH MPV 9.8 9.5 - 13.5 fL TBH NEUTROPHILS PERCENT AUTO 56.7 43.0 - 75.0 % TBH LYMPHOCYTES PERCENT AUTO 34.9 20.5 - 60.0 % TBH MONOCYTES PERCENT AUTO 6.5 1.7 - 12.0 % TBH TBH EO % 1.3 0.9 - 7.0 % TBH BASOPHILS PERCENT AUTO 0.4 0.2 - 2.0 % TBH IMMATURE GRANULOCYTES PCT AUTO 0.2 0.0 - 0.5 % TBH NEUTROPHILS ABSOLUTE AUTO 3.0 1.4 - 6.5 10 3/uL TBH LYMPHOCYTES ABSOLUTE AUTO 1.8 1.2 - 3.8 10 3/uL TBH MONOCYTES ABSOLUTE AUTO 0.3 0.3 - 0.8 10 3/uL TBH TBH EO # 0.1 0.0 - 0.7 10 3/uL TBH BASOPHILS ABSOLUTE AUTO 0.0 0.0 - 0.1 10 3/uL TBH IMMATURE GRANULOCYTES ABS AUTO 0.01 0.00 - 0.03 10 3/uL TBH 03/10/2025 11:2 9 AM EDT 03/10/2025 11:33 AM EDT Narrative [facility] - 03/10/2025 11:43 AM EDT Moshe Bennett MD [facility] Final Result Performing Organization Address City/State/[facility] de Phone Number [facility] documented in this encounter Visit Diagnoses Not on filedocumented in this encounter Care Teams City Detective Relationship Specialty Start Date End Date Moshe Bennett MD [address] [place] [address] PCP - General Family Medicine 08/25/23 Moshe Bennett MD [address] [place] [address] PCP - [facility] 01/26/24 documented as of this encounter
--- OUTSIDE RECORDS SUMMARY | 2025-03-22 12:01 | XMS_ITS | Encounter Summary ---
Author Organization [facility] Address [address] [place] [address] Care Team Providers Care Group Exercise Class Instructor Name Role Phone Moshe Bennett MD Primary Care Provider [phone] Moshe Bennett MD Unavailable Reason for Referral * Medications - Closed Specialty Diagnoses / Procedures Referred By Contac t Referred To Contact Diagnoses Attention deficit disorder (ADD) without hyperactivity Moshe Bennett MD [address] [place] [address] Phone: tel: fax: Referral ID Status Reason Start Date Expiration Date Visits Re quested Visits Authorized [id number] Closed 1 1 Reason for Visit * Reason Onset Date Comments Med Refill 03/14/2025 Encounter Details Date Type Department Care Team (Late st Contact Info) Description 03/14/2025 [facility] [address] [place] [address] Moshe Bennett MD [address] [place] [address] Attention deficit disorder (ADD) without hyperactivity; Menorrhagia with regular cycle; Pelvic pain in female Social History Tobacco Use Types Packs/Day Years Used Date Smoking Tobacco: Every Day Cigarettes Smokeless Tobacco: Never Social Connection and Isolation Panel [NHANES] A nswer Date Recorded Frequency of Communication with Friends and Fami ly Not on file 03/04/2025 Frequency of Social Gatherings with Friends and Family Not on file 03/04/2025 Attends Congregation Services Not on file 03/04 Do you belong to any clubs o r organizations such as samaritan groups, unions, fraternal or athletic groups, or [...] 09/12/2025 9:45 AM EST Office Visit [facility] [address] [place] [address] Moshe Bennett MD [address] [place] [address] documented as of this encounter Visit Diagnoses Diagnosis Attention deficit disorder (ADD) without hyperactivity Menorrhagia with regular cycle Pelvic pain in female Unspecified symptom associated with female genital organs documented in this encounter Care Teams Group Exercise Class Instructor Relationship Specialty Start Date End Date Moshe Bennett MD [address] [place] [address] PCP - General Family Medicine 08/25/23 Moshe Bennett MD [address] [place] [address] PCP - [facility] 01/26/24 documented as of this encounter
--- OUTSIDE RECORDS SUMMARY | 2025-03-22 12:01 | XMS_ITS | Encounter Summary ---
Author Organization [facility] Address [address] [place] [address] Care Team Providers Care Field Laborer Name Role Phone Moshe Bennett MD Primary Care Provider [phone] Moshe Bennett MD Unavailable Encounter Details Date Type Department Care Team (Late st Contact Info) Description 03/11/2025 Telephone [facility] [address] [place] [address] Jennifer Meng LPN [address] [place] [address] Social History Tobacco Use Types Packs/Day Years Used Date Smoking Tobacco: Every Day Cigarettes Smokeless Tobacco: Never Social Connection and Isolation Panel [NHANES] A nswer Date Recorded Frequency of Communication with Friends and Fami ly Not on file 03/04/2025 Frequency of Social Gatherings with Friends and Family Not on file 03/04/2025 Attends Evangelical Services Not on file 03/04 Do you belong to any clubs o r organizations such as episcopalian groups, unions, fraternal or athletic groups, or [...] AM EST documented as of this encounter Miscellaneous Notes * Telephone Encounter - Jennifer Meng LPN - 03/11/2025 10:13 AM EDT Pt called needing a diflucan called into her pharmacy. I left a detailed voicemail for pt stating that I would send medication in. documented in this encounter Plan of Treatment Upcoming Encounters Date Type Department Care Team (Late st Contact Info) Description 09/12/2025 9:45 AM EST Office Visit [facility] [address] [place] [address] Moshe Bennett MD [address] [place] [address] documented as of this encounter Visit Diagnoses Diagnosis Yeast infection documented in this encounter Care Teams Field Laborer Relationship Specialty Start Date End Date Moshe Bennett MD [address] [place] [address] PCP - General Family Medicine 08/25/23 Moshe Bennett MD [address] [place] [address] PCP - [facility] 01/26/24 documented as of this encounter
--- OUTSIDE RECORDS SUMMARY | 2025-03-22 12:02 | XMS_ITS | Encounter Summary ---
Author Organization [facility] Address [address] [place] [address] Care Team Providers Care Offset Duplicating Machine Operator Name Role Phone Moshe Bennett MD Primary Care Provider [phone] Moshe Bennett MD Unavailable Encounter Details Date [...] 09/12/2025 9:45 AM EST [facility] [address] [place] [address] Moshe Bennett MD [address] [place] [address] documented as of this encounter Procedures Procedure Name Priority Date/Time Associated Diagnosis Comments XR CHEST 2V 09/12/2023 11:20 AM EST documented in this encounter Results * XR CHEST 2V (09/12/2023 11:20 AM EST) Anatomical Region Laterality Modality Other 09/12/2023 11:2 0 AM EST Narrative 09/12/2023 11:22 AM EST [address] [address] XRay Report Signed Patient: STEVE NORWOOD MR#: [id number] : 1985 Acct:[id number] Age/Sex: 38 / F ADM Date: 09/12/23 Loc: [facility] Attending Dr: Roscoe Laboy D.O. Ordering Physician: Roscoe Laboy D.O. Date of Service: 09/12/23 Procedure(s): XR chest 2V Accession Number(s): [id number] cc: Roscoe Laboy D.O.; Moshe Bennett M.D. [address] [address] Patient Name: STEVE NORWOOD MRN: [facility]:[id number] date: 1985 Sex: F Assigned Patient Location: [facility] Current Patient Location: [facility] Accession/Order Number: [id number] Exam Date: 09/12/2023 11:04 Report Date: 09/12/2023 [...] Signed By: 09/12/23 1122 DD/ 1120 TD/TT: Home Health Registered Nurse: Procedure Note Radiology, Radiologist, - 10/01/2023 [facility] [place] [id number] XRay Report Signed Patient: STEVE NORWOOD NMR#: [id number] : 1985Acct:[id number] Age/Sex: 38 / FADM Date: 09/12/23 Loc: [facility] Attending Dr: Roscoe Laboy D.O. Ordering Physician: Roscoe Laboy D.O. Date of Service: 09/12/23 Procedure(s): XR chest 2V Accession Number(s): [id number] cc: Roscoe Laboy D.O.; Moshe Bennett M.D. [place] [address] Patient Name: STEVE NORWOOD MRN: [id number] date: 1985 Sex: F Assigned Patient Location: [facility] Current Patient Location: [facility] Accession/Order Number: [id number] Exam Date: 09/12/2023 11:04 Report Date: 09/12/2023 [...] M.D. Signed By:09/12/23 1122 DD/ 1120 TD/TT: Home Health Registered Nurse: us Generic External Data Provider [facility] Final Result documented in this encounter Visit Diagnoses Not on filedocumented in this encounter Care Teams Offset Duplicating Machine Operator Relationship Specialty Start Date End Date Moshe Bennett MD [address] [place] [address] PCP - General Family Medicine 08/25/23 Moshe Bennett MD [address] [place] [address] [facility] 01/26/24 documented as of this encounter
--- OUTSIDE RECORDS SUMMARY | 2025-03-22 12:02 | XMS_ITS | Encounter Summary ---
Author Organization [facility] Address [address] [place] [address] Care Team Providers Care Broomcorn Sorter Name Role Phone Moshe Bennett MD Primary Care Provider [phone] Moshe Bennett MD Unavailable Encounter Details Date Type Department Care Team (Late st Contact Info) Description 03/10/2025 [facility] [address] [place] [address] Moshe Bennett MD [address] [place] [address] Social History Tobacco Use Types Packs/Day Years Used Date Smoking Tobacco: Every Day Cigarettes Smokeless Tobacco: Never Social Connection and Isolation Panel [NHANES] A nswer Date Recorded Frequency of Communication with Friends and Fami ly Not on file 03/04/2025 Frequency of Social Gatherings with Friends and Family Not on file 03/04/2025 Attends Mosque Services Not on file 03/04 Do you belong to any clubs o r organizations such as islam groups, unions, fraternal or athletic groups, or [...] Visit [facility] [address] [place] [address] Moshe Bennett MD [address] [place] [address] documented as of this encounter Visit Diagnoses Not on filedocumented in this encounter Care Teams Broomcorn Sorter Relationship Specialty Start Date End Date Moshe Bennett MD [address] [place] [address] PCP - General Family Medicine 08/25/23 Moshe Bennett MD [address] [place] [address] PCP - [facility] 01/26/24 documented as of this encounter
--- OUTSIDE RECORDS SUMMARY | 2025-03-22 12:02 | XMS_ITS | Clinical Summary ---
Author Organization [facility] Address [address] [place] [address] Care Team Providers Care Oil Heater Operator Name Role Phone Moshe Bennett MD Primary Care Provider [phone] Moshe Bennett MD Unavailable Allergies No known active allergies Medications fluticasone (Flonase) 50 MCG/ACT nasal sprayIndications: Seasonal allergic rhinitis due to pollen SPRAY 2 SPRAYS INTO EACH NOSTRIL EVERY DAY 48 mL 2 10/29/19 25 Active Clindamycin Phos, Once-Daily, (Clindagel) 1 % [...] (30 mg) by mouth Daily 30 capsule 03/14/20 25 025 Active metFORMIN XR (Glucophage-XR) 500 MG 24 hr tabletIndications :Menorrhagia with regular cycle,Pelvic pain in female Take 1 tablet (500 mg) by mouth in the evening. Take with meals Do not crush, chew, or split. 30 tablet 5 03/14/20 25 Active metFORMIN XR (Glucophage-XR) 500 MG 24 hr tabletIndications :Menorrhagia with regular cycle,Pelvic pain in female Take 1 tablet (500 mg) by mouth in the evening. Take with meals Do not crush, chew, or split. 30 tablet 11 06/07/20 24 025 Discontinu ed(Reorder ) amphetamine-dextr oamphetamine XR (Adderall XR) 30 MG 24 hr capsuleIndication s:Attention deficit disorder (ADD) without hyperactivity Take 1 capsule (30 mg) by mouth Daily 30 capsule 02/15/20 25 025 Discontinu ed(Reorder ) fluconazole (Diflucan) 150 MG tabletIndications :Yeast infection Take 1 tablet (150 mg) by mouth 1 (one) time for 1 dose This is a 1 time dose, take single tablet by mouth. 1 tablet 1 03/11/20 25 025 Active Problems Problem Noted Date Diagnosed Date [...] Plan (09/08/2024 11:36 AM EST): Follow with gis technician. ADD (attention deficit disorder) without hyperac tivity [...] EST): Continue metformin and follow up with gis technician. Encounters Date Type Department Care Team Description 03/14/2025 Refill [facility] [address] [place] [address] Moshe Bennett MD Attention deficit disorder (ADD) without hyperactivity; Menorrhagia with regular cycle; Pelvic pain in female 03/11/2025 Telephone [facility] [address] [place] [address] [place] [address] Jennifer Meng LPN 03/10/2025 10:30 AM EDT Office Visit [facility] [address] [place] [address] Moshe Bennett MD ADD (attention deficit 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 (Primary Dx); Bipolar 1 disorder, depressed, mild (HCC); Acne vulgaris; Lipoma of torso; Abnormal TSH; Annual physical exam 03/10/2025 Results Follow-Up [facility] [address] [place] [phone] Moshe Bennett MD ALL CBC WITH AUTO DIFF, MLR HEMOGLOBIN A1C, METRO IRON AND TIBC, Additional followed-up results: 5 03/10/2025 Clinisync Result Encounter [facility] External Department Unsolicited Moshe Bennett MD 03/10/2025 Bamboo flowsheet [facility] [address] [place] [phone] Moshe Bennett MD 03/04/2025 Travel 02/14/2025 Refill [facility] [address] [place] [address] Moshe Bennett MD Attention deficit disorder (ADD) without hyperactivity 01/10/2025 Refill [facility] [address] [place] [address] Moshe Bennett MD Attention deficit disorder (ADD) [...] and Family Not on file 03/04/2025 Attends [employer] Not on file 03/04 Do you belong to any clubs o r organizations such as restoration groups, unions, fraternal or athletic groups, or [...] Office Visit [facility] [address] [place] [address] Moshe Bennett MD [address] [place] [address] Health Maintenance Due Date Last Done Comments Influenza Vaccine (#1) 2025 Cervical Cancer Screening 09/01/2028 HPV/Cotest 09/01/2028 Pap Smear 09/01/2028 09/01/2023 Procedures Procedure Name Priority Date/Time Associated Diagnosis Comments ALL THYROID STIM HORMONE Routine 03/10/2025 11:29 AM EDT ALL LIPID PROFILE (FASTING) Routine 03/10/2025 11:29 AM EDT ALL BASIC METABOLIC PANEL Routine 03/10/2025 11:29 AM EDT HMHP LIVER PANEL Routine 03/10/2025 11:2 9 AM EDT ALL THYROXINE (T4) FREE Routine 03/10/2025 11:29 AM EDT METRO IRON AND TIBC Routine 03/10/2025 1 1:29 AM EDT MLR HEMOGLOBIN A1C Routine 03/10/2025 11 :29 AM EDT ALL CBC WITH AUTO DIFF Routine 03/10/2025 11:29 AM EDT PAP SMEAR Routine 09/01/2023 12:00 AM EST from Last 3 Months or Most Recently Relevant to Health Maintenance Results * MLR HEMOGLOBIN A1C (03/10/2025 11:29 AM EDT) GLYCOHEMOGLOBIN A1C 5.2 4.5 - 6.2 % TB Comment: ADA RECOMMENDED LIMIT 4.0 - 6.0 ADA THERAPEUTIC TARGET < 7.0 ACTION SUGGESTED > 7.0 ESTIMATED AVERAGE GLUCOSE 103 mg/dL TBH 03/10/2025 11:2 9 AM EDT 03/10/2025 11:33 AM EDT Narrative CLINISYNC - 03/10/2025 12:01 PM EDT us Mohse Bennett MD CL[facility] Final Result [facility] * (ABNORMAL) METRO IRON AND TIBC (03/10/2025 11:29 AM EDT) TBH IRON 47.0(L) 50.0 - 170.0 ug/dL TBH TBH TOTAL IRON BINDING CAPACITY 428.0 250.0 - 450.0 ug/dL TBH TBH PERCENT IRON SATURATION 11.0 % TBH 03/10/2025 11:2 9 AM EDT 03/10/2025 11:33 AM EDT Narrative CLIN[facility]NC - 03/10/2025 12:26 PM EDT Moshe BEAUCHAMPISYSONAM Final Result [facility] TB * (ABNORMAL) [facility] LIVER PANEL (03/10/2025 11:29 AM EDT) BILIRUBIN TOTAL 0.5 0.2 - 1.0 mg/dL TB BILIRUBIN DIRECT 0.1 0.0 - 0.2 mg/dL [...] CLINISYNC - 03/10/2025 12:27 PM EDT Moshe BEAUCHAMPISYSONAM Final Result Performing Organization Address [facility]/ZIP Co de Phone Number [facility] TB * ALL THYROXINE (T4) FREE (03/10/2025 11:29 AM EDT) FREE T4 1.06 0.76 - 1.46 ng/dL TB 03/10/2025 11:2 9 AM EDT 03/10/2025 11:33 AM EDT Narrative CLINISYNC - 03/10/2025 12:26 PM EDT Moshe BEAUCHAMPISYSONAM Final Result [facility] TBH * ALL THYROID STIM HORMONE (03/10/2025 11:29 AM EDT) THYROID STIMULATING HORMONE 2.465 0.358 - 3.740 uIU/mL TB 03/10/2025 11:2 9 AM EDT 03/10/2025 11:33 AM EDT Narrative CLINISYNJ - 03/10/2025 12:27 PM EDT Moshe BEAUCHAMPISYSONAM Final Result Performing Organization Address [facility]/ZIP Co de Phone Number [facility] * (ABNORMAL) ALL LIPID PROFILE (FASTING) (03/10/2025 11:29 AM EDT) TRIGLYCERIDES 59 <=150 mg/dL TBH CHOLESTEROL 206(H) <=200 mg/dL TB HDL CHOLESTEROL 61(H) 40 - 60 mg/dL TB Comment: > or =60 mg/dl - LOW CARDIOVASCULAR RISK <40 mg/dl - HIGH CARDIOVASCULAR RISK LDL CHOLESTEROL CALCULATED 134.0 mg/dL TB Comment: <100 mg/dl OPTIMAL 100-129 mg/dl NEAR OR ABOVE OPTIMAL 130-159 mg/dl BORDERLINE HIGH 160-189 mg/dl HIGH >190 mg/dl VERY HIGH VLDL CHOLESTEROL 11.8 mg/dL TB CHOL HDL RATIO 3.4 TB Comment: 3.3 - 4.4 LOW RISK 4.4 - 7.1 AVERAGE RISK 7.1 - 11.0 MODERATE RISK >11.0 HIGH RISK 03/10/2025 11:2 9 AM EDT 03/10/2025 11:33 AM EDT Narrative CLINISYNJ - 03/10/2025 12:27 PM EDT Moshe KENNEDY Final Result Performing Organization Address [facility]/ZIP Co de Phone Number [facility] * ALL CBC WITH AUTO DIFF (03/10/2025 11:29 AM EDT) TB WBC 5.2 4.0 - 11.0 10 3/uL TBH TBH RBC 4.54 4.20 - 5.40 10 6/uL TBH TB HGB 12.4 12.0 - 16.0 g/dL TBH [...] Narrative CLINISYNC - 03/10/2025 11:43 AM EDT us Moshe Bennett MD [facility] Final Result [facility] * (ABNORMAL) ALL BASIC METABOLIC PANEL (03/10/2025 [...] 0.55 - 1.02 mg/dL TBH TBH EGFR-AF [place] >60 >=60 mL/min/1.7 3m 2 TBH TBH EGFR-NON AF [place] >60 >=60 mL/min/1.7 3m 2 TBH BUN CREATININE RATIO 14.3 TBH CALCIUM 8.7 8.5 - 10.1 mg/dL TBH 03/10/2025 11:2 9 AM EDT 03/10/2025 11:33 AM EDT Narrative CLINISYNC - 03/10/2025 12:27 PM EDT us Moshe Bennett MD CL[facility] Final Result Performing Organization Address [facility]/ZIP Co de Phone Number [facility] * Pap Smear (09/01/2023 12:00 AM EST) Swab Cervical swab / Unknown us Tyrone Laboy DO LAB CYTOLOGY ORDERABLES Final Re sult EXTERNAL LAB from Last 3 Months or Most Recently Relevant to Health Maintenance Insurance [employer] Care Teams Oil Heater Operator Relationship Specialty Start Date End Date Moshe Bennett MD [address] [place] [address] PCP - [facility] 08/25/23 Moshe Bennett MD [address] [place] [address] PCP - [facility] 01/26/24
--- OUTSIDE RECORDS SUMMARY | 2025-03-22 12:02 | XMS_ITS | Encounter Summary ---
Author Organization [facility] Address [address] [place] [address] Care Team Providers Care Vaccinator Name Role Phone Moshe Bennett MD Primary Care Provider [phone] Moshe Bennett MD Unavailable Encounter Details Date Type Department Care Team (Late st Contact Info) Description 09/12/2023 Clinisync Result Encounter [facility] External Department Unsolicited Roscoe Laboy, DO [address] [place] [address] [place] [address] Social History Tobacco Use Types Packs/Day Years [...] 09/12/2025 9:45 AM EST Office Visit [facility] [address] [place] [phone] Moshe Bennett MD [address] [place] [address] documented as of this encounter Procedures Procedure Name Priority Date/Time Associated Diagnosis Comments XR CHEST 2V 09/12/2023 11:20 AM EST documented in this encounter Results * XR CHEST 2V (09/12/2023 11:20 AM EST) Anatomical Region Laterality Modality Other 09/12/2023 11:2 0 AM EST Narrative 09/12/2023 11:22 [place] [address] XRay Report Signed Patient: STEVE NORWOOD MR#: [id number] : 1985 Acct:[id number] Age/Sex: 38 / F ADM Date: 09/12/23 Loc: [facility] Attending Dr: Roscoe Laboy D.O. Ordering Physician: Roscoe Laboy D.O. Date of Service: 09/12/23 Procedure(s): XR chest 2V Accession Number(s): [id number] cc: Roscoe Laboy D.O.; Moshe Bennett M.D. [place] [id number] Patient Name: STEVE NORWOOD MRN: [id number] date: 1985 Sex: F Assigned Patient Location: [facility] Current Patient Location: [facility] Accession/Order Number: [id number] Exam Date: 09/12/2023 11:04 Report Date: 09/12/2023 [...] Signed By: 09/12/23 1122 DD/ 1120 TD/TT: Show Girl: Procedure Note Radiology, Radiologist, MD - 09/12/[address] [address] XRay Report Signed Patient: STEVE NORWOOD NMR#: [id number] : 1985Acct:[id number] Age/Sex: 38 / FADM Date: 09/12/23 Loc: [facility] Attending Dr: Roscoe Laboy D.O. Ordering Physician: Roscoe Laboy D.O. Date of Service: 09/12/23 Procedure(s): XR chest 2V Accession Number(s): [id number] cc: Roscoe Laboy D.O.; Moshe Bennett M.D. The [address] [address] Patient Name: STEVE NORWOOD MRN: [id number] date: 1985 Sex: F Assigned Patient Location: [facility] Current Patient Location: [facility] Accession/Order Number: [id number] Exam Date: 09/12/2023 11:04 Report Date: 09/12/2023 [...] M.D. Signed By:09/12/23 1122 DD/ 1120 TD/TT: Show Girl: Roscoe Laboy DO [facility] Final Result documented in this encounter Visit Diagnoses Not on filedocumented in this encounter Care Teams Vaccinator Relationship Specialty Start Date End Date Moshe Bennett MD [address] [place] [address] PCP - General Family Medicine 08/25/23 Moshe Bennett MD [address] [place] [address] PCP - [facility] 01/26/24 documented as of this encounter
--- OUTSIDE RECORDS SUMMARY | 2025-03-22 12:02 | XMS_ITS | Clinical Summary ---
Author Organization [employer] [facility] Address [id number] [address] [place] [address] Care Team Providers Care Health And Wellness Instructor Name Role Phone Moshe Bennett MD Primary Care Provider [phone] Allergies No known active allergies Medications No [...] on file Insurance [employer] Care Teams Health And Wellness Instructor Relationship Specialty Start Date End Date Moshe Bennett MD PCP - General 06/12/16
--- OUTSIDE RECORDS SUMMARY | 2025-03-22 12:02 | XMS_ITS | Encounter Summary ---
Author Organization [facility] Address [address] [place] [address] Care Team Providers Care Product Manager E Commerce Name Role Phone Moshe Bennett MD Primary Care Provider [phone] Moshe Bennett MD Primary Care Provider [phone] Moshe Bennett MD Unavailable Encounter Details Date [...] 09/12/2025 9:45 AM EST Office Visit [facility] [address] [place] [address] Moshe Bennett MD [address] [place] [address] documented as of this encounter Procedures Procedure Name Priority Date/Time Associated Diagnosis Comments US PELVIS W/ TRANSVAGINAL 08/18/2023 11:22 AM EST documented in this encounter Results * US PELVIS W/ TRANSVAGINAL (08/18/2023 11:22 AM EST) Anatomical Region Laterality Modality Other 08/18/2023 11:2 2 AM EST Narrative 08/18/2023 11:25 AM EST [address] [address] Ultrasound Report Signed Patient: STEVE NORWOOD MR#: [id number] : 1985 Acct:[id number] Age/Sex: 38 / F ADM Date: 08/18/23 Loc: US Attending Dr: Roscoe Laboy D.O. Ordering Physician: Roscoe Laboy D.O. Date of Service: 08/18/23 Procedure(s): US pelvis w/ transvaginal Accession Number(s): [id number] cc: Roscoe Laboy D.O.; Moshe Bennett M.D. [place] [id number] Patient Name: STEVE NORWOOD MRN: [id number] date: 1985 Sex: F Assigned Patient Location: [place] Current Patient Location: [place] Accession/Order Number: [id number] Exam Date: 08/18/2023 09:38 Report Date: 08/18/2023 [...] Signed By: 08/18/23 1125 DD/ 1122 TD/TT: Civil Service Clerk: Procedure Note Radiology, Radiologist, - 08/18/2023 [place] [address] Ultrasound Report Signed Patient: STEVE NORWOOD [facility]#: [id number] : 1985Acct:[id number] Age/Sex: 38 / FADM Date: 08/18/23 Loc: US Attending Dr: Roscoe Laboy D.O. Ordering Physician: Roscoe Laboy D.O. Date of Service: 08/18/23 Procedure(s): US pelvis w/ transvaginal Accession Number(s): [id number] cc: Roscoe Laboy D.O.; Moshe eBnnett M.D. The [place] [address] Patient Name: STEVE NORWOOD MRN: [id number] date: 1985 Sex: F Assigned Patient Location: Current Patient Location: [place] Accession/Order Number: [id number] Exam Date: 08/18/2023 09:38 Report Date: 08/18/2023 [...] M.D. Signed By:08/18/23 1125 DD/ 1122 TD/TT: Civil Service Clerk: us Generic External Data Provider [facility] Final Result documented in this encounter Visit Diagnoses Not on filedocumented in this encounter Care Teams Product Manager E Commerce Relationship Specialty Start Date End Date Moshe Bennett MD PCP - General [facility] Medicine 02/07/23 08/24/23 Moshe Bennett MD [address] [place] [address] PCP - [facility] 08/25/23 Moshe Bennett MD [address] [place] [address] PCP - [facility] 01/26/24 documented as of this encounter
--- OUTSIDE RECORDS SUMMARY | 2025-03-22 12:08 | XMS_ITS | CCD ---
Author Organization [facility] Care Team Providers Care Manager Credit Collections Name Role Phone DR MOSHE MONTES Primary Care Unavailable MARIAH COCHRAN Admitting Unavailable MARIAH COCHRAN Attending Unavailable MARIAH COCHRAN Consulting Unavailable SIMON, DR MOSHE Brantley Primary Care Unavailable KANNAN LISA Consulting Unavailable JACQUIE, BHAKTI Admitting Unavailable JACQUIE, BHAKTI Attending Unavailable SIMON, DR MOSHE Brantley Primary Care Unavailable MARIAH COCHRAN Admitting Unavailable MARIAH COCHRAN Attending Unavailable SIMON, DR MOSHE Brantley Admitting Unavailable SIMON, DR MOSHE Brantley Attending Unavailable SIMON, DR MOSHE Brantley Primary Care Unavailable SIMON, DR MOSHE Brantley Consulting Unavailable SIMON, DR MOSHE Brantley Admitting Unavailable MARLAEREYohana, DR MOSHE Brantley Attending Unavailable SIMON, DR MOSHE Brantley Primary Care Unavailable SIMON, DR MOSHE Brantley Consulting Unavailable Moshe Montes MD Primary Care Provider [phone] Tyrone Laboy Attending Unavailable Tyrone Laboy Admitting Unavailable Moshe Montes MD Unavailable MOSHE MONTES Attending Unavailable MOSHE MONTES Attending Unavailable Medications Current Medications Medication Drug Class(es) Dates Sig (Normalized) Sig (Original) acetaminophen 325 mg / HYDROcodone bitartrate 5 mg oral tablet (10 sources) Opioid Agonist Start: 09-26-2023 End: 09-08-2024 take 1 tablet by mouth every four hours HYDROcodone-acetam inophen ([place]) 5-325 MG tablet TAKE 1 TABLET BY MOUTH EVERY 4 HOURS 09/26/2023 09/08/2024 Discontinued cefdinir 300 mg oral capsule (2 sources) [...] 04/03/2024 Active clindamycin 0.01 mg/mg topical gel (4 sources) Lincosamide Antibacterial Start: 03-10-2025 Clindamycin Phos, [...] crush, chew, or split. 30 tablet 5 03/14/2025 Active Start: 08-05-2023 End: 09-04-2023 take 1 tablet by mouth every twenty-four hours at mealtime metFORMIN XR (Glucophage-XR) 500 MG 24 hr tablet Indications: Menorrhagia with regular cycle , Pelvic pain in female Take 1 tablet (500 mg) by mouth in the evening. Take with meals Do not crush, chew, or split. 30 tablet 11 08/05/2023 Active tretinoin 1 mg/ml topical cream (4 sources) Retinoid Start: 03-10-2025 tretinoin (Ret in-A) 0.1 % cream Indications: Acne vulgaris Apply topically at bedtime 45 g 3 03/10/2025 Active Start: 03-10-2025 tretinoin (Ret in-A) 0.1 % cream Indications: Acne vulgaris Apply topically at bedtime 45 g 3 03/10/2025 Active Start: 03-10-2025 tretinoin (Ret in-A) 0.1 % cream Indications: Acne vulgaris Apply topically at bedtime 45 g 3 03/10/2025 Active Completed/Discontinued Medications Medication Drug Class(es) Dates Sig (Normalized) Sig (Original) 24 hr amphetamine aspartate 7.5 mg / amphetamine sulfate 7.5 mg / dextroamphetamine saccharate 7.5 mg / dextroamphetamine sulfate 7.5 mg extended release oral capsule (20 sources) Central Nervous System Stimulant Start: 02-27-2024 End: 04-13-2025 take 1 capsule by mouth once daily amphetamine-dextro amphetamine XR (Adderall XR) 30 MG 24 hr capsule 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 30 capsule 0 09/02/2023 Active Problems Active Problems Problem Classification Problem Date Documented Date Episodic/Chronic Abdominal pain (3 sources) Pain in female pelvis; Translations: [Pelvic [...] 09-02-2023 Chronic Other and unspecified benign neoplasm (8 sources) Lipoma of trunk; Translations: [Benign lipomatous neoplasm of skin and subcutaneous tissue of trunk] Onset: 5 03-10-2025 Episodic Other endocrine disorders (20 sources) Polycystic ovary syndrome; Translations: [Polycystic ovarian syndrome] Onset: 4 03-08-2024 Chronic Other female genital disorders (2 sources) Pelvic congestion syndrome; Translations: [Other specified conditions associated with female genital organs and menstrual cycle] 09-01-2023 Episodic Other skin disorders (4 sources) Acne vulgaris; Translations: [Acne vulgaris] 03-10-2025 Episodic Other skin disorders (4 sources) Acne; Translations: [Acne, unspecified] Onset: 5 03-10-2025 Episodic Other upper respiratory disease (2 sources) Allergic rhinitis due to pollen; Translations: [Allergic rhinitis due to pollen] 10-06-2024 Chronic Other upper respiratory infections (6 sources) Acute upper respiratory infection, unspecified; Translations: [Acute pharyngitis, unspecified] Onset: 2 Episodic Peripheral and visceral atherosclerosis (17 sources) Intermittent claudication; Translations: [Peripheral vascular disease, [...] Problem Date Documented Da te Episodic/Chronic Other screening for suspected conditions (not mental disorders or infectious disease) (20 sources) Thyroid hormone tests abnormal; Translations: [Other specified abnormal findings of blood chemistry] Onset: 03-08-2024 03-08-2024 Episodic Other skin disorders (1 source) Hirsutism; Translations: [...] CBC WITH AUTO DIFFon BASOPHILS ABSOLUTE AUTO 0 [facility] Basophils/100 WBC (Bld) 0.4 % 0.2 - 2.0 % [facility] Eosinophils/100 WBC (Bld) 1.3 % 0.9 - 7.0 % [facility] Erythrocyte distribution width (RBC) [Ratio] 13.9 % 11.0 - 15.0 % [facility] Hematocrit (Bld) [Volume fraction] 37.9 % 36.0 - 48.0 % [facility] ([facility] [Mass/Vol] 12.4 g/dL 12.0 - 16.0 g/dL [facility] IMMATURE GRANULOCYTES ABS AUTO 0.01 [facility] Immature granulocytes/100 WBC (Bld) 0.2 % 0.0 - 0.5 % [facility] LYMPHOCYTES ABSOLUTE AUTO 1.8 [facility] Lymphocytes/100 WBC (Bld) 34.9 % 20.5 - 60.0 % [facility] MCH (RBC) [Entitic mass] 27.3 pg 26.7 - 34.0 pg [facility] MCHC (RBC) [Mass/Vol] 32.7 g/dL 29.9 - 35.2 g/dL [facility] MCV (RBC) [Entitic vol] 83.5 fL 81.0 - 99.0 fL [facility] MONOCYTES ABSOLUTE AUTO 0.3 [facility] Monocytes/100 WBC (Bld) 6.5 % 1.7 - 12.0 % [facility] NEUTROPHILS ABSOLUTE AUTO 3 [facility] Neutrophils/100 WBC (Bld) 56.7 % 43.0 - 75.0 % [facility] Platelet mean volume (Bld) [Entitic vol] 9.8 fL 9.5 - 13.5 fL [facility] EO # 0.1 [facility] PLT 240 [facility] RBC 4.54 [facility] WBC 5.2 [facility] CBC WITH AUTO DIFFon BASOPHILS ABSOLUTE AUTO 0.0 [facility] Basophils/100 WBC (Bld) 0.6 % 0.2 - 2.0 % [facility] Eosinophils/100 WBC (Bld) 1.5 % 0.9 - 7.0 % [facility] Erythrocyte distribution width (RBC) [Ratio] 13.3 % 11.0 - 15.0 % [facility] Hematocrit (Bld) [Volume fraction] 36.4 % 36.0 - 48.0 % [facility] Hemoglobin (Bld) [Mass/Vol] 11.5 g/dL Low 12.0 - 16.0 g/dL [facility] IMMATURE GRANULOCYTES ABS AUTO 0.01 [facility] Immature granulocytes/100 WBC (Bld) 0.2 % 0.0 - 0.5 % [facility] Interpretation and review of laboratory results Abnormal [facility] LYMPHOCYTES ABSOLUTE AUTO 1.7 [facility] Lymphocytes/100 WBC (Bld) 31.7 % 20.5 - 60.0 % [facility] MCH (RBC) [Entitic mass] 26.8 pg 26.7 - 34.0 pg [facility] MCHC (RBC) [Mass/Vol] 31.6 g/dL 29.9 - 35.2 g/dL [facility] MCV (RBC) [Entitic vol] 84.8 fL 81.0 - 99.0 fL [facility] MONOCYTES ABSOLUTE AUTO 0.4 [facility] Monocytes/100 WBC (Bld) 6.9 % 1.7 - 12.0 % [facility] NEUTROPHILS ABSOLUTE AUTO 3.1 [facility] Neutrophils/100 WBC (Bld) 59.1 % 43.0 - 75.0 % [facility] Platelet mean volume (Bld) [Entitic vol] 9.6 fL 9.5 - 13.5 fL [facility].1 [facility] PLT 246 [facility] RBC 4.29 [facility] WBC 5.2 [facility] Matias 09-26-2023 L Specimen: [id number] Received: 09/26/23 Status: BEREKET Valdovinos Num: [id number] Spec Type: Surgical Subm Dr: Tyrone Laboy Tissues: A Endometrium - Curettings (ENDOMETRIUM CURETTINGS) Procedures: HE/2, Gross/Micro L4 Age/ Patient Sex Location Account Attending Physician Benny Wynne N 38/F LABELL [id number] Tyrone Laboy SPEC NUM: [id number] RECD: 09/26/23 STATUS: BEREKET VALDOVINOS NUM: [id number] EMMETT: 09/26/[address]: Tyrone Laboy ENTERED: 09/26/23 [facility] DR: Martine,Lab SPEC TYPE: Surgical DEPT: EMETERIO [...] in one cassette labeled A1. CPT Codes 42160 -------- -------- Specimen: [id number] Received: 09/26/23 Status: BEREKET Valdovinos Num: [id number] Spec Type: Surgical Subm Dr: Tyrone Laboy Tissues: A Endometrium - Curettings (ENDOMETRIUM CURETTINGS) Procedures: HE/2, Gross/Micro L4 -------- Patient: Benny Wynne N [id number] (Continued) -------- Signed (signature on file) Hussain Burgess MD 09/29/23 1840 [facility] IGP,APTIMA HPV,AGE GDLNon AGE GDLN ACOG TESTING Note . [facility] Comment on above: TESTS RESULT FLAG UN ITS REF RANGE LAB Clinician Provided Cytology Information Source.............Cervix;Endocervix No. of containers..01 ThinPrep Vial Age Algo ACOG Irena... 31 FLAG LEGEND: L-Low Normal,H-High Normal,LL-Alert Low,HH-Alert High <-Panic Low,>-Panic High,A-Abnormal,AA-Critical Abnormal Performed at: 01 =[address] [id number] Latisha Jain MD, HPV APTIMA Negative Negative [facility] Comment on above: This nucleic acid am plification test detects fourteen high- risk HPV types (16,18,31,33,35,39,45,51,52,56,58,59,66,68) without differentiation. Performed at: =[address] [id number] Reception Agent: Latisha Jain MD, Phone: [phone] Performed at: [address] [id number] Reception Agent: Latisha Jain MD, Phone: [phone] IGP, APTIMA HPV, RFX 16/18,45 Note . [facility] Comment on above: TESTS RESULT FLAG U NITS REF RANGE LAB DIAGNOSIS: 02 NEGATIVE FOR INTRAEPITHELIAL LESION OR MALIGNANCY. Specimen adequacy: 02 Satisfactory for evaluation. Endocervical and/or squamous metaplastic cells (endocervical component) are present. Performed by: Tommie Thorpe, Screw Cutter (ASCP) . 02 Note: Note 02 The [...] <-Panic Low,>-Panic High,A-Abnormal,AA-Critical Abnormal Performed at: [address] [phone] Latisha Jain MD, BRUSH-SPATULA CERVIX ENDOCERVIX [facility] Cov[facility] ([facility])on SARS-CoV-2 (COVID-19) RNA TIERA+probe Ql (Unsp spec) Not detected Normal NOT DETECTED [facility] Comment on above: Result Comment: When [...] for this test is supported by the [place] of Health and Human Service's declaration that [...] L IVER, BMP, LIPID, FT3, TSH #### [facility] [address] [place] [address] Dr. Nikita Burgess INFLUENZA A AND B AGon 07-04 INFLUANE SEE BELOW Normal [facility] Comment on above: Result Comment: Nega tive for Flu A protein angiten. Infection due to Flu A cannot be ruled out. Flu A angiten in the sample may be below the detection limit of the test. Performed By: #### I NFLUAB #### [facility] [address] [place] [address] Dr. Nikita Burgess INFLUBNEG SEE BELOW Normal [facility] Comment on above: Result Comment: Nega tive for Flu B protein antigen. Infection due to Flu B cannot be ruled out. Flu B antigen in the sample may be below the detection limit of the test. Performed By: #### I NFLUAB #### [facility] [address] [place] [address] Dr. Nikita Burgess INFLUENZA A AG Negative Normal NEGATIVE SEE COMMENT [facility] Comment on above: Performed By: #### I NFLUAB #### [facility] [address] [place] [address] Dr. Nikita Burgess INFLUENZA B AG Negative Normal NEGATIVE SEE COMMENT [facility] Comment on above: Performed By: #### I NFLUAB #### [facility] [address] [place] [address] Dr. Nikita Burgess INTERNAL CONTROLS Within Normal Limits Normal Wi thin Normal Limits [facility] Comment on above: Performed By: #### I NFLUAB #### [facility] [address] [place] [address] Dr. Nikita Burgess GROUP A STREP CULTUREon 04-27 S. pyogenes Ag Ql (Unsp spec) Culture Observations: NEGATIVE FOR GROUP A STREPTOCOCCUS. Normal [facility] Comment on above: Performed By: #### L IVER, BMP, LIPID, FT3, TSH #### [facility] [address] [place] [address] Dr. Nikita Burgess STREPT SCREENon 05-12-2022 STREP SCREEN A Negative Normal NEGATIVE [facility] Comment on above: Performed By: #### L IVER, BMP, LIPID, FT3, TSH #### [facility] [address] [address] [address] Nikita Burgess ESTRONEon 11-26-2021 Estrone, Serum 30 pg/mL Normal 27-231 [facility] Comment on above: Result Comment: Rang e Adult (Premenopausal) 27 - 231 Menstrual Cycle (1-10 days) 19 - 149 Menstrual Cycle (11-20 days) 32 - 176 Menstrual Cycle (21-30 days) 37 - 200 Please note reference interval change Performed By: #### L IVER, BMP, LIPID, FT3, TSH #### [facility] [address] [address] [address] Nikita Burgess DHEA-SULFATEon 11-22-2021 DHEA-Sulfate 123.0 ug/dL Normal 57.3-279.2 [facility] Comment on above: Performed By: #### L IVER, BMP, LIPID, FT3, TSH #### [facility] [address] [address] [address] Nikita Burgess ESTRADIOLon 11-22-2021 Estradiol 83.2 pg/mL Normal [facility] Comment on above: Result Comment: Adul t Female: Follicular phase 12.5 - 166.0 Ovulation phase 85.8 - 498.0 Luteal phase 43.8 - 211.0 Postmenopausal <6.0 - 54.7 1st trimester 215.0 - >4300.0 Dejah ECLIA methodology Performed By: #### L IVER, BMP, LIPID, FT3, TSH #### [facility] [address] [address] [address] Nikita Burgess FSHon 11-22-2021 FSH 3.0 mIU/mL Normal [facility] Comment on above: Result Comment: Adul t Female: Follicular phase 3.5 - 12.5 Ovulation phase 4.7 - 21.5 Luteal phase 1.7 - 7.7 Postmenopausal 25.8 - 134.8 Performed By: #### L IVER, BMP, LIPID, FT3, TSH #### [facility] [address] [place] [address] Dr. Nikita Burgess LUTEINIZING HORMONE (LH)on 0 11-22-2021 LH 1.8 mIU/mL Normal [facility] Comment on above: Result Comment: Adul t Female: Follicular phase 2.4 - 12.6 Ovulation phase 14.0 - 95.6 Luteal phase 1.0 - 11.4 Postmenopausal 7.7 - 58.5 Performed By: #### L IVER, BMP, LIPID, FT3, TSH #### [facility] [address] [place] [address] Dr. Nikita Burgess PROGESTERONEon 11-22-2021 Progesterone 10.2 ng/mL Normal [facility] Comment on above: Result Comment: Foll icular phase 0.1 - 0.9 Luteal phase 1.8 - 23.9 Ovulation phase 0.1 - 12.0 First trimester 11.0 - 44.3 Second trimester 25.4 - 83.3 Third trimester 58.7 - 214.0 Postmenopausal 0.0 - 0.1 Performed By: #### L IVER, BMP, LIPID, FT3, TSH #### [facility] [address] [place] [address] Dr. Nikita Burgess PROLACTINon 11-22-2021 Prolactin 6.1 ng/mL Normal 4.8-23.3 [facility] Comment on above: Performed By: #### L IVER, BMP, LIPID, FT3, TSH #### [facility] [address] [place] [address] Dr. Nikita Burgess TESTOSTERONE, TOTALon 2021 Testosterone [Mass/Vol] 11 ng/dL Normal 8-60 [facility] Comment on above: Performed By: #### L IVER, BMP, LIPID, FT3, TSH #### [facility] [address] [place] [address] Dr. Nikita Burgess CBC AUTO DIFFon 11-21-2021 BASO # 0.0 103/ul Normal 0.0-0.1 [facility] Comment on above: Performed By: #### C BC #### [facility] [address] [place] [address] Dr. Nikita Burgess Basophils/100 WBC (Bld) 0.6 % Normal 0.2-2.0 [facility] Comment on above: Performed By: #### C BC #### [facility] [address] [place] [address] Dr. Nikita Burgess EO # 0.1 103/ul Normal 0.0-0.7 [facility] Comment on above: Performed By: #### C BC #### [facility] [address] [place] [address] Dr. Nikita Burgess Eosinophils/100 WBC (Bld) 1.5 % Normal 0.9-7.0 [facility] Comment on above: Performed By: #### C BC #### [facility] [address] [place] [address] Dr. Nikita Burgess Erythrocyte distribution width (RBC) [Ratio] 13.7 % Normal 11.0-15.0 [facility] Comment on above: Performed By: #### C BC #### [facility] [address] [place] [address] Dr. Nikita Burgess Hematocrit (Bld) [Volume fraction] 40.7 % Normal 36.0-48.0 [facility] Comment on above: Performed By: #### C BC #### [facility] [address] [place] [address] Dr. Nikita Burgess Hemoglobin (Bld) [Mass/Vol] 12.8 g/dL Normal 12.0-16.0 [facility] Comment on above: Performed By: #### C BC #### [facility] [address] [place] [address] Dr. Nikita Burgess IG # 0.01 10e3/ul Normal 0.00-0.03 [facility] Comment on above: Performed By: #### C BC #### [facility] [address] [place] [address] Dr. Nikita Burgess IG % 0.2 % Normal 0.0-0.5 [facility] Comment on above: Performed By: #### C BC #### [facility] [address] [place] [address] Dr. Nikita Burgess LYMPH # 1.6 103/ul Normal 1.2-3.8 [facility] Comment on above: Performed By: #### C BC #### [facility] [address] [place] [address] Dr. Nikita Burgess Lymphocytes/100 WBC (Bld) 29.5 % Normal 20.5-60.0 [facility] Comment on above: Performed By: #### C BC #### [facility] [address] [place] [address] Dr. Nikita Burgess MANUAL DIFF REQ NO Normal [facility] Comment on above: Performed By: #### C BC #### [facility] [address] [place] [address] Dr. Nikita Burgess MCH (RBC) [Entitic mass] 28.0 pg Normal 26.7-34.0 [facility] Comment on above: Performed By: #### C BC #### [facility] [address] [place] [address] Dr. Nikita Burgess MCHC (RBC) [Mass/Vol] 31.4 g/dL Normal 29.9-35.2 [facility] Comment on above: Performed By: #### C BC #### [facility] [address] [place] [address] Dr. Nikita Burgess MCV (RBC) [Entitic vol] 89.1 fL Normal 81.0-99.0 [facility] Comment on above: Performed By: #### C BC #### [facility] [address] [place] [address] Dr. Nikita Burgess MONO # 0.4 103/ul Normal 0.3-0.8 [facility] Comment on above: Performed By: #### C BC #### [facility] [address] [place] [address] Dr. Nikita Burgess Monocytes/100 WBC (Bld) 7.4 % Normal 1.7-12.0 [facility] Comment on above: Performed By: #### C BC #### [facility] [address] [place] [address] Dr. Nikita Burgess NEUT # 3.2 103/ul Normal 1.4-6.5 [facility] Comment on above: Performed By: #### C BC #### [facility] [address] [place] [address] Dr. Nikita Burgess Neutrophils/100 WBC (Bld) 60.8 % Normal 43.0-75.0 [facility] Comment on above: Performed By: #### C BC #### [facility] [address] [place] [address] Dr. Nikita Burgess Platelet mean volume (Bld) [Entitic vol] 10.1 fL Normal 9.5-13.5 [facility] Comment on above: Performed By: #### C BC #### [facility] [address] [place] [address] Dr. Nikita Burgess PLT 273 103/ul Normal 150-450 [facility] Comment on above: Performed By: #### C BC #### [facility] [address] [place] [address] Dr. Nikita Burgess RBC 4.57 106/ul Normal 4.20-5.40 [facility] Comment on above: Performed By: #### C BC #### [facility] [address] [place] [address] Dr. Nikita Burgess WBC 5.3 103/ul Normal 4.0-11.0 [facility] Comment on above: Performed By: #### C BC #### [facility] [address] [place] [address] Dr. Nikita Burgess FREE T3on 11-21-2021 FREE T3 2.69 pg/mlL Normal 2.18-3.98 [facility] Comment on above: Performed By: #### L IVER, BMP, LIPID, FT3, TSH #### [facility] [address] [place] [address] Dr. Nikita Burgess FREE T4on 11-21-2021 Free T4 [Mass/Vol] 0.98 ng/dL Normal 0.76-1.46 [facility] Comment on above: Performed By: #### F T4, VITAD #### [facility] [address] [place] [address] Dr. Nikita Burgess GLYCOHEMOGLOBIN A1Con 2021 ADA RECOMMENDATION SEE BELOW Normal [facility] Comment on above: Result Comment: ADA RECOMMENDED LIMIT 4.0 - 6.0 ADA THERAPEUTIC TARGET < 7.0 ACTION SUGGESTED > 7.0 Performed By: #### A 1C #### [facility] [address] [place] [address] Dr. Nikita Burgess Glucose [Mass/Vol] 111 mg/dL Normal [facility] Comment on above: Performed By: #### A 1C #### [facility] [address] [place] [address] Dr. Nikita Burgess HbA1c (Bld) [Mass fraction] 5.5 % Normal 4.5-6.2 [facility] Comment on above: Performed By: #### A 1C #### [facility] [address] [place] [address] Dr. Nikita Burgess LIPID PROFILEon 11-21-2021 CHOL-HDL RATIO NORM SEE BELOW Normal [facility] Comment on above: Result Comment: 3.3 - 4.4 LOW RISK 4.4 - 7.1 AVERAGE RISK 7.1 - 11.0 MODERATE RISK >11.0 HIGH RISK Performed By: #### L IVER, BMP, LIPID, FT3, TSH #### [facility] [address] [place] [address] Dr. Nikita Burgess Cholesterol [Mass/Vol] 193 mg/dL Normal <=200 [facility] Comment on above: Performed By: #### L IVER, BMP, LIPID, FT3, TSH #### [facility] [address] [place] [address] Dr. Nikita Burgess Cholesterol in HDL [Mass/Vol] 58 mg/dL Normal 40-60 [facility] Comment on above: Performed By: #### L IVER, BMP, LIPID, FT3, TSH #### [facility] [address] [place] [address] Dr. Nikita Burgess Cholesterol in LDL [Mass/Vol] 122.6 mg/dL Normal [facility] Comment on above: Performed By: #### L IVER, BMP, LIPID, FT3, TSH #### [facility] [address] [address] [address] Nikita Burgess Cholesterol.total/Ch olesterol in HDL [Mass ratio] 3.3 {ratio} Normal [facility] Comment on above: Performed By: #### L IVER, BMP, LIPID, FT3, TSH #### [facility] [address] [address] [address] Nikita Burgess HDL NORMAL > or = 60 mg/dl - LO W CARDIOVASCULAR RISK <40 mg/dl - HIGH CARDIOVASCULAR RISK Normal [facility] Comment on above: Performed By: #### L IVER, BMP, LIPID, FT3, TSH #### [facility] [address] [address] [address] Nikita Burgess LDL CALC NORMAL SEE BELOW Normal [facility] Comment on above: Result Comment: <100 mg/dl OPTIMAL 100 - 129 mg/dl NEAR OR ABOVE OPTIMAL 130 - 159 mg/dl BORDERLINE HIGH 160 - 189 mg/dl HIGH >190 mg/dl VERY HIGH Performed By: #### L IVER, BMP, LIPID, FT3, TSH #### [facility] [address] [address] [address] Nikita Burgess Triglyceride [Mass/Vol] 62 mg/dL Normal <=150 [facility] Comment on above: Performed By: #### L IVER, BMP, LIPID, FT3, TSH #### [facility] [address] [address] [address] Nikita Burgess VLDL CALC 12.4 mg/dL Normal [facility] Comment on above: Performed By: #### L IVER, BMP, LIPID, FT3, TSH #### [facility] [address] [address] [address] Nikita Burgess LIVER PROFILEon 11-21-2021 Albumin [Mass/Vol] 3.9 g/dL Normal 3.4-5.0 [facility] Comment on above: Performed By: #### L IVER, BMP, LIPID, FT3, TSH #### [facility] [address] [address] [address] Nikita Burgess Albumin/Globulin [Mass ratio] 1.0 {ratio} Normal [facility] Comment on above: Performed By: #### L IVER, BMP, LIPID, FT3, TSH #### [facility] [address] [place] [address] Dr. Nikita Burgess ALP [Catalytic activity/Vol] 68 U/L Normal 46-116 [facility] Comment on above: Performed By: #### L IVER, BMP, LIPID, FT3, TSH #### [facility] [address] [place] [address] Dr. Nikita Burgess ALT [Catalytic activity/Vol] 20 U/L Normal 14-59 [facility] Comment on above: Performed By: #### L IVER, BMP, LIPID, FT3, TSH #### [facility] [address] [place] [address] Dr. Nikita Burgess AST [Catalytic activity/Vol] 17 U/L Normal 15-37 [facility] Comment on above: Performed By: #### L IVER, BMP, LIPID, FT3, TSH #### [facility] [address] [place] [address] Dr. Nikita Burgess BILI, CONJUGATED 0.1 mg/dL Normal 0.0-0.2 [facility] Comment on above: Performed By: #### L IVER, BMP, LIPID, FT3, TSH #### [facility] [address] [place] [address] Dr. Nikita Burgess Bilirubin [Mass/Vol] 0.6 mg/dL Normal 0.2-1.0 [facility] Comment on above: Performed By: #### L IVER, BMP, LIPID, FT3, TSH #### [facility] [address] [place] [address] Dr. Nikita Burgess Globulin (S) [Mass/Vol] 3.9 g/dL Normal [facility] Comment on above: Performed By: #### L IVER, BMP, LIPID, FT3, TSH #### [facility] [address] [place] [address] Dr. Nikita Burgess Protein [Mass/Vol] 7.8 g/dL Normal 6.1-8.2 [facility] Comment on above: Performed By: #### L IVER, BMP, LIPID, FT3, TSH #### [facility] [address] [address] [address] Nikita Burgess PROF CHEM 8 (BAS METB)on Anion gap [Moles/Vol] 12.5 mmol/L Normal [facility] Comment on above: Performed By: #### L IVER, BMP, LIPID, FT3, TSH #### [facility] [address] [address] [address] Nikita Burgess Calcium [Mass/Vol] 8.2 mg/dL Critically low 8.5-10.1 [facility] e [facility] Comment on above: Performed By: #### L IVER, BMP, LIPID, FT3, TSH #### [facility] [address] [address] [address] Nikita Burgess Chloride [Moles/Vol] 102 mmol/L Normal 98-107 [facility] Comment on above: Performed By: #### L IVER, BMP, LIPID, FT3, TSH #### [facility] [address] [address] [address] Nikita Burgess CO2 [Moles/Vol] 26.3 mmol/L Normal 21.0-32.0 [facility] Comment on above: Performed By: #### L IVER, BMP, LIPID, FT3, TSH #### [facility] [address] [address] [address] Nikita Burgess Creatinine [Mass/Vol] 0.57 mg/dL Normal 0.55-1.02 [facility] Comment on above: Performed By: #### L IVER, BMP, LIPID, FT3, TSH #### [facility] [address] [address] [address] Nikita Burgess EGFR-AF UKRAINIAN >60 Normal >=60 [facility] Comment on above: Performed By: #### L IVER, BMP, LIPID, FT3, TSH #### [facility] [address] [address] [address] Nikita Burgess EGFR-NON AF UKRAINIAN >60 Normal >=60 [facility] Comment on above: Performed By: #### L IVER, BMP, LIPID, FT3, TSH #### [facility] [address] [address] [address] Nikita Burgess Glucose [Mass/Vol] 78 mg/dL Normal 74-106 [facility] Comment on above: Performed By: #### L IVER, BMP, LIPID, FT3, TSH #### [facility] [address] [address] [address] Nikita Burgess Potassium [Moles/Vol] 3.8 mmol/L Normal 3.5-5.1 [facility] Comment on above: Performed By: #### L IVER, BMP, LIPID, FT3, TSH #### [facility] [address] [place] [address] Dr. Nikita Burgess Sodium [Moles/Vol] 137 mmol/L Normal 136-145 [facility] Comment on above: Performed By: #### L IVER, BMP, LIPID, FT3, TSH #### [facility] [address] [place] [address] Dr. Nikita Burgess Urea nitrogen [Mass/Vol] 11.0 mg/dL Normal 7.0-18.0 [facility] Comment on above: Performed By: #### L IVER, BMP, LIPID, FT3, TSH #### [facility] [address] [place] [address] Dr. Nikita Burgess Urea nitrogen/Creatinine [Mass ratio] 19.3 mg/mg Normal [facility] Comment on above: Performed By: #### L IVER, BMP, LIPID, FT3, TSH #### [facility] [address] [place] [address] Dr. Nikita Burgess TSHon 11-21-2021 TSH 2.175 uIU/mL Normal 0.470-4.680 [facility] Comment on above: Performed By: #### L IVER, BMP, LIPID, FT3, TSH #### [facility] [address] [place] [address] Dr. Nikita Burgess TSH RANGE SEE BELOW Normal [facility] Comment on above: Result Comment: <0.3 4 UIU/ml HYPERTHYROID 0.34-5.60 UIU/ml EUTHYROID >5.60 UIU/ml HYPOTHYROID Performed By: #### L IVER, BMP, LIPID, FT3, TSH #### [facility] [address] [place] [address] Dr. Nikita Burgess VITAMIN D 25 OHon 11-21-2021 VIT D 25-OH 49.5 ng/mL Normal [facility] Comment on above: Performed By: #### F T4, VITAD #### [facility] [address] [address] [address] Nikita Burgess VIT D RANGES SEE BELOW Normal [facility] Comment on above: Result Comment: <20 ng/mL Vit D deficient 20 - <30 ng/mL Vit D insufficient 30 - 100 ng/mL Vit D sufficient >100 ng/mL Potential Toxicity Performed By: #### F T4, VITAD #### [facility] [address] [place] [address] Dr. Nikita Burgess [facility] SARS-CoV-2 (COVID-19) RNA TIERA+probe Ql (Unsp spec) Not detected Normal NOT DETECTED [facility] Comment on above: Result Comment: This test is not yet approved or cleared by the [place] FDA. When there are no FDA-approved or cleared tests available, and other criteria are met, FDA can make tests available under an emergency access mechanism called an Emergency Use Authorization (EUA). The EUA for this test is supported by the [place] of Health and Human Service's (HHS's) declaration [...] L IVER, BMP, LIPID, FT3, TSH #### [facility] [address] [address] [address] Nikita Burgess [place] 10-04-2020 Consent [id number]# 1.00CD:127 [facility] Registrationon 10-04-2020 Registration [id number]# 1.00CD:127 [facility] [place] Vital Signs Date Time Vital Sign Value Performing Clinician Faci lity 03-10-2025 10:38-0400 Body height 160 cm Moshe Montes MD Work Phone: [facility] 03-10-2025 10:38-0400 Body mass index (BMI) [Ratio] 30.65 kg/m2 Moshe Montes MD Work Phone: [facility] 03-10-2025 10:38-0400 Body temperature 96.6 [degF] Moshe Montes MD Work Phone: [facility] 03-10-2025 10:38-0400 Body weight 78.47 kg Moshe Montes MD Work Phone: [facility] 03-10-2025 10:38-0400 Diastolic blood pressure 64 mm[Hg] Moshe Montes MD Work Phone: [facility] 03-10-2025 10:38-0400 Heart rate 80 /min Moshe Montes MD Work Phone: [facility] 03-10-2025 10:38-0400 Respiratory rate 22 /min Moshe Montes MD Work Phone: [facility] 03-10-2025 10:38-0400 SaO2% (BldA) [Mass fraction] 99 % Moshe Montes MD Work Phone: [facility] 03-10-2025 10:38-0400 Systolic blood pressure 106 mm[Hg] Moshe Montes MD Work Phone: [facility] 09-08-2024 10:33-0500 Body height 160 cm Moshe Montes MD Work Phone: [facility] 09-08-2024 10:33-0500 Body mass index (BMI) [Ratio] 30.29 kg/m2 Moshe Montes MD Work Phone: [facility] 09-08-2024 10:33-0500 Body temperature 97.81 [degF] Moshe Montes MD Work Phone: [facility] 09-08-2024 10:33-0500 Body weight 77.56 kg Moshe Montes MD Work Phone: [facility] 09-08-2024 10:33-0500 Diastolic blood pressure 70 mm[Hg] Moshe Montes MD Work Phone: [facility] 09-08-2024 10:33-0500 Heart rate 81 /min Moshe Montes MD Work Phone: [facility] 09-08-2024 10:33-0500 Respiratory rate 22 /min Moshe Montes MD Work Phone: [facility] 09-08-2024 10:33-0500 SaO2% (BldA) [Mass fraction] 99 % Moshe Montes MD Work Phone: [facility] 09-08-2024 10:33-0500 Systolic blood pressure 110 mm[Hg] Moshe Montes MD Work Phone: [facility] 09-01-2023 10:18-0500 Body mass index (BMI) [Ratio] 29.94 kg/m2 Tyrone Benoit DO Work Phone: [facility] 09-01-2023 10:18-0500 Body weight 76.66 kg Tyrone Benoit DO Work Phone: [facility] 09-01-2023 10:18-0500 Diastolic blood pressure 72 mm[Hg] Tyrone Benoit DO Work Phone: [facility] 09-01-2023 10:18-0500 Systolic blood pressure 118 mm[Hg] Tyrone Benoit DO Work Phone: [facility] Encounters Encounter Date Encounter Type Care Provider Facility Start: 03-14-2025 End: 03-14-2025 Refill Moshe Montes MD Work Phone: [facility] Comment on above: Attention deficit di sorder (ADD) without hyperactivity; Menorrhagia with regular cycle; Pelvic pain in female Start: 03-10-2025 End: 03-10-2025 Bamboo flowsheet Moshe Montes MD Work Phone: [facility] Start: 03-10-2025 End: 03-10-2025 Bamboo flowsheet Moshe Montes MD Work Phone: [facility] Start: 03-10-2025 End: 03-10-2025 Clinisync Result Encounter Moshe Montes MD Work Phone: [facility] External Department Unsolicited Start: 03-10-2025 End: 03-10-2025 ambulatory MOSHE MONTES Not Available Start: 03-10-2025 End: 03-10-2025 Office outpatient visit 25 minutes Moshe Montes MD Work Phone: [facility] Comment on above: ADD (attention defic it 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 (Primary Dx); Bipolar 1 disorder, depressed, mild (HCC); Acne vulgaris; Lipoma of torso; Abnormal TSH; Annual physical exam Start: 03-10-2025 End: 03-10-2025 Patient encounter procedure Moshe Montes MD Work Phone: [facility] Start: 02-14-2025 End: 02-14-2025 Refill Moshe Montes MD Work Phone: [facility] Comment on above: Attention deficit di sorder (ADD) without hyperactivity Start: 01-10-2025 End: 01-10-2025 Refill Moshe Montes MD Work Phone: [facility] Comment on above: Attention deficit di sorder (ADD) without hyperactivity Start: 12-13-2024 End: 12-14-2024 Refill Moshe Montes MD Work Phone: [facility] Comment on above: Attention deficit di sorder (ADD) without hyperactivity Start: 10-28-2024 End: 11-11-2024 Refill Moshe Montes MD Work Phone: [facility] Comment on above: Seasonal allergic rh initis due to pollen; Attention deficit disorder (ADD) without hyperactivity Start: 10-06-2024 End: 10-06-2024 Orders Only Moshe Montes MD Work Phone: [facility] Comment on above: Seasonal allergic rh initis due to pollen (Primary Dx) Start: 09-16-2024 End: 09-16-2024 Refill Moshe Montes MD Work Phone: [facility] Comment on above: Attention deficit di sorder (ADD) without hyperactivity Start: 09-08-2024 End: 09-08-2024 Bamboo flowsheet Moshe Montes MD Work Phone: [facility] Start: 09-08-2024 End: 09-08-2024 Bamboo flowsheet Moshe Montes MD Work Phone: [facility] Start: 09-08-2024 End: 09-08-2024 Office outpatient visit 25 minutes Moshe Montes MD Work Phone: [facility] Comment on above: ADD (attention defic it 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 (Primary Dx); Intermittent claudication (CMS/HCC); Bipolar 1 disorder, depressed, mild (CMS/HCC); PCOS (polycystic ovarian syndrome) Start: 09-08-2024 End: 09-08-2024 ambulatory MOSHE MONTES Not Available Start: 08-12-2024 End: 08-12-2024 Orders Only Moshe Montes MD Work Phone: [facility] Comment on above: Attention deficit di sorder (ADD) without hyperactivity Start: 07-15-2024 End: 07-15-2024 Refill Moshe Montes MD Work Phone: [facility] Comment on above: Attention deficit di sorder (ADD) without hyperactivity Start: 06-21-2024 End: 06-21-2024 Refill Moshe Montes MD Work Phone: [facility] Comment on above: Attention deficit di sorder (ADD) without hyperactivity Start: 05-24-2024 End: 05-24-2024 Telephone encounter Moshe Montes MD Work Phone: [facility] Comment on above: Med Refill Start: 04-26-2024 End: 04-26-2024 Refill Moshe Montes MD Work Phone: [facility] [...] Montes MD Work Phone: [facility] Start: 09-26-2023 End: 09-26-2023 ambulatory [facility] Facility:[facility] Start: 09-02-2023 Orders Only Moshe Rico Work [...] preventive med est patient 18-39 yrs Tyrone Laboy DO Work Phone: [facility] Comment on above: Well woman exam with routine gynecological exam; Preop examination; Pelvic pain in female; Pelvic congestion syndrome Start: 09-01-2023 End: 09-01-2023 Preprocedural examination done Tyrone Laboy DO Work Phone: [facility] Start: 07-04-2022 End: 07-04-[address] MOSHE MONTES Facility:[facility] Start: 05-12-2022 End: 05-12-[address] MOSHE MONTES Facility:[facility] Start: 11-22-2021 Encounter for genera l adult medical examination without abnormal findings DR MOSHE MONTES [facility] Start: 11-21-2021 End: 11-22-[address] MOSHE MONTES Facility:[facility] Start: 11-21-2021 End: 11-22-2021 Encounter for general adult medical examination without abnormal findings DR MOSHE MONTES Facility:[facility] Start: 07-31-2021 End: 07-31-[address] MOSHE MONTES Facility:[facility] Start: 07-10-2021 End: 07-10-[address] MOSHE MONTES Facility:[facility] Procedures Date Procedure Procedure Detail Performing Clinician Start: 03-10-2025 ALL CBC WITH AUTO DIFF Moshe Montes MD Work Phone: Start: 03-24-2024 ALL CBC WITH AUTO DIFF Moshe Montes MD Work Phone: Start: 09-01-2023 IGP,APTIMA HPV,AGE GDLN Tyrone Chavezo DO Work Phone: Start: 09-01-2023 Microscopic observat ion [Identifier] in Cervix by Cyto stain Moshe Montes MD Work Phone: Plan of Treatment Date Care Activity Detail Author Start: 09-01-2028 Screening for malign ant neoplasm of cervix [facility] Start: 09-12-2025 End: 09-12-2025 Patient encounter procedure 09/12/2025 9:45 AM EST Office Visit [facility] [address] [place] [address] Moshe Montes MD [address] [place] [id number] [facility] Start: 03-28-2025 Influenza vaccination N [facility] Start: 03-10-2025 End: 03-10-2026 Basic metabolic 1998 panel - Serum or Plasma Basic metabolic panel Lab Routine Annual physical exam Expected: 03/10/2025 (Approximate), Expires: 03/10/2026 [facility] Comment on above: Expected: 03/10/2025 (Approximate), Expires: 03/10/2026 Start: 03-10-2025 End: 03-10-2026 CBC W Auto Differential panel - Blood CBC and differential Lab Routine Annual physical exam Expected: 03/10/2025 (Approximate), Expires: 03/10/2026 [facility] Comment on above: Expected: 03/10/2025 (Approximate), Expires: 03/10/2026 Start: 03-10-2025 End: 03-10-2026 Hemoglobin A1c/Hemoglobin.total in Blood Hemoglobin A1c Lab Routine Annual physical exam Expected: 03/10/2025 (Approximate), Expires: 03/10/2026 [facility] Work Phone: Comment on above: Expected: 03/10/2025 (Approximate), Expires: 03/10/2026 Start: 03-10-2025 End: 03-10-2026 Hepatic function 2000 panel - Serum or Plasma Hepatic function panel Lab Routine Annual physical exam Expected: 03/10/2025 (Approximate), Expires: 03/10/2026 [facility] Comment on above: Expected: 03/10/2025 (Approximate), Expires: 03/10/2026 Start: 03-10-2025 End: 03-10-2026 Iron and Iron binding capacity panel - Serum or Plasma Iron and TIBC Lab Routine Annual physical exam Expected: 03/10/2025 (Approximate), Expires: 03/10/2026 [facility] Comment on above: Expected: 03/10/2025 (Approximate), Expires: 03/10/2026 Start: 03-10-2025 End: 03-10-2026 Lipid 1996 panel - Serum or Plasma Lipid panel Lab Routine Annual physical exam Expected: 03/10/2025 (Approximate), Expires: 03/10/2026 [facility] Comment on above: Expected: 03/10/2025 (Approximate), Expires: 03/10/2026 Start: 03-10-2025 End: 03-10-2026 Thyrotropin [Units/volume] in Serum or Plasma TSH Lab Routine Annual physical exam Expected: 03/10/2025 (Approximate), Expires: 03/10/2026 [facility] Comment on above: Expected: 03/10/2025 (Approximate), Expires: 03/10/2026 Start: 03-10-2025 End: 03-10-2026 Thyroxine (T4) free [Mass/volume] in Serum or Plasma T4, free Lab Routine Abnormal TSH Expected: 03/10/2025 (Approximate), Expires: 03/10/2026 [facility] Comment on above: Expected: 03/10/2025 (Approximate), Expires: 03/10/2026 Start: 03-10-2025 End: 03-10-2025 Patient encounter procedure 03/10/2025 10:30 AM EDT Office Visit [facility] [address] [place] [address] Moshe Montes MD [address] [place] [address] [facility] Start: 09-08-2024 End: 09-08-2025 US.doppler Extremity arteries - bilateral for physiologic artery study at rest and with exercise VASC US PVR/SEGMENTAL PRESSURES LOWER Imaging Routine Intermittent claudication (CMS/HCC) Expected: 09/08/2024, Expires: 09/08/2025 [facility] Work Phone: Comment on above: Expected: 09/08/2024 , Expires: 09/08/2025 Start: 09-08-2024 End: 09-08-2024 Patient encounter procedure [facility] Comment on above: Arrived Start: 03-28-2024 Influenza vaccination Influenza Vacc ine (#1) [facility] Start: 03-08-2024 End: 03-08-2024 Patient encounter procedure 03/08/2024 10:00 AM EDT Office Visit [facility] [address] [place] [address] Moshe Montes MD [address] [place] [phone] [facility] Start: 09-02-2023 End: 09-02-2023 Patient encounter procedure 09/02/2023 2:30 PM EST Office Visit [facility] [address] [place] [address] Moshe Montes MD [address] [place] [phone] [facility] Start: 09-02-2023 Chart abstracting 09/02/2023 A bstract [facility] [address] [place] [address] Moshe Montes MD [address] [place] [phone] [facility] Start: 03-28-2023 Influenza vaccination Influenza Vacc ine (#1) [facility] Start: 2016 Screening for malign ant neoplasm of cervix [facility] Start: 2007 Screening for malign ant neoplasm of cervix Pap Smear [facility] Cytology Cervical or vaginal smear or scraping study Pap Smear Pathology and Cytology Routine Well woman exam with routine gynecological exam Ordered: 09/01/2023 [facility] Work Phone: Comment on above: Ordered: 09/01/2023 Human papilloma viru s DNA [Presence] in Unspecified specimen by Probe with amplification HPV DNA probe, amplified Microbiology Routine Well woman exam with routine gynecological exam Ordered: 09/01/2023 [facility] Comment on above: Ordered: 09/01/2023 Payers Date Payer Category Payer Self-pay 2020 Medicaid [employer] [place] [employer] [id number] 2020-Present [address] [place] [address] [id number] 2020 Medicaid (Managed Care) [facility] MEDICAID [id number] 1986 Unknown [id number] 593 1986 Unknown [id number] 593 1986 Unknown [id number] 593 1986 Unknown [id number] 593 1986 Unknown [id number] 593 1986 Unknown [id number] 1259 1986 Unknown [id number] 1259 1959 Unknown [id number] Unknown [id number] 531 Social History Date Type Detail Facility Start: 08-25-2023 End: 09-02-2023 Tobacco smoking status NHIS Smokes tobacco daily [facility] History of tobacco use Cigarette Smoker [facility] Start: 09-01-2023 End: 03-10-2025 [facility] Start: 09-01-2023 End: 03-10-2025 Tobacco use panel [facility] Start: 1986 [...] to any clubs or organizations such as yazidi groups, unions, fraternal or athletic groups, or [...] to General Surgery documented in this encounter [facility] 11-11-2024 Telephone encount er Note [facility] 11-11-2024 Miscellaneous Notes Formattin g of this note might be different from the original. MEDICATION SENT TO [facility] documented in this encounter [facility] 10-28-2024 Telephone encount er Note MEDICATION SENT TO [facility] 09-08-2024 History of Presen t illness Narrative Associated Problem(s): PCOS (polycystic ovarian syndrome) Follow with sidewalk repairer. Associated Problem(s): Intermittent claudication (CMS/HCC) Pain with [...] monitor. PCOS (polycystic ovarian syndrome) Follow with sidewalk repairer. Intermittent claudication (CMS/HCC) Pain with ambulation and check segmental pressure. Relevant Orders VASC US PVR/SEGMENTAL PRESSURES LOWER documented in this encounter [facility] 05-24-2024 Telephone encount er Note Sent [facility] 05-24-2024 Miscellaneous Notes Formattin g of this note might be different from the original. Sent documented in this encounter [facility] 03-30-2024 Telephone encount er Note Patient called and stated [facility] is out of her adderall. Would like it sent to [facility] in [place]. an [facility] 03-30-2024 Miscellaneous Notes Formattin g of this note might be different from the original. Patient called and stated [facility] is out of her adderall. Would like it sent to [facility]. an documented in this encounter [facility] 09-01-2023 History of Presen t illness Narrative Reason for Appointment: Patient ID: Benny Wynne is a 38 y.o. female who presents for Well Women Visit and Pre-op Visit Patient presents today for a Annual/Pre Op appointment. Patient is scheduled to undergo Diagnostic Laparoscopy, possible TJ, possible FOE, possible BSO on 09/26/[address] Laboy at [facility]. Current Medications: has a current medication [...] nursing note reviewed. Exam conducted with a earrings fabricator present. Vitals: Estimated body mass index is [...] reviewed, and patient is to proceed to [facility] OR. Follow Up: Patient is to [...] Primary [facility] ADD (attention deficit disorder) without [...] Primary Routine general [facility] ADD (attention deficit disorder) without [...] health care facility documented in this encounter [facility] HealthcareEvaluation note* Diagnosis ADD (attention deficit disorder) [...] medical examination at a health care facility Attention deficit disorder (ADD) without hyperactivity Menorrhagia with regular cycle Pelvic pain in female Unspecified symptom associated with female genital organs documented in this encounter [facility] Healthcare Summary Purpose Family History No Family History Records FoundNo Family History Records FoundNo Family History Records FoundNo Family History Records Found Advance Directives No Advanced Directives Records FoundNo Advanced Directives Records FoundNo Advanced Directives Records FoundNo Advanced Directives Records Found Reason for Referral Specialty Diagnoses / Procedures Referred By Tiburcio oakes Referred To Contact Diagnoses Attention deficit disorder (ADD) without hyperactivity Moshe Montes MD [address] [place] [address] Referral ID Status Reason Start Date Expiration Date Visits Re quested Visits Authorized [id number] Closed 1 1 Referral ID Status Reason Start Date Expiration Date V isits Requested Visits Authorized [id number] Pending Review 03/30/2024 09/26/2024 1 1 Referral ID Status Reason Start Date Expiration Date V isits Requested Visits Authorized [id number] Pending Review 04/26/2024 10/23/2024 1 1 Additional Source Comments INFORMATION SOURCE (unrecogn ized section and content) DATE CREATED AUTHOR 10/05/2020 [facility] DATE CREATED AUTHOR AUTHOR'S ORGANIZ ATION 07/08/2022 [facility] DATE CREATED AUTHOR AUTHOR'S ORGANIZ ATION 09/30/2023 [facility] DATE CREATED AUTHOR AUTHOR'S ORGANIZ ATION 03/12/2025 [facility] EPIC Reason for Visit [...] Comments Med Refill 02/14/2025 Reason Comments Follow-up 6m Reason Onset Date Comments Med Refill 03/14/2025 Care Teams (unrecognized sec tion and content) Manager Credit Collections Relationship Specialty Start Date End Date Moshe Montes MD [address] [place] [phone] PCP - General Family Medicine 08/25/23 Manager Credit Collections Relationship Specialty Start Date End Date Moshe Montes MD [address] [place] [address] PCP - General Family Medicine 08/25/23 Manager Credit Collections Relationship Specialty Start Date End Date Moshe Montes MD [address] [place] [address] PCP - [facility] 08/25/23 Manager Credit Collections Relationship Specialty Start Date End Date Moshe Montes MD [address] [place] [phone] [facility] 08/25/23 Moshe Montes MD [address] [place] [address] [facility] 01/26/24 Manager Credit Collections Relationship Specialty Start Date End Date Moshe Montes MD [address] [place] [address] [facility] 08/25/23 Moshe Montes MD [address] [place] [address] [facility] 01/26/24 Manager Credit Collections Relationship Specialty Start Date End Date Moshe Montes MD [address] [place] [address] [facility] 08/25/23 Moshe Montes MD [address] [place] [address] [facility] 01/26/24 Manager Credit Collections Relationship Specialty Start Date End Date Moshe Montes MD [address] [place] [address] PCP - [facility] 08/25/23 Moshe Montes MD [address] [place] [address] [facility] 01/26/24 Manager Credit Collections Relationship Specialty Start Date End Date Moshe Montes MD [address] [place] [address] PCP [facility] 08/25/23 Moshe Montes MD [address] [place] [address] [facility] 01/26/24 Manager Credit Collections Relationship Specialty Start Date End Date Moshe Montes MD [address] [place] [address] PCP [facility] 08/25/23 Moshe Montes MD [address] [place] [address] [facility] 01/26/24 Manager Credit Collections Relationship Specialty Start Date End Date Moshe Montes MD [address] [place] [address] [facility] 08/25/23 Moshe Montes MD [address] [place] [address] [facility] 01/26/24 Manager Credit Collections Relationship Specialty Start Date End Date Moshe Montes MD [address] [place] [address] PCP - [facility] 08/25/23 Moshe Montes MD [address] [place] [address] [facility] 01/26/24 Manager Credit Collections Relationship Specialty Start Date End Date Moshe Montes MD [address] [place] [address] [facility] 08/25/23 Moshe Montes MD [address] [place] [address] [facility] 01/26/24 Manager Credit Collections Relationship Specialty Start Date End Date Moshe Montes MD [address] [place] [address] [facility] 08/25/23 Moshe Montes MD [address] [place] [address] [facility] 01/26/24 Manager Credit Collections Relationship Specialty Start Date End Date Moshe Montes MD [address] [place] [address] [facility] 08/25/23 Moshe Montes MD [address] [place] [address] [facility] 01/26/24 Manager Credit Collections Relationship Specialty Start Date End Date Moshe Montes MD [address] [place] [phone] PCP - [facility] 08/25/23 Moshe Montes MD [address] [place] [address] [facility] 01/26/24 Manager Credit Collections Relationship Specialty Start Date End Date Moshe Montes MD [address] [place] [address] [facility] 08/25/23 Moshe Montes MD [address] [place] [address] [facility] 01/26/24 Manager Credit Collections Relationship Specialty Start Date End Date Moshe Montes MD [address] [place] [address] PCP [facility] 08/25/23 Moshe Montes MD [address] [place] [address] [facility] 01/26/24 Manager Credit Collections Relationship Specialty Start Date End Date Moshe Montes MD [address] [place] [address] [facility] 08/25/23 Moshe Montes MD [address] [place] [address] [facility] 01/26/24 FOR RECORDS PERTAINING TO PATIENTS WHO [...] BE BASED ON THE PRIMARY CLINICAL RECORDS. [facility] [employer] [facility]. provides no warranty or guarantee of the accuracy or completeness of information in this document.
== END 2025-03-22 12:01 | disposition home or self-care (01) ==
LOC: CARD 12:00
PROVIDERS: PCP Family Medicine; Visit Provider Family Medicine
DX: I73.9 Peripheral vascular disease, unspecified (principal)
CPT/HCPCS: 93924